=== PATIENT | male | born 1970 | race Caucasian/White ===

== ENCOUNTER 2019-08-31 13:44 | Inpatient (IN) ==
[2019-08-31] MEDS ORDERED: Naloxone 0.4 MG/ML INJ IVP PRN (15:52)
[2019-08-31] MEDS ORDERED: Aminoglycoside Consult 1 EACH MC ONE (15:54)
[2019-08-31 16:28] LABS: Basophils # 0.1 K/mcL (0.0-0.2); Eosinophils # 0.1 K/mcL (0.0-0.6); Eosinophils % 1.7 %; Hematocrit 34.9 % (37.5-50.1); Hemoglobin 10.4 g/dL (12.9-16.9); Immature Granulocytes % 0.2 % (0-4); Lymphocytes # 1.9 K/mcL (0.6-4.6); Lymphocytes % 32.5 %; Mean Corpuscular HGB Conc 29.8 g/dL (31.6-35.5); Mean Corpuscular Hemoglobin 27.2 pg (28.0-33.3); Mean Corpuscular Volume 91.1 fL (83.0-100.0); Mean Platelet Volume 9.6 fL (9.4-12.4); Monocytes # 0.3 K/mcL (0.0-1.3); Monocytes % 5.3 %; Neutrophils # 3.4 K/mcL (1.6-8.9); Platelet Count 309 K/mcL (140-400); Red Blood Count 3.83 M/mcL (4.19-5.50); Red Cell Distribution Width 15.5 % (11.5-14.5); Segmented Neutrophils % 59.3 %; White Blood Count 5.8 K/mcL (4.3-11.1)
[2019-08-31 16:46] LABS: BUN/Creatinine Ratio 19 (6-26); Blood Urea Nitrogen 14 mg/dL (6-20); C-Reactive Protein 15 mg/L (Less than 10); Carbon Dioxide 30 mEq/L (23-29); Chloride 103 mEq/L (98-107); Glucose 90 mg/dL (70-105); Magnesium 1.8 mg/dL (1.6-2.6); Osmolality,Calculated 284 (280-300); Phosphorous 2.9 mg/dL (2.7-4.5); Potassium 3.7 mEq/L (3.5-5.1); Sodium 137 mEq/L (136-145); eGFR For African Americans > 60 (> 60); eGFR For Non-African Americans > 60 (> 60)
[2019-08-31 16:47] LABS: INR 4.9; Prothrombin Time 55.7 Seconds (9.4-12.1)
[2019-08-31] MEDS ORDERED: *HR* OxyCODONE/APAP 5/325 TABLET PO PRN (16:54)
[2019-08-31] MEDS ORDERED: Gadolinium Contrast Agent (WT Based) IV PRN (16:56)
[2019-08-31] MEDS ORDERED: 0.9 % Sodium Chloride 1,000 ML IVC SCH (17:00)
[2019-08-31] MEDS: *HR* OxyCODONE/APAP 7.5/325 TABLET PO PRN (20:17)
[2019-08-31] MEDS: Pregabalin 75 MG CAPSULE PO SCH (20:17)
[2019-08-31] MEDS ORDERED: MethylPREDNISolone 40 MG/ML VIAL IVP ONE (21:53)
[2019-08-31] MEDS ORDERED: Famotidine 20 MG/2 ML VIAL IVP ONE (21:56)
[2019-09-01 06:27] LABS: INR 4.2
[2019-09-01 06:40] LABS: Basophils % 0.4 %; Eosinophils % 0.2 %; Hematocrit 37.1 % (37.5-50.1); Hemoglobin 11.4 g/dL (12.9-16.9); Immature Granulocytes % 0.4 % (0-4); Lymphocytes # 0.9 K/mcL (0.6-4.6); Lymphocytes % 15.7 %; Mean Corpuscular HGB Conc 30.7 g/dL (31.6-35.5); Mean Corpuscular Hemoglobin 27.7 pg (28.0-33.3); Mean Corpuscular Volume 90.3 fL (83.0-100.0); Mean Platelet Volume 9.9 fL (9.4-12.4); Monocytes # 0.1 K/mcL (0.0-1.3); Monocytes % 0.9 %; Neutrophils # 4.6 K/mcL (1.6-8.9); Platelet Count 323 K/mcL (140-400); Red Blood Count 4.11 M/mcL (4.19-5.50); Red Cell Distribution Width 15.4 % (11.5-14.5); Segmented Neutrophils % 82.4 %; White Blood Count 5.5 K/mcL (4.3-11.1)
[2019-09-01 06:41] LABS: BUN/Creatinine Ratio 22 (6-26); Blood Urea Nitrogen 17 mg/dL (6-20); Carbon Dioxide 25 mEq/L (23-29); Chloride 104 mEq/L (98-107); Glucose 129 mg/dL (70-105); Magnesium 1.7 mg/dL (1.6-2.6); Osmolality,Calculated 285 (280-300); Phosphorous 3.1 mg/dL (2.7-4.5); Sodium 136 mEq/L (136-145); eGFR For African Americans > 60 (> 60); eGFR For Non-African Americans > 60 (> 60)
[2019-09-01 06:44] LABS: Prothrombin Time 47.3 Seconds (9.4-12.1)
[2019-09-01] MEDS: Pregabalin 75 MG CAPSULE PO SCH ×3 (07:47→23:11)
[2019-09-01] MEDS: *HR* OxyCODONE/APAP 7.5/325 TABLET PO PRN ×3 (07:48→23:11)
[2019-09-01] MEDS ORDERED: D5% in Water 1,000 ML IVC PRN (11:18)
[2019-09-01] MEDS ORDERED: Dextrose Gel 15 GM/37.5 ML TUBE PO PRN ×2 (11:18)
[2019-09-01] MEDS ORDERED: *HR* Dextrose 50 % in Water (Syg) 50 ML SYRINGE IVP PRN (11:18)
[2019-09-01] MEDS ORDERED: D10% in Water 500 ML IVC PRN (11:45)
[2019-09-01] MEDS: Insulin LISPRO 300 UNITS/3 ML VIAL SQ SCH ×3 (12:12→22:09)
[2019-09-01] MEDS ORDERED: Clinimix E 5%-15% SOLUTION 2,000 ML with MVI, adult with vitamin K 10 ML IVC SCH (17:00)
[2019-09-02] MEDS: Insulin LISPRO 300 UNITS/3 ML VIAL SQ SCH ×6 (04:36→20:42)
[2019-09-02 05:08] LABS: INR 2.9; Prothrombin Time 32.6 Seconds (9.4-12.1)
[2019-09-02 05:20] LABS: BUN/Creatinine Ratio 26 (6-26); Blood Urea Nitrogen 21 mg/dL (6-20); Carbon Dioxide 30 mEq/L (23-29); Chloride 98 mEq/L (98-107); Glucose 113 mg/dL (70-105); Magnesium 1.8 mg/dL (1.6-2.6); Osmolality,Calculated 284 (280-300); Phosphorous 3.6 mg/dL (2.7-4.5); Potassium 3.4 mEq/L (3.5-5.1); Sodium 135 mEq/L (136-145); eGFR For African Americans > 60 (> 60); eGFR For Non-African Americans > 60 (> 60)
[2019-09-02] MEDS: Pregabalin 75 MG CAPSULE PO SCH ×3 (09:25→20:31)
[2019-09-02] MEDS: *HR* OxyCODONE/APAP 7.5/325 TABLET PO PRN ×2 (09:25→17:44)
[2019-09-02] MEDS ORDERED: Potassium Chloride 20 MEQ, Lidocaine 1% 2 ML in 0.9 % Sodium Chloride 250 ML IVPB ONE (09:47)
[2019-09-02] MEDS ORDERED: Clinimix E 5%-15% SOLUTION 2,000 ML with MVI, adult with vitamin K 10 ML IVC SCH (17:00)
[2019-09-03] MEDS: Insulin LISPRO 300 UNITS/3 ML VIAL SQ SCH ×6 (00:33→20:00)
[2019-09-03 05:13] LABS: Basophils % 0.6 %; Eosinophils # 0.2 K/mcL (0.0-0.6); Eosinophils % 2.2 %; Hemoglobin 12.1 g/dL (12.9-16.9); Immature Granulocytes % 0.3 % (0-4); Lymphocytes # 2.5 K/mcL (0.6-4.6); Lymphocytes % 37.4 %; Mean Corpuscular HGB Conc 31.8 g/dL (31.6-35.5); Mean Corpuscular Hemoglobin 28.3 pg (28.0-33.3); Mean Corpuscular Volume 88.8 fL (83.0-100.0); Mean Platelet Volume 9.6 fL (9.4-12.4); Monocytes # 0.4 K/mcL (0.0-1.3); Monocytes % 6.2 %; Neutrophils # 3.6 K/mcL (1.6-8.9); Platelet Count 339 K/mcL (140-400); Red Blood Count 4.28 M/mcL (4.19-5.50); Red Cell Distribution Width 15.3 % (11.5-14.5); Segmented Neutrophils % 53.3 %; White Blood Count 6.8 K/mcL (4.3-11.1)
[2019-09-03 05:28] LABS: BUN/Creatinine Ratio 30 (6-26); Blood Urea Nitrogen 25 mg/dL (6-20); Calcium 9.4 mg/dL (8.6-10.3); Carbon Dioxide 32 mEq/L (23-29); Chloride 94 mEq/L (98-107); Glucose 112 mg/dL (70-105); Magnesium 1.8 mg/dL (1.6-2.6); Osmolality,Calculated 283 (280-300); Phosphorous 3.9 mg/dL (2.7-4.5); Potassium 3.3 mEq/L (3.5-5.1); Sodium 134 mEq/L (136-145); eGFR For African Americans > 60 (> 60); eGFR For Non-African Americans > 60 (> 60)
[2019-09-03 06:40] LABS: INR 1.4; Prothrombin Time 15.9 Seconds (9.4-12.1)
[2019-09-03] MEDS ORDERED: Potassium Chloride 20 MEQ, Lidocaine 1% 2 ML in 0.9 % Sodium Chloride 250 ML IVPB ONE (08:44)
[2019-09-03] MEDS: *HR* OxyCODONE/APAP 7.5/325 TABLET PO PRN ×3 (09:12→19:56)
[2019-09-03] MEDS: Pregabalin 75 MG CAPSULE PO SCH ×3 (09:12→19:56)
[2019-09-03] MEDS: *HR* Enoxaparin 60 MG/0.6 ML SYRINGE SQ SCH ×2 (09:49→16:45)
[2019-09-03] MEDS ORDERED: *HR* OxyCODONE/APAP 5/325 TABLET PO PRN (14:16)
[2019-09-03] MEDS ORDERED: Clinimix E 5%-15% SOLUTION 2,000 ML with MVI, adult with vitamin K 10 ML IVC SCH (17:00)
[2019-09-04] MEDS: Insulin LISPRO 300 UNITS/3 ML VIAL SQ SCH ×6 (00:44→20:48)
[2019-09-04] MEDS: *HR* OxyCODONE/APAP 7.5/325 TABLET PO PRN ×4 (04:59→20:52)
[2019-09-04] MEDS: *HR* Enoxaparin 60 MG/0.6 ML SYRINGE SQ SCH (04:59)
[2019-09-04 05:22] LABS: INR 1.2; Prothrombin Time 13.2 Seconds (9.4-12.1)
[2019-09-04 05:37] LABS: BUN/Creatinine Ratio 29 (6-26); Blood Urea Nitrogen 22 mg/dL (6-20); Calcium 9.6 mg/dL (8.6-10.3); Carbon Dioxide 33 mEq/L (23-29); Chloride 93 mEq/L (98-107); Glucose 96 mg/dL (70-105); Osmolality,Calculated 279 (280-300); Potassium 3.4 mEq/L (3.5-5.1); Sodium 133 mEq/L (136-145); eGFR For African Americans > 60 (> 60); eGFR For Non-African Americans > 60 (> 60)
[2019-09-04] MEDS ORDERED: Potassium Chloride 40 MEQ, Lidocaine 1% 2 ML in 0.9 % Sodium Chloride 500 ML IVPB ONE (07:34)
[2019-09-04] MEDS: Pregabalin 75 MG CAPSULE PO SCH ×3 (08:54→20:51)
[2019-09-04] MEDS ORDERED: Potassium Chloride 20 MEQ, Lidocaine 1% 2 ML in 0.9 % Sodium Chloride 250 ML IVPB ONE (10:00)
[2019-09-04] MEDS ORDERED: Clinimix E 5%-15% SOLUTION 2,000 ML, Parenteral Amino Acid 10% 200 ML with MVI, adult ... IVC SCH (17:00)
[2019-09-04] MEDS ORDERED: *HR* Enoxaparin 60 MG/0.6 ML SYRINGE SQ ONE (18:00)
[2019-09-05] MEDS: Insulin LISPRO 300 UNITS/3 ML VIAL SQ SCH ×7 (00:30→20:00)
[2019-09-05] MEDS: *HR* OxyCODONE/APAP 7.5/325 TABLET PO PRN ×4 (04:43→22:36)
[2019-09-05 05:29] LABS: INR 1.1; Prothrombin Time 12.7 Seconds (9.4-12.1)
[2019-09-05 05:41] LABS: BUN/Creatinine Ratio 32 (6-26); Blood Urea Nitrogen 24 mg/dL (6-20); Calcium 9.7 mg/dL (8.6-10.3); Carbon Dioxide 32 mEq/L (23-29); Chloride 93 mEq/L (98-107); Glucose 85 mg/dL (70-105); Magnesium 1.8 mg/dL (1.6-2.6); Osmolality,Calculated 279 (280-300); Phosphorous 3.8 mg/dL (2.7-4.5); Potassium 3.5 mEq/L (3.5-5.1); Sodium 133 mEq/L (136-145); eGFR For African Americans > 60 (> 60); eGFR For Non-African Americans > 60 (> 60)
[2019-09-05] MEDS: Pregabalin 75 MG CAPSULE PO SCH ×3 (09:22→22:36)
[2019-09-05] MEDS ORDERED: Vancomycin (wt based) 1,000 MG VIAL IVPB SCH (15:28)
[2019-09-05] MEDS ORDERED: Clinimix E 5%-15% SOLUTION 2,000 ML, Parenteral Amino Acid 10% 200 ML with MVI, adult ... IVC SCH (17:00)
[2019-09-05] MEDS: Cefepime HCl 2,000 MG in Water for inj. (sterile) 20 ML IVP SCH (17:27)
[2019-09-06] MEDS: Insulin LISPRO 300 UNITS/3 ML VIAL SQ SCH ×5 (05:14→20:04)
[2019-09-06] MEDS: Cefepime HCl 2,000 MG in Water for inj. (sterile) 20 ML IVP SCH ×2 (06:13→18:01)
[2019-09-06] MEDS: *HR* OxyCODONE/APAP 7.5/325 TABLET PO PRN ×3 (06:13→20:04)
[2019-09-06 06:40] LABS: Basophils # 0.1 K/mcL (0.0-0.2); Basophils % 0.9 %; Eosinophils # 0.2 K/mcL (0.0-0.6); Eosinophils % 3.5 %; Hematocrit 38.3 % (37.5-50.1); Hemoglobin 12.4 g/dL (12.9-16.9); Immature Granulocytes % 0.5 % (0-4); Lymphocytes # 2.2 K/mcL (0.6-4.6); Lymphocytes % 34.4 %; Mean Corpuscular HGB Conc 32.4 g/dL (31.6-35.5); Mean Corpuscular Hemoglobin 28.5 pg (28.0-33.3); Mean Platelet Volume 9.6 fL (9.4-12.4); Monocytes # 0.6 K/mcL (0.0-1.3); Monocytes % 9.1 %; Neutrophils # 3.3 K/mcL (1.6-8.9); Platelet Count 302 K/mcL (140-400); Red Blood Count 4.35 M/mcL (4.19-5.50); Segmented Neutrophils % 51.6 %; White Blood Count 6.4 K/mcL (4.3-11.1)
[2019-09-06 06:41] LABS: INR 1.2; Prothrombin Time 13.2 Seconds (9.4-12.1)
[2019-09-06 06:57] LABS: BUN/Creatinine Ratio 36 (6-26); Blood Urea Nitrogen 29 mg/dL (6-20); Calcium 9.4 mg/dL (8.6-10.3); Carbon Dioxide 32 mEq/L (23-29); Chloride 94 mEq/L (98-107); Glucose 97 mg/dL (70-105); Magnesium 1.8 mg/dL (1.6-2.6); Osmolality,Calculated 276 (280-300); Phosphorous 3.7 mg/dL (2.7-4.5); Potassium 3.8 mEq/L (3.5-5.1); Sodium 130 mEq/L (136-145); eGFR For African Americans > 60 (> 60); eGFR For Non-African Americans > 60 (> 60)
[2019-09-06] MEDS: Pregabalin 75 MG CAPSULE PO SCH ×3 (09:20→20:04)
[2019-09-06] MEDS: *HR* Enoxaparin 60 MG/0.6 ML SYRINGE SQ SCH ×2 (13:16→20:05)
[2019-09-06] MEDS: DAPTOmycin 450 MG in 0.9 % Sodium Chloride 100 ML IVPB SCH (16:06)
[2019-09-06] MEDS ORDERED: Clinimix E 5%-15% SOLUTION 2,000 ML, Parenteral Amino Acid 10% 200 ML with MVI, adult ... IVC SCH (17:00)
[2019-09-07] MEDS: Insulin LISPRO 300 UNITS/3 ML VIAL SQ SCH ×6 (00:06→20:54)
[2019-09-07] MEDS: *HR* OxyCODONE/APAP 7.5/325 TABLET PO PRN ×5 (00:17→21:31)
[2019-09-07 04:34] LABS: INR 1.1; Prothrombin Time 12.7 Seconds (9.4-12.1)
[2019-09-07 04:35] LABS: Basophils # 0.1 K/mcL (0.0-0.2); Eosinophils # 0.2 K/mcL (0.0-0.6); Eosinophils % 2.9 %; Hematocrit 38.6 % (37.5-50.1); Hemoglobin 12.4 g/dL (12.9-16.9); Immature Granulocytes % 0.7 % (0-4); Lymphocytes # 2.7 K/mcL (0.6-4.6); Lymphocytes % 36.5 %; Mean Corpuscular HGB Conc 32.1 g/dL (31.6-35.5); Mean Corpuscular Volume 87.1 fL (83.0-100.0); Mean Platelet Volume 9.9 fL (9.4-12.4); Monocytes # 0.6 K/mcL (0.0-1.3); Monocytes % 7.7 %; Neutrophils # 3.7 K/mcL (1.6-8.9); Platelet Count 325 K/mcL (140-400); Red Blood Count 4.43 M/mcL (4.19-5.50); Red Cell Distribution Width 15.1 % (11.5-14.5); Segmented Neutrophils % 51.2 %; White Blood Count 7.3 K/mcL (4.3-11.1)
[2019-09-07 04:51] LABS: BUN/Creatinine Ratio 36 (6-26); Blood Urea Nitrogen 27 mg/dL (6-20); Calcium 9.5 mg/dL (8.6-10.3); Carbon Dioxide 30 mEq/L (23-29); Chloride 91 mEq/L (98-107); Creatine Kinase 108 Units/L (30-223); Glucose 110 mg/dL (70-105); Magnesium 1.8 mg/dL (1.6-2.6); Osmolality,Calculated 278 (280-300); Phosphorous 3.9 mg/dL (2.7-4.5); Potassium 3.3 mEq/L (3.5-5.1); Sodium 131 mEq/L (136-145); eGFR For African Americans > 60 (> 60); eGFR For Non-African Americans > 60 (> 60)
[2019-09-07] MEDS: Cefepime HCl 2,000 MG in Water for inj. (sterile) 20 ML IVP SCH ×2 (05:45→17:22)
[2019-09-07] MEDS: Pregabalin 75 MG CAPSULE PO SCH ×3 (08:51→21:31)
[2019-09-07] MEDS: *HR* Enoxaparin 60 MG/0.6 ML SYRINGE SQ SCH ×2 (08:52→21:30)
[2019-09-07] MEDS ORDERED: Potassium Chloride 40 MEQ, Lidocaine 1% 2 ML in 0.9 % Sodium Chloride 500 ML IVPB ONE (09:27)
[2019-09-07] MEDS: DAPTOmycin 450 MG in 0.9 % Sodium Chloride 100 ML IVPB SCH (14:42)
[2019-09-07] MEDS ORDERED: Clinimix E 5%-15% SOLUTION 2,000 ML, Parenteral Amino Acid 10% 200 ML with MVI, adult ... IVC SCH (17:00)
[2019-09-08] MEDS: Insulin LISPRO 300 UNITS/3 ML VIAL SQ SCH ×4 (02:02→12:20)
[2019-09-08] MEDS: Cefepime HCl 2,000 MG in Water for inj. (sterile) 20 ML IVP SCH (05:04)
[2019-09-08 05:31] LABS: INR 1.1; Prothrombin Time 12.4 Seconds (9.4-12.1)
[2019-09-08 05:47] LABS: BUN/Creatinine Ratio 39 (6-26); Blood Urea Nitrogen 28 mg/dL (6-20); Calcium 9.6 mg/dL (8.6-10.3); Carbon Dioxide 32 mEq/L (23-29); Chloride 94 mEq/L (98-107); Glucose 101 mg/dL (70-105); Magnesium 1.8 mg/dL (1.6-2.6); Osmolality,Calculated 280 (280-300); Phosphorous 3.3 mg/dL (2.7-4.5); Potassium 3.6 mEq/L (3.5-5.1); Sodium 132 mEq/L (136-145); Triglycerides 162 mg/dL (< 150); eGFR For African Americans > 60 (> 60); eGFR For Non-African Americans > 60 (> 60)
[2019-09-08] MEDS: Pregabalin 75 MG CAPSULE PO SCH ×2 (08:18→14:03)
[2019-09-08] MEDS: *HR* OxyCODONE/APAP 7.5/325 TABLET PO PRN ×2 (08:18→13:13)
[2019-09-08] MEDS: *HR* Enoxaparin 60 MG/0.6 ML SYRINGE SQ SCH (08:18)
[2019-09-08 11:58] VITALS: BP 124/79
[2019-09-08] MEDS: DAPTOmycin 450 MG in 0.9 % Sodium Chloride 100 ML IVPB SCH (14:03)
[2019-09-08] MEDS ORDERED: *HR* Heparin 5,000 UNIT/ML VIAL IVP ONE (14:33)
[2019-09-08] MEDS ORDERED: Cefepime HCl 2,000 MG in Water for inj. (sterile) 20 ML IVP SCH (17:00)
[2019-09-08] MEDS ORDERED: Clinimix E 5%-15% SOLUTION 2,000 ML, Parenteral Amino Acid 10% 200 ML with MVI, adult ... IVC SCH (17:00)
== END 2019-09-08 17:00 | disposition home health service (06) | DRG 344 ==
LOC: 3NENU → SUATTDRO 15:53
PROVIDERS: ADMIT Internal Medicine; ATTEND Family Medicine

== ENCOUNTER 2019-11-30 18:50 | Inpatient (IN) ==
[2019-11-30] MEDS ORDERED: Acetaminophen 325 MG TABLET PO PRN (23:33)
[2019-11-30] MEDS ORDERED: Naloxone 0.4 MG/ML INJ IVP PRN (23:33)
[2019-11-30] MEDS ORDERED: *HR* Promethazine 25 MG/ML VIAL IVP PRN (23:33)
[2019-12-01] MEDS ORDERED: Perflutren Lipid Microsphere 1.3 ML in 0.9 % Sodium Chloride 8.7 ML IVP PRN (00:55)
[2019-12-01 07:02] LABS: Basophils % 0.4 %; Eosinophils # 0.1 K/mcL (0.0-0.6); Eosinophils % 1.9 %; Hematocrit 32.5 % (37.5-50.1); Hemoglobin 10.7 g/dL (12.9-16.9); Immature Granulocytes % 0.4 % (0-4); Lymphocytes # 1.3 K/mcL (0.6-4.6); Lymphocytes % 25.5 %; Mean Corpuscular HGB Conc 32.9 g/dL (31.6-35.5); Mean Corpuscular Hemoglobin 28.7 pg (28.0-33.3); Mean Corpuscular Volume 87.1 fL (83.0-100.0); Mean Platelet Volume 11.4 fL (9.4-12.4); Monocytes # 0.8 K/mcL (0.0-1.3); Monocytes % 14.6 %; Neutrophils # 2.9 K/mcL (1.6-8.9); Platelet Count 200 K/mcL (140-400); Red Blood Count 3.73 M/mcL (4.19-5.50); Red Cell Distribution Width 16.4 % (11.5-14.5); Segmented Neutrophils % 57.2 %; White Blood Count 5.1 K/mcL (4.3-11.1)
[2019-12-01 07:18] LABS: INR 3.1; Prothrombin Time 34.8 Seconds (9.4-12.1)
[2019-12-01 07:19] LABS: BUN/Creatinine Ratio 24 (6-26); Blood Urea Nitrogen 18 mg/dL (6-20); Calcium 8.4 mg/dL (8.6-10.3); Carbon Dioxide 25 mEq/L (23-29); Chloride 98 mEq/L (98-107); Glucose 83 mg/dL (70-105); Osmolality,Calculated 273 (280-300); Potassium 3.9 mEq/L (3.5-5.1); Sodium 131 mEq/L (136-145); eGFR For African Americans > 60 (> 60); eGFR For Non-African Americans > 60 (> 60)
[2019-12-01] MEDS ORDERED: Ringers Solution, Lactated 1,000 ML IVC SCH (13:45)
[2019-12-01] MEDS ORDERED: Warfarin perPT PO PRN (18:00)
[2019-12-01] MEDS ORDERED: *HR* Warfarin 5 MG TABLET PO ONE (18:00)
[2019-12-01] MEDS: DAPTOmycin 500 MG in 0.9 % Sodium Chloride 100 ML IVPB SCH (18:27)
[2019-12-02 02:31] LABS: Acinetobacter baumannii by PCR Not Detected (Not Detect); Candida albicans by PCR Not Detected (Not Detect); Candida glabrata by PCR Not Detected (Not Detect); Candida krusei by PCR Not Detected (Not Detect); Candida parapsilosis by PCR Not Detected (Not Detect); Candida tropicalis by PCR Not Detected (Not Detect); Enterobacter cloacae Cmplx PCR Not Detected (Not Detect); Enterobacteriaceae by PCR Not Detected (Not Detect); Enterococcus by PCR Not Detected (Not Detect); Escherichia coli by PCR Not Detected (Not Detect); Klebsiella oxytoca by PCR Not Detected (Not Detect); Klebsiella pneumoniae by PCR Not Detected (Not Detect); Proteus by PCR Not Detected (Not Detect); Pseudomonas aeruginosa by PCR Not Detected (Not Detect); Serratia marcescens by PCR Not Detected (Not Detect); Staphylococcus aureus by PCR Not Detected (Not Detect); Staphylococcus by PCR DETECTED (Not Detect); Streptococcus agalactiae(B)PCR Not Detected (Not Detect); Streptococcus by PCR Not Detected (Not Detect); Streptococcus pneumoniae PCR Not Detected (Not Detect); Streptococcus pyogenes (A) PCR Not Detected (Not Detect); mecA Methicillin-Resist Gene Not Detected (Not Detect)
[2019-12-02 04:13] LABS: Basophils % 0.4 %; Eosinophils # 0.1 K/mcL (0.0-0.6); Eosinophils % 1.6 %; Hematocrit 32.4 % (37.5-50.1); Hemoglobin 10.7 g/dL (12.9-16.9); Immature Granulocytes % 0.5 % (0-4); Lymphocytes # 1.7 K/mcL (0.6-4.6); Lymphocytes % 29.7 %; Mean Corpuscular Hemoglobin 28.9 pg (28.0-33.3); Mean Corpuscular Volume 87.6 fL (83.0-100.0); Mean Platelet Volume 10.9 fL (9.4-12.4); Monocytes # 0.7 K/mcL (0.0-1.3); Monocytes % 12.5 %; Neutrophils # 3.2 K/mcL (1.6-8.9); Platelet Count 248 K/mcL (140-400); Red Cell Distribution Width 15.9 % (11.5-14.5); Segmented Neutrophils % 55.3 %; White Blood Count 5.7 K/mcL (4.3-11.1)
[2019-12-02 04:26] LABS: INR 2.3; Prothrombin Time 25.8 Seconds (9.4-12.1)
[2019-12-02 04:33] LABS: BUN/Creatinine Ratio 21 (6-26); Blood Urea Nitrogen 15 mg/dL (6-20); Calcium 8.5 mg/dL (8.6-10.3); Carbon Dioxide 25 mEq/L (23-29); Chloride 96 mEq/L (98-107); Glucose 92 mg/dL (70-105); Magnesium 1.7 mg/dL (1.6-2.6); Osmolality,Calculated 272 (280-300); Phosphorous 3.5 mg/dL (2.7-4.5); Potassium 3.4 mEq/L (3.5-5.1); Sodium 131 mEq/L (136-145); eGFR For African Americans > 60 (> 60); eGFR For Non-African Americans > 60 (> 60)
[2019-12-02] MEDS ORDERED: Potassium Chloride 40 MEQ, Lidocaine 1% 2 ML in 0.9 % Sodium Chloride 500 ML IVPB ONE (07:37)
[2019-12-02] MEDS ORDERED: *HR* Midazolam HCl 2 MG/2 ML VIAL IVP ONE (11:32)
[2019-12-02] MEDS ORDERED: *HR* FentaNYL (PF) 100 MCG/2 ML VIAL IVP ONE (11:32)
[2019-12-02] MEDS ORDERED: Heparin 1,000 UNITS/500 mL 500 ML ONE (12:54)
[2019-12-02] MEDS ORDERED: 0.9 % Sodium Chloride 500 ML ONE (13:34)
[2019-12-02] MEDS ORDERED: Lidocaine -MPF 1% 5 ML AMPUL INFILT ONE (15:02)
[2019-12-02] MEDS ORDERED: *HR* Warfarin 10 MG TABLET PO ONE (18:00)
[2019-12-02] MEDS: *HR* OxyCODONE/APAP 5/325 TABLET PO PRN (18:08)
[2019-12-02] MEDS: DAPTOmycin 500 MG in 0.9 % Sodium Chloride 100 ML IVPB SCH (18:09)
[2019-12-02] MEDS: 0.9 % Sodium Chloride 1,000 ML IVC SCH (18:10)
[2019-12-02] MEDS: Pregabalin 75 MG CAPSULE PO SCH (20:43)
[2019-12-03 08:13] LABS: Basophils % 0.4 %; Eosinophils # 0.1 K/mcL (0.0-0.6); Eosinophils % 1.7 %; Hematocrit 31.9 % (37.5-50.1); Hemoglobin 10.8 g/dL (12.9-16.9); Immature Granulocytes % 0.4 % (0-4); Lymphocytes # 1.4 K/mcL (0.6-4.6); Mean Corpuscular HGB Conc 33.9 g/dL (31.6-35.5); Mean Corpuscular Volume 88.6 fL (83.0-100.0); Mean Platelet Volume 10.1 fL (9.4-12.4); Monocytes # 0.5 K/mcL (0.0-1.3); Monocytes % 10.7 %; Neutrophils # 2.6 K/mcL (1.6-8.9); Platelet Count 273 K/mcL (140-400); Red Cell Distribution Width 15.7 % (11.5-14.5); Segmented Neutrophils % 56.8 %; White Blood Count 4.6 K/mcL (4.3-11.1)
[2019-12-03 08:14] LABS: INR 2.2; Prothrombin Time 25.3 Seconds (9.4-12.1)
[2019-12-03 08:33] LABS: BUN/Creatinine Ratio 25 (6-26); Blood Urea Nitrogen 15 mg/dL (6-20); Calcium 8.5 mg/dL (8.6-10.3); Carbon Dioxide 25 mEq/L (23-29); Chloride 96 mEq/L (98-107); Glucose 100 mg/dL (70-105); Magnesium 1.8 mg/dL (1.6-2.6); Osmolality,Calculated 275 (280-300); Phosphorous 3.1 mg/dL (2.7-4.5); Potassium 3.5 mEq/L (3.5-5.1); Sodium 132 mEq/L (136-145); eGFR For African Americans > 60 (> 60); eGFR For Non-African Americans > 60 (> 60)
[2019-12-03] MEDS: Pregabalin 75 MG CAPSULE PO SCH ×3 (08:33→20:24)
[2019-12-03] MEDS: 0.9 % Sodium Chloride 1,000 ML IVC SCH (12:02)
[2019-12-03] MEDS: *HR* OxyCODONE/APAP 5/325 TABLET PO PRN ×2 (14:38→20:23)
[2019-12-03] MEDS: DAPTOmycin 500 MG in 0.9 % Sodium Chloride 100 ML IVPB SCH (16:41)
[2019-12-03] MEDS ORDERED: *HR* Warfarin 10 MG TABLET PO ONE (18:00)
[2019-12-03 21:22] LABS: % Iron Saturation 10 % (20-55); Iron 29 mcg/dL (65-175); Transferrin 218 mg/dL (203-362)
[2019-12-04 04:08] LABS: INR 2.7; Prothrombin Time 30.6 Seconds (9.4-12.1)
[2019-12-04 04:10] LABS: Basophils % 0.4 %; Eosinophils # 0.1 K/mcL (0.0-0.6); Eosinophils % 2.4 %; Hematocrit 35.5 % (37.5-50.1); Hemoglobin 11.5 g/dL (12.9-16.9); Immature Granulocytes % 0.4 % (0-4); Lymphocytes # 1.9 K/mcL (0.6-4.6); Lymphocytes % 37.9 %; Mean Corpuscular HGB Conc 32.4 g/dL (31.6-35.5); Mean Corpuscular Hemoglobin 28.8 pg (28.0-33.3); Mean Platelet Volume 10.3 fL (9.4-12.4); Monocytes # 0.5 K/mcL (0.0-1.3); Monocytes % 10.8 %; Neutrophils # 2.4 K/mcL (1.6-8.9); Platelet Count 395 K/mcL (140-400); Red Blood Count 3.99 M/mcL (4.19-5.50); Red Cell Distribution Width 15.3 % (11.5-14.5); Segmented Neutrophils % 48.1 %
[2019-12-04 04:17] LABS: BUN/Creatinine Ratio 20 (6-26); Blood Urea Nitrogen 12 mg/dL (6-20); Carbon Dioxide 28 mEq/L (23-29); Chloride 93 mEq/L (98-107); Glucose 103 mg/dL (70-105); Magnesium 1.9 mg/dL (1.6-2.6); Osmolality,Calculated 272 (280-300); Phosphorous 3.5 mg/dL (2.7-4.5); Potassium 3.1 mEq/L (3.5-5.1); Sodium 131 mEq/L (136-145); eGFR For African Americans > 60 (> 60); eGFR For Non-African Americans > 60 (> 60)
[2019-12-04] MEDS: Pregabalin 75 MG CAPSULE PO SCH ×3 (08:17→20:59)
[2019-12-04] MEDS ORDERED: Potassium Chloride 40 MEQ, Lidocaine 1% 2 ML in 0.9 % Sodium Chloride 500 ML IVPB ONE (11:19)
[2019-12-04] MEDS: 0.9 % Sodium Chloride 1,000 ML IVC SCH (12:33)
[2019-12-04] MEDS: DAPTOmycin 500 MG in 0.9 % Sodium Chloride 100 ML IVPB SCH (16:04)
[2019-12-04] MEDS ORDERED: *HR* Warfarin 7.5 MG TABLET PO ONE (18:00)
[2019-12-04] MEDS: *HR* OxyCODONE/APAP 5/325 TABLET PO PRN (21:05)
[2019-12-05 04:19] LABS: Basophils % 0.8 %; Eosinophils # 0.1 K/mcL (0.0-0.6); Eosinophils % 1.8 %; Hematocrit 36.1 % (37.5-50.1); Hemoglobin 11.6 g/dL (12.9-16.9); Immature Granulocytes % 0.6 % (0-4); Lymphocytes # 2.2 K/mcL (0.6-4.6); Mean Corpuscular HGB Conc 32.1 g/dL (31.6-35.5); Mean Corpuscular Hemoglobin 28.6 pg (28.0-33.3); Mean Corpuscular Volume 89.1 fL (83.0-100.0); Mean Platelet Volume 9.7 fL (9.4-12.4); Monocytes # 0.6 K/mcL (0.0-1.3); Monocytes % 10.8 %; Neutrophils # 2.2 K/mcL (1.6-8.9); Platelet Count 439 K/mcL (140-400); Red Blood Count 4.05 M/mcL (4.19-5.50); Red Cell Distribution Width 15.4 % (11.5-14.5); White Blood Count 5.1 K/mcL (4.3-11.1)
[2019-12-05 04:38] LABS: BUN/Creatinine Ratio 20 (6-26); Blood Urea Nitrogen 14 mg/dL (6-20); Calcium 8.9 mg/dL (8.6-10.3); Carbon Dioxide 30 mEq/L (23-29); Chloride 95 mEq/L (98-107); Glucose 119 mg/dL (70-105); Magnesium 1.8 mg/dL (1.6-2.6); Osmolality,Calculated 278 (280-300); Phosphorous 3.8 mg/dL (2.7-4.5); Potassium 3.2 mEq/L (3.5-5.1); Sodium 133 mEq/L (136-145); eGFR For African Americans > 60 (> 60); eGFR For Non-African Americans > 60 (> 60)
[2019-12-05] MEDS: 0.9 % Sodium Chloride 1,000 ML IVC SCH ×3 (05:38→21:02)
[2019-12-05] MEDS: Pregabalin 75 MG CAPSULE PO SCH ×3 (09:46→19:51)
[2019-12-05] MEDS ORDERED: *HR* Phytonadione 5 MG TABLET PO ONE (10:46)
[2019-12-05] MEDS ORDERED: Potassium Chloride 40 MEQ, Lidocaine 1% 2 ML in 0.9 % Sodium Chloride 500 ML IVPB ONE (10:52)
[2019-12-05 16:02] LABS: Creatine Kinase 29 Units/L (30-223)
[2019-12-05] MEDS: DAPTOmycin 500 MG in 0.9 % Sodium Chloride 100 ML IVPB SCH (18:33)
[2019-12-06 05:21] LABS: Basophils # 0.1 K/mcL (0.0-0.2); Basophils % 1.2 %; Eosinophils # 0.1 K/mcL (0.0-0.6); Eosinophils % 1.9 %; Hematocrit 34.4 % (37.5-50.1); Hemoglobin 11.1 g/dL (12.9-16.9); Immature Granulocytes % 0.9 % (0-4); Lymphocytes # 2.6 K/mcL (0.6-4.6); Lymphocytes % 45.1 %; Mean Corpuscular HGB Conc 32.3 g/dL (31.6-35.5); Mean Corpuscular Hemoglobin 28.8 pg (28.0-33.3); Mean Corpuscular Volume 89.1 fL (83.0-100.0); Mean Platelet Volume 9.2 fL (9.4-12.4); Monocytes # 0.5 K/mcL (0.0-1.3); Monocytes % 9.4 %; Neutrophils # 2.4 K/mcL (1.6-8.9); Platelet Count 512 K/mcL (140-400); Red Blood Count 3.86 M/mcL (4.19-5.50); Red Cell Distribution Width 15.4 % (11.5-14.5); Segmented Neutrophils % 41.5 %; White Blood Count 5.8 K/mcL (4.3-11.1)
[2019-12-06 05:27] LABS: INR 1.4; Prothrombin Time 15.7 Seconds (9.4-12.1)
[2019-12-06 05:45] LABS: BUN/Creatinine Ratio 16 (6-26); Blood Urea Nitrogen 12 mg/dL (6-20); Calcium 8.8 mg/dL (8.6-10.3); Carbon Dioxide 29 mEq/L (23-29); Chloride 96 mEq/L (98-107); Glucose 96 mg/dL (70-105); Magnesium 1.7 mg/dL (1.6-2.6); Osmolality,Calculated 278 (280-300); Phosphorous 3.6 mg/dL (2.7-4.5); Potassium 3.2 mEq/L (3.5-5.1); Sodium 134 mEq/L (136-145); eGFR For African Americans > 60 (> 60); eGFR For Non-African Americans > 60 (> 60)
[2019-12-06] MEDS ORDERED: Potassium Chloride 40 MEQ, Lidocaine 1% 2 ML in 0.9 % Sodium Chloride 500 ML IVPB ONE (07:38)
[2019-12-06] MEDS: Pregabalin 75 MG CAPSULE PO SCH (09:20)
[2019-12-06] MEDS: 0.9 % Sodium Chloride 1,000 ML IVC SCH (09:23)
[2019-12-06] MEDS ORDERED: Clindamycin 600 MG/50 ML 600 MG/50 ML IV.SOLN IVPB ONE (14:04)
[2019-12-06] MEDS ORDERED: Lidocaine/EPI 1:100k 1% 50 ML VIAL ONE (14:56)
[2019-12-06] MEDS ORDERED: Heparin 1,000 UNITS/500 mL 500 ML ONE (14:56)
[2019-12-06] MEDS ORDERED: *HR* FentaNYL (PF) 100 MCG/2 ML VIAL ONE ×2 (15:03→15:38)
[2019-12-06] MEDS ORDERED: *HR* FentaNYL (PF) 100 MCG/2 ML VIAL IVP ONE ×2 (15:03→15:38)
[2019-12-06] MEDS ORDERED: 0.9 % Sodium Chloride 500 ML ONE (15:03)
[2019-12-06 16:19] VITALS: BP 106/53
[2019-12-06] MEDS ORDERED: *HR* Warfarin 10 MG TABLET PO ONE (18:00)
[2019-12-06] MEDS ORDERED: Warfarin perPT PO PRN (18:00)
== END 2019-12-06 17:40 | disposition left against medical advice (07) | DRG 721 ==
LOC: 3ANU → SUATTDRO 22:20
PROVIDERS: ADMIT Student in an Organized Health Care Education/Training Program; ATTEND Internal Medicine

== ENCOUNTER 2020-09-29 18:30 | Inpatient (IN) ==
[2020-09-29] MEDS ORDERED: Ondansetron 4 MG/2 ML VIAL IVP PRN (23:53)
[2020-09-29] MEDS ORDERED: Naloxone 0.4 MG/ML INJ IVP PRN (23:53)
[2020-09-30] MEDS ORDERED: Perflutren Lipid Microsphere 1.3 ML in 0.9 % Sodium Chloride 8.7 ML IVP PRN (00:07)
[2020-09-30 01:06] LABS: Basophils % 0.4 %; Eosinophils # 0.1 K/mcL (0.0-0.6); Hematocrit 31.3 % (37.5-50.1); Hemoglobin 10.3 g/dL (12.9-16.9); Immature Granulocytes % 0.6 % (0-4); Lymphocytes # 1.6 K/mcL (0.6-4.6); Lymphocytes % 32.2 %; Mean Corpuscular HGB Conc 32.9 g/dL (31.6-35.5); Mean Corpuscular Hemoglobin 27.6 pg (28.0-33.3); Mean Corpuscular Volume 83.9 fL (83.0-100.0); Mean Platelet Volume 11.5 fL (9.4-12.4); Monocytes # 0.3 K/mcL (0.0-1.3); Monocytes % 5.2 %; Platelet Count 169 K/mcL (140-400); Red Blood Count 3.73 M/mcL (4.19-5.50); Red Cell Distribution Width 20.3 % (11.5-14.5); Segmented Neutrophils % 60.6 %
[2020-09-30 01:13] LABS: INR 4.2
[2020-09-30 01:25] LABS: BUN/Creatinine Ratio 30 (6-26); Blood Urea Nitrogen 19 mg/dL (6-20); Calcium 8.3 mg/dL (8.6-10.3); Carbon Dioxide 31 mEq/L (23-29); Chloride 88 mEq/L (98-107); Glucose 102 mg/dL (70-105); Osmolality,Calculated 264 (280-300); Potassium 3.3 mEq/L (3.5-5.1); Sodium 126 mEq/L (136-145); eGFR For African Americans > 60 (> 60); eGFR For Non-African Americans > 60 (> 60)
[2020-09-30 01:26] LABS: Magnesium 1.7 mg/dL (1.6-2.6); Phosphorous 3.1 mg/dL (2.7-4.5)
[2020-09-30 01:33] LABS: Prothrombin Time 47.2 Seconds (9.4-12.1)
[2020-09-30 01:35] LABS: Anisocytosis 1+ (Not Present)
[2020-09-30] MEDS: Micafungin 100 MG in 0.9 % Sodium Chloride Mini Bag 100 ML IVPB SCH (01:35)
[2020-09-30 01:36] LABS: Platelet Estimate Normal (Normal); Reactive Lymphocytes Present (Not Present)
[2020-09-30] MEDS: *HR* OxyCODONE/APAP 5/325 TABLET PO PRN ×3 (01:44→21:54)
[2020-09-30] MEDS ORDERED: *HR* Dextrose 50 % in Water (Vial) 50 ML VIAL IVP PRN (01:53)
[2020-09-30] MEDS ORDERED: Dextrose Gel 15 GM/37.5 ML TUBE PO PRN ×2 (01:53)
[2020-09-30] MEDS ORDERED: D5% in Water 1,000 ML IVC PRN (01:53)
[2020-09-30] MEDS: Potassium Chloride 40 MEQ in D5% in 0.9% NACL 1,000 ML IVC SCH ×2 (02:42→23:05)
[2020-09-30] MEDS: Insulin LISPRO 300 UNITS/3 ML VIAL SUBQ SCH ×3 (06:09→17:29)
[2020-09-30] MEDS: Pregabalin 75 MG CAPSULE PO SCH ×3 (10:31→21:54)
[2020-09-30] MEDS: Cholecalciferol (D-3) 1,000 UNIT (25MCG) TABLET PO SCH (10:31)
[2020-10-01] MEDS: Insulin LISPRO 300 UNITS/3 ML VIAL SUBQ SCH ×4 (01:17→16:54)
[2020-10-01 05:23] LABS: Basophils % 0.7 %; Eosinophils # 0.1 K/mcL (0.0-0.6); Eosinophils % 1.2 %; Hematocrit 33.6 % (37.5-50.1); Hemoglobin 10.8 g/dL (12.9-16.9); Immature Granulocytes % 0.7 % (0-4); Lymphocytes # 2.6 K/mcL (0.6-4.6); Lymphocytes % 44.7 %; Mean Corpuscular HGB Conc 32.1 g/dL (31.6-35.5); Mean Corpuscular Hemoglobin 27.1 pg (28.0-33.3); Mean Corpuscular Volume 84.4 fL (83.0-100.0); Mean Platelet Volume 11.5 fL (9.4-12.4); Monocytes # 0.5 K/mcL (0.0-1.3); Neutrophils # 2.6 K/mcL (1.6-8.9); Platelet Count 229 K/mcL (140-400); Red Blood Count 3.98 M/mcL (4.19-5.50); Red Cell Distribution Width 20.6 % (11.5-14.5); Segmented Neutrophils % 44.7 %; White Blood Count 5.9 K/mcL (4.3-11.1)
[2020-10-01 05:30] LABS: INR 2.3; Prothrombin Time 26.5 Seconds (9.4-12.1)
[2020-10-01 05:38] LABS: BUN/Creatinine Ratio 28 (6-26); Blood Urea Nitrogen 18 mg/dL (6-20); Calcium 8.8 mg/dL (8.6-10.3); Carbon Dioxide 30 mEq/L (23-29); Chloride 86 mEq/L (98-107); Glucose 102 mg/dL (70-105); Osmolality,Calculated 262 (280-300); Potassium 3.6 mEq/L (3.5-5.1); Sodium 125 mEq/L (136-145); eGFR For African Americans > 60 (> 60); eGFR For Non-African Americans > 60 (> 60)
[2020-10-01 05:55] LABS: Anisocytosis 1+ (Not Present); Reactive Lymphocytes Present (Not Present)
[2020-10-01 05:56] LABS: Platelet Estimate Normal (Normal)
[2020-10-01] MEDS: Pregabalin 75 MG CAPSULE PO SCH ×3 (08:26→20:56)
[2020-10-01] MEDS: Micafungin 100 MG in 0.9 % Sodium Chloride Mini Bag 100 ML IVPB SCH (08:26)
[2020-10-01] MEDS: Cholecalciferol (D-3) 1,000 UNIT (25MCG) TABLET PO SCH (08:26)
[2020-10-01 15:23] LABS: C-Reactive Protein 15 mg/L (Less than 10); Creatine Kinase < 10 Units/L (30-223)
[2020-10-01] MEDS: DAPTOmycin 250 MG in 0.9 % Sodium Chloride 100 ML IVPB SCH (16:03)
[2020-10-01] MEDS: *HR* OxyCODONE/APAP 5/325 TABLET PO PRN ×2 (16:04→20:58)
[2020-10-01] MEDS ORDERED: Warfarin perPT PO PRN ×2 (18:00)
[2020-10-01] MEDS ORDERED: *HR* Warfarin 7.5 MG TABLET PO ONE (18:00)
[2020-10-01] MEDS: Potassium Chloride 40 MEQ in D5% in 0.9% NACL 1,000 ML IVC SCH (20:56)
[2020-10-02] MEDS: Insulin LISPRO 300 UNITS/3 ML VIAL SUBQ SCH ×4 (00:01→19:49)
[2020-10-02] MEDS ORDERED: Pantoprazole 40 MG VIAL IVP SCH (00:07)
[2020-10-02] MEDS ORDERED: Pantoprazole 40 MG VIAL IVP ONE (00:09)
[2020-10-02] MEDS: *HR* OxyCODONE/APAP 5/325 TABLET PO PRN ×2 (05:29→19:44)
[2020-10-02 05:44] LABS: Basophils # 0.1 K/mcL (0.0-0.2); Basophils % 0.8 %; Eosinophils # 0.1 K/mcL (0.0-0.6); Eosinophils % 1.2 %; Hematocrit 34.1 % (37.5-50.1); Hemoglobin 11.5 g/dL (12.9-16.9); Immature Granulocytes % 0.6 % (0-4); Lymphocytes # 3.5 K/mcL (0.6-4.6); Lymphocytes % 53.1 %; Mean Corpuscular HGB Conc 33.7 g/dL (31.6-35.5); Mean Corpuscular Hemoglobin 28.2 pg (28.0-33.3); Mean Corpuscular Volume 83.6 fL (83.0-100.0); Mean Platelet Volume 10.4 fL (9.4-12.4); Monocytes # 0.5 K/mcL (0.0-1.3); Monocytes % 7.8 %; Neutrophils # 2.4 K/mcL (1.6-8.9); Platelet Count 277 K/mcL (140-400); Red Blood Count 4.08 M/mcL (4.19-5.50); Red Cell Distribution Width 21.1 % (11.5-14.5); Segmented Neutrophils % 36.5 %; White Blood Count 6.6 K/mcL (4.3-11.1)
[2020-10-02 05:51] LABS: Prothrombin Time 22.6 Seconds (9.4-12.1)
[2020-10-02 06:12] LABS: BUN/Creatinine Ratio 31 (6-26); Blood Urea Nitrogen 23 mg/dL (6-20); Calcium 9.1 mg/dL (8.6-10.3); Carbon Dioxide 31 mEq/L (23-29); Chloride 86 mEq/L (98-107); Glucose 102 mg/dL (70-105); Osmolality,Calculated 264 (280-300); Potassium 3.7 mEq/L (3.5-5.1); Sodium 125 mEq/L (136-145); eGFR For African Americans > 60 (> 60); eGFR For Non-African Americans > 60 (> 60)
[2020-10-02 06:28] LABS: Anisocytosis 1+ (Not Present); Platelet Estimate Normal (Normal); Reactive Lymphocytes Present (Not Present)
[2020-10-02] MEDS: Cholecalciferol (D-3) 1,000 UNIT (25MCG) TABLET PO SCH (09:13)
[2020-10-02] MEDS: Pregabalin 75 MG CAPSULE PO SCH ×3 (09:14→19:44)
[2020-10-02] MEDS: Micafungin 100 MG in 0.9 % Sodium Chloride Mini Bag 100 ML IVPB SCH (09:14)
[2020-10-02] MEDS ORDERED: 0.9 % Sodium Chloride 500 ML IVC ONE (10:37)
[2020-10-02] MEDS ORDERED: Lidocaine Viscous Oral Soln 15 ML SOLUTION MM PRN (10:37)
[2020-10-02] MEDS: *HR* FentaNYL (PF) 100 MCG/2 ML VIAL IVP PRN ×2 (11:05→11:10)
[2020-10-02] MEDS: *HR* Midazolam HCl 5 MG/5 ML VIAL IVP PRN ×2 (11:05→11:10)
[2020-10-02] MEDS: DAPTOmycin 250 MG in 0.9 % Sodium Chloride 100 ML IVPB SCH (14:14)
[2020-10-02] MEDS: Potassium Chloride 40 MEQ in D5% in 0.9% NACL 1,000 ML IVC SCH (14:15)
[2020-10-02] MEDS ORDERED: Gadolinium Contrast Agent (WT Based) IV PRN (16:25)
[2020-10-02] MEDS ORDERED: *HR* Warfarin 7.5 MG TABLET PO ONE (18:00)
[2020-10-03] MEDS: Insulin LISPRO 300 UNITS/3 ML VIAL SUBQ SCH ×4 (00:31→16:30)
[2020-10-03 06:27] LABS: Basophils # 0.1 K/mcL (0.0-0.2); Basophils % 0.9 %; Eosinophils # 0.1 K/mcL (0.0-0.6); Hematocrit 32.7 % (37.5-50.1); Hemoglobin 10.5 g/dL (12.9-16.9); Immature Granulocytes % 0.5 % (0-4); Lymphocytes # 2.7 K/mcL (0.6-4.6); Lymphocytes % 47.4 %; Mean Corpuscular HGB Conc 32.1 g/dL (31.6-35.5); Mean Corpuscular Hemoglobin 27.6 pg (28.0-33.3); Mean Corpuscular Volume 85.8 fL (83.0-100.0); Mean Platelet Volume 9.7 fL (9.4-12.4); Monocytes # 0.4 K/mcL (0.0-1.3); Monocytes % 7.1 %; Neutrophils # 2.5 K/mcL (1.6-8.9); Platelet Count 249 K/mcL (140-400); Red Blood Count 3.81 M/mcL (4.19-5.50); Red Cell Distribution Width 21.1 % (11.5-14.5); Segmented Neutrophils % 43.1 %; White Blood Count 5.7 K/mcL (4.3-11.1)
[2020-10-03 06:44] LABS: Prothrombin Time 33.8 Seconds (9.4-12.1)
[2020-10-03 06:50] LABS: BUN/Creatinine Ratio 26 (6-26); Blood Urea Nitrogen 17 mg/dL (6-20); Calcium 8.8 mg/dL (8.6-10.3); Carbon Dioxide 27 mEq/L (23-29); Chloride 93 mEq/L (98-107); Glucose 95 mg/dL (70-105); Magnesium 1.6 mg/dL (1.6-2.6); Osmolality,Calculated 265 (280-300); Phosphorous 3.1 mg/dL (2.7-4.5); Sodium 127 mEq/L (136-145); eGFR For African Americans > 60 (> 60); eGFR For Non-African Americans > 60 (> 60)
[2020-10-03 06:54] LABS: Platelet Estimate Normal (Normal); Reactive Lymphocytes Present (Not Present)
[2020-10-03] MEDS: Potassium Chloride 40 MEQ in D5% in 0.9% NACL 1,000 ML IVC SCH (08:19)
[2020-10-03] MEDS: Micafungin 100 MG in 0.9 % Sodium Chloride Mini Bag 100 ML IVPB SCH (08:20)
[2020-10-03] MEDS: Cholecalciferol (D-3) 1,000 UNIT (25MCG) TABLET PO SCH (08:21)
[2020-10-03] MEDS: Pregabalin 75 MG CAPSULE PO SCH ×3 (08:21→20:27)
[2020-10-03] MEDS: DAPTOmycin 250 MG in 0.9 % Sodium Chloride 100 ML IVPB SCH (13:48)
[2020-10-03] MEDS: *HR* OxyCODONE/APAP 5/325 TABLET PO PRN ×2 (15:41→22:18)
[2020-10-03] MEDS ORDERED: D5% in 0.45% NACL 1,000 ML IVC SCH (15:45)
[2020-10-03] MEDS ORDERED: D5% in 0.9% NACL 1,000 ML IVC SCH (16:00)
[2020-10-04 02:25] LABS: BUN/Creatinine Ratio 26 (6-26); Blood Urea Nitrogen 16 mg/dL (6-20); Calcium 9.2 mg/dL (8.6-10.3); Carbon Dioxide 25 mEq/L (23-29); Chloride 88 mEq/L (98-107); Glucose 73 mg/dL (70-105); Magnesium 1.6 mg/dL (1.6-2.6); Osmolality,Calculated 264 (280-300); Phosphorous 3.2 mg/dL (2.7-4.5); Potassium 3.1 mEq/L (3.5-5.1); Sodium 127 mEq/L (136-145); eGFR For African Americans > 60 (> 60); eGFR For Non-African Americans > 60 (> 60)
[2020-10-04 05:50] LABS: Basophils # 0.1 K/mcL (0.0-0.2); Basophils % 0.8 %; Eosinophils # 0.1 K/mcL (0.0-0.6); Eosinophils % 1.2 %; Hematocrit 34.4 % (37.5-50.1); Hemoglobin 11.4 g/dL (12.9-16.9); Immature Granulocytes % 0.3 % (0-4); Lymphocytes # 3.2 K/mcL (0.6-4.6); Lymphocytes % 49.8 %; Mean Corpuscular HGB Conc 33.1 g/dL (31.6-35.5); Mean Corpuscular Hemoglobin 27.7 pg (28.0-33.3); Mean Corpuscular Volume 83.7 fL (83.0-100.0); Mean Platelet Volume 9.7 fL (9.4-12.4); Monocytes # 0.6 K/mcL (0.0-1.3); Monocytes % 8.5 %; Neutrophils # 2.6 K/mcL (1.6-8.9); Platelet Count 268 K/mcL (140-400); Red Blood Count 4.11 M/mcL (4.19-5.50); Segmented Neutrophils % 39.4 %; White Blood Count 6.5 K/mcL (4.3-11.1)
[2020-10-04 06:17] LABS: Anisocytosis 2+ (Not Present); Microcytosis Present (Not Present); Platelet Estimate Normal (Normal); Reactive Lymphocytes Present (Not Present)
[2020-10-04] MEDS ORDERED: Potassium Chloride 20 MEQ, Lidocaine 1% 2 ML in 0.9 % Sodium Chloride 250 ML IVPB ONE (07:36)
[2020-10-04 07:52] LABS: INR 3.1; Prothrombin Time 34.7 Seconds (9.4-12.1)
[2020-10-04] MEDS: Insulin LISPRO 300 UNITS/3 ML VIAL SUBQ SCH ×3 (08:16→16:52)
[2020-10-04] MEDS: Cholecalciferol (D-3) 1,000 UNIT (25MCG) TABLET PO SCH (08:20)
[2020-10-04] MEDS: Pregabalin 75 MG CAPSULE PO SCH ×3 (08:20→20:02)
[2020-10-04] MEDS: Micafungin 100 MG in 0.9 % Sodium Chloride Mini Bag 100 ML IVPB SCH (08:21)
[2020-10-04 08:22] LABS: Acinetobacter baumannii by PCR Not Detected (Not Detect); Candida albicans by PCR Not Detected (Not Detect); Enterobacter cloacae Cmplx PCR Not Detected (Not Detect); Enterobacteriaceae by PCR Not Detected (Not Detect); Enterococcus by PCR Not Detected (Not Detect); Escherichia coli by PCR Not Detected (Not Detect); Klebsiella oxytoca by PCR Not Detected (Not Detect); Klebsiella pneumoniae by PCR Not Detected (Not Detect); Proteus by PCR Not Detected (Not Detect); Pseudomonas aeruginosa by PCR Not Detected (Not Detect); Serratia marcescens by PCR Not Detected (Not Detect); Staphylococcus aureus by PCR Not Detected (Not Detect); Staphylococcus by PCR Not Detected (Not Detect); Streptococcus agalactiae(B)PCR Not Detected (Not Detect); Streptococcus by PCR Not Detected (Not Detect); Streptococcus pneumoniae PCR Not Detected (Not Detect); Streptococcus pyogenes (A) PCR Not Detected (Not Detect)
[2020-10-04 08:23] LABS: Candida glabrata by PCR DETECTED (Not Detect); Candida krusei by PCR Not Detected (Not Detect); Candida parapsilosis by PCR Not Detected (Not Detect); Candida tropicalis by PCR Not Detected (Not Detect)
[2020-10-04] MEDS: *HR* OxyCODONE/APAP 5/325 TABLET PO PRN ×2 (08:23→20:02)
[2020-10-04] MEDS: Potassium Chloride 40 MEQ in D5% in 0.9% NACL 1,000 ML IVC SCH (09:01)
[2020-10-04] MEDS: cefTRIAXone 2,000 MG in 0.9 % Sodium Chloride Mini Bag 100 ML IVPB SCH (11:19)
[2020-10-04] MEDS: DAPTOmycin 250 MG in 0.9 % Sodium Chloride 100 ML IVPB SCH (14:30)
[2020-10-04] MEDS ORDERED: *HR* Warfarin 5 MG TABLET PO ONE (18:00)
[2020-10-05] MEDS: *HR* OxyCODONE/APAP 5/325 TABLET PO PRN ×3 (03:21→20:30)
[2020-10-05] MEDS: Potassium Chloride 40 MEQ in D5% in 0.9% NACL 1,000 ML IVC SCH (05:36)
[2020-10-05] MEDS: Pregabalin 75 MG CAPSULE PO SCH ×3 (08:38→20:30)
[2020-10-05] MEDS: cefTRIAXone 2,000 MG in 0.9 % Sodium Chloride Mini Bag 100 ML IVPB SCH (08:38)
[2020-10-05] MEDS: Insulin LISPRO 300 UNITS/3 ML VIAL SUBQ SCH ×3 (08:40→21:57)
[2020-10-05] MEDS: Cholecalciferol (D-3) 1,000 UNIT (25MCG) TABLET PO SCH (08:40)
[2020-10-05 10:06] LABS: Hematocrit 37.5 % (37.5-50.1); Hemoglobin 12.2 g/dL (12.9-16.9); Mean Corpuscular HGB Conc 32.5 g/dL (31.6-35.5); Mean Corpuscular Hemoglobin 27.9 pg (28.0-33.3); Mean Corpuscular Volume 85.6 fL (83.0-100.0); Platelet Count 277 K/mcL (140-400); Red Blood Count 4.38 M/mcL (4.19-5.50); Red Cell Distribution Width 21.2 % (11.5-14.5); White Blood Count 6.4 K/mcL (4.3-11.1)
[2020-10-05 10:18] LABS: INR 1.8
[2020-10-05] MEDS: Micafungin 100 MG in 0.9 % Sodium Chloride Mini Bag 100 ML IVPB SCH (10:22)
[2020-10-05 10:27] LABS: Alanine Aminotransferase 77 Units/L (7-52); Albumin 3.4 g/dL (3.5-5.7); Albumin/Globulin Ratio 0.7 (1.1-2.2); Alkaline Phosphatase 529 Units/L (34-104); Aspartate Amino Transferase 44 Units/L (13-39); BUN/Creatinine Ratio 25 (6-26); Bilirubin,Total 1.1 mg/dL (0.3-1.0); Blood Urea Nitrogen 19 mg/dL (6-20); Calcium 9.4 mg/dL (8.6-10.3); Carbon Dioxide 35 mEq/L (23-29); Chloride 85 mEq/L (98-107); Globulin 4.8 g/dL (2.4-3.5); Glucose 119 mg/dL (70-105); Osmolality,Calculated 267 (280-300); Potassium 3.1 mEq/L (3.5-5.1); Sodium 127 mEq/L (136-145); Total Protein 8.2 g/dL (6.4-8.9); eGFR For African Americans > 60 (> 60); eGFR For Non-African Americans > 60 (> 60)
[2020-10-05 10:40] LABS: Eosinophils # 0.3 K/mcL (0.0-0.6); Lymphocytes # 3.5 K/mcL (0.6-4.6); Monocytes # 0.4 K/mcL (0.0-1.3); Neutrophils # 2.2 K/mcL (1.6-8.9)
[2020-10-05 10:41] LABS: Platelet Estimate Normal (Normal); Reactive Lymphocytes Present (Not Present)
[2020-10-05] MEDS ORDERED: D10% in Water 500 ML IVC PRN (11:41)
[2020-10-05 12:02] LABS: Magnesium 1.4 mg/dL (1.6-2.6); Phosphorous 3.6 mg/dL (2.7-4.5)
[2020-10-05] MEDS: DAPTOmycin 250 MG in 0.9 % Sodium Chloride 100 ML IVPB SCH (12:42)
[2020-10-05] MEDS ORDERED: Lidocaine/EPI 1:100k 1% 50 ML VIAL ONE (14:58)
[2020-10-05] MEDS ORDERED: Heparin 1,000 UNITS/500 mL 500 ML ONE (14:58)
[2020-10-05] MEDS ORDERED: *HR* Midazolam HCl 2 MG/2 ML VIAL IVP ONE (15:09)
[2020-10-05] MEDS ORDERED: *HR* FentaNYL (PF) 100 MCG/2 ML VIAL IVP ONE (15:09)
[2020-10-05] MEDS ORDERED: *HR* Midazolam HCl 2 MG/2 ML VIAL ONE (15:13)
[2020-10-05] MEDS ORDERED: *HR* FentaNYL (PF) 100 MCG/2 ML VIAL ONE (15:13)
[2020-10-05] MEDS ORDERED: 0.9 % Sodium Chloride 500 ML ONE (15:17)
[2020-10-05] MEDS ORDERED: Clinimix E 5%-15% SOLUTION 2,000 ML with MVI, adult with vitamin K 10 ML IVC SCH (17:00)
[2020-10-05] MEDS ORDERED: Insulin LISPRO 300 UNITS/3 ML VIAL SUBQ SCH (18:00)
[2020-10-05] MEDS ORDERED: *HR* Warfarin 5 MG TABLET PO ONE (18:00)
[2020-10-06] MEDS: Insulin LISPRO 300 UNITS/3 ML VIAL SUBQ SCH ×6 (01:16→20:31)
[2020-10-06 02:04] LABS: Basophils # 0.1 K/mcL (0.0-0.2); Basophils % 0.5 %; Eosinophils # 0.1 K/mcL (0.0-0.6); Eosinophils % 0.7 %; Hematocrit 33.4 % (37.5-50.1); Hemoglobin 11.8 g/dL (12.9-16.9); Immature Granulocytes % 0.4 % (0-4); Lymphocytes # 3.6 K/mcL (0.6-4.6); Mean Corpuscular HGB Conc 35.3 g/dL (31.6-35.5); Mean Corpuscular Hemoglobin 29.5 pg (28.0-33.3); Mean Corpuscular Volume 83.5 fL (83.0-100.0); Mean Platelet Volume 9.1 fL (9.4-12.4); Monocytes % 10.5 %; Neutrophils # 4.7 K/mcL (1.6-8.9); Platelet Count 269 K/mcL (140-400); Red Cell Distribution Width 20.9 % (11.5-14.5); Segmented Neutrophils % 49.9 %; White Blood Count 9.4 K/mcL (4.3-11.1)
[2020-10-06 02:07] LABS: Platelet Estimate Normal (Normal); Reactive Lymphocytes Present (Not Present)
[2020-10-06 02:14] LABS: INR 1.8; Prothrombin Time 20.3 Seconds (9.4-12.1)
[2020-10-06 02:18] LABS: BUN/Creatinine Ratio 31 (6-26); Blood Urea Nitrogen 22 mg/dL (6-20); Calcium 9.4 mg/dL (8.6-10.3); Carbon Dioxide 36 mEq/L (23-29); Chloride 79 mEq/L (98-107); Glucose 92 mg/dL (70-105); Magnesium 1.5 mg/dL (1.6-2.6); Osmolality,Calculated 261 (280-300); Phosphorous 3.8 mg/dL (2.7-4.5); Potassium 2.9 mEq/L (3.5-5.1); Sodium 124 mEq/L (136-145); Triglycerides 308 mg/dL (< 150); eGFR For African Americans > 60 (> 60); eGFR For Non-African Americans > 60 (> 60)
[2020-10-06] MEDS ORDERED: Potassium Chloride 40 MEQ, Lidocaine 1% 2 ML in 0.9 % Sodium Chloride 500 ML IVPB ONE (07:28)
[2020-10-06] MEDS: Cholecalciferol (D-3) 1,000 UNIT (25MCG) TABLET PO SCH (07:41)
[2020-10-06] MEDS: Pregabalin 75 MG CAPSULE PO SCH ×3 (07:41→20:01)
[2020-10-06] MEDS: *HR* OxyCODONE/APAP 5/325 TABLET PO PRN ×3 (07:59→22:18)
[2020-10-06] MEDS: Micafungin 100 MG in 0.9 % Sodium Chloride Mini Bag 100 ML IVPB SCH (10:15)
[2020-10-06] MEDS: DAPTOmycin 250 MG in 0.9 % Sodium Chloride 100 ML IVPB SCH (15:51)
[2020-10-06] MEDS ORDERED: Clinimix E 5%-15% SOLUTION 2,000 ML with MVI, adult with vitamin K 10 ML IVC SCH (17:00)
[2020-10-06] MEDS ORDERED: *HR* Warfarin 5 MG TABLET PO ONE (18:00)
[2020-10-07] MEDS: Insulin LISPRO 300 UNITS/3 ML VIAL SUBQ SCH ×6 (00:42→21:49)
[2020-10-07 03:28] LABS: Hemoglobin 11.3 g/dL (12.9-16.9); Mean Corpuscular HGB Conc 34.2 g/dL (31.6-35.5); Mean Corpuscular Hemoglobin 28.8 pg (28.0-33.3); Platelet Count 251 K/mcL (140-400); Red Blood Count 3.93 M/mcL (4.19-5.50); Red Cell Distribution Width 21.2 % (11.5-14.5); White Blood Count 8.3 K/mcL (4.3-11.1)
[2020-10-07 03:42] LABS: INR 1.5; Prothrombin Time 17.1 Seconds (9.4-12.1)
[2020-10-07 03:49] LABS: BUN/Creatinine Ratio 40 (6-26); Blood Urea Nitrogen 26 mg/dL (6-20); Calcium 9.5 mg/dL (8.6-10.3); Carbon Dioxide 38 mEq/L (23-29); Chloride 79 mEq/L (98-107); Glucose 97 mg/dL (70-105); Magnesium 1.7 mg/dL (1.6-2.6); Osmolality,Calculated 263 (280-300); Phosphorous 3.1 mg/dL (2.7-4.5); Potassium 3.1 mEq/L (3.5-5.1); Sodium 124 mEq/L (136-145); eGFR For African Americans > 60 (> 60); eGFR For Non-African Americans > 60 (> 60)
[2020-10-07] MEDS: *HR* OxyCODONE/APAP 5/325 TABLET PO PRN ×4 (04:34→21:19)
[2020-10-07 04:53] LABS: Anisocytosis 2+ (Not Present); Eosinophils # 0.3 K/mcL (0.0-0.6); Hypochromasia Present (Not Present); Lymphocytes # 2.3 K/mcL (0.6-4.6); Monocytes # 0.5 K/mcL (0.0-1.3); Neutrophils # 5.2 K/mcL (1.6-8.9); Platelet Estimate Normal (Normal); Reactive Lymphocytes Present (Not Present)
[2020-10-07 04:54] LABS: Microcytosis Present (Not Present)
[2020-10-07] MEDS ORDERED: Potassium Chloride 40 MEQ, Lidocaine 1% 2 ML in 0.9 % Sodium Chloride 500 ML IVPB ONE (07:20)
[2020-10-07] MEDS: Pregabalin 75 MG CAPSULE PO SCH ×3 (07:55→19:49)
[2020-10-07] MEDS: Cholecalciferol (D-3) 1,000 UNIT (25MCG) TABLET PO SCH (07:55)
[2020-10-07] MEDS: Micafungin 100 MG in 0.9 % Sodium Chloride Mini Bag 100 ML IVPB SCH (07:59)
[2020-10-07] MEDS: DAPTOmycin 250 MG in 0.9 % Sodium Chloride 100 ML IVPB SCH (14:08)
[2020-10-07] MEDS ORDERED: Clinimix E 5%-15% SOLUTION 2,000 ML with MVI, adult with vitamin K 10 ML IVC SCH (17:00)
[2020-10-07] MEDS ORDERED: *HR* Warfarin 7.5 MG TABLET PO ONE (18:00)
[2020-10-08] MEDS: Insulin LISPRO 300 UNITS/3 ML VIAL SUBQ SCH ×6 (00:19→21:28)
[2020-10-08 08:19] LABS: Basophils % 0.5 %; Eosinophils # 0.2 K/mcL (0.0-0.6); Hematocrit 31.5 % (37.5-50.1); Hemoglobin 10.6 g/dL (12.9-16.9); Immature Granulocytes % 0.3 % (0-4); Lymphocytes # 3.9 K/mcL (0.6-4.6); Lymphocytes % 49.7 %; Mean Corpuscular HGB Conc 33.7 g/dL (31.6-35.5); Mean Corpuscular Hemoglobin 28.3 pg (28.0-33.3); Mean Corpuscular Volume 84.2 fL (83.0-100.0); Mean Platelet Volume 8.9 fL (9.4-12.4); Monocytes # 0.8 K/mcL (0.0-1.3); Monocytes % 9.7 %; Platelet Count 237 K/mcL (140-400); Red Blood Count 3.74 M/mcL (4.19-5.50); Red Cell Distribution Width 21.5 % (11.5-14.5); Segmented Neutrophils % 37.8 %; White Blood Count 7.9 K/mcL (4.3-11.1)
[2020-10-08 08:26] LABS: INR 1.5; Prothrombin Time 16.7 Seconds (9.4-12.1)
[2020-10-08 08:44] LABS: BUN/Creatinine Ratio 55 (6-26); Blood Urea Nitrogen 37 mg/dL (6-20); Calcium 9.4 mg/dL (8.6-10.3); Carbon Dioxide 42 mEq/L (23-29); Chloride 74 mEq/L (98-107); Glucose 102 mg/dL (70-105); Magnesium 1.6 mg/dL (1.6-2.6); Osmolality,Calculated 259 (280-300); Phosphorous 3.9 mg/dL (2.7-4.5); Potassium 2.8 mEq/L (3.5-5.1); Sodium 120 mEq/L (136-145); eGFR For African Americans > 60 (> 60); eGFR For Non-African Americans > 60 (> 60)
[2020-10-08 08:47] LABS: Reactive Lymphocytes Present (Not Present)
[2020-10-08 08:48] LABS: Platelet Estimate Normal (Normal)
[2020-10-08] MEDS: Micafungin 100 MG in 0.9 % Sodium Chloride Mini Bag 100 ML IVPB SCH (09:24)
[2020-10-08] MEDS: Pregabalin 75 MG CAPSULE PO SCH ×3 (09:24→21:33)
[2020-10-08] MEDS: Cholecalciferol (D-3) 1,000 UNIT (25MCG) TABLET PO SCH (09:24)
[2020-10-08] MEDS ORDERED: Potassium Chloride 40 MEQ, Lidocaine 1% 2 ML in 0.9 % Sodium Chloride 500 ML IVPB ONE ×2 (09:33→17:35)
[2020-10-08] MEDS ORDERED: 0.9 % Sodium Chloride 1,000 ML IVC SCH (09:45)
[2020-10-08] MEDS: *HR* OxyCODONE/APAP 5/325 TABLET PO PRN ×2 (14:22→21:33)
[2020-10-08] MEDS ORDERED: Clinimix E 5%-15% SOLUTION 2,000 ML with MVI, adult with vitamin K 10 ML IVC SCH (17:00)
[2020-10-08 17:29] LABS: BUN/Creatinine Ratio 47 (6-26); Blood Urea Nitrogen 36 mg/dL (6-20); Calcium 9.5 mg/dL (8.6-10.3); Carbon Dioxide 42 mEq/L (23-29); Chloride 77 mEq/L (98-107); Glucose 79 mg/dL (70-105); Osmolality,Calculated 267 (280-300); Potassium 2.7 mEq/L (3.5-5.1); Sodium 125 mEq/L (136-145); eGFR For African Americans > 60 (> 60); eGFR For Non-African Americans > 60 (> 60)
[2020-10-08] MEDS ORDERED: *HR* Warfarin 7.5 MG TABLET PO ONE (18:00)
[2020-10-09] MEDS: Insulin LISPRO 300 UNITS/3 ML VIAL SUBQ SCH ×7 (04:25→23:31)
[2020-10-09 06:23] LABS: Basophils # 0.1 K/mcL (0.0-0.2); Basophils % 0.6 %; Eosinophils # 0.1 K/mcL (0.0-0.6); Hematocrit 30.9 % (37.5-50.1); Hemoglobin 10.3 g/dL (12.9-16.9); Immature Granulocytes % 0.5 % (0-4); Lymphocytes # 3.4 K/mcL (0.6-4.6); Lymphocytes % 36.1 %; Mean Corpuscular HGB Conc 33.3 g/dL (31.6-35.5); Mean Corpuscular Hemoglobin 28.2 pg (28.0-33.3); Mean Corpuscular Volume 84.7 fL (83.0-100.0); Monocytes # 0.8 K/mcL (0.0-1.3); Monocytes % 8.8 %; Platelet Count 219 K/mcL (140-400); Red Blood Count 3.65 M/mcL (4.19-5.50); Red Cell Distribution Width 21.6 % (11.5-14.5); White Blood Count 9.4 K/mcL (4.3-11.1)
[2020-10-09 06:40] LABS: INR 1.5
[2020-10-09 06:44] LABS: BUN/Creatinine Ratio 49 (6-26); Blood Urea Nitrogen 30 mg/dL (6-20); Calcium 9.3 mg/dL (8.6-10.3); Carbon Dioxide 41 mEq/L (23-29); Chloride 80 mEq/L (98-107); Glucose 79 mg/dL (70-105); Magnesium 1.6 mg/dL (1.6-2.6); Osmolality,Calculated 267 (280-300); Phosphorous 2.8 mg/dL (2.7-4.5); Potassium 2.7 mEq/L (3.5-5.1); Sodium 126 mEq/L (136-145); eGFR For African Americans > 60 (> 60); eGFR For Non-African Americans > 60 (> 60)
[2020-10-09 07:02] LABS: Platelet Estimate Normal (Normal); Reactive Lymphocytes Present (Not Present)
[2020-10-09 07:03] LABS: Anisocytosis 1+ (Not Present)
[2020-10-09] MEDS: Pregabalin 75 MG CAPSULE PO SCH ×3 (07:25→20:35)
[2020-10-09] MEDS: Cholecalciferol (D-3) 1,000 UNIT (25MCG) TABLET PO SCH (07:29)
[2020-10-09] MEDS: Micafungin 100 MG in 0.9 % Sodium Chloride Mini Bag 100 ML IVPB SCH (07:29)
[2020-10-09] MEDS: *HR* OxyCODONE/APAP 5/325 TABLET PO PRN ×3 (07:35→20:34)
[2020-10-09] MEDS ORDERED: Potassium Chloride 40 MEQ, Lidocaine 1% 2 ML in 0.9 % Sodium Chloride 500 ML IVPB ONE ×2 (08:30→17:01)
[2020-10-09] MEDS ORDERED: 0.9 % Sodium Chloride 1,000 ML IVC SCH (11:00)
[2020-10-09 16:46] LABS: BUN/Creatinine Ratio 43 (6-26); Blood Urea Nitrogen 29 mg/dL (6-20); Calcium 9.4 mg/dL (8.6-10.3); Carbon Dioxide 42 mEq/L (23-29); Chloride 78 mEq/L (98-107); Glucose 93 mg/dL (70-105); Osmolality,Calculated 272 (280-300); Potassium 2.6 mEq/L (3.5-5.1); Sodium 128 mEq/L (136-145); eGFR For African Americans > 60 (> 60); eGFR For Non-African Americans > 60 (> 60)
[2020-10-09] MEDS ORDERED: Clinimix E 5%-15% SOLUTION 2,000 ML with MVI, adult with vitamin K 10 ML, Potassium C... IVC SCH (17:00)
[2020-10-09] MEDS ORDERED: *HR* Warfarin 10 MG TABLET PO ONE (18:00)
[2020-10-10 03:46] LABS: Basophils # 0.1 K/mcL (0.0-0.2); Basophils % 0.8 %; Eosinophils # 0.1 K/mcL (0.0-0.6); Eosinophils % 1.4 %; Hematocrit 30.8 % (37.5-50.1); Hemoglobin 10.6 g/dL (12.9-16.9); Immature Granulocytes % 0.5 % (0-4); Lymphocytes % 37.5 %; Mean Corpuscular HGB Conc 34.4 g/dL (31.6-35.5); Mean Corpuscular Hemoglobin 29.6 pg (28.0-33.3); Monocytes # 0.9 K/mcL (0.0-1.3); Monocytes % 9.3 %; Neutrophils # 4.9 K/mcL (1.6-8.9); Platelet Count 229 K/mcL (140-400); Red Blood Count 3.58 M/mcL (4.19-5.50); Segmented Neutrophils % 50.5 %; White Blood Count 9.7 K/mcL (4.3-11.1)
[2020-10-10 03:50] LABS: Lymphocytes # 3.6 K/mcL (0.6-4.6)
[2020-10-10 03:55] LABS: INR 1.6
[2020-10-10 04:07] LABS: BUN/Creatinine Ratio 44 (6-26); Blood Urea Nitrogen 28 mg/dL (6-20); Calcium 9.3 mg/dL (8.6-10.3); Carbon Dioxide 43 mEq/L (23-29); Chloride 80 mEq/L (98-107); Glucose 77 mg/dL (70-105); Magnesium 1.9 mg/dL (1.6-2.6); Osmolality,Calculated 268 (280-300); Phosphorous 2.5 mg/dL (2.7-4.5); Potassium 2.7 mEq/L (3.5-5.1); Sodium 127 mEq/L (136-145); eGFR For African Americans > 60 (> 60); eGFR For Non-African Americans > 60 (> 60)
[2020-10-10 04:13] LABS: Poikilocytosis 1+ (Not Present)
[2020-10-10 04:22] LABS: Anisocytosis 1+ (Not Present); Platelet Estimate Normal (Normal); Reactive Lymphocytes Present (Not Present)
[2020-10-10] MEDS: Insulin LISPRO 300 UNITS/3 ML VIAL SUBQ SCH ×5 (04:48→22:45)
[2020-10-10] MEDS: Cholecalciferol (D-3) 1,000 UNIT (25MCG) TABLET PO SCH (08:41)
[2020-10-10] MEDS: Micafungin 100 MG in 0.9 % Sodium Chloride Mini Bag 100 ML IVPB SCH (08:41)
[2020-10-10] MEDS: Pregabalin 75 MG CAPSULE PO SCH ×3 (08:41→22:48)
[2020-10-10] MEDS: *HR* OxyCODONE/APAP 5/325 TABLET PO PRN ×3 (08:45→22:51)
[2020-10-10] MEDS ORDERED: [UNRECOGNIZED DRUG - OTHER] IVC SCH ×2 (17:00)
[2020-10-10] MEDS ORDERED: CLINIMIX E IVC SCH ×2 (17:00)
[2020-10-10] MEDS ORDERED: VITAMIN K IVC SCH ×2 (17:00)
[2020-10-10] MEDS ORDERED: MVI IVC SCH ×2 (17:00)
[2020-10-10] MEDS ORDERED: *HR* Warfarin 7.5 MG TABLET PO ONE (18:00)
[2020-10-10] MEDS ORDERED: *HR* Warfarin 10 MG TABLET PO ONE (18:00)
[2020-10-11] MEDS: Insulin LISPRO 300 UNITS/3 ML VIAL SUBQ SCH ×6 (00:24→21:30)
[2020-10-11 07:27] LABS: BUN/Creatinine Ratio 40 (6-26); Blood Urea Nitrogen 26 mg/dL (6-20); Calcium 9.5 mg/dL (8.6-10.3); Carbon Dioxide 44 mEq/L (23-29); Chloride 72 mEq/L (98-107); Glucose 98 mg/dL (70-105); Magnesium 1.5 mg/dL (1.6-2.6); Osmolality,Calculated 259 (280-300); Phosphorous 2.6 mg/dL (2.7-4.5); Potassium 2.6 mEq/L (3.5-5.1); Sodium 122 mEq/L (136-145); eGFR For African Americans > 60 (> 60); eGFR For Non-African Americans > 60 (> 60)
[2020-10-11] MEDS: Cholecalciferol (D-3) 1,000 UNIT (25MCG) TABLET PO SCH (08:51)
[2020-10-11] MEDS: Pregabalin 75 MG CAPSULE PO SCH ×3 (08:51→21:42)
[2020-10-11] MEDS: Micafungin 100 MG in 0.9 % Sodium Chloride Mini Bag 100 ML IVPB SCH ×2 (08:53→10:25)
[2020-10-11 11:15] LABS: ABG Base Excess 16 mEq/L (-2 to 3); ABG HCO3 39 mEq/L (21-27); ABG Oxygen Saturation 98 % (95-98); ABG PCO2 37 mmHg (35-45); ABG PH 7.63 pH Units (7.32-7.45); ABG PO2 90 mmHg (85-104); ABG TCO2 40 mEq/L (20-26)
[2020-10-11 12:10] LABS: INR 2.6; Prothrombin Time 29.1 Seconds (9.4-12.1)
[2020-10-11] MEDS: *HR* OxyCODONE/APAP 5/325 TABLET PO PRN ×2 (14:03→22:01)
[2020-10-11] MEDS ORDERED: acetaZOLAMIDE 250 MG in Water for inj. (sterile) 2.5 ML IVP ONE (15:34)
[2020-10-11] MEDS ORDERED: Clinimix 5%-20% SOLUTION 2,000 ML with MVI, adult with vitamin K 10 ML, Sodium Phosph... IVC SCH (17:00)
[2020-10-11] MEDS ORDERED: *HR* Warfarin 5 MG TABLET PO ONE (18:00)
[2020-10-12] MEDS: Insulin LISPRO 300 UNITS/3 ML VIAL SUBQ SCH ×3 (01:00→08:04)
[2020-10-12] MEDS: *HR* OxyCODONE/APAP 5/325 TABLET PO PRN (03:39)
[2020-10-12 04:01] LABS: VBG HCO3 37 mEq/L (21-27); VBG PCO2 56 mmHg (41-51); VBG PH 7.42 pH Units (7.32-7.42); VBG PO2 177 mmHg (25-50)
[2020-10-12 04:08] LABS: INR 2.5; Prothrombin Time 27.7 Seconds (9.4-12.1)
[2020-10-12 04:22] LABS: BUN/Creatinine Ratio 52 (6-26); Blood Urea Nitrogen 32 mg/dL (6-20); Calcium 9.3 mg/dL (8.6-10.3); Carbon Dioxide 36 mEq/L (23-29); Chloride 79 mEq/L (98-107); Glucose 94 mg/dL (70-105); Magnesium 1.7 mg/dL (1.6-2.6); Osmolality,Calculated 263 (280-300); Phosphorous 3.9 mg/dL (2.7-4.5); Potassium 2.6 mEq/L (3.5-5.1); Sodium 123 mEq/L (136-145); Triglycerides 159 mg/dL (< 150); eGFR For African Americans > 60 (> 60); eGFR For Non-African Americans > 60 (> 60)
[2020-10-12 07:06] VITALS: BP 108/74; PULSE 101; TEMP 97.8; O2SAT 100
[2020-10-12] MEDS: Micafungin 100 MG in 0.9 % Sodium Chloride Mini Bag 100 ML IVPB SCH (08:03)
[2020-10-12] MEDS: Cholecalciferol (D-3) 1,000 UNIT (25MCG) TABLET PO SCH (08:04)
[2020-10-12] MEDS: Pregabalin 75 MG CAPSULE PO SCH (08:04)
== END 2020-10-12 10:52 | disposition left against medical advice (07) | DRG 721 ==
LOC: 2NENU → SUATTDRO 23:34
PROVIDERS: ADMIT Pharmacist; ATTEND Internal Medicine

== ENCOUNTER 2020-10-17 19:03 | Inpatient (IN) ==
[2020-10-17] MEDS ORDERED: Acetaminophen 325 MG TABLET PO PRN (21:59)
[2020-10-17] MEDS ORDERED: Naloxone 0.4 MG/ML INJ IVP PRN (21:59)
[2020-10-17] MEDS ORDERED: Ondansetron ODT 4 MG TAB.RAPDIS SL PRN (21:59)
[2020-10-17] MEDS ORDERED: Potassium Chloride 40 MEQ, Lidocaine 1% 2 ML in 0.9 % Sodium Chloride 500 ML IVPB ONE (22:16)
[2020-10-17 22:56] LABS: Magnesium 1.7 mg/dL (1.6-2.6); Phosphorous 3.5 mg/dL (2.7-4.5)
[2020-10-17 23:03] LABS: BUN/Creatinine Ratio 30 (6-26); Blood Urea Nitrogen 35 mg/dL (6-20); Calcium 9.1 mg/dL (8.6-10.3); Carbon Dioxide 30 mEq/L (23-29); Chloride 82 mEq/L (98-107); Glucose 106 mg/dL (70-105); Osmolality,Calculated 258 (280-300); Potassium 2.4 mEq/L (3.5-5.1); Sodium 120 mEq/L (136-145); eGFR For African Americans > 60 (> 60); eGFR For Non-African Americans > 60 (> 60)
[2020-10-17 23:11] LABS: Thyroid Stimulating Hormone 1.258 mcIU/mL (0.340-5.600)
[2020-10-17 23:22] LABS: Prothrombin Time 12.1 Seconds (9.4-12.1)
[2020-10-18] MEDS ORDERED: Warfarin perPT PO PRN (00:08)
[2020-10-18] MEDS ORDERED: *HR* Warfarin 5 MG TABLET PO ONE (01:00)
[2020-10-18] MEDS: *HR* OxyCODONE/APAP 5/325 TABLET PO PRN ×4 (01:16→23:39)
[2020-10-18 03:46] LABS: Basophils % 0.2 %; Eosinophils # 0.1 K/mcL (0.0-0.6); Hemoglobin 9.7 g/dL (12.9-16.9); Immature Granulocytes % 0.4 % (0-4); Lymphocytes # 2.2 K/mcL (0.6-4.6); Lymphocytes % 26.6 %; Mean Corpuscular HGB Conc 34.6 g/dL (31.6-35.5); Mean Corpuscular Hemoglobin 29.7 pg (28.0-33.3); Mean Corpuscular Volume 85.6 fL (83.0-100.0); Mean Platelet Volume 9.1 fL (9.4-12.4); Monocytes # 0.6 K/mcL (0.0-1.3); Monocytes % 7.3 %; Neutrophils # 5.3 K/mcL (1.6-8.9); Platelet Count 317 K/mcL (140-400); Red Blood Count 3.27 M/mcL (4.19-5.50); Segmented Neutrophils % 64.5 %; White Blood Count 8.2 K/mcL (4.3-11.1)
[2020-10-18 03:59] LABS: BUN/Creatinine Ratio 32 (6-26); Blood Urea Nitrogen 31 mg/dL (6-20); Carbon Dioxide 28 mEq/L (23-29); Chloride 86 mEq/L (98-107); Glucose 83 mg/dL (70-105); Osmolality,Calculated 258 (280-300); Potassium 3.1 mEq/L (3.5-5.1); Sodium 121 mEq/L (136-145); eGFR For African Americans > 60 (> 60); eGFR For Non-African Americans > 60 (> 60)
[2020-10-18 07:03] LABS: Bilirubin,Urine Negative (Negative); Blood,Urine Negative (Negative); Clarity,Urine Clear (Clear); Color,Urine Yellow (Yellow); Glucose,Urine (UA) Normal (Normal); Ketones,Urine Negative (Negative); Leukocyte Esterase,Urine Negative (Negative); Nitrite,Urine Negative (Negative); Protein,Urine Trace mg/dL (Neg-Trace); Specific Gravity,Urine 1.016 (1.010-1.025); Urobilinogen,Urine Normal (Normal)
[2020-10-18] MEDS: Pregabalin 75 MG CAPSULE PO SCH ×3 (08:14→20:11)
[2020-10-18] MEDS: Cholecalciferol (D-3) 1,000 UNIT (25MCG) TABLET PO SCH (08:14)
[2020-10-18] MEDS: Micafungin 100 MG in 0.9 % Sodium Chloride Mini Bag 100 ML IVPB SCH (08:15)
[2020-10-18] MEDS ORDERED: *HR* Heparin 5,000 UNIT/ML VIAL IVP PRN ×2 (09:14)
[2020-10-18] MEDS ORDERED: *HR* Heparin 5,000 UNIT/ML VIAL IVP ONE (09:14)
[2020-10-18 09:18] LABS: Blood Urea Nitrogen 26 mg/dL (6-20); Calcium 8.9 mg/dL (8.6-10.3); Carbon Dioxide 28 mEq/L (23-29); Chloride 89 mEq/L (98-107); Glucose 89 mg/dL (70-105); Osmolality,Calculated 260 (280-300); Potassium 3.6 mEq/L (3.5-5.1); Sodium 123 mEq/L (136-145)
[2020-10-18 09:53] LABS: Hematocrit 28.1 % (37.5-50.1); Hemoglobin 9.6 g/dL (12.9-16.9); Mean Corpuscular HGB Conc 34.2 g/dL (31.6-35.5); Mean Corpuscular Hemoglobin 29.7 pg (28.0-33.3); Mean Platelet Volume 8.9 fL (9.4-12.4); Platelet Count 292 K/mcL (140-400); Red Blood Count 3.23 M/mcL (4.19-5.50); Red Cell Distribution Width 19.9 % (11.5-14.5); White Blood Count 7.2 K/mcL (4.3-11.1)
[2020-10-18 09:55] LABS: BUN/Creatinine Ratio 33 (6-26); eGFR For African Americans > 60 (> 60); eGFR For Non-African Americans > 60 (> 60)
[2020-10-18 10:07] LABS: Magnesium 1.6 mg/dL (1.6-2.6); Phosphorous 1.7 mg/dL (2.7-4.5)
[2020-10-18] MEDS: Heparin 25,000UNIT/250ML 1/2NS 25,000 UNIT/250 ML IV.SOLN IVC SCH (10:19)
[2020-10-18 10:20] LABS: Heparin anti-factor XA UFH 0.04 IU/mL (0.30-0.70)
[2020-10-18 10:21] LABS: Prothrombin Time 11.9 Seconds (9.4-12.1)
[2020-10-18] MEDS ORDERED: D10% in Water 500 ML IVC PRN (12:59)
[2020-10-18] MEDS ORDERED: *HR* Dextrose 50 % in Water (Vial) 50 ML VIAL IVP PRN (16:15)
[2020-10-18] MEDS ORDERED: Dextrose Gel 15 GM/37.5 ML TUBE PO PRN ×2 (16:15)
[2020-10-18] MEDS ORDERED: D5% in Water 1,000 ML IVC PRN (16:15)
[2020-10-18] MEDS ORDERED: Clinimix E 5%-15% SOLUTION 2,000 ML with MVI, adult with vitamin K 10 ML IVC SCH (17:00)
[2020-10-18 17:02] LABS: BUN/Creatinine Ratio 30 (6-26); Blood Urea Nitrogen 22 mg/dL (6-20); Calcium 9.4 mg/dL (8.6-10.3); Carbon Dioxide 33 mEq/L (23-29); Chloride 85 mEq/L (98-107); Glucose 103 mg/dL (70-105); Osmolality,Calculated 264 (280-300); Potassium 2.9 mEq/L (3.5-5.1); Sodium 125 mEq/L (136-145); eGFR For African Americans > 60 (> 60); eGFR For Non-African Americans > 60 (> 60)
[2020-10-18 17:03] LABS: Troponin I < 0.03 ng/mL (< 0.04)
[2020-10-18] MEDS ORDERED: *HR* Warfarin 10 MG TABLET PO SCH (18:00)
[2020-10-18] MEDS ORDERED: Potassium Chloride 40 MEQ, Lidocaine 1% 2 ML in 0.9 % Sodium Chloride 500 ML IVPB ONE (19:08)
[2020-10-18] MEDS: Insulin LISPRO 300 UNITS/3 ML VIAL SUBQ SCH (20:13)
[2020-10-18 23:19] LABS: BUN/Creatinine Ratio 28 (6-26); Blood Urea Nitrogen 23 mg/dL (6-20); Calcium 9.6 mg/dL (8.6-10.3); Carbon Dioxide 36 mEq/L (23-29); Chloride 81 mEq/L (98-107); Glucose 95 mg/dL (70-105); Osmolality,Calculated 261 (280-300); Sodium 124 mEq/L (136-145); eGFR For African Americans > 60 (> 60); eGFR For Non-African Americans > 60 (> 60)
[2020-10-19] MEDS: Insulin LISPRO 300 UNITS/3 ML VIAL SUBQ SCH ×6 (00:44→22:05)
[2020-10-19] MEDS: Heparin 25,000UNIT/250ML 1/2NS 25,000 UNIT/250 ML IV.SOLN IVC SCH (06:54)
[2020-10-19 07:27] LABS: Heparin anti-factor XA UFH 0.43 IU/mL (0.30-0.70); INR 1.1
[2020-10-19 07:43] LABS: BUN/Creatinine Ratio 28 (6-26); Blood Urea Nitrogen 22 mg/dL (6-20); Calcium 9.1 mg/dL (8.6-10.3); Carbon Dioxide 30 mEq/L (23-29); Chloride 84 mEq/L (98-107); Glucose 83 mg/dL (70-105); Magnesium 1.6 mg/dL (1.6-2.6); Osmolality,Calculated 254 (280-300); Phosphorous 2.3 mg/dL (2.7-4.5); Potassium 3.2 mEq/L (3.5-5.1); Sodium 121 mEq/L (136-145); eGFR For African Americans > 60 (> 60); eGFR For Non-African Americans > 60 (> 60)
[2020-10-19] MEDS: Pregabalin 75 MG CAPSULE PO SCH ×3 (08:45→20:49)
[2020-10-19] MEDS: *HR* OxyCODONE/APAP 5/325 TABLET PO PRN ×4 (08:45→23:35)
[2020-10-19] MEDS: Cholecalciferol (D-3) 1,000 UNIT (25MCG) TABLET PO SCH (08:45)
[2020-10-19] MEDS: Micafungin 100 MG in 0.9 % Sodium Chloride Mini Bag 100 ML IVPB SCH (08:46)
[2020-10-19] MEDS ORDERED: Potassium Chloride 40 MEQ, Lidocaine 1% 2 ML in 0.9 % Sodium Chloride 500 ML IVPB ONE (09:03)
[2020-10-19] MEDS ORDERED: Potassium Phosphate 44 MEQ in 0.9 % Sodium Chloride 250 ML IVPB ONE (11:11)
[2020-10-19] MEDS ORDERED: Clinimix 5%-20% SOLUTION 2,000 ML with MVI, adult with vitamin K 10 ML, Calcium Gluco... IVC SCH (17:00)
[2020-10-19] MEDS ORDERED: *HR* Warfarin 5 MG TABLET PO ONE (18:00)
[2020-10-20] MEDS: Insulin LISPRO 300 UNITS/3 ML VIAL SUBQ SCH ×7 (00:43→23:28)
[2020-10-20] MEDS: *HR* OxyCODONE/APAP 5/325 TABLET PO PRN ×4 (03:52→17:47)
[2020-10-20 04:42] LABS: Heparin anti-factor XA UFH 0.41 IU/mL (0.30-0.70)
[2020-10-20 04:43] LABS: INR 1.4; Prothrombin Time 15.5 Seconds (9.4-12.1)
[2020-10-20 05:16] LABS: BUN/Creatinine Ratio 26 (6-26); Blood Urea Nitrogen 21 mg/dL (6-20); Calcium 9.7 mg/dL (8.6-10.3); Carbon Dioxide 40 mEq/L (23-29); Chloride 77 mEq/L (98-107); Glucose 91 mg/dL (70-105); Magnesium 1.6 mg/dL (1.6-2.6); Osmolality,Calculated 261 (280-300); Phosphorous 2.9 mg/dL (2.7-4.5); Potassium 3.2 mEq/L (3.5-5.1); Sodium 124 mEq/L (136-145); eGFR For African Americans > 60 (> 60); eGFR For Non-African Americans > 60 (> 60)
[2020-10-20] MEDS: Cholecalciferol (D-3) 1,000 UNIT (25MCG) TABLET PO SCH (07:47)
[2020-10-20] MEDS: Micafungin 100 MG in 0.9 % Sodium Chloride Mini Bag 100 ML IVPB SCH (07:47)
[2020-10-20] MEDS: Pregabalin 75 MG CAPSULE PO SCH ×3 (07:47→20:03)
[2020-10-20] MEDS: Heparin 25,000UNIT/250ML 1/2NS 25,000 UNIT/250 ML IV.SOLN IVC SCH (09:22)
[2020-10-20] MEDS ORDERED: Potassium Chloride 40 MEQ, Lidocaine 1% 2 ML in 0.9 % Sodium Chloride 500 ML IVPB ONE (09:38)
[2020-10-20] MEDS ORDERED: Clinimix 5%-20% SOLUTION 2,000 ML with MVI, adult with vitamin K 10 ML, Sodium Phosph... IVC SCH (17:00)
[2020-10-20] MEDS ORDERED: *HR* Warfarin 5 MG TABLET PO ONE (18:00)
[2020-10-21] MEDS: Insulin LISPRO 300 UNITS/3 ML VIAL SUBQ SCH ×5 (04:15→20:00)
[2020-10-21 04:55] LABS: Hematocrit 30.3 % (37.5-50.1); Mean Corpuscular Hemoglobin 29.5 pg (28.0-33.3); Mean Corpuscular Volume 89.4 fL (83.0-100.0); Mean Platelet Volume 8.7 fL (9.4-12.4); Platelet Count 278 K/mcL (140-400); Red Blood Count 3.39 M/mcL (4.19-5.50); Red Cell Distribution Width 19.6 % (11.5-14.5); White Blood Count 7.8 K/mcL (4.3-11.1)
[2020-10-21] MEDS: *HR* OxyCODONE/APAP 5/325 TABLET PO PRN ×5 (04:59→23:40)
[2020-10-21] MEDS: Heparin 25,000UNIT/250ML 1/2NS 25,000 UNIT/250 ML IV.SOLN IVC SCH (05:02)
[2020-10-21 05:11] LABS: BUN/Creatinine Ratio 30 (6-26); Blood Urea Nitrogen 26 mg/dL (6-20); Calcium 10.1 mg/dL (8.6-10.3); Carbon Dioxide 36 mEq/L (23-29); Chloride 77 mEq/L (98-107); Glucose 80 mg/dL (70-105); Magnesium 1.5 mg/dL (1.6-2.6); Osmolality,Calculated 258 (280-300); Phosphorous 3.5 mg/dL (2.7-4.5); Potassium 3.7 mEq/L (3.5-5.1); Sodium 122 mEq/L (136-145); eGFR For African Americans > 60 (> 60); eGFR For Non-African Americans > 60 (> 60)
[2020-10-21] MEDS: Pregabalin 75 MG CAPSULE PO SCH ×3 (07:48→19:39)
[2020-10-21] MEDS: Cholecalciferol (D-3) 1,000 UNIT (25MCG) TABLET PO SCH (07:48)
[2020-10-21] MEDS: Micafungin 100 MG in 0.9 % Sodium Chloride Mini Bag 100 ML IVPB SCH (07:49)
[2020-10-21 09:23] LABS: INR 2.7; Prothrombin Time 30.4 Seconds (9.4-12.1)
[2020-10-21] MEDS ORDERED: Clinimix 5%-20% SOLUTION 2,000 ML with MVI, adult with vitamin K 10 ML, Sodium Phosph... IVC SCH (17:00)
[2020-10-22] MEDS: Insulin LISPRO 300 UNITS/3 ML VIAL SUBQ SCH ×6 (00:16→20:27)
[2020-10-22] MEDS: *HR* OxyCODONE/APAP 5/325 TABLET PO PRN ×4 (05:54→20:43)
[2020-10-22] MEDS: Micafungin 100 MG in 0.9 % Sodium Chloride Mini Bag 100 ML IVPB SCH (09:37)
[2020-10-22] MEDS: Cholecalciferol (D-3) 1,000 UNIT (25MCG) TABLET PO SCH (09:38)
[2020-10-22] MEDS: Pregabalin 75 MG CAPSULE PO SCH ×3 (09:38→22:00)
[2020-10-22 11:15] LABS: Prothrombin Time 22.4 Seconds (9.4-12.1)
[2020-10-22 11:29] LABS: BUN/Creatinine Ratio 42 (6-26); Blood Urea Nitrogen 40 mg/dL (6-20); Calcium 10.6 mg/dL (8.6-10.3); Carbon Dioxide 39 mEq/L (23-29); Chloride 71 mEq/L (98-107); Glucose 87 mg/dL (70-105); Magnesium 1.7 mg/dL (1.6-2.6); Osmolality,Calculated 259 (280-300); Phosphorous 3.9 mg/dL (2.7-4.5); Potassium 3.5 mEq/L (3.5-5.1); Sodium 120 mEq/L (136-145); eGFR For African Americans > 60 (> 60); eGFR For Non-African Americans > 60 (> 60)
[2020-10-22] MEDS: 0.9 % Sodium Chloride 1,000 ML IVC SCH (14:59)
[2020-10-22] MEDS ORDERED: Clinimix 5%-20% SOLUTION 2,000 ML with MVI, adult with vitamin K 10 ML, Sodium Phosph... IVC SCH (17:00)
[2020-10-22] MEDS ORDERED: *HR* Warfarin 10 MG TABLET PO ONE (18:00)
[2020-10-22 21:02] LABS: BUN/Creatinine Ratio 40 (6-26); Blood Urea Nitrogen 42 mg/dL (6-20); Calcium 10.2 mg/dL (8.6-10.3); Carbon Dioxide 43 mEq/L (23-29); Chloride 69 mEq/L (98-107); Glucose 56 mg/dL (70-105); Osmolality,Calculated 256 (280-300); Potassium 3.5 mEq/L (3.5-5.1); Sodium 119 mEq/L (136-145); eGFR For African Americans > 60 (> 60); eGFR For Non-African Americans > 60 (> 60)
[2020-10-23] MEDS: Insulin LISPRO 300 UNITS/3 ML VIAL SUBQ SCH ×6 (00:47→21:12)
[2020-10-23] MEDS: *HR* OxyCODONE/APAP 5/325 TABLET PO PRN ×4 (04:07→20:24)
[2020-10-23] MEDS: 0.9 % Sodium Chloride 1,000 ML IVC SCH ×3 (04:07→15:10)
[2020-10-23 06:45] LABS: INR 1.8
[2020-10-23 07:15] LABS: BUN/Creatinine Ratio 51 (6-26); Blood Urea Nitrogen 45 mg/dL (6-20); Calcium 9.4 mg/dL (8.6-10.3); Carbon Dioxide 40 mEq/L (23-29); Chloride 75 mEq/L (98-107); Glucose 66 mg/dL (70-105); Magnesium 1.6 mg/dL (1.6-2.6); Osmolality,Calculated 258 (280-300); Phosphorous 3.2 mg/dL (2.7-4.5); Potassium 3.7 mEq/L (3.5-5.1); Sodium 119 mEq/L (136-145); eGFR For African Americans > 60 (> 60); eGFR For Non-African Americans > 60 (> 60)
[2020-10-23] MEDS: Cholecalciferol (D-3) 1,000 UNIT (25MCG) TABLET PO SCH (08:04)
[2020-10-23] MEDS: Pregabalin 75 MG CAPSULE PO SCH ×3 (08:05→20:21)
[2020-10-23 16:05] LABS: BUN/Creatinine Ratio 45 (6-26); Blood Urea Nitrogen 41 mg/dL (6-20); Carbon Dioxide 43 mEq/L (23-29); Chloride 75 mEq/L (98-107); Glucose 99 mg/dL (70-105); Osmolality,Calculated 270 (280-300); Potassium 3.1 mEq/L (3.5-5.1); Sodium 125 mEq/L (136-145); eGFR For African Americans > 60 (> 60); eGFR For Non-African Americans > 60 (> 60)
[2020-10-23] MEDS ORDERED: Clinimix 5%-20% SOLUTION 2,000 ML with MVI, adult with vitamin K 10 ML, Sodium Phosph... IVC SCH (17:00)
[2020-10-23] MEDS ORDERED: *HR* Warfarin 10 MG TABLET PO ONE (18:00)
[2020-10-23] MEDS ORDERED: Potassium Chloride 40 MEQ, Lidocaine 1% 2 ML in 0.9 % Sodium Chloride 500 ML IVPB ONE (21:31)
[2020-10-23 23:22] LABS: BUN/Creatinine Ratio 41 (6-26); Blood Urea Nitrogen 38 mg/dL (6-20); Carbon Dioxide 43 mEq/L (23-29); Chloride 72 mEq/L (98-107); Glucose 70 mg/dL (70-105); Osmolality,Calculated 267 (280-300); Potassium 2.7 mEq/L (3.5-5.1); Sodium 125 mEq/L (136-145); eGFR For African Americans > 60 (> 60); eGFR For Non-African Americans > 60 (> 60)
[2020-10-24] MEDS: Insulin LISPRO 300 UNITS/3 ML VIAL SUBQ SCH ×6 (02:18→21:05)
[2020-10-24 05:37] LABS: INR 2.4; Prothrombin Time 26.7 Seconds (9.4-12.1)
[2020-10-24 05:45] LABS: BUN/Creatinine Ratio 52 (6-26); Blood Urea Nitrogen 40 mg/dL (6-20); Calcium 9.4 mg/dL (8.6-10.3); Carbon Dioxide 40 mEq/L (23-29); Chloride 80 mEq/L (98-107); Glucose 73 mg/dL (70-105); Magnesium 1.6 mg/dL (1.6-2.6); Osmolality,Calculated 268 (280-300); Phosphorous 3.4 mg/dL (2.7-4.5); Potassium 3.3 mEq/L (3.5-5.1); Sodium 125 mEq/L (136-145); eGFR For African Americans > 60 (> 60); eGFR For Non-African Americans > 60 (> 60)
[2020-10-24] MEDS ORDERED: Potassium Chloride 40 MEQ, Lidocaine 1% 2 ML in 0.9 % Sodium Chloride 500 ML IVPB ONE (08:00)
[2020-10-24] MEDS: Cholecalciferol (D-3) 1,000 UNIT (25MCG) TABLET PO SCH (09:11)
[2020-10-24] MEDS: *HR* OxyCODONE/APAP 5/325 TABLET PO PRN ×2 (09:11→19:43)
[2020-10-24] MEDS: Pregabalin 75 MG CAPSULE PO SCH ×3 (09:11→21:07)
[2020-10-24] MEDS: Clinimix 5%-20% SOLUTION 2,000 ML with MVI, adult with vitamin K 10 ML, Sodium Phosph... IVC SCH (17:21)
[2020-10-24] MEDS ORDERED: *HR* Warfarin 7.5 MG TABLET PO ONE (18:00)
[2020-10-25] MEDS: Insulin LISPRO 300 UNITS/3 ML VIAL SUBQ SCH ×6 (00:10→19:56)
[2020-10-25] MEDS: *HR* OxyCODONE/APAP 5/325 TABLET PO PRN ×4 (04:05→16:57)
[2020-10-25 05:51] LABS: Basophils % 0.5 %; Eosinophils # 0.1 K/mcL (0.0-0.6); Eosinophils % 1.6 %; Hematocrit 29.7 % (37.5-50.1); Hemoglobin 10.3 g/dL (12.9-16.9); Immature Granulocytes % 0.2 % (0-4); Lymphocytes # 2.3 K/mcL (0.6-4.6); Lymphocytes % 42.2 %; Mean Corpuscular HGB Conc 34.7 g/dL (31.6-35.5); Mean Corpuscular Hemoglobin 30.2 pg (28.0-33.3); Mean Corpuscular Volume 87.1 fL (83.0-100.0); Mean Platelet Volume 8.8 fL (9.4-12.4); Monocytes # 0.5 K/mcL (0.0-1.3); Monocytes % 8.8 %; Neutrophils # 2.6 K/mcL (1.6-8.9); Platelet Count 256 K/mcL (140-400); Red Blood Count 3.41 M/mcL (4.19-5.50); Red Cell Distribution Width 18.6 % (11.5-14.5); Segmented Neutrophils % 46.7 %; White Blood Count 5.5 K/mcL (4.3-11.1)
[2020-10-25 07:03] LABS: Chloride 73 mEq/L (98-107); Potassium 2.3 mEq/L (3.5-5.1); Sodium 125 mEq/L (136-145)
[2020-10-25 07:04] LABS: BUN/Creatinine Ratio 32 (6-26); Blood Urea Nitrogen 30 mg/dL (6-20); Calcium 9.9 mg/dL (8.6-10.3); Carbon Dioxide 43 mEq/L (23-29); Glucose 126 mg/dL (70-105); Magnesium 1.4 mg/dL (1.6-2.6); Osmolality,Calculated 268 (280-300); Phosphorous 3.6 mg/dL (2.7-4.5); eGFR For African Americans > 60 (> 60); eGFR For Non-African Americans > 60 (> 60)
[2020-10-25] MEDS ORDERED: Potassium Chloride 40 MEQ, Lidocaine 1% 2 ML in 0.9 % Sodium Chloride 500 ML IVPB ONE ×2 (07:14→15:17)
[2020-10-25] MEDS ORDERED: Potassium Chloride Elixir 20 MEQ/15 ML UDC PO ONE (07:15)
[2020-10-25 07:16] LABS: Platelet Estimate Normal (Normal); Reactive Lymphocytes Present (Not Present)
[2020-10-25 08:01] LABS: INR 2.6; Prothrombin Time 29.1 Seconds (9.4-12.1)
[2020-10-25] MEDS: Cholecalciferol (D-3) 1,000 UNIT (25MCG) TABLET PO SCH (08:40)
[2020-10-25] MEDS: Pregabalin 75 MG CAPSULE PO SCH ×3 (08:40→19:56)
[2020-10-25] MEDS: Clinimix 5%-20% SOLUTION 2,000 ML with MVI, adult with vitamin K 10 ML, Sodium Phosph... IVC SCH ×2 (09:30→17:03)
[2020-10-25 15:12] LABS: BUN/Creatinine Ratio 42 (6-26); Blood Urea Nitrogen 28 mg/dL (6-20); Carbon Dioxide 40 mEq/L (23-29); Chloride 80 mEq/L (98-107); Glucose 104 mg/dL (70-105); Osmolality,Calculated 270 (280-300); Potassium 2.6 mEq/L (3.5-5.1); Sodium 127 mEq/L (136-145); eGFR For African Americans > 60 (> 60); eGFR For Non-African Americans > 60 (> 60)
[2020-10-25] MEDS ORDERED: Clinimix 5%-20% SOLUTION 2,000 ML with MVI, adult with vitamin K 10 ML, Sodium Phosph... IVC SCH (17:00)
[2020-10-25] MEDS ORDERED: *HR* Warfarin 7.5 MG TABLET PO ONE (18:00)
[2020-10-26] MEDS: *HR* OxyCODONE/APAP 5/325 TABLET PO PRN ×4 (01:33→22:41)
[2020-10-26] MEDS: Insulin LISPRO 300 UNITS/3 ML VIAL SUBQ SCH ×6 (03:57→21:44)
[2020-10-26 07:52] LABS: INR 2.1; Prothrombin Time 23.9 Seconds (9.4-12.1)
[2020-10-26] MEDS: Cholecalciferol (D-3) 1,000 UNIT (25MCG) TABLET PO SCH (08:51)
[2020-10-26] MEDS: Pregabalin 75 MG CAPSULE PO SCH ×3 (08:51→21:47)
[2020-10-26 09:26] LABS: BUN/Creatinine Ratio 50 (6-26); Blood Urea Nitrogen 29 mg/dL (6-20); Carbon Dioxide 39 mEq/L (23-29); Chloride 81 mEq/L (98-107); Glucose 102 mg/dL (70-105); Magnesium 1.8 mg/dL (1.6-2.6); Osmolality,Calculated 266 (280-300); Phosphorous 3.3 mg/dL (2.7-4.5); Potassium 3.2 mEq/L (3.5-5.1); Sodium 125 mEq/L (136-145); eGFR For African Americans > 60 (> 60); eGFR For Non-African Americans > 60 (> 60)
[2020-10-26] MEDS ORDERED: Potassium Chloride 40 MEQ, Lidocaine 1% 2 ML in 0.9 % Sodium Chloride 500 ML IVPB ONE (10:21)
[2020-10-26] MEDS ORDERED: Clinimix 5%-20% SOLUTION 2,000 ML with MVI, adult with vitamin K 10 ML, Sodium Phosph... IVC SCH (17:00)
[2020-10-26] MEDS ORDERED: *HR* Warfarin 10 MG TABLET PO ONE (18:00)
[2020-10-27] MEDS: Insulin LISPRO 300 UNITS/3 ML VIAL SUBQ SCH ×6 (00:20→21:45)
[2020-10-27] MEDS: *HR* OxyCODONE/APAP 5/325 TABLET PO PRN ×4 (04:02→21:56)
[2020-10-27 06:06] LABS: Prothrombin Time 22.7 Seconds (9.4-12.1)
[2020-10-27 06:26] LABS: BUN/Creatinine Ratio 43 (6-26); Blood Urea Nitrogen 32 mg/dL (6-20); Calcium 9.4 mg/dL (8.6-10.3); Carbon Dioxide 39 mEq/L (23-29); Chloride 80 mEq/L (98-107); Glucose 101 mg/dL (70-105); Magnesium 1.5 mg/dL (1.6-2.6); Osmolality,Calculated 269 (280-300); Phosphorous 3.7 mg/dL (2.7-4.5); Potassium 2.8 mEq/L (3.5-5.1); Sodium 126 mEq/L (136-145); eGFR For African Americans > 60 (> 60); eGFR For Non-African Americans > 60 (> 60)
[2020-10-27] MEDS ORDERED: Potassium Chloride 40 MEQ, Lidocaine 1% 2 ML in 0.9 % Sodium Chloride 500 ML IVPB ONE (07:12)
[2020-10-27] MEDS: Pregabalin 75 MG CAPSULE PO SCH ×3 (09:14→21:56)
[2020-10-27] MEDS: Cholecalciferol (D-3) 1,000 UNIT (25MCG) TABLET PO SCH (09:14)
[2020-10-27] MEDS: Octreotide 50 MCG/ML INJ SQ SCH (09:15)
[2020-10-27] MEDS ORDERED: Clinimix 5%-20% SOLUTION 2,000 ML with MVI, adult with vitamin K 10 ML, Sodium Phosph... IVC SCH (17:00)
[2020-10-27] MEDS ORDERED: *HR* Warfarin 10 MG TABLET PO ONE (18:00)
[2020-10-27] MEDS: Diphenoxylate/Atropine 1 TAB TABLET PO SCH ×2 (19:05→21:56)
[2020-10-28] MEDS: Insulin LISPRO 300 UNITS/3 ML VIAL SUBQ SCH ×7 (00:04→21:12)
[2020-10-28] MEDS: *HR* OxyCODONE/APAP 5/325 TABLET PO PRN ×4 (05:04→20:41)
[2020-10-28] MEDS ORDERED: Potassium Chloride 40 MEQ, Lidocaine 1% 2 ML in 0.9 % Sodium Chloride 500 ML IVPB ONE (07:13)
[2020-10-28 08:52] LABS: INR 2.8; Prothrombin Time 31.8 Seconds (9.4-12.1)
[2020-10-28 08:53] LABS: BUN/Creatinine Ratio 40 (6-26); Blood Urea Nitrogen 27 mg/dL (6-20); Calcium 8.9 mg/dL (8.6-10.3); Carbon Dioxide 36 mEq/L (23-29); Chloride 93 mEq/L (98-107); Glucose 99 mg/dL (70-105); Magnesium 1.7 mg/dL (1.6-2.6); Osmolality,Calculated 283 (280-300); Phosphorous 3.4 mg/dL (2.7-4.5); Potassium 3.3 mEq/L (3.5-5.1); Sodium 134 mEq/L (136-145); eGFR For African Americans > 60 (> 60); eGFR For Non-African Americans > 60 (> 60)
[2020-10-28] MEDS: Diphenoxylate/Atropine 1 TAB TABLET PO SCH ×4 (10:17→20:41)
[2020-10-28] MEDS: Cholecalciferol (D-3) 1,000 UNIT (25MCG) TABLET PO SCH (10:17)
[2020-10-28] MEDS: Pregabalin 75 MG CAPSULE PO SCH ×3 (10:17→20:45)
[2020-10-28] MEDS ORDERED: Saline Nasal Spray 44 ML BOTTLE NS PRN (15:45)
[2020-10-28] MEDS ORDERED: Clinimix 5%-20% SOLUTION 2,000 ML with MVI, adult with vitamin K 10 ML, Sodium Phosph... IVC SCH (17:00)
[2020-10-28] MEDS ORDERED: *HR* Warfarin 7.5 MG TABLET PO ONE (18:00)
[2020-10-29] MEDS: *HR* OxyCODONE/APAP 5/325 TABLET PO PRN ×4 (05:13→20:51)
[2020-10-29] MEDS: Insulin LISPRO 300 UNITS/3 ML VIAL SUBQ SCH ×5 (05:30→20:36)
[2020-10-29] MEDS: Octreotide 50 MCG/ML INJ SQ SCH (07:18)
[2020-10-29] MEDS: Cholecalciferol (D-3) 1,000 UNIT (25MCG) TABLET PO SCH (07:51)
[2020-10-29] MEDS: Diphenoxylate/Atropine 1 TAB TABLET PO SCH ×4 (07:51→20:32)
[2020-10-29] MEDS: Pregabalin 75 MG CAPSULE PO SCH ×3 (07:52→20:32)
[2020-10-29 08:27] LABS: INR 3.6; Prothrombin Time 40.6 Seconds (9.4-12.1)
[2020-10-29 08:46] LABS: BUN/Creatinine Ratio 41 (6-26); Blood Urea Nitrogen 25 mg/dL (6-20); Calcium 8.8 mg/dL (8.6-10.3); Carbon Dioxide 27 mEq/L (23-29); Chloride 101 mEq/L (98-107); Glucose 63 mg/dL (70-105); Magnesium 1.7 mg/dL (1.6-2.6); Osmolality,Calculated 280 (280-300); Phosphorous 2.6 mg/dL (2.7-4.5); Sodium 134 mEq/L (136-145); eGFR For African Americans > 60 (> 60); eGFR For Non-African Americans > 60 (> 60)
[2020-10-29] MEDS ORDERED: Clinimix 5%-20% SOLUTION 2,000 ML with MVI, adult with vitamin K 10 ML, Sodium Phosph... IVC SCH (17:00)
[2020-10-30] MEDS: Insulin LISPRO 300 UNITS/3 ML VIAL SUBQ SCH ×2 (01:42→04:30)
[2020-10-30] MEDS: *HR* OxyCODONE/APAP 5/325 TABLET PO PRN ×3 (02:14→19:54)
[2020-10-30 03:08] LABS: INR 3.5; Prothrombin Time 38.9 Seconds (9.4-12.1)
[2020-10-30 03:15] LABS: BUN/Creatinine Ratio 42 (6-26); Blood Urea Nitrogen 25 mg/dL (6-20); Calcium 9.1 mg/dL (8.6-10.3); Carbon Dioxide 28 mEq/L (23-29); Chloride 97 mEq/L (98-107); Glucose 119 mg/dL (70-105); Magnesium 1.4 mg/dL (1.6-2.6); Osmolality,Calculated 278 (280-300); Phosphorous 2.6 mg/dL (2.7-4.5); Potassium 4.1 mEq/L (3.5-5.1); Sodium 131 mEq/L (136-145); eGFR For African Americans > 60 (> 60); eGFR For Non-African Americans > 60 (> 60)
[2020-10-30] MEDS: Cholecalciferol (D-3) 1,000 UNIT (25MCG) TABLET PO SCH (09:45)
[2020-10-30] MEDS: Pregabalin 75 MG CAPSULE PO SCH ×3 (09:45→21:04)
[2020-10-30] MEDS ORDERED: Clinimix 5%-20% SOLUTION 2,000 ML with MVI, adult with vitamin K 10 ML, Sodium Phosph... IVC SCH (17:00)
[2020-10-30] MEDS ORDERED: *HR* Warfarin 5 MG TABLET PO ONE (18:00)
[2020-10-31] MEDS: *HR* OxyCODONE/APAP 5/325 TABLET PO PRN ×4 (00:05→20:27)
[2020-10-31 06:40] LABS: BUN/Creatinine Ratio 39 (6-26); Blood Urea Nitrogen 26 mg/dL (6-20); Calcium 8.9 mg/dL (8.6-10.3); Carbon Dioxide 33 mEq/L (23-29); Chloride 92 mEq/L (98-107); Glucose 96 mg/dL (70-105); Magnesium 1.7 mg/dL (1.6-2.6); Osmolality,Calculated 275 (280-300); Phosphorous 3.7 mg/dL (2.7-4.5); Potassium 3.7 mEq/L (3.5-5.1); Sodium 130 mEq/L (136-145); eGFR For African Americans > 60 (> 60); eGFR For Non-African Americans > 60 (> 60)
[2020-10-31 06:43] LABS: INR 1.6; Prothrombin Time 18.6 Seconds (9.4-12.1)
[2020-10-31] MEDS: Cholecalciferol (D-3) 1,000 UNIT (25MCG) TABLET PO SCH (08:46)
[2020-10-31] MEDS: Pregabalin 75 MG CAPSULE PO SCH ×3 (08:47→20:23)
[2020-10-31] MEDS: 0.9 % Sodium Chloride 1,000 ML IVC SCH (12:01)
[2020-10-31] MEDS ORDERED: Clinimix 5%-20% SOLUTION 2,000 ML with MVI, adult with vitamin K 10 ML, Sodium Phosph... IVC SCH (17:00)
[2020-10-31] MEDS ORDERED: *HR* Warfarin 10 MG TABLET PO ONE (18:00)
[2020-11-01] MEDS: *HR* OxyCODONE/APAP 5/325 TABLET PO PRN ×3 (00:32→19:23)
[2020-11-01 04:05] LABS: INR 1.4; Prothrombin Time 15.5 Seconds (9.4-12.1)
[2020-11-01] MEDS: 0.9 % Sodium Chloride 1,000 ML IVC SCH (04:05)
[2020-11-01 04:22] LABS: BUN/Creatinine Ratio 45 (6-26); Blood Urea Nitrogen 29 mg/dL (6-20); Calcium 9.1 mg/dL (8.6-10.3); Carbon Dioxide 40 mEq/L (23-29); Chloride 86 mEq/L (98-107); Glucose 70 mg/dL (70-105); Magnesium 1.5 mg/dL (1.6-2.6); Osmolality,Calculated 276 (280-300); Phosphorous 3.8 mg/dL (2.7-4.5); Potassium 3.1 mEq/L (3.5-5.1); Sodium 131 mEq/L (136-145); Triglycerides 67 mg/dL (< 150); eGFR For African Americans > 60 (> 60); eGFR For Non-African Americans > 60 (> 60)
[2020-11-01] MEDS ORDERED: Potassium Chloride 40 MEQ, Lidocaine 1% 2 ML in 0.9 % Sodium Chloride 500 ML IVPB ONE (07:34)
[2020-11-01] MEDS: Pregabalin 75 MG CAPSULE PO SCH ×3 (08:27→19:24)
[2020-11-01] MEDS: Cholecalciferol (D-3) 1,000 UNIT (25MCG) TABLET PO SCH (08:28)
[2020-11-01] MEDS ORDERED: Clinimix 5%-20% SOLUTION 2,000 ML with MVI, adult with vitamin K 10 ML, Sodium Phosph... IVC SCH (17:00)
[2020-11-01] MEDS ORDERED: *HR* Warfarin 7.5 MG TABLET PO ONE (18:00)
[2020-11-02] MEDS: *HR* OxyCODONE/APAP 5/325 TABLET PO PRN ×5 (00:03→23:19)
[2020-11-02 05:57] LABS: Basophils % 0.7 %; Eosinophils # 0.1 K/mcL (0.0-0.6); Eosinophils % 1.7 %; Hematocrit 29.1 % (37.5-50.1); Hemoglobin 9.9 g/dL (12.9-16.9); Immature Granulocytes % 0.3 % (0-4); Lymphocytes # 2.6 K/mcL (0.6-4.6); Lymphocytes % 42.8 %; Mean Corpuscular Hemoglobin 30.4 pg (28.0-33.3); Mean Corpuscular Volume 89.3 fL (83.0-100.0); Mean Platelet Volume 8.3 fL (9.4-12.4); Monocytes # 0.4 K/mcL (0.0-1.3); Monocytes % 7.3 %; Neutrophils # 2.8 K/mcL (1.6-8.9); Platelet Count 234 K/mcL (140-400); Red Blood Count 3.26 M/mcL (4.19-5.50); Red Cell Distribution Width 17.3 % (11.5-14.5); Segmented Neutrophils % 47.2 %
[2020-11-02 06:04] LABS: INR 1.8; Prothrombin Time 20.9 Seconds (9.4-12.1)
[2020-11-02 06:05] LABS: Platelet Estimate Normal (Normal); Reactive Lymphocytes Present (Not Present)
[2020-11-02 06:24] LABS: BUN/Creatinine Ratio 42 (6-26); Blood Urea Nitrogen 32 mg/dL (6-20); Calcium 9.4 mg/dL (8.6-10.3); Carbon Dioxide 39 mEq/L (23-29); Chloride 83 mEq/L (98-107); Glucose 107 mg/dL (70-105); Magnesium 1.6 mg/dL (1.6-2.6); Osmolality,Calculated 279 (280-300); Phosphorous 4.4 mg/dL (2.7-4.5); Potassium 2.9 mEq/L (3.5-5.1); Sodium 131 mEq/L (136-145); eGFR For African Americans > 60 (> 60); eGFR For Non-African Americans > 60 (> 60)
[2020-11-02] MEDS: Cholecalciferol (D-3) 1,000 UNIT (25MCG) TABLET PO SCH (07:46)
[2020-11-02] MEDS: Pregabalin 75 MG CAPSULE PO SCH ×3 (07:46→20:42)
[2020-11-02] MEDS ORDERED: Potassium Chloride 40 MEQ, Lidocaine 1% 2 ML in 0.9 % Sodium Chloride 500 ML IVPB ONE ×2 (08:02→13:00)
[2020-11-02] MEDS: 0.9 % Sodium Chloride 1,000 ML IVC SCH ×2 (13:15→23:14)
[2020-11-02] MEDS ORDERED: Clinimix 5%-20% SOLUTION 2,000 ML with MVI, adult with vitamin K 10 ML, Sodium Phosph... IVC SCH (17:00)
[2020-11-02] MEDS ORDERED: *HR* Warfarin 5 MG TABLET PO ONE (18:00)
[2020-11-03] MEDS: *HR* OxyCODONE/APAP 5/325 TABLET PO PRN ×4 (05:30→19:54)
[2020-11-03 06:08] LABS: Prothrombin Time 22.4 Seconds (9.4-12.1)
[2020-11-03 06:19] LABS: Potassium 2.6 mEq/L (3.5-5.1)
[2020-11-03] MEDS ORDERED: Potassium Chloride 40 MEQ, Lidocaine 1% 2 ML in 0.9 % Sodium Chloride 500 ML IVPB ONE (06:44)
[2020-11-03] MEDS: 0.9 % Sodium Chloride 1,000 ML IVC SCH ×2 (08:54→19:54)
[2020-11-03] MEDS: Pregabalin 75 MG CAPSULE PO SCH ×3 (08:55→19:54)
[2020-11-03] MEDS: Cholecalciferol (D-3) 1,000 UNIT (25MCG) TABLET PO SCH (08:55)
[2020-11-03 10:39] LABS: BUN/Creatinine Ratio 27 (6-26); Blood Urea Nitrogen 23 mg/dL (6-20); Calcium 9.3 mg/dL (8.6-10.3); Carbon Dioxide 36 mEq/L (23-29); Chloride 82 mEq/L (98-107); Glucose 100 mg/dL (70-105); Magnesium 1.3 mg/dL (1.6-2.6); Osmolality,Calculated 268 (280-300); Sodium 127 mEq/L (136-145); eGFR For African Americans > 60 (> 60); eGFR For Non-African Americans > 60 (> 60)
[2020-11-03] MEDS ORDERED: Clinimix 5%-20% SOLUTION 2,000 ML with MVI, adult with vitamin K 10 ML, Sodium Phosph... IVC SCH (17:00)
[2020-11-03] MEDS ORDERED: *HR* Warfarin 5 MG TABLET PO ONE (18:00)
[2020-11-03 18:41] LABS: BUN/Creatinine Ratio 26 (6-26); Blood Urea Nitrogen 18 mg/dL (6-20); Calcium 9.7 mg/dL (8.6-10.3); Carbon Dioxide 34 mEq/L (23-29); Chloride 87 mEq/L (98-107); Glucose 109 mg/dL (70-105); Osmolality,Calculated 272 (280-300); Sodium 130 mEq/L (136-145); eGFR For African Americans > 60 (> 60); eGFR For Non-African Americans > 60 (> 60)
[2020-11-04] MEDS: *HR* OxyCODONE/APAP 5/325 TABLET PO PRN ×4 (00:41→22:55)
[2020-11-04 01:25] LABS: BUN/Creatinine Ratio 35 (6-26); Blood Urea Nitrogen 21 mg/dL (6-20); Calcium 8.7 mg/dL (8.6-10.3); Carbon Dioxide 33 mEq/L (23-29); Chloride 89 mEq/L (98-107); Glucose 88 mg/dL (70-105); Magnesium 1.8 mg/dL (1.6-2.6); Osmolality,Calculated 272 (280-300); Phosphorous 2.2 mg/dL (2.7-4.5); Potassium 2.7 mEq/L (3.5-5.1); Sodium 130 mEq/L (136-145); eGFR For African Americans > 60 (> 60); eGFR For Non-African Americans > 60 (> 60)
[2020-11-04 01:27] LABS: INR 1.4; Prothrombin Time 15.5 Seconds (9.4-12.1)
[2020-11-04] MEDS: 0.9 % Sodium Chloride 1,000 ML IVC SCH ×2 (05:01→13:58)
[2020-11-04] MEDS ORDERED: Potassium Chloride 40 MEQ, Lidocaine 1% 2 ML in 0.9 % Sodium Chloride 500 ML IVPB ONE ×2 (07:14→22:53)
[2020-11-04] MEDS ORDERED: Potassium Phosphate 44 MEQ in 0.9 % Sodium Chloride 250 ML IVPB ONE (07:16)
[2020-11-04] MEDS: Pregabalin 75 MG CAPSULE PO SCH ×3 (08:05→20:31)
[2020-11-04] MEDS: Cholecalciferol (D-3) 1,000 UNIT (25MCG) TABLET PO SCH (08:05)
[2020-11-04] MEDS ORDERED: Clinimix 5%-20% SOLUTION 2,000 ML with MVI, adult with vitamin K 10 ML, Sodium Phosph... IVC SCH (17:00)
[2020-11-04] MEDS ORDERED: *HR* Warfarin 7.5 MG TABLET PO ONE (18:00)
[2020-11-04 21:51] LABS: BUN/Creatinine Ratio 28 (6-26); Blood Urea Nitrogen 18 mg/dL (6-20); Calcium 9.2 mg/dL (8.6-10.3); Carbon Dioxide 34 mEq/L (23-29); Chloride 96 mEq/L (98-107); Glucose 98 mg/dL (70-105); Osmolality,Calculated 286 (280-300); Potassium 2.9 mEq/L (3.5-5.1); Sodium 137 mEq/L (136-145); eGFR For African Americans > 60 (> 60); eGFR For Non-African Americans > 60 (> 60)
[2020-11-05] MEDS: *HR* OxyCODONE/APAP 5/325 TABLET PO PRN ×3 (05:29→21:04)
[2020-11-05 06:38] LABS: INR 1.4; Prothrombin Time 15.8 Seconds (9.4-12.1)
[2020-11-05 06:52] LABS: BUN/Creatinine Ratio 30 (6-26); Blood Urea Nitrogen 19 mg/dL (6-20); Calcium 8.9 mg/dL (8.6-10.3); Carbon Dioxide 33 mEq/L (23-29); Chloride 98 mEq/L (98-107); Glucose 101 mg/dL (70-105); Magnesium 1.7 mg/dL (1.6-2.6); Osmolality,Calculated 282 (280-300); Phosphorous 2.6 mg/dL (2.7-4.5); Potassium 3.2 mEq/L (3.5-5.1); Sodium 135 mEq/L (136-145); eGFR For African Americans > 60 (> 60); eGFR For Non-African Americans > 60 (> 60)
[2020-11-05] MEDS ORDERED: Potassium Phosphate 44 MEQ in 0.9 % Sodium Chloride 250 ML IVPB ONE (07:12)
[2020-11-05] MEDS: Cholecalciferol (D-3) 1,000 UNIT (25MCG) TABLET PO SCH (07:54)
[2020-11-05] MEDS: Pregabalin 75 MG CAPSULE PO SCH ×3 (07:54→21:04)
[2020-11-05] MEDS: 0.9 % Sodium Chloride 1,000 ML IVC SCH ×3 (10:41→20:10)
[2020-11-05] MEDS ORDERED: Clinimix 5%-20% SOLUTION 2,000 ML with MVI, adult with vitamin K 10 ML, Sodium Phosph... IVC SCH (17:00)
[2020-11-05] MEDS ORDERED: *HR* Warfarin 7.5 MG TABLET PO ONE (18:00)
[2020-11-06] MEDS: *HR* OxyCODONE/APAP 5/325 TABLET PO PRN ×4 (01:37→21:14)
[2020-11-06] MEDS: 0.9 % Sodium Chloride 1,000 ML IVC SCH ×3 (06:20→17:49)
[2020-11-06 06:55] LABS: BUN/Creatinine Ratio 29 (6-26); Blood Urea Nitrogen 20 mg/dL (6-20); Carbon Dioxide 36 mEq/L (23-29); Chloride 89 mEq/L (98-107); Glucose 109 mg/dL (70-105); Magnesium 1.5 mg/dL (1.6-2.6); Osmolality,Calculated 277 (280-300); Phosphorous 3.6 mg/dL (2.7-4.5); Potassium 2.7 mEq/L (3.5-5.1); Sodium 132 mEq/L (136-145); eGFR For African Americans > 60 (> 60); eGFR For Non-African Americans > 60 (> 60)
[2020-11-06] MEDS ORDERED: Potassium Chloride 40 MEQ, Lidocaine 1% 2 ML in 0.9 % Sodium Chloride 500 ML IVPB ONE ×2 (07:33→16:45)
[2020-11-06 07:42] LABS: INR 1.6; Prothrombin Time 17.7 Seconds (9.4-12.1)
[2020-11-06] MEDS: Pregabalin 75 MG CAPSULE PO SCH ×3 (08:52→21:14)
[2020-11-06] MEDS: Cholecalciferol (D-3) 1,000 UNIT (25MCG) TABLET PO SCH (08:52)
[2020-11-06 16:40] LABS: BUN/Creatinine Ratio 23 (6-26); Blood Urea Nitrogen 15 mg/dL (6-20); Calcium 9.2 mg/dL (8.6-10.3); Carbon Dioxide 35 mEq/L (23-29); Chloride 90 mEq/L (98-107); Glucose 92 mg/dL (70-105); Magnesium 2.1 mg/dL (1.6-2.6); Osmolality,Calculated 274 (280-300); Potassium 2.9 mEq/L (3.5-5.1); Sodium 132 mEq/L (136-145); eGFR For African Americans > 60 (> 60); eGFR For Non-African Americans > 60 (> 60)
[2020-11-06] MEDS ORDERED: Clinimix 5%-20% SOLUTION 2,000 ML with MVI, adult with vitamin K 10 ML, Sodium Phosph... IVC SCH (17:00)
[2020-11-06] MEDS ORDERED: *HR* Warfarin 10 MG TABLET PO ONE (18:00)
[2020-11-07] MEDS: *HR* OxyCODONE/APAP 5/325 TABLET PO PRN ×5 (01:15→20:10)
[2020-11-07 06:53] LABS: INR 1.5; Prothrombin Time 17.4 Seconds (9.4-12.1)
[2020-11-07 06:55] LABS: BUN/Creatinine Ratio 30 (6-26); Blood Urea Nitrogen 21 mg/dL (6-20); Carbon Dioxide 35 mEq/L (23-29); Chloride 95 mEq/L (98-107); Glucose 87 mg/dL (70-105); Magnesium 1.7 mg/dL (1.6-2.6); Osmolality,Calculated 284 (280-300); Phosphorous 3.5 mg/dL (2.7-4.5); Potassium 3.2 mEq/L (3.5-5.1); Sodium 136 mEq/L (136-145); eGFR For African Americans > 60 (> 60); eGFR For Non-African Americans > 60 (> 60)
[2020-11-07] MEDS ORDERED: Potassium Chloride 40 MEQ, Lidocaine 1% 2 ML in 0.9 % Sodium Chloride 500 ML IVPB ONE (07:34)
[2020-11-07] MEDS: Cholecalciferol (D-3) 1,000 UNIT (25MCG) TABLET PO SCH (09:11)
[2020-11-07] MEDS: Pregabalin 75 MG CAPSULE PO SCH ×3 (09:11→20:09)
[2020-11-07 13:09] LABS: Adenovirus Not Detected (Not Detect); Bordetella Pertussis Not Detected (Not Detect); Chlamydophila pneumoniae Not Detected (Not Detect); Coronavirus 229E Not Detected (Not Detect); Coronavirus HKU1 Not Detected (Not Detect); Coronavirus NL63 Not Detected (Not Detect); Coronavirus OC43 Not Detected (Not Detect); Human Metapneumovirus Not Detected (Not Detect); Human Rhinovirus/Enterovirus Not Detected (Not Detect); Influenza A Subtype 2009 H1 Not Detected (Not Detect); Influenza B Not Detected (Not Detect); Mycoplasma pneumoniae Not Detected (Not Detect); Parainfluenza Virus 1 Not Detected (Not Detect); Parainfluenza Virus 2 Not Detected (Not Detect); Parainfluenza Virus 3 Not Detected (Not Detect); Parainfluenza Virus 4 Not Detected (Not Detect); Respiratory Syncytial Virus Not Detected (Not Detect); SARS-CoV-2 Not Detected (Not Detect)
[2020-11-07] MEDS ORDERED: Clinimix 5%-20% SOLUTION 2,000 ML with MVI, adult with vitamin K 10 ML, Sodium Phosph... IVC SCH (17:00)
[2020-11-07] MEDS: 0.9 % Sodium Chloride 1,000 ML IVC SCH ×2 (17:34→22:00)
[2020-11-07] MEDS ORDERED: *HR* Warfarin 7.5 MG TABLET PO ONE (18:00)
[2020-11-08] MEDS ORDERED: Melatonin 3 MG TABLET PO PRN (00:21)
[2020-11-08] MEDS: *HR* OxyCODONE/APAP 5/325 TABLET PO PRN ×3 (00:44→14:02)
[2020-11-08 01:47] LABS: BUN/Creatinine Ratio 27 (6-26); Blood Urea Nitrogen 20 mg/dL (6-20); Calcium 9.6 mg/dL (8.6-10.3); Carbon Dioxide 39 mEq/L (23-29); Chloride 88 mEq/L (98-107); Glucose 89 mg/dL (70-105); Osmolality,Calculated 282 (280-300); Potassium 2.9 mEq/L (3.5-5.1); Sodium 135 mEq/L (136-145); eGFR For African Americans > 60 (> 60); eGFR For Non-African Americans > 60 (> 60)
[2020-11-08 04:41] LABS: INR 1.9; Prothrombin Time 21.3 Seconds (9.4-12.1)
[2020-11-08 04:57] LABS: BUN/Creatinine Ratio 26 (6-26); Blood Urea Nitrogen 22 mg/dL (6-20); Calcium 9.2 mg/dL (8.6-10.3); Carbon Dioxide 40 mEq/L (23-29); Chloride 88 mEq/L (98-107); Glucose 135 mg/dL (70-105); Magnesium 1.4 mg/dL (1.6-2.6); Osmolality,Calculated 281 (280-300); Phosphorous 3.7 mg/dL (2.7-4.5); Sodium 133 mEq/L (136-145); Triglycerides 103 mg/dL (< 150); eGFR For African Americans > 60 (> 60); eGFR For Non-African Americans > 60 (> 60)
[2020-11-08] MEDS: 0.9 % Sodium Chloride 1,000 ML IVC SCH (08:13)
[2020-11-08] MEDS: Pregabalin 75 MG CAPSULE PO SCH ×2 (09:03→14:02)
[2020-11-08] MEDS: Cholecalciferol (D-3) 1,000 UNIT (25MCG) TABLET PO SCH (09:04)
[2020-11-08] MEDS: Potassium Chloride 40 MEQ, Lidocaine 1% 2 ML in 0.9 % Sodium Chloride 500 ML IVPB ONE ×2 (09:31→10:57)
[2020-11-08 13:12] VITALS: BP 127/85; PULSE 101; TEMP 97.9; O2SAT 100
[2020-11-08] MEDS ORDERED: *HR* Warfarin 10 MG TABLET PO ONE (18:00)
== END 2020-11-08 15:15 | DRG 254 ==
LOC: 2NNU → SUATTDRO 21:30 → 2NNU 21:36 → 2ANU 10-20 15:06 → SUATTDRO 10-20 17:49
PROVIDERS: ADMIT Student in an Organized Health Care Education/Training Program; ATTEND Internal Medicine

== ENCOUNTER 2020-12-06 01:25 | Inpatient (IN) ==
[2020-12-06] MEDS ORDERED: Ondansetron 4 MG/2 ML VIAL IVP PRN (05:18)
[2020-12-06] MEDS ORDERED: Naloxone 0.4 MG/ML INJ IVP PRN (05:18)
[2020-12-06 06:12] LABS: INR 1.8; Prothrombin Time 20.4 Seconds (9.4-12.1)
[2020-12-06] MEDS: 0.9 % Sodium Chloride 500 ML IVC PRN ×4 (06:37→10:48)
[2020-12-06 08:19] LABS: Hematocrit 25.2 % (37.5-50.1); Hemoglobin 8.2 g/dL (12.9-16.9); Mean Corpuscular HGB Conc 32.5 g/dL (31.6-35.5); Mean Corpuscular Hemoglobin 30.4 pg (28.0-33.3); Mean Platelet Volume 11.3 fL (9.4-12.4); Monocytes # 0.3 K/mcL (0.0-1.3); Platelet Count 142 K/mcL (140-400); Red Cell Distribution Width 15.2 % (11.5-14.5); White Blood Count 3.2 K/mcL (4.3-11.1)
[2020-12-06 08:23] LABS: Mean Corpuscular Volume 93.3 fL (83.0-100.0)
[2020-12-06 09:01] LABS: Lymphocytes # 0.6 K/mcL (0.6-4.6); Neutrophils # 2.2 K/mcL (1.6-8.9)
[2020-12-06 09:02] LABS: Anisocytosis 1+ (Not Present); Platelet Estimate Normal (Normal); Reactive Lymphocytes Present (Not Present)
[2020-12-06 09:50] LABS: Bilirubin,Urine Negative (Negative); Blood,Urine Negative (Negative); Clarity,Urine Clear (Clear); Color,Urine Light-Yellow (Yellow); Glucose,Urine (UA) Normal (Normal); Ketones,Urine Negative (Negative); Leukocyte Esterase,Urine Negative (Negative); Nitrite,Urine Negative (Negative); Protein,Urine Negative (Neg-Trace); Specific Gravity,Urine 1.012 (1.010-1.025); Urobilinogen,Urine Normal (Normal)
[2020-12-06 10:36] LABS: Adenovirus Not Detected (Not Detect); Bordetella Pertussis Not Detected (Not Detect); Chlamydophila pneumoniae Not Detected (Not Detect); Coronavirus 229E Not Detected (Not Detect); Coronavirus HKU1 Not Detected (Not Detect); Coronavirus NL63 Not Detected (Not Detect); Coronavirus OC43 Not Detected (Not Detect); Human Metapneumovirus Not Detected (Not Detect); Human Rhinovirus/Enterovirus Not Detected (Not Detect); Influenza A Subtype 2009 H1 Not Detected (Not Detect); Influenza B Not Detected (Not Detect); Mycoplasma pneumoniae Not Detected (Not Detect); Parainfluenza Virus 1 Not Detected (Not Detect); Parainfluenza Virus 2 Not Detected (Not Detect); Parainfluenza Virus 3 Not Detected (Not Detect); Parainfluenza Virus 4 Not Detected (Not Detect); Respiratory Syncytial Virus Not Detected (Not Detect)
[2020-12-06 10:37] LABS: SARS-CoV-2 DETECTED (Not Detect)
[2020-12-06 11:15] LABS: Albumin 2.7 g/dL (3.5-5.7); Albumin/Globulin Ratio 0.8 (1.1-2.2); Alkaline Phosphatase 109 Units/L (34-104); Aspartate Amino Transferase 16 Units/L (13-39); Bilirubin,Total 0.9 mg/dL (0.3-1.0); C-Reactive Protein 102 mg/L (Less than 10); Calcium 8.2 mg/dL (8.6-10.3); Chloride 106 mEq/L (98-107); Ferritin 134 ng/mL (20-250); Globulin 3.4 g/dL (2.4-3.5); Glucose 100 mg/dL (70-105); Iron < 10 mcg/dL (65-175); Lactate Dehydrogenase 120 Units/L (140-271); Potassium 4.2 mEq/L (3.5-5.1); Sodium 131 mEq/L (136-145); Total Protein 6.1 g/dL (6.4-8.9)
[2020-12-06 13:02] LABS: Transferrin 163 mg/dL (203-362)
[2020-12-06 13:30] LABS: Procalcitonin 1.73 ng/mL (0.00-0.15)
[2020-12-06 14:01] LABS: Alanine Aminotransferase 16 Units/L (7-52); BUN/Creatinine Ratio 23 (6-26); Blood Urea Nitrogen 14 mg/dL (6-20); Carbon Dioxide 19 mEq/L (23-29); Osmolality,Calculated 273 (280-300); eGFR For African Americans > 60 (> 60); eGFR For Non-African Americans > 60 (> 60)
[2020-12-06] MEDS ORDERED: 0.9 % Sodium Chloride 1,000 ML IVC SCH (15:15)
[2020-12-06] MEDS ORDERED: Albumin Human 5% 12.5 GM/250 ML IV.SOLN IVPB PRN (15:19)
[2020-12-06] MEDS: Cefepime HCl 2,000 MG in 0.9 % Sodium Chloride Mini Bag 100 ML IVPB SCH (17:11)
[2020-12-06] MEDS: DAPTOmycin 450 MG in 0.9 % Sodium Chloride 100 ML IVPB SCH (17:11)
[2020-12-06] MEDS: Albumin Human 5% 12.5 GM/250 ML IV.SOLN IVPB SCH ×2 (18:34→23:13)
[2020-12-06] MEDS: Hydrocortisone Sodium Succ 100 MG/2 ML VIAL IVP SCH (23:25)
[2020-12-07] MEDS: Cefepime HCl 2,000 MG in 0.9 % Sodium Chloride Mini Bag 100 ML IVPB SCH ×2 (06:16→18:34)
[2020-12-07] MEDS: Hydrocortisone Sodium Succ 100 MG/2 ML VIAL IVP SCH ×3 (06:20→17:23)
[2020-12-07 07:28] LABS: BUN/Creatinine Ratio 22 (6-26); Blood Urea Nitrogen 11 mg/dL (6-20); Calcium 8.6 mg/dL (8.6-10.3); Carbon Dioxide 22 mEq/L (23-29); Chloride 107 mEq/L (98-107); Creatine Kinase 10 Units/L (30-223); Glucose 94 mg/dL (70-105); Magnesium 1.5 mg/dL (1.6-2.6); Osmolality,Calculated 281 (280-300); Potassium 3.7 mEq/L (3.5-5.1); Sodium 136 mEq/L (136-145); eGFR For African Americans > 60 (> 60); eGFR For Non-African Americans > 60 (> 60)
[2020-12-07 08:02] LABS: Acinetobacter baumannii by PCR Not Detected (Not Detect); Enterobacter cloacae Cmplx PCR Not Detected (Not Detect); Enterobacteriaceae by PCR Not Detected (Not Detect); Enterococcus by PCR Not Detected (Not Detect); Escherichia coli by PCR Not Detected (Not Detect); Klebsiella oxytoca by PCR Not Detected (Not Detect); Klebsiella pneumoniae by PCR Not Detected (Not Detect); Proteus by PCR Not Detected (Not Detect); Serratia marcescens by PCR Not Detected (Not Detect); Staphylococcus aureus by PCR Not Detected (Not Detect); Staphylococcus by PCR DETECTED (Not Detect); Streptococcus agalactiae(B)PCR Not Detected (Not Detect); Streptococcus by PCR Not Detected (Not Detect); Streptococcus pneumoniae PCR Not Detected (Not Detect); Streptococcus pyogenes (A) PCR Not Detected (Not Detect); mecA Methicillin-Resist Gene Not Detected (Not Detect)
[2020-12-07 08:03] LABS: Candida albicans by PCR Not Detected (Not Detect); Candida glabrata by PCR Not Detected (Not Detect); Candida krusei by PCR Not Detected (Not Detect); Candida parapsilosis by PCR Not Detected (Not Detect); Candida tropicalis by PCR Not Detected (Not Detect); Pseudomonas aeruginosa by PCR Not Detected (Not Detect)
[2020-12-07 12:29] LABS: Phosphorous 3.9 mg/dL (2.7-4.5)
[2020-12-07] MEDS ORDERED: Acetaminophen 325 MG TABLET PO PRN (12:34)
[2020-12-07] MEDS ORDERED: D10% in Water 500 ML IVC PRN (13:10)
[2020-12-07 14:01] LABS: Hematocrit 25.4 % (37.5-50.1); Immature Platelets 5.9 % (1.1-6.1); Mean Corpuscular HGB Conc 31.5 g/dL (31.6-35.5); Mean Corpuscular Hemoglobin 30.4 pg (28.0-33.3); Mean Corpuscular Volume 96.6 fL (83.0-100.0); Mean Platelet Volume 10.6 fL (9.4-12.4); Red Blood Count 2.63 M/mcL (4.19-5.50); Red Cell Distribution Width 15.3 % (11.5-14.5); White Blood Count 2.5 K/mcL (4.3-11.1)
[2020-12-07] MEDS: *HR* OxyCODONE/APAP 5/325 TABLET PO SCH ×3 (15:07→20:38)
[2020-12-07] MEDS ORDERED: MOM Conc 10 ML UD.LIQ PO PRN (16:20)
[2020-12-07] MEDS: DAPTOmycin 450 MG in 0.9 % Sodium Chloride 100 ML IVPB SCH (17:22)
[2020-12-07] MEDS ORDERED: *HR* Warfarin 4 MG TABLET PO ONE (18:00)
[2020-12-07] MEDS ORDERED: Warfarin perPT PO PRN (18:00)
[2020-12-07] MEDS: Clinimix E 5%-20% SOLUTION 2,000 ML with MVI, adult with vitamin K 10 ML, ZN/CU/MN/SE... IVC SCH ×2 (18:35→19:14)
[2020-12-07] MEDS: Pregabalin 75 MG CAPSULE PO SCH (20:38)
[2020-12-08] MEDS: Hydrocortisone Sodium Succ 100 MG/2 ML VIAL IVP SCH ×4 (00:28→16:51)
[2020-12-08] MEDS ORDERED: *HR* Dextrose 50 % in Water (Syg) 50 ML SYRINGE IVP PRN (01:46)
[2020-12-08] MEDS ORDERED: D5% in Water 1,000 ML IVC PRN (01:46)
[2020-12-08] MEDS ORDERED: Dextrose Gel 15 GM/37.5 ML TUBE PO PRN ×2 (01:46)
[2020-12-08] MEDS: Insulin LISPRO 300 UNITS/3 ML VIAL SUBQ SCH ×5 (04:36→21:42)
[2020-12-08] MEDS: Cefepime HCl 2,000 MG in 0.9 % Sodium Chloride Mini Bag 100 ML IVPB SCH ×2 (05:37→16:53)
[2020-12-08] MEDS: Cholecalciferol (D-3) 1,000 UNIT (25MCG) TABLET PO SCH (09:04)
[2020-12-08] MEDS: Pregabalin 75 MG CAPSULE PO SCH ×3 (09:04→21:33)
[2020-12-08] MEDS: *HR* OxyCODONE/APAP 5/325 TABLET PO SCH ×4 (09:04→21:34)
[2020-12-08 10:33] LABS: BUN/Creatinine Ratio 38 (6-26); Blood Urea Nitrogen 20 mg/dL (6-20); Calcium 8.7 mg/dL (8.6-10.3); Carbon Dioxide 20 mEq/L (23-29); Chloride 107 mEq/L (98-107); Glucose 145 mg/dL (70-105); Magnesium 1.9 mg/dL (1.6-2.6); Osmolality,Calculated 283 (280-300); Phosphorous 2.8 mg/dL (2.7-4.5); Potassium 4.5 mEq/L (3.5-5.1); Sodium 134 mEq/L (136-145); eGFR For African Americans > 60 (> 60); eGFR For Non-African Americans > 60 (> 60)
[2020-12-08 10:46] LABS: INR 1.8; Prothrombin Time 20.5 Seconds (9.4-12.1)
[2020-12-08 11:19] LABS: Eosinophils % 0.2 %; Hematocrit 27.7 % (37.5-50.1); Hemoglobin 9.2 g/dL (12.9-16.9); Immature Granulocytes % 0.4 % (0-4); Lymphocytes % 16.3 %; Mean Corpuscular HGB Conc 33.2 g/dL (31.6-35.5); Mean Corpuscular Hemoglobin 29.9 pg (28.0-33.3); Mean Platelet Volume 11.3 fL (9.4-12.4); Monocytes # 0.2 K/mcL (0.0-1.3); Monocytes % 3.7 %; Neutrophils # 4.1 K/mcL (1.6-8.9); Platelet Count 216 K/mcL (140-400); Red Blood Count 3.08 M/mcL (4.19-5.50); Red Cell Distribution Width 14.8 % (11.5-14.5); Segmented Neutrophils % 79.4 %; White Blood Count 5.2 K/mcL (4.3-11.1)
[2020-12-08 11:22] LABS: Lymphocytes # 0.9 K/mcL (0.6-4.6)
[2020-12-08 11:23] LABS: Mean Corpuscular Volume 89.9 fL (83.0-100.0)
[2020-12-08] MEDS ORDERED: Ipratropium/Albuterol Neb 3 ML IH PRN (15:09)
[2020-12-08] MEDS: DAPTOmycin 450 MG in 0.9 % Sodium Chloride 100 ML IVPB SCH (16:52)
[2020-12-08] MEDS ORDERED: Clinimix E 5%-20% SOLUTION 2,000 ML with MVI, adult with vitamin K 10 ML, ZN/CU/MN/SE... IVC SCH (17:00)
[2020-12-08] MEDS ORDERED: *HR* Warfarin 10 MG TABLET PO ONE (18:00)
[2020-12-09] MEDS: Hydrocortisone Sodium Succ 100 MG/2 ML VIAL IVP SCH ×4 (01:01→16:22)
[2020-12-09] MEDS: Insulin LISPRO 300 UNITS/3 ML VIAL SUBQ SCH ×6 (01:15→22:02)
[2020-12-09] MEDS: Cefepime HCl 2,000 MG in 0.9 % Sodium Chloride Mini Bag 100 ML IVPB SCH ×2 (05:51→16:24)
[2020-12-09 06:38] LABS: INR 3.2; Prothrombin Time 35.9 Seconds (9.4-12.1)
[2020-12-09 06:48] LABS: BUN/Creatinine Ratio 43 (6-26); Blood Urea Nitrogen 21 mg/dL (6-20); Calcium 8.9 mg/dL (8.6-10.3); Carbon Dioxide 27 mEq/L (23-29); Chloride 104 mEq/L (98-107); Glucose 116 mg/dL (70-105); Magnesium 1.8 mg/dL (1.6-2.6); Osmolality,Calculated 282 (280-300); Phosphorous 2.5 mg/dL (2.7-4.5); Potassium 4.7 mEq/L (3.5-5.1); Sodium 134 mEq/L (136-145); eGFR For African Americans > 60 (> 60); eGFR For Non-African Americans > 60 (> 60)
[2020-12-09 06:56] LABS: Basophils % 0.1 %; Hematocrit 27.2 % (37.5-50.1); Hemoglobin 9.2 g/dL (12.9-16.9); Immature Granulocytes % 0.7 % (0-4); Lymphocytes # 1.2 K/mcL (0.6-4.6); Lymphocytes % 18.1 %; Mean Corpuscular HGB Conc 33.8 g/dL (31.6-35.5); Mean Corpuscular Hemoglobin 30.4 pg (28.0-33.3); Mean Platelet Volume 10.3 fL (9.4-12.4); Monocytes # 0.3 K/mcL (0.0-1.3); Monocytes % 4.5 %; Neutrophils # 5.1 K/mcL (1.6-8.9); Platelet Count 278 K/mcL (140-400); Red Blood Count 3.03 M/mcL (4.19-5.50); Red Cell Distribution Width 14.8 % (11.5-14.5); Segmented Neutrophils % 76.6 %; White Blood Count 6.7 K/mcL (4.3-11.1)
[2020-12-09 06:57] LABS: Mean Corpuscular Volume 89.8 fL (83.0-100.0)
[2020-12-09] MEDS: Pregabalin 75 MG CAPSULE PO SCH ×3 (09:25→21:57)
[2020-12-09] MEDS: *HR* OxyCODONE/APAP 5/325 TABLET PO SCH ×4 (09:26→21:58)
[2020-12-09] MEDS: Cholecalciferol (D-3) 1,000 UNIT (25MCG) TABLET PO SCH (09:26)
[2020-12-09] MEDS: DAPTOmycin 450 MG in 0.9 % Sodium Chloride 100 ML IVPB SCH (16:24)
[2020-12-09] MEDS ORDERED: Clinimix E 5%-20% SOLUTION 2,000 ML with MVI, adult with vitamin K 10 ML, ZN/CU/MN/SE... IVC SCH (17:00)
[2020-12-10] MEDS: Insulin LISPRO 300 UNITS/3 ML VIAL SUBQ SCH ×6 (00:20→21:53)
[2020-12-10] MEDS: Hydrocortisone Sodium Succ 100 MG/2 ML VIAL IVP SCH ×4 (00:28→21:46)
[2020-12-10] MEDS: Cefepime HCl 2,000 MG in 0.9 % Sodium Chloride Mini Bag 100 ML IVPB SCH ×2 (05:59→17:06)
[2020-12-10 06:27] LABS: INR 3.8; Prothrombin Time 41.6 Seconds (9.4-12.1)
[2020-12-10 06:53] LABS: Basophils % 0.2 %; Hematocrit 31.7 % (37.5-50.1); Hemoglobin 10.4 g/dL (12.9-16.9); Lymphocytes # 1.8 K/mcL (0.6-4.6); Lymphocytes % 20.1 %; Mean Corpuscular HGB Conc 32.8 g/dL (31.6-35.5); Mean Corpuscular Hemoglobin 29.5 pg (28.0-33.3); Mean Platelet Volume 9.9 fL (9.4-12.4); Monocytes # 0.6 K/mcL (0.0-1.3); Monocytes % 6.5 %; Neutrophils # 6.3 K/mcL (1.6-8.9); Platelet Count 309 K/mcL (140-400); Red Blood Count 3.53 M/mcL (4.19-5.50); Red Cell Distribution Width 14.8 % (11.5-14.5); Segmented Neutrophils % 72.2 %; White Blood Count 8.7 K/mcL (4.3-11.1)
[2020-12-10 06:54] LABS: Mean Corpuscular Volume 89.8 fL (83.0-100.0)
[2020-12-10 07:16] LABS: BUN/Creatinine Ratio 48 (6-26); Blood Urea Nitrogen 25 mg/dL (6-20); Calcium 9.5 mg/dL (8.6-10.3); Carbon Dioxide 32 mEq/L (23-29); Chloride 100 mEq/L (98-107); Glucose 123 mg/dL (70-105); Osmolality,Calculated 286 (280-300); Phosphorous 2.8 mg/dL (2.7-4.5); Potassium 4.7 mEq/L (3.5-5.1); Sodium 135 mEq/L (136-145); eGFR For African Americans > 60 (> 60); eGFR For Non-African Americans > 60 (> 60)
[2020-12-10] MEDS: Pregabalin 75 MG CAPSULE PO SCH ×3 (09:46→21:47)
[2020-12-10] MEDS: Loratadine 10 MG TABLET PO SCH (09:46)
[2020-12-10] MEDS: Cholecalciferol (D-3) 1,000 UNIT (25MCG) TABLET PO SCH (09:46)
[2020-12-10] MEDS: *HR* OxyCODONE/APAP 5/325 TABLET PO SCH ×4 (09:46→21:44)
[2020-12-10] MEDS: Ipratropium 1 PUFF INHALER IH SCH ×3 (11:04→21:20)
[2020-12-10] MEDS: DAPTOmycin 450 MG in 0.9 % Sodium Chloride 100 ML IVPB SCH (14:07)
[2020-12-10] MEDS ORDERED: Clinimix E 5%-20% SOLUTION 2,000 ML, Parenteral Amino Acid 10% 0 ML with MVI, adult wi... IVC SCH (17:00)
[2020-12-10] MEDS ORDERED: Clinimix E 5%-20% SOLUTION 2,000 ML with MVI, adult with vitamin K 10 ML, ZN/CU/MN/SE... IVC SCH (17:00)
[2020-12-11] MEDS: Insulin LISPRO 300 UNITS/3 ML VIAL SUBQ SCH ×6 (00:49→22:54)
[2020-12-11] MEDS: Ipratropium 1 PUFF INHALER IH SCH ×4 (04:42→21:47)
[2020-12-11] MEDS: Hydrocortisone Sodium Succ 100 MG/2 ML VIAL IVP SCH ×3 (05:52→21:19)
[2020-12-11] MEDS: cefTRIAXone 2,000 MG in 0.9 % Sodium Chloride Mini Bag 100 ML IVPB SCH (05:59)
[2020-12-11 07:12] LABS: INR 2.8; Prothrombin Time 30.5 Seconds (9.4-12.1)
[2020-12-11 08:07] LABS: BUN/Creatinine Ratio 47 (6-26); Blood Urea Nitrogen 29 mg/dL (6-20); Calcium 9.6 mg/dL (8.6-10.3); Carbon Dioxide 32 mEq/L (23-29); Chloride 94 mEq/L (98-107); Glucose 86 mg/dL (70-105); Magnesium 1.9 mg/dL (1.6-2.6); Osmolality,Calculated 279 (280-300); Phosphorous 4.1 mg/dL (2.7-4.5); Potassium 4.4 mEq/L (3.5-5.1); Sodium 132 mEq/L (136-145); eGFR For African Americans > 60 (> 60); eGFR For Non-African Americans > 60 (> 60)
[2020-12-11 08:34] LABS: Basophils # 0.1 K/mcL (0.0-0.2); Basophils % 0.9 %; Eosinophils # 0.1 K/mcL (0.0-0.6); Eosinophils % 0.7 %; Hematocrit 32.5 % (37.5-50.1); Hemoglobin 10.6 g/dL (12.9-16.9); Immature Granulocytes % 4.5 % (0-4); Lymphocytes # 2.9 K/mcL (0.6-4.6); Lymphocytes % 30.1 %; Mean Corpuscular Hemoglobin 29.4 pg (28.0-33.3); Mean Platelet Volume 9.9 fL (9.4-12.4); Monocytes # 0.9 K/mcL (0.0-1.3); Neutrophils # 5.3 K/mcL (1.6-8.9); Platelet Count 263 K/mcL (140-400); Red Blood Count 3.61 M/mcL (4.19-5.50); Red Cell Distribution Width 14.5 % (11.5-14.5); Segmented Neutrophils % 54.8 %; White Blood Count 9.6 K/mcL (4.3-11.1)
[2020-12-11 08:37] LABS: Mean Corpuscular HGB Conc 32.6 g/dL (31.6-35.5)
[2020-12-11] MEDS: Cholecalciferol (D-3) 1,000 UNIT (25MCG) TABLET PO SCH (09:07)
[2020-12-11] MEDS: Loratadine 10 MG TABLET PO SCH (09:07)
[2020-12-11] MEDS: Pregabalin 75 MG CAPSULE PO SCH ×3 (09:08→21:12)
[2020-12-11] MEDS: *HR* OxyCODONE/APAP 5/325 TABLET PO SCH ×4 (09:08→21:12)
[2020-12-11] MEDS: DAPTOmycin 450 MG in 0.9 % Sodium Chloride 100 ML IVPB SCH (15:13)
[2020-12-11] MEDS: 0.9 % Sodium Chloride 500 ML IVC SCH ×2 (16:41→21:12)
[2020-12-11] MEDS ORDERED: Clinimix E 5%-20% SOLUTION 2,000 ML with MVI, adult with vitamin K 10 ML, ZN/CU/MN/SE... IVC SCH (17:00)
[2020-12-11] MEDS ORDERED: *HR* Warfarin 4 MG TABLET PO ONE (18:00)
[2020-12-11] MEDS ORDERED: Ipratropium 1 PUFF INHALER IH PRN (23:04)
[2020-12-12] MEDS: Insulin LISPRO 300 UNITS/3 ML VIAL SUBQ SCH ×6 (00:35→20:43)
[2020-12-12 04:40] LABS: Hematocrit 31.2 % (37.5-50.1); Hemoglobin 10.7 g/dL (12.9-16.9); Mean Corpuscular HGB Conc 34.3 g/dL (31.6-35.5); Mean Corpuscular Hemoglobin 31.8 pg (28.0-33.3); Mean Corpuscular Volume 92.9 fL (83.0-100.0); Mean Platelet Volume 9.5 fL (9.4-12.4); Platelet Count 372 K/mcL (140-400); Red Blood Count 3.36 M/mcL (4.19-5.50); Red Cell Distribution Width 14.7 % (11.5-14.5); White Blood Count 13.3 K/mcL (4.3-11.1)
[2020-12-12] MEDS: Hydrocortisone Sodium Succ 100 MG/2 ML VIAL IVP SCH (05:01)
[2020-12-12 05:09] LABS: INR 1.5; Prothrombin Time 16.3 Seconds (9.4-12.1)
[2020-12-12] MEDS: cefTRIAXone 2,000 MG in 0.9 % Sodium Chloride Mini Bag 100 ML IVPB SCH (05:10)
[2020-12-12 05:38] LABS: Lymphocytes # 2.4 K/mcL (0.6-4.6); Monocytes # 1.1 K/mcL (0.0-1.3); Neutrophils # 9.8 K/mcL (1.6-8.9); Platelet Estimate Normal (Normal); Reactive Lymphocytes Present (Not Present)
[2020-12-12 05:50] LABS: BUN/Creatinine Ratio 52 (6-26); Blood Urea Nitrogen 31 mg/dL (6-20); Calcium 9.6 mg/dL (8.6-10.3); Carbon Dioxide 30 mEq/L (23-29); Chloride 95 mEq/L (98-107); Glucose 66 mg/dL (70-105); Magnesium 1.8 mg/dL (1.6-2.6); Osmolality,Calculated 277 (280-300); Potassium 4.4 mEq/L (3.5-5.1); Sodium 131 mEq/L (136-145); eGFR For African Americans > 60 (> 60); eGFR For Non-African Americans > 60 (> 60)
[2020-12-12] MEDS: Pregabalin 75 MG CAPSULE PO SCH ×3 (08:46→20:56)
[2020-12-12] MEDS: Cholecalciferol (D-3) 1,000 UNIT (25MCG) TABLET PO SCH (08:46)
[2020-12-12] MEDS: *HR* OxyCODONE/APAP 5/325 TABLET PO SCH ×4 (08:46→20:57)
[2020-12-12] MEDS: Loratadine 10 MG TABLET PO SCH (08:46)
[2020-12-12] MEDS ORDERED: Clinimix E 5%-20% SOLUTION 2,000 ML with MVI, adult with vitamin K 10 ML, ZN/CU/MN/SE... IVC SCH (17:00)
[2020-12-12] MEDS ORDERED: *HR* Warfarin 10 MG TABLET PO ONE (18:00)
[2020-12-12] MEDS: DAPTOmycin 450 MG in 0.9 % Sodium Chloride 100 ML IVPB SCH (19:16)
[2020-12-12] MEDS: Acetaminophen 325 MG TABLET PO PRN (22:41)
[2020-12-13] MEDS: Insulin LISPRO 300 UNITS/3 ML VIAL SUBQ SCH ×6 (01:21→20:56)
[2020-12-13 02:34] LABS: INR 1.3; Prothrombin Time 14.1 Seconds (9.4-12.1)
[2020-12-13 02:38] LABS: BUN/Creatinine Ratio 42 (6-26); Blood Urea Nitrogen 32 mg/dL (6-20); Calcium 9.7 mg/dL (8.6-10.3); Carbon Dioxide 32 mEq/L (23-29); Chloride 91 mEq/L (98-107); Glucose 73 mg/dL (70-105); Magnesium 1.9 mg/dL (1.6-2.6); Osmolality,Calculated 273 (280-300); Phosphorous 3.5 mg/dL (2.7-4.5); Potassium 4.5 mEq/L (3.5-5.1); Sodium 129 mEq/L (136-145); eGFR For African Americans > 60 (> 60); eGFR For Non-African Americans > 60 (> 60)
[2020-12-13] MEDS: cefTRIAXone 2,000 MG in 0.9 % Sodium Chloride Mini Bag 100 ML IVPB SCH (05:46)
[2020-12-13] MEDS: Pregabalin 75 MG CAPSULE PO SCH ×3 (08:42→20:52)
[2020-12-13] MEDS: *HR* OxyCODONE/APAP 5/325 TABLET PO SCH ×4 (08:42→20:53)
[2020-12-13] MEDS: Loratadine 10 MG TABLET PO SCH (08:42)
[2020-12-13] MEDS: Cholecalciferol (D-3) 1,000 UNIT (25MCG) TABLET PO SCH (08:42)
[2020-12-13] MEDS ORDERED: Hydrocortisone Sodium Succ 100 MG/2 ML VIAL IVP SCH (09:00)
[2020-12-13] MEDS: *HR* Enoxaparin 60 MG/0.6 ML SYRINGE SQ SCH ×2 (12:56→20:55)
[2020-12-13 13:54] LABS: BUN/Creatinine Ratio 38 (6-26); Blood Urea Nitrogen 31 mg/dL (6-20); Calcium 10.3 mg/dL (8.6-10.3); Carbon Dioxide 31 mEq/L (23-29); Chloride 90 mEq/L (98-107); Glucose 119 mg/dL (70-105); Osmolality,Calculated 274 (280-300); Potassium 4.8 mEq/L (3.5-5.1); Sodium 128 mEq/L (136-145); eGFR For African Americans > 60 (> 60); eGFR For Non-African Americans > 60 (> 60)
[2020-12-13 17:00] LABS: Hematocrit 42.7 % (37.5-50.1); Hemoglobin 14.1 g/dL (12.9-16.9); Mean Corpuscular Hemoglobin 30.1 pg (28.0-33.3); Mean Corpuscular Volume 91.2 fL (83.0-100.0); Mean Platelet Volume 9.1 fL (9.4-12.4); Platelet Count 410 K/mcL (140-400); Red Blood Count 4.68 M/mcL (4.19-5.50); Red Cell Distribution Width 15.6 % (11.5-14.5); White Blood Count 14.2 K/mcL (4.3-11.1)
[2020-12-13] MEDS ORDERED: *HR* Warfarin 10 MG TABLET PO ONE (18:00)
[2020-12-13 18:46] LABS: Lymphocytes # 4.5 K/mcL (0.6-4.6); Monocytes # 1.4 K/mcL (0.0-1.3); Neutrophils # 8.2 K/mcL (1.6-8.9)
[2020-12-13 18:47] LABS: Platelet Estimate Normal (Normal)
[2020-12-13] MEDS: Clinimix E 5%-20% SOLUTION 2,000 ML with MVI, adult with vitamin K 10 ML, ZN/CU/MN/SE... IVC SCH ×2 (19:56→21:53)
[2020-12-13] MEDS: DAPTOmycin 450 MG in 0.9 % Sodium Chloride 100 ML IVPB SCH ×2 (19:58→20:49)
[2020-12-14] MEDS ORDERED: *HR* Metoprolol 5 MG/5 ML VIAL IVP ONE (00:18)
[2020-12-14] MEDS: Insulin LISPRO 300 UNITS/3 ML VIAL SUBQ SCH ×6 (01:27→20:13)
[2020-12-14 05:08] LABS: INR 1.1; Prothrombin Time 11.8 Seconds (9.4-12.1)
[2020-12-14 05:09] LABS: BUN/Creatinine Ratio 42 (6-26); Blood Urea Nitrogen 35 mg/dL (6-20); Calcium 9.8 mg/dL (8.6-10.3); Carbon Dioxide 31 mEq/L (23-29); Chloride 86 mEq/L (98-107); Glucose 91 mg/dL (70-105); Magnesium 1.9 mg/dL (1.6-2.6); Osmolality,Calculated 266 (280-300); Potassium 4.2 mEq/L (3.5-5.1); Sodium 124 mEq/L (136-145); Triglycerides 345 mg/dL (< 150); eGFR For African Americans > 60 (> 60); eGFR For Non-African Americans > 60 (> 60)
[2020-12-14] MEDS: cefTRIAXone 2,000 MG in 0.9 % Sodium Chloride Mini Bag 100 ML IVPB SCH (05:13)
[2020-12-14] MEDS: Pregabalin 75 MG CAPSULE PO SCH ×3 (09:03→20:10)
[2020-12-14] MEDS: Loratadine 10 MG TABLET PO SCH (09:03)
[2020-12-14] MEDS: *HR* OxyCODONE/APAP 5/325 TABLET PO SCH ×4 (09:03→20:10)
[2020-12-14] MEDS: Cholecalciferol (D-3) 1,000 UNIT (25MCG) TABLET PO SCH (09:04)
[2020-12-14 11:11] LABS: Calcium 9.6 mg/dL (8.6-10.3); Carbon Dioxide 29 mEq/L (23-29); Chloride 87 mEq/L (98-107); Glucose 122 mg/dL (70-105); Potassium 4.3 mEq/L (3.5-5.1); Sodium 125 mEq/L (136-145); eGFR For African Americans > 60 (> 60); eGFR For Non-African Americans > 60 (> 60)
[2020-12-14 11:13] LABS: BUN/Creatinine Ratio 40 (6-26); Blood Urea Nitrogen 35 mg/dL (6-20); Osmolality,Calculated 269 (280-300)
[2020-12-14] MEDS: *HR* Enoxaparin 60 MG/0.6 ML SYRINGE SQ SCH ×2 (13:15→20:12)
[2020-12-14] MEDS: 0.9 % Sodium Chloride 1,000 ML IVC SCH ×2 (15:57→20:09)
[2020-12-14] MEDS ORDERED: Clinimix E 5%-20% SOLUTION 2,000 ML with MVI, adult with vitamin K 10 ML, ZN/CU/MN/SE... IVC SCH (17:00)
[2020-12-14] MEDS: DAPTOmycin 450 MG in 0.9 % Sodium Chloride 100 ML IVPB SCH (17:11)
[2020-12-14] MEDS ORDERED: *HR* Warfarin 5 MG TABLET PO ONE ×2 (18:00)
[2020-12-15] MEDS: Insulin LISPRO 300 UNITS/3 ML VIAL SUBQ SCH ×6 (00:57→22:08)
[2020-12-15 01:03] LABS: BUN/Creatinine Ratio 32 (6-26); Blood Urea Nitrogen 31 mg/dL (6-20); Calcium 9.4 mg/dL (8.6-10.3); Carbon Dioxide 28 mEq/L (23-29); Chloride 91 mEq/L (98-107); Glucose 94 mg/dL (70-105); Osmolality,Calculated 272 (280-300); Potassium 4.2 mEq/L (3.5-5.1); Sodium 128 mEq/L (136-145); eGFR For African Americans > 60 (> 60); eGFR For Non-African Americans > 60 (> 60)
[2020-12-15] MEDS ORDERED: *HR* Metoprolol 5 MG/5 ML VIAL IVP ONE ×2 (01:57→04:07)
[2020-12-15] MEDS: 0.9 % Sodium Chloride 1,000 ML IVC SCH ×3 (02:20→18:21)
[2020-12-15 05:26] LABS: BUN/Creatinine Ratio 31 (6-26); Blood Urea Nitrogen 32 mg/dL (6-20); Calcium 9.2 mg/dL (8.6-10.3); Carbon Dioxide 28 mEq/L (23-29); Chloride 92 mEq/L (98-107); Glucose 84 mg/dL (70-105); Osmolality,Calculated 268 (280-300); Potassium 4.9 mEq/L (3.5-5.1); Sodium 126 mEq/L (136-145); eGFR For African Americans > 60 (> 60); eGFR For Non-African Americans > 60 (> 60)
[2020-12-15 05:27] LABS: Magnesium 1.8 mg/dL (1.6-2.6); Phosphorous 3.1 mg/dL (2.7-4.5)
[2020-12-15 05:41] LABS: INR 1.1; Prothrombin Time 12.7 Seconds (9.4-12.1)
[2020-12-15] MEDS: Acetaminophen 325 MG TABLET PO PRN (06:08)
[2020-12-15] MEDS: cefTRIAXone 2,000 MG in 0.9 % Sodium Chloride Mini Bag 100 ML IVPB SCH (06:14)
[2020-12-15] MEDS: *HR* OxyCODONE/APAP 5/325 TABLET PO SCH ×4 (08:00→22:22)
[2020-12-15] MEDS: Pregabalin 75 MG CAPSULE PO SCH ×3 (08:01→22:21)
[2020-12-15] MEDS: Loratadine 10 MG TABLET PO SCH (08:01)
[2020-12-15] MEDS: Cholecalciferol (D-3) 1,000 UNIT (25MCG) TABLET PO SCH (08:01)
[2020-12-15 10:37] LABS: BUN/Creatinine Ratio 32 (6-26); Blood Urea Nitrogen 30 mg/dL (6-20); Calcium 8.8 mg/dL (8.6-10.3); Carbon Dioxide 24 mEq/L (23-29); Chloride 92 mEq/L (98-107); Glucose 82 mg/dL (70-105); Osmolality,Calculated 263 (280-300); Potassium 4.2 mEq/L (3.5-5.1); Sodium 124 mEq/L (136-145); eGFR For African Americans > 60 (> 60); eGFR For Non-African Americans > 60 (> 60)
[2020-12-15] MEDS: *HR* Enoxaparin 60 MG/0.6 ML SYRINGE SQ SCH ×2 (13:24→22:22)
[2020-12-15] MEDS ORDERED: Clinimix E 5%-20% SOLUTION 2,000 ML with MVI, adult with vitamin K 10 ML, ZN/CU/MN/SE... IVC SCH (17:00)
[2020-12-15] MEDS ORDERED: *HR* Warfarin 7.5 MG TABLET PO ONE (18:00)
[2020-12-15 23:45] LABS: BUN/Creatinine Ratio 33 (6-26); Blood Urea Nitrogen 23 mg/dL (6-20); Carbon Dioxide 20 mEq/L (23-29); Chloride 97 mEq/L (98-107); Glucose 69 mg/dL (70-105); Magnesium 1.6 mg/dL (1.6-2.6); Osmolality,Calculated 258 (280-300); Phosphorous 1.9 mg/dL (2.7-4.5); Potassium 4.2 mEq/L (3.5-5.1); Sodium 123 mEq/L (136-145); eGFR For African Americans > 60 (> 60); eGFR For Non-African Americans > 60 (> 60)
[2020-12-15 23:49] LABS: INR 1.6; Prothrombin Time 17.6 Seconds (9.4-12.1)
[2020-12-16] MEDS: 0.9 % Sodium Chloride 1,000 ML IVC SCH (02:45)
[2020-12-16] MEDS: Acetaminophen 325 MG TABLET PO PRN (02:47)
[2020-12-16] MEDS: Insulin LISPRO 300 UNITS/3 ML VIAL SUBQ SCH ×6 (03:42→22:27)
[2020-12-16] MEDS: cefTRIAXone 2,000 MG in 0.9 % Sodium Chloride Mini Bag 100 ML IVPB SCH (05:21)
[2020-12-16] MEDS: Loratadine 10 MG TABLET PO SCH (08:55)
[2020-12-16] MEDS: *HR* OxyCODONE/APAP 5/325 TABLET PO SCH ×4 (08:55→22:25)
[2020-12-16] MEDS: Pregabalin 75 MG CAPSULE PO SCH ×3 (08:56→22:25)
[2020-12-16] MEDS: Cholecalciferol (D-3) 1,000 UNIT (25MCG) TABLET PO SCH (08:56)
[2020-12-16 09:35] LABS: BUN/Creatinine Ratio 38 (6-26); Blood Urea Nitrogen 25 mg/dL (6-20); Calcium 8.3 mg/dL (8.6-10.3); Carbon Dioxide 19 mEq/L (23-29); Chloride 101 mEq/L (98-107); Glucose 92 mg/dL (70-105); Osmolality,Calculated 270 (280-300); Potassium 4.4 mEq/L (3.5-5.1); Sodium 128 mEq/L (136-145); eGFR For African Americans > 60 (> 60); eGFR For Non-African Americans > 60 (> 60)
[2020-12-16] MEDS: *HR* Enoxaparin 60 MG/0.6 ML SYRINGE SQ SCH ×2 (10:57→22:26)
[2020-12-16 15:49] LABS: Basophils % 0.8 %; Eosinophils % 0.3 %; Hemoglobin 9.3 g/dL (12.9-16.9); Immature Granulocytes % 3.1 % (0-4); Lymphocytes # 0.7 K/mcL (0.6-4.6); Mean Corpuscular HGB Conc 34.4 g/dL (31.6-35.5); Mean Corpuscular Hemoglobin 31.3 pg (28.0-33.3); Mean Corpuscular Volume 90.9 fL (83.0-100.0); Mean Platelet Volume 9.8 fL (9.4-12.4); Monocytes # 0.2 K/mcL (0.0-1.3); Monocytes % 5.3 %; Neutrophils # 2.9 K/mcL (1.6-8.9); Platelet Count 113 K/mcL (140-400); Red Blood Count 2.97 M/mcL (4.19-5.50); Red Cell Distribution Width 15.5 % (11.5-14.5); Segmented Neutrophils % 73.5 %; White Blood Count 3.9 K/mcL (4.3-11.1)
[2020-12-16] MEDS: DAPTOmycin 450 MG in 0.9 % Sodium Chloride 100 ML IVPB SCH (15:49)
[2020-12-16] MEDS ORDERED: Clinimix E 5%-20% SOLUTION 2,000 ML with MVI, adult with vitamin K 10 ML, ZN/CU/MN/SE... IVC SCH ×2 (17:00)
[2020-12-16] MEDS ORDERED: *HR* Warfarin 4 MG TABLET PO ONE (18:00)
[2020-12-17] MEDS: Insulin LISPRO 300 UNITS/3 ML VIAL SUBQ SCH ×6 (01:16→21:47)
[2020-12-17 04:37] LABS: Prothrombin Time 40.1 Seconds (9.4-12.1)
[2020-12-17 04:38] LABS: INR 3.6
[2020-12-17 04:45] LABS: BUN/Creatinine Ratio 56 (6-26); Blood Urea Nitrogen 25 mg/dL (6-20); Calcium 8.2 mg/dL (8.6-10.3); Carbon Dioxide 22 mEq/L (23-29); Chloride 99 mEq/L (98-107); Glucose 121 mg/dL (70-105); Magnesium 1.6 mg/dL (1.6-2.6); Osmolality,Calculated 266 (280-300); Phosphorous 2.3 mg/dL (2.7-4.5); Potassium 4.4 mEq/L (3.5-5.1); Sodium 125 mEq/L (136-145); eGFR For African Americans > 60 (> 60); eGFR For Non-African Americans > 60 (> 60)
[2020-12-17] MEDS: cefTRIAXone 2,000 MG in 0.9 % Sodium Chloride Mini Bag 100 ML IVPB SCH (05:21)
[2020-12-17] MEDS ORDERED: Tolvaptan 15 MG TABLET PO ONE (07:10)
[2020-12-17] MEDS: Cholecalciferol (D-3) 1,000 UNIT (25MCG) TABLET PO SCH (08:33)
[2020-12-17] MEDS: *HR* OxyCODONE/APAP 5/325 TABLET PO SCH ×4 (08:33→21:48)
[2020-12-17] MEDS: Loratadine 10 MG TABLET PO SCH (08:33)
[2020-12-17] MEDS: Pregabalin 75 MG CAPSULE PO SCH ×3 (08:33→21:48)
[2020-12-17 09:27] LABS: Acinetobacter baumannii by PCR Not Detected (Not Detect); Candida albicans by PCR Not Detected (Not Detect); Candida glabrata by PCR DETECTED (Not Detect); Enterobacter cloacae Cmplx PCR Not Detected (Not Detect); Enterobacteriaceae by PCR Not Detected (Not Detect); Enterococcus by PCR Not Detected (Not Detect); Escherichia coli by PCR Not Detected (Not Detect); Klebsiella oxytoca by PCR Not Detected (Not Detect); Klebsiella pneumoniae by PCR Not Detected (Not Detect); Proteus by PCR Not Detected (Not Detect); Pseudomonas aeruginosa by PCR Not Detected (Not Detect); Serratia marcescens by PCR Not Detected (Not Detect); Staphylococcus aureus by PCR Not Detected (Not Detect); Staphylococcus by PCR Not Detected (Not Detect); Streptococcus agalactiae(B)PCR Not Detected (Not Detect); Streptococcus by PCR Not Detected (Not Detect); Streptococcus pneumoniae PCR Not Detected (Not Detect); Streptococcus pyogenes (A) PCR Not Detected (Not Detect)
[2020-12-17 09:28] LABS: Candida krusei by PCR Not Detected (Not Detect); Candida parapsilosis by PCR Not Detected (Not Detect); Candida tropicalis by PCR Not Detected (Not Detect)
[2020-12-17] MEDS ORDERED: *HR* Heparin 5,000 UNIT/ML VIAL IVP PRN ×4 (10:42→12:00)
[2020-12-17] MEDS ORDERED: Heparin 25,000UNIT/250ML 1/2NS 25,000 UNIT/250 ML IV.SOLN IVC SCH ×2 (10:45→12:00)
[2020-12-17 12:04] LABS: Basophils % 0.4 %; Eosinophils # 0.1 K/mcL (0.0-0.6); Eosinophils % 1.3 %; Hematocrit 27.1 % (37.5-50.1); Hemoglobin 9.3 g/dL (12.9-16.9); Mean Corpuscular HGB Conc 34.3 g/dL (31.6-35.5); Mean Corpuscular Hemoglobin 31.2 pg (28.0-33.3); Mean Corpuscular Volume 90.9 fL (83.0-100.0); Mean Platelet Volume 10.9 fL (9.4-12.4); Monocytes # 0.4 K/mcL (0.0-1.3); Platelet Count 106 K/mcL (140-400); Red Blood Count 2.98 M/mcL (4.19-5.50); Red Cell Distribution Width 15.5 % (11.5-14.5); Segmented Neutrophils % 66.3 %; White Blood Count 4.5 K/mcL (4.3-11.1)
[2020-12-17 12:16] LABS: Heparin anti-factor XA UFH < 0.04 IU/mL (0.30-0.70)
[2020-12-17 12:17] LABS: INR 3.8; Prothrombin Time 41.8 Seconds (9.4-12.1)
[2020-12-17] MEDS: Magnesium Oxide 400 MG TABLET PO SCH (12:52)
[2020-12-17] MEDS: *HR* Enoxaparin 60 MG/0.6 ML SYRINGE SQ SCH ×2 (12:52→18:27)
[2020-12-17] MEDS: DAPTOmycin 450 MG in 0.9 % Sodium Chloride 100 ML IVPB SCH (16:15)
[2020-12-17 16:18] LABS: Sodium 129 mEq/L (136-145)
[2020-12-17] MEDS: Micafungin 100 MG in 0.9 % Sodium Chloride Mini Bag 100 ML IVPB SCH (18:45)
[2020-12-17 19:52] LABS: BUN/Creatinine Ratio 34 (6-26); Blood Urea Nitrogen 19 mg/dL (6-20); Calcium 8.5 mg/dL (8.6-10.3); Carbon Dioxide 20 mEq/L (23-29); Chloride 102 mEq/L (98-107); Glucose 88 mg/dL (70-105); Magnesium 1.8 mg/dL (1.6-2.6); Osmolality,Calculated 270 (280-300); Phosphorous 2.2 mg/dL (2.7-4.5); Potassium 4.6 mEq/L (3.5-5.1); eGFR For African Americans > 60 (> 60); eGFR For Non-African Americans > 60 (> 60)
[2020-12-17] MEDS: Lactobacillus 1 EACH CAP.SPRINK PO SCH (21:48)
[2020-12-18] MEDS: cefTRIAXone 2,000 MG in 0.9 % Sodium Chloride Mini Bag 100 ML IVPB SCH (05:12)
[2020-12-18] MEDS: *HR* Enoxaparin 60 MG/0.6 ML SYRINGE SQ SCH (05:13)
[2020-12-18] MEDS: Insulin LISPRO 300 UNITS/3 ML VIAL SUBQ SCH ×6 (05:23→21:12)
[2020-12-18 05:35] LABS: Basophils # 0.1 K/mcL (0.0-0.2); Basophils % 0.9 %; Eosinophils # 0.1 K/mcL (0.0-0.6); Eosinophils % 1.1 %; Hematocrit 33.8 % (37.5-50.1); Immature Granulocytes % 1.5 % (0-4); Lymphocytes # 1.8 K/mcL (0.6-4.6); Lymphocytes % 33.1 %; Mean Corpuscular HGB Conc 33.4 g/dL (31.6-35.5); Mean Corpuscular Hemoglobin 29.8 pg (28.0-33.3); Mean Corpuscular Volume 89.2 fL (83.0-100.0); Mean Platelet Volume 11.8 fL (9.4-12.4); Monocytes # 0.4 K/mcL (0.0-1.3); Monocytes % 7.9 %; Neutrophils # 2.9 K/mcL (1.6-8.9); Platelet Count 129 K/mcL (140-400); Red Blood Count 3.79 M/mcL (4.19-5.50); Red Cell Distribution Width 15.8 % (11.5-14.5); Segmented Neutrophils % 55.5 %; White Blood Count 5.3 K/mcL (4.3-11.1)
[2020-12-18 05:39] LABS: Hemoglobin 11.3 g/dL (12.9-16.9)
[2020-12-18 05:55] LABS: INR 5.5; Prothrombin Time 60.7 Seconds (9.4-12.1)
[2020-12-18 06:12] LABS: Alanine Aminotransferase 108 Units/L (7-52); Albumin 3.5 g/dL (3.5-5.7); Albumin/Globulin Ratio 0.8 (1.1-2.2); Alkaline Phosphatase 361 Units/L (34-104); Aspartate Amino Transferase 51 Units/L (13-39); BUN/Creatinine Ratio 23 (6-26); Bilirubin,Total 0.8 mg/dL (0.3-1.0); Blood Urea Nitrogen 17 mg/dL (6-20); Calcium 9.6 mg/dL (8.6-10.3); Carbon Dioxide 23 mEq/L (23-29); Chloride 95 mEq/L (98-107); Globulin 4.2 g/dL (2.4-3.5); Glucose 97 mg/dL (70-105); Magnesium 1.9 mg/dL (1.6-2.6); Osmolality,Calculated 267 (280-300); Phosphorous 3.6 mg/dL (2.7-4.5); Potassium 4.7 mEq/L (3.5-5.1); Sodium 128 mEq/L (136-145); Total Protein 7.7 g/dL (6.4-8.9); eGFR For African Americans > 60 (> 60); eGFR For Non-African Americans > 60 (> 60)
[2020-12-18 06:54] LABS: Platelet Estimate Slight Decrease (Normal); Reactive Lymphocytes Present (Not Present)
[2020-12-18] MEDS: Loratadine 10 MG TABLET PO SCH (09:03)
[2020-12-18] MEDS: Lactobacillus 1 EACH CAP.SPRINK PO SCH ×2 (09:03→21:09)
[2020-12-18] MEDS: Cholecalciferol (D-3) 1,000 UNIT (25MCG) TABLET PO SCH (09:03)
[2020-12-18] MEDS: Magnesium Oxide 400 MG TABLET PO SCH (09:04)
[2020-12-18] MEDS: Pregabalin 75 MG CAPSULE PO SCH ×3 (09:04→21:10)
[2020-12-18] MEDS: *HR* OxyCODONE/APAP 5/325 TABLET PO SCH ×4 (09:04→21:10)
[2020-12-18] MEDS: Cholestyramine 4 GM POWD.PACK PO SCH (13:05)
[2020-12-18 14:19] LABS: Creatine Kinase 11 Units/L (30-223)
[2020-12-18] MEDS: DAPTOmycin 450 MG in 0.9 % Sodium Chloride 100 ML IVPB SCH (15:17)
[2020-12-18] MEDS ORDERED: Clinimix E 5%-20% SOLUTION 2,000 ML with MVI, adult with vitamin K 10 ML, ZN/CU/MN/SE... IVC SCH (17:00)
[2020-12-18] MEDS: Micafungin 100 MG in 0.9 % Sodium Chloride Mini Bag 100 ML IVPB SCH (17:45)
[2020-12-19] MEDS: Insulin LISPRO 300 UNITS/3 ML VIAL SUBQ SCH ×6 (00:09→21:08)
[2020-12-19] MEDS: *HR* OxyCODONE/APAP 5/325 TABLET PO SCH ×4 (00:10→12:12)
[2020-12-19] MEDS: cefTRIAXone 2,000 MG in 0.9 % Sodium Chloride Mini Bag 100 ML IVPB SCH (04:12)
[2020-12-19 04:31] LABS: White Blood Count 7.3 K/mcL (4.3-11.1)
[2020-12-19 04:32] LABS: Basophils # 0.1 K/mcL (0.0-0.2); Basophils % 0.8 %; Eosinophils # 0.1 K/mcL (0.0-0.6); Eosinophils % 1.7 %; Hematocrit 35.1 % (37.5-50.1); Immature Granulocytes % 1.4 % (0-4); Lymphocytes # 2.3 K/mcL (0.6-4.6); Lymphocytes % 32.3 %; Mean Corpuscular HGB Conc 34.2 g/dL (31.6-35.5); Mean Corpuscular Hemoglobin 29.7 pg (28.0-33.3); Mean Corpuscular Volume 86.9 fL (83.0-100.0); Mean Platelet Volume 10.9 fL (9.4-12.4); Monocytes # 0.7 K/mcL (0.0-1.3); Monocytes % 9.4 %; Platelet Count 185 K/mcL (140-400); Red Blood Count 4.04 M/mcL (4.19-5.50); Red Cell Distribution Width 15.8 % (11.5-14.5); Segmented Neutrophils % 54.4 %
[2020-12-19 04:49] LABS: INR 5.3; Prothrombin Time 58.8 Seconds (9.4-12.1)
[2020-12-19 05:09] LABS: Alanine Aminotransferase 116 Units/L (7-52); Albumin 3.6 g/dL (3.5-5.7); Albumin/Globulin Ratio 0.9 (1.1-2.2); Alkaline Phosphatase 523 Units/L (34-104); Aspartate Amino Transferase 54 Units/L (13-39); BUN/Creatinine Ratio 28 (6-26); Bilirubin,Total 0.9 mg/dL (0.3-1.0); Blood Urea Nitrogen 24 mg/dL (6-20); Calcium 9.4 mg/dL (8.6-10.3); Carbon Dioxide 28 mEq/L (23-29); Chloride 89 mEq/L (98-107); Globulin 4.2 g/dL (2.4-3.5); Glucose 89 mg/dL (70-105); Magnesium 1.9 mg/dL (1.6-2.6); Osmolality,Calculated 264 (280-300); Phosphorous 4.6 mg/dL (2.7-4.5); Potassium 4.5 mEq/L (3.5-5.1); Sodium 125 mEq/L (136-145); Total Protein 7.8 g/dL (6.4-8.9); eGFR For African Americans > 60 (> 60); eGFR For Non-African Americans > 60 (> 60)
[2020-12-19] MEDS: Loratadine 10 MG TABLET PO SCH (08:21)
[2020-12-19] MEDS: Cholestyramine 4 GM POWD.PACK PO SCH (08:22)
[2020-12-19] MEDS: Pregabalin 75 MG CAPSULE PO SCH ×3 (08:22→21:10)
[2020-12-19] MEDS: Lactobacillus 1 EACH CAP.SPRINK PO SCH ×2 (08:22→21:09)
[2020-12-19] MEDS: Cholecalciferol (D-3) 1,000 UNIT (25MCG) TABLET PO SCH (08:22)
[2020-12-19] MEDS: *HR* OxyCODONE Immed Rel 5 MG TABLET PO SCH ×2 (15:54→21:08)
[2020-12-19] MEDS: DAPTOmycin 450 MG in 0.9 % Sodium Chloride 100 ML IVPB SCH (15:54)
[2020-12-19] MEDS: Micafungin 100 MG in 0.9 % Sodium Chloride Mini Bag 100 ML IVPB SCH (15:55)
[2020-12-19] MEDS ORDERED: Clinimix E 5%-20% SOLUTION 2,000 ML with MVI, adult with vitamin K 10 ML, ZN/CU/MN/SE... IVC SCH (17:00)
[2020-12-20] MEDS: Insulin LISPRO 300 UNITS/3 ML VIAL SUBQ SCH ×7 (00:12→23:53)
[2020-12-20] MEDS: *HR* OxyCODONE Immed Rel 5 MG TABLET PO SCH ×7 (00:18→23:51)
[2020-12-20] MEDS: cefTRIAXone 2,000 MG in 0.9 % Sodium Chloride Mini Bag 100 ML IVPB SCH (04:12)
[2020-12-20 05:11] LABS: Basophils # 0.1 K/mcL (0.0-0.2); Basophils % 0.6 %; Eosinophils # 0.2 K/mcL (0.0-0.6); Eosinophils % 1.5 %; Hematocrit 32.3 % (37.5-50.1); Hemoglobin 10.9 g/dL (12.9-16.9); Immature Granulocytes % 1.5 % (0-4); Lymphocytes # 6.1 K/mcL (0.6-4.6); Lymphocytes % 40.2 %; Mean Corpuscular HGB Conc 33.7 g/dL (31.6-35.5); Mean Corpuscular Hemoglobin 29.4 pg (28.0-33.3); Mean Corpuscular Volume 87.1 fL (83.0-100.0); Mean Platelet Volume 10.8 fL (9.4-12.4); Monocytes # 1.7 K/mcL (0.0-1.3); Monocytes % 11.3 %; Neutrophils # 6.8 K/mcL (1.6-8.9); Platelet Count 247 K/mcL (140-400); Red Blood Count 3.71 M/mcL (4.19-5.50); Red Cell Distribution Width 15.7 % (11.5-14.5); Segmented Neutrophils % 44.9 %
[2020-12-20 05:12] LABS: White Blood Count 15.1 K/mcL (4.3-11.1)
[2020-12-20 05:23] LABS: Prothrombin Time 21.7 Seconds (9.4-12.1)
[2020-12-20 05:29] LABS: Alanine Aminotransferase 99 Units/L (7-52); Albumin 3.3 g/dL (3.5-5.7); Albumin/Globulin Ratio 0.8 (1.1-2.2); Alkaline Phosphatase 425 Units/L (34-104); Aspartate Amino Transferase 41 Units/L (13-39); BUN/Creatinine Ratio 40 (6-26); Blood Urea Nitrogen 25 mg/dL (6-20); Calcium 8.9 mg/dL (8.6-10.3); Carbon Dioxide 28 mEq/L (23-29); Chloride 89 mEq/L (98-107); Glucose 61 mg/dL (70-105); Magnesium 1.7 mg/dL (1.6-2.6); Osmolality,Calculated 260 (280-300); Phosphorous 3.3 mg/dL (2.7-4.5); Potassium 4.4 mEq/L (3.5-5.1); Sodium 124 mEq/L (136-145); Total Protein 7.3 g/dL (6.4-8.9); eGFR For African Americans > 60 (> 60); eGFR For Non-African Americans > 60 (> 60)
[2020-12-20] MEDS: Pregabalin 75 MG CAPSULE PO SCH ×3 (08:01→20:24)
[2020-12-20] MEDS: Loratadine 10 MG TABLET PO SCH (08:01)
[2020-12-20] MEDS: Lactobacillus 1 EACH CAP.SPRINK PO SCH ×2 (08:01→20:25)
[2020-12-20] MEDS: Cholecalciferol (D-3) 1,000 UNIT (25MCG) TABLET PO SCH (08:01)
[2020-12-20] MEDS: Cholestyramine 4 GM POWD.PACK PO SCH ×2 (08:02→12:45)
[2020-12-20] MEDS: Micafungin 100 MG in 0.9 % Sodium Chloride Mini Bag 100 ML IVPB SCH (16:31)
[2020-12-20] MEDS ORDERED: CLINIMIX E IVC SCH (17:00)
[2020-12-20] MEDS ORDERED: [UNRECOGNIZED DRUG - OTHER] IVC SCH (17:00)
[2020-12-20] MEDS ORDERED: MVI IVC SCH (17:00)
[2020-12-20] MEDS ORDERED: VITAMIN K IVC SCH (17:00)
[2020-12-20] MEDS ORDERED: *HR* Warfarin 5 MG TABLET PO ONE (18:00)
[2020-12-20] MEDS: DAPTOmycin 450 MG in 0.9 % Sodium Chloride 100 ML IVPB SCH (18:05)
[2020-12-21] MEDS: Insulin LISPRO 300 UNITS/3 ML VIAL SUBQ SCH ×5 (04:20→20:12)
[2020-12-21] MEDS: *HR* OxyCODONE Immed Rel 5 MG TABLET PO SCH ×5 (04:24→19:53)
[2020-12-21] MEDS: cefTRIAXone 2,000 MG in 0.9 % Sodium Chloride Mini Bag 100 ML IVPB SCH (04:30)
[2020-12-21 05:54] LABS: BUN/Creatinine Ratio 20 (6-26); Blood Urea Nitrogen 17 mg/dL (6-20); Calcium 9.7 mg/dL (8.6-10.3); Carbon Dioxide 21 mEq/L (23-29); Chloride 98 mEq/L (98-107); Glucose 127 mg/dL (70-105); Magnesium 1.9 mg/dL (1.6-2.6); Osmolality,Calculated 265 (280-300); Phosphorous 3.4 mg/dL (2.7-4.5); Potassium 5.4 mEq/L (3.5-5.1); Sodium 126 mEq/L (136-145); Triglycerides 281 mg/dL (< 150); eGFR For African Americans > 60 (> 60); eGFR For Non-African Americans > 60 (> 60)
[2020-12-21 06:07] LABS: Hematocrit 38.2 % (37.5-50.1); Hemoglobin 12.4 g/dL (12.9-16.9); Mean Corpuscular HGB Conc 32.5 g/dL (31.6-35.5); Mean Corpuscular Hemoglobin 29.7 pg (28.0-33.3); Mean Corpuscular Volume 91.4 fL (83.0-100.0); Mean Platelet Volume 10.2 fL (9.4-12.4); Platelet Count 245 K/mcL (140-400); Red Blood Count 4.18 M/mcL (4.19-5.50); Red Cell Distribution Width 16.2 % (11.5-14.5); White Blood Count 8.1 K/mcL (4.3-11.1)
[2020-12-21 06:17] LABS: INR 1.5; Prothrombin Time 16.3 Seconds (9.4-12.1)
[2020-12-21] MEDS: Lactobacillus 1 EACH CAP.SPRINK PO SCH ×2 (09:21→19:52)
[2020-12-21] MEDS: Cholecalciferol (D-3) 1,000 UNIT (25MCG) TABLET PO SCH (09:21)
[2020-12-21] MEDS: Pregabalin 75 MG CAPSULE PO SCH ×3 (09:22→19:52)
[2020-12-21] MEDS: Loratadine 10 MG TABLET PO SCH (09:22)
[2020-12-21] MEDS: Cholestyramine 4 GM POWD.PACK PO SCH (12:02)
[2020-12-21 13:36] LABS: Basophils # 0.2 K/mcL (0.0-0.2); Eosinophils # 0.3 K/mcL (0.0-0.6); Lymphocytes # 2.4 K/mcL (0.6-4.6); Monocytes # 0.8 K/mcL (0.0-1.3); Neutrophils # 4.2 K/mcL (1.6-8.9)
[2020-12-21 13:38] LABS: Platelet Estimate Normal (Normal); Reactive Lymphocytes Present (Not Present)
[2020-12-21 16:41] LABS: BUN/Creatinine Ratio 20 (6-26); Blood Urea Nitrogen 16 mg/dL (6-20); Calcium 9.4 mg/dL (8.6-10.3); Carbon Dioxide 18 mEq/L (23-29); Chloride 94 mEq/L (98-107); Glucose 89 mg/dL (70-105); Magnesium 1.7 mg/dL (1.6-2.6); Osmolality,Calculated 251 (280-300); Phosphorous 2.9 mg/dL (2.7-4.5); Potassium 5.5 mEq/L (3.5-5.1); Sodium 120 mEq/L (136-145); eGFR For African Americans > 60 (> 60); eGFR For Non-African Americans > 60 (> 60)
[2020-12-21] MEDS ORDERED: Tolvaptan 15 MG TABLET PO ONE (16:57)
[2020-12-21] MEDS: D5% in 0.9% NACL 1,000 ML IVC SCH (17:27)
[2020-12-21] MEDS: DAPTOmycin 450 MG in 0.9 % Sodium Chloride 100 ML IVPB SCH (17:28)
[2020-12-21] MEDS ORDERED: *HR* Warfarin 7.5 MG TABLET PO ONE (18:00)
[2020-12-21] MEDS: Micafungin 100 MG in 0.9 % Sodium Chloride Mini Bag 100 ML IVPB SCH (18:03)
[2020-12-22] MEDS: *HR* OxyCODONE Immed Rel 5 MG TABLET PO SCH ×7 (00:19→23:42)
[2020-12-22] MEDS: cefTRIAXone 2,000 MG in 0.9 % Sodium Chloride Mini Bag 100 ML IVPB SCH (04:59)
[2020-12-22 05:47] LABS: Basophils # 0.1 K/mcL (0.0-0.2); Basophils % 1.3 %; Eosinophils # 0.2 K/mcL (0.0-0.6); Eosinophils % 2.3 %; Hematocrit 36.2 % (37.5-50.1); Immature Granulocytes % 4.6 % (0-4); Lymphocytes # 3.5 K/mcL (0.6-4.6); Lymphocytes % 36.6 %; Mean Corpuscular HGB Conc 33.1 g/dL (31.6-35.5); Mean Corpuscular Hemoglobin 30.3 pg (28.0-33.3); Mean Corpuscular Volume 91.4 fL (83.0-100.0); Monocytes # 0.7 K/mcL (0.0-1.3); Monocytes % 7.1 %; Neutrophils # 4.6 K/mcL (1.6-8.9); Platelet Count 291 K/mcL (140-400); Red Blood Count 3.96 M/mcL (4.19-5.50); Red Cell Distribution Width 16.2 % (11.5-14.5); Segmented Neutrophils % 48.1 %; White Blood Count 9.6 K/mcL (4.3-11.1)
[2020-12-22 05:57] LABS: INR 2.6; Prothrombin Time 28.8 Seconds (9.4-12.1)
[2020-12-22 06:07] LABS: BUN/Creatinine Ratio 13 (6-26); Blood Urea Nitrogen 11 mg/dL (6-20); Calcium 9.3 mg/dL (8.6-10.3); Carbon Dioxide 19 mEq/L (23-29); Chloride 102 mEq/L (98-107); Glucose 97 mg/dL (70-105); Magnesium 1.7 mg/dL (1.6-2.6); Osmolality,Calculated 267 (280-300); Phosphorous 3.1 mg/dL (2.7-4.5); Potassium 4.5 mEq/L (3.5-5.1); Sodium 129 mEq/L (136-145); eGFR For African Americans > 60 (> 60); eGFR For Non-African Americans > 60 (> 60)
[2020-12-22] MEDS: Cholestyramine 4 GM POWD.PACK PO SCH ×2 (07:18→11:56)
[2020-12-22] MEDS: Cholecalciferol (D-3) 1,000 UNIT (25MCG) TABLET PO SCH (08:30)
[2020-12-22] MEDS: Loratadine 10 MG TABLET PO SCH (08:30)
[2020-12-22] MEDS: Lactobacillus 1 EACH CAP.SPRINK PO SCH ×2 (08:31→20:08)
[2020-12-22] MEDS: D5% in 0.9% NACL 1,000 ML IVC SCH (11:56)
[2020-12-22] MEDS: DAPTOmycin 450 MG in 0.9 % Sodium Chloride 100 ML IVPB SCH (15:03)
[2020-12-22] MEDS: Micafungin 100 MG in 0.9 % Sodium Chloride Mini Bag 100 ML IVPB SCH (17:06)
[2020-12-22] MEDS ORDERED: *HR* Warfarin 2.5 MG TABLET PO ONE (18:00)
[2020-12-22 21:25] LABS: BUN/Creatinine Ratio 9 (6-26); Blood Urea Nitrogen 7 mg/dL (6-20); Calcium 8.7 mg/dL (8.6-10.3); Carbon Dioxide 16 mEq/L (23-29); Chloride 103 mEq/L (98-107); Glucose 99 mg/dL (70-105); Magnesium 1.4 mg/dL (1.6-2.6); Osmolality,Calculated 258 (280-300); Phosphorous 2.7 mg/dL (2.7-4.5); Potassium 4.3 mEq/L (3.5-5.1); Sodium 125 mEq/L (136-145); eGFR For African Americans > 60 (> 60); eGFR For Non-African Americans > 60 (> 60)
[2020-12-23 01:35] LABS: Basophils # 0.1 K/mcL (0.0-0.2); Basophils % 0.9 %; Eosinophils # 0.2 K/mcL (0.0-0.6); Eosinophils % 2.6 %; Hematocrit 29.8 % (37.5-50.1); Hemoglobin 9.7 g/dL (12.9-16.9); Immature Granulocytes % 2.8 % (0-4); Lymphocytes # 2.9 K/mcL (0.6-4.6); Lymphocytes % 35.1 %; Mean Corpuscular HGB Conc 32.6 g/dL (31.6-35.5); Mean Corpuscular Hemoglobin 29.8 pg (28.0-33.3); Mean Corpuscular Volume 91.4 fL (83.0-100.0); Mean Platelet Volume 9.7 fL (9.4-12.4); Monocytes # 0.5 K/mcL (0.0-1.3); Monocytes % 6.6 %; Neutrophils # 4.3 K/mcL (1.6-8.9); Platelet Count 262 K/mcL (140-400); Red Blood Count 3.26 M/mcL (4.19-5.50); Red Cell Distribution Width 16.1 % (11.5-14.5); White Blood Count 8.2 K/mcL (4.3-11.1)
[2020-12-23 01:54] LABS: Alanine Aminotransferase 73 Units/L (7-52); Aspartate Amino Transferase 34 Units/L (13-39)
[2020-12-23 01:55] LABS: BUN/Creatinine Ratio 8 (6-26); Blood Urea Nitrogen 7 mg/dL (6-20); Calcium 8.6 mg/dL (8.6-10.3); Carbon Dioxide 16 mEq/L (23-29); Chloride 104 mEq/L (98-107); Glucose 98 mg/dL (70-105); Magnesium 1.4 mg/dL (1.6-2.6); Osmolality,Calculated 260 (280-300); Phosphorous 2.7 mg/dL (2.7-4.5); Potassium 3.8 mEq/L (3.5-5.1); Sodium 126 mEq/L (136-145); eGFR For African Americans > 60 (> 60); eGFR For Non-African Americans > 60 (> 60)
[2020-12-23 01:57] LABS: INR 4.1
[2020-12-23 01:59] LABS: Prothrombin Time 45.2 Seconds (9.4-12.1)
[2020-12-23] MEDS: *HR* OxyCODONE Immed Rel 5 MG TABLET PO SCH ×6 (05:03→23:12)
[2020-12-23] MEDS: cefTRIAXone 2,000 MG in 0.9 % Sodium Chloride Mini Bag 100 ML IVPB SCH (05:04)
[2020-12-23] MEDS: Lactobacillus 1 EACH CAP.SPRINK PO SCH ×2 (08:29→20:22)
[2020-12-23] MEDS: Loratadine 10 MG TABLET PO SCH (08:29)
[2020-12-23] MEDS: Cholecalciferol (D-3) 1,000 UNIT (25MCG) TABLET PO SCH (08:29)
[2020-12-23 08:46] LABS: Hematocrit 29.9 % (37.5-50.1); Hemoglobin 9.6 g/dL (12.9-16.9)
[2020-12-23] MEDS: Cholestyramine 4 GM POWD.PACK PO SCH (11:50)
[2020-12-23] MEDS ORDERED: Tolvaptan 15 MG TABLET PO ONE (12:11)
[2020-12-23] MEDS: D5% in 0.9% NACL 1,000 ML IVC SCH (14:24)
[2020-12-23] MEDS: Micafungin 100 MG in 0.9 % Sodium Chloride Mini Bag 100 ML IVPB SCH (17:30)
[2020-12-23] MEDS: DAPTOmycin 450 MG in 0.9 % Sodium Chloride 100 ML IVPB SCH (17:41)
[2020-12-23 17:50] LABS: BUN/Creatinine Ratio 8 (6-26); Blood Urea Nitrogen 6 mg/dL (6-20); Calcium 8.2 mg/dL (8.6-10.3); Carbon Dioxide 18 mEq/L (23-29); Chloride 105 mEq/L (98-107); Glucose 89 mg/dL (70-105); Osmolality,Calculated 263 (280-300); Potassium 3.9 mEq/L (3.5-5.1); Sodium 128 mEq/L (136-145); eGFR For African Americans > 60 (> 60); eGFR For Non-African Americans > 60 (> 60)
[2020-12-24 05:06] LABS: INR 2.8; Prothrombin Time 31.5 Seconds (9.4-12.1)
[2020-12-24 05:19] LABS: Albumin 3.3 g/dL (3.5-5.7); Albumin/Globulin Ratio 0.9 (1.1-2.2); BUN/Creatinine Ratio 7 (6-26); Bilirubin,Direct 0.2 mg/dL (0.0-0.2); Bilirubin,Indirect 0.6 mg/dL (0.0-1.0); Bilirubin,Total 0.8 mg/dL (0.3-1.0); Blood Urea Nitrogen 5 mg/dL (6-20); Calcium 8.6 mg/dL (8.6-10.3); Carbon Dioxide 16 mEq/L (23-29); Chloride 106 mEq/L (98-107); Globulin 3.5 g/dL (2.4-3.5); Glucose 96 mg/dL (70-105); Magnesium 1.7 mg/dL (1.6-2.6); Osmolality,Calculated 265 (280-300); Phosphorous 2.6 mg/dL (2.7-4.5); Potassium 3.6 mEq/L (3.5-5.1); Sodium 129 mEq/L (136-145); Total Protein 6.8 g/dL (6.4-8.9); eGFR For African Americans > 60 (> 60); eGFR For Non-African Americans > 60 (> 60)
[2020-12-24] MEDS: *HR* OxyCODONE Immed Rel 5 MG TABLET PO SCH ×5 (05:20→22:28)
[2020-12-24] MEDS: cefTRIAXone 2,000 MG in 0.9 % Sodium Chloride Mini Bag 100 ML IVPB SCH (05:20)
[2020-12-24] MEDS: Loratadine 10 MG TABLET PO SCH (07:32)
[2020-12-24] MEDS: Lactobacillus 1 EACH CAP.SPRINK PO SCH ×2 (07:33→21:44)
[2020-12-24] MEDS: Cholecalciferol (D-3) 1,000 UNIT (25MCG) TABLET PO SCH (07:33)
[2020-12-24] MEDS ORDERED: Tolvaptan 15 MG TABLET PO ONE (11:03)
[2020-12-24] MEDS: *HR* Enoxaparin 60 MG/0.6 ML SYRINGE SQ SCH ×2 (12:20→21:53)
[2020-12-24] MEDS: Cholestyramine 4 GM POWD.PACK PO SCH (12:21)
[2020-12-24] MEDS: DAPTOmycin 450 MG in 0.9 % Sodium Chloride 100 ML IVPB SCH (15:47)
[2020-12-24] MEDS: Micafungin 100 MG in 0.9 % Sodium Chloride Mini Bag 100 ML IVPB SCH (18:02)
[2020-12-24 20:10] LABS: BUN/Creatinine Ratio 7 (6-26); Blood Urea Nitrogen 5 mg/dL (6-20); Calcium 8.4 mg/dL (8.6-10.3); Carbon Dioxide 20 mEq/L (23-29); Chloride 107 mEq/L (98-107); Glucose 113 mg/dL (70-105); Osmolality,Calculated 270 (280-300); Phosphorous 2.9 mg/dL (2.7-4.5); Potassium 3.7 mEq/L (3.5-5.1); Sodium 131 mEq/L (136-145); eGFR For African Americans > 60 (> 60); eGFR For Non-African Americans > 60 (> 60)
[2020-12-24] MEDS: Acetaminophen 325 MG TABLET PO PRN (21:44)
[2020-12-24] MEDS: D5% in 0.9% NACL 1,000 ML IVC SCH (23:59)
[2020-12-25] MEDS: *HR* OxyCODONE Immed Rel 5 MG TABLET PO SCH ×5 (01:55→20:09)
[2020-12-25 04:47] LABS: Basophils % 0.7 %; Eosinophils # 0.2 K/mcL (0.0-0.6); Eosinophils % 2.5 %; Hematocrit 30.1 % (37.5-50.1); Immature Granulocytes % 1.2 % (0-4); Lymphocytes % 51.1 %; Mean Corpuscular HGB Conc 33.2 g/dL (31.6-35.5); Mean Corpuscular Hemoglobin 29.9 pg (28.0-33.3); Mean Corpuscular Volume 89.9 fL (83.0-100.0); Mean Platelet Volume 8.9 fL (9.4-12.4); Monocytes # 0.6 K/mcL (0.0-1.3); Monocytes % 9.7 %; Neutrophils # 2.1 K/mcL (1.6-8.9); Platelet Count 282 K/mcL (140-400); Red Blood Count 3.35 M/mcL (4.19-5.50); Red Cell Distribution Width 16.3 % (11.5-14.5); Segmented Neutrophils % 34.8 %
[2020-12-25 04:54] LABS: Prothrombin Time 22.2 Seconds (9.4-12.1)
[2020-12-25 04:57] LABS: Lymphocytes # 3.1 K/mcL (0.6-4.6)
[2020-12-25 05:07] LABS: Alanine Aminotransferase 55 Units/L (7-52); Albumin 3.1 g/dL (3.5-5.7); Albumin/Globulin Ratio 0.9 (1.1-2.2); Alkaline Phosphatase 254 Units/L (34-104); Aspartate Amino Transferase 23 Units/L (13-39); BUN/Creatinine Ratio 8 (6-26); Bilirubin,Total 0.8 mg/dL (0.3-1.0); Blood Urea Nitrogen 5 mg/dL (6-20); Calcium 8.7 mg/dL (8.6-10.3); Carbon Dioxide 18 mEq/L (23-29); Chloride 106 mEq/L (98-107); Globulin 3.5 g/dL (2.4-3.5); Glucose 87 mg/dL (70-105); Magnesium 1.7 mg/dL (1.6-2.6); Osmolality,Calculated 267 (280-300); Phosphorous 3.1 mg/dL (2.7-4.5); Potassium 3.4 mEq/L (3.5-5.1); Sodium 130 mEq/L (136-145); Total Protein 6.6 g/dL (6.4-8.9); eGFR For African Americans > 60 (> 60); eGFR For Non-African Americans > 60 (> 60)
[2020-12-25] MEDS: cefTRIAXone 2,000 MG in 0.9 % Sodium Chloride Mini Bag 100 ML IVPB SCH (05:14)
[2020-12-25] MEDS: *HR* Enoxaparin 60 MG/0.6 ML SYRINGE SQ SCH ×2 (08:00→20:09)
[2020-12-25] MEDS: Lactobacillus 1 EACH CAP.SPRINK PO SCH ×2 (08:00→20:09)
[2020-12-25] MEDS: Loratadine 10 MG TABLET PO SCH (08:00)
[2020-12-25] MEDS: Cholecalciferol (D-3) 1,000 UNIT (25MCG) TABLET PO SCH (08:01)
[2020-12-25 12:23] LABS: Creatine Kinase 13 Units/L (30-223)
[2020-12-25] MEDS ORDERED: Heparin 1,000 UNITS/500 mL 500 ML ONE (13:55)
[2020-12-25] MEDS ORDERED: *HR* FentaNYL (PF) 100 MCG/2 ML VIAL IVP ONE (14:28)
[2020-12-25] MEDS ORDERED: *HR* Midazolam HCl 2 MG/2 ML VIAL IVP ONE (14:28)
[2020-12-25] MEDS ORDERED: 0.9 % Sodium Chloride 500 ML ONE (14:41)
[2020-12-25] MEDS ORDERED: Clinimix E 5%-20% SOLUTION 2,000 ML with MVI, adult with vitamin K 10 ML, ZN/CU/MN/SE... IVC SCH (17:00)
[2020-12-25] MEDS: Micafungin 100 MG in 0.9 % Sodium Chloride Mini Bag 100 ML IVPB SCH (17:25)
[2020-12-25] MEDS: DAPTOmycin 450 MG in 0.9 % Sodium Chloride 100 ML IVPB SCH (17:27)
[2020-12-25] MEDS: Cholestyramine 4 GM POWD.PACK PO SCH (18:18)
[2020-12-26] MEDS: *HR* OxyCODONE Immed Rel 5 MG TABLET PO SCH ×8 (00:39→23:45)
[2020-12-26] MEDS: cefTRIAXone 2,000 MG in 0.9 % Sodium Chloride Mini Bag 100 ML IVPB SCH (04:36)
[2020-12-26 04:49] LABS: Basophils % 0.6 %; Eosinophils # 0.2 K/mcL (0.0-0.6); Hematocrit 27.9 % (37.5-50.1); Hemoglobin 9.4 g/dL (12.9-16.9); Immature Granulocytes % 0.8 % (0-4); Lymphocytes # 2.4 K/mcL (0.6-4.6); Lymphocytes % 46.1 %; Mean Corpuscular HGB Conc 33.7 g/dL (31.6-35.5); Mean Corpuscular Hemoglobin 30.3 pg (28.0-33.3); Mean Platelet Volume 8.8 fL (9.4-12.4); Monocytes # 0.5 K/mcL (0.0-1.3); Monocytes % 9.5 %; Neutrophils # 2.1 K/mcL (1.6-8.9); Platelet Count 283 K/mcL (140-400); Red Cell Distribution Width 16.4 % (11.5-14.5); White Blood Count 5.3 K/mcL (4.3-11.1)
[2020-12-26 04:56] LABS: INR 1.6; Prothrombin Time 17.6 Seconds (9.4-12.1)
[2020-12-26 05:10] LABS: Alanine Aminotransferase 48 Units/L (7-52); Albumin 2.9 g/dL (3.5-5.7); Albumin/Globulin Ratio 0.9 (1.1-2.2); Alkaline Phosphatase 214 Units/L (34-104); Aspartate Amino Transferase 25 Units/L (13-39); BUN/Creatinine Ratio 14 (6-26); Bilirubin,Total 0.5 mg/dL (0.3-1.0); Blood Urea Nitrogen 10 mg/dL (6-20); Calcium 8.5 mg/dL (8.6-10.3); Carbon Dioxide 21 mEq/L (23-29); Chloride 105 mEq/L (98-107); Globulin 3.2 g/dL (2.4-3.5); Glucose 90 mg/dL (70-105); Magnesium 1.5 mg/dL (1.6-2.6); Osmolality,Calculated 269 (280-300); Phosphorous 2.8 mg/dL (2.7-4.5); Potassium 3.4 mEq/L (3.5-5.1); Sodium 130 mEq/L (136-145); Total Protein 6.1 g/dL (6.4-8.9); eGFR For African Americans > 60 (> 60); eGFR For Non-African Americans > 60 (> 60)
[2020-12-26] MEDS: Cholecalciferol (D-3) 1,000 UNIT (25MCG) TABLET PO SCH (08:48)
[2020-12-26] MEDS: *HR* Enoxaparin 60 MG/0.6 ML SYRINGE SQ SCH ×2 (08:49→20:32)
[2020-12-26] MEDS: Loratadine 10 MG TABLET PO SCH (08:49)
[2020-12-26] MEDS: Lactobacillus 1 EACH CAP.SPRINK PO SCH ×2 (08:49→20:32)
[2020-12-26] MEDS: Cholestyramine 4 GM POWD.PACK PO SCH (12:44)
[2020-12-26] MEDS ORDERED: Potassium Chloride 40 MEQ, Lidocaine 1% 2 ML in 0.9 % Sodium Chloride 500 ML IVPB ONE ×2 (12:53→18:45)
[2020-12-26] MEDS: DAPTOmycin 450 MG in 0.9 % Sodium Chloride 100 ML IVPB SCH (14:50)
[2020-12-26] MEDS ORDERED: Clinimix E 5%-20% SOLUTION 2,000 ML with MVI, adult with vitamin K 10 ML, ZN/CU/MN/SE... IVC SCH (17:00)
[2020-12-26] MEDS: Micafungin 100 MG in 0.9 % Sodium Chloride Mini Bag 100 ML IVPB SCH (17:01)
[2020-12-27 04:09] LABS: Basophils % 0.5 %; Eosinophils # 0.1 K/mcL (0.0-0.6); Eosinophils % 3.5 %; Hematocrit 25.2 % (37.5-50.1); Hemoglobin 8.2 g/dL (12.9-16.9); Immature Granulocytes % 0.5 % (0-4); Mean Corpuscular HGB Conc 32.5 g/dL (31.6-35.5); Mean Corpuscular Hemoglobin 29.4 pg (28.0-33.3); Mean Corpuscular Volume 90.3 fL (83.0-100.0); Mean Platelet Volume 8.7 fL (9.4-12.4); Monocytes # 0.4 K/mcL (0.0-1.3); Monocytes % 10.2 %; Neutrophils # 1.2 K/mcL (1.6-8.9); Platelet Count 219 K/mcL (140-400); Red Blood Count 2.79 M/mcL (4.19-5.50); Red Cell Distribution Width 16.2 % (11.5-14.5); Segmented Neutrophils % 31.3 %; White Blood Count 3.7 K/mcL (4.3-11.1)
[2020-12-27 04:53] LABS: Platelet Estimate Normal (Normal)
[2020-12-27] MEDS: cefTRIAXone 2,000 MG in 0.9 % Sodium Chloride Mini Bag 100 ML IVPB SCH (05:03)
[2020-12-27] MEDS: *HR* OxyCODONE Immed Rel 5 MG TABLET PO SCH ×5 (05:05→20:40)
[2020-12-27 05:08] LABS: Alanine Aminotransferase 33 Units/L (7-52); Albumin 2.6 g/dL (3.5-5.7); Albumin/Globulin Ratio 0.9 (1.1-2.2); Alkaline Phosphatase 156 Units/L (34-104); Aspartate Amino Transferase 16 Units/L (13-39); BUN/Creatinine Ratio 33 (6-26); Bilirubin,Total 0.7 mg/dL (0.3-1.0); Blood Urea Nitrogen 18 mg/dL (6-20); Calcium 8.1 mg/dL (8.6-10.3); Carbon Dioxide 20 mEq/L (23-29); Chloride 107 mEq/L (98-107); Globulin 2.8 g/dL (2.4-3.5); Glucose 114 mg/dL (70-105); Magnesium 1.7 mg/dL (1.6-2.6); Osmolality,Calculated 273 (280-300); Phosphorous 1.9 mg/dL (2.7-4.5); Sodium 130 mEq/L (136-145); Total Protein 5.4 g/dL (6.4-8.9); eGFR For African Americans > 60 (> 60); eGFR For Non-African Americans > 60 (> 60)
[2020-12-27] MEDS: Cholecalciferol (D-3) 1,000 UNIT (25MCG) TABLET PO SCH (08:55)
[2020-12-27] MEDS: Lactobacillus 1 EACH CAP.SPRINK PO SCH ×2 (08:55→20:40)
[2020-12-27] MEDS: Loratadine 10 MG TABLET PO SCH (08:56)
[2020-12-27] MEDS: *HR* Enoxaparin 60 MG/0.6 ML SYRINGE SQ SCH ×2 (08:56→20:40)
[2020-12-27] MEDS: Cholestyramine 4 GM POWD.PACK PO SCH ×2 (11:53→11:56)
[2020-12-27] MEDS: DAPTOmycin 450 MG in 0.9 % Sodium Chloride 100 ML IVPB SCH (15:48)
[2020-12-27] MEDS: Micafungin 100 MG in 0.9 % Sodium Chloride Mini Bag 100 ML IVPB SCH (16:51)
[2020-12-27] MEDS ORDERED: Clinimix E 5%-20% SOLUTION 2,000 ML with MVI, adult with vitamin K 10 ML, ZN/CU/MN/SE... IVC SCH (17:00)
[2020-12-27] MEDS ORDERED: *HR* Warfarin 5 MG TABLET PO ONE (18:00)
[2020-12-27] MEDS ORDERED: Warfarin perPT PO PRN (18:00)
[2020-12-27] MEDS: D5% in 0.9% NACL 1,000 ML IVC SCH (19:25)
[2020-12-28] MEDS: *HR* OxyCODONE Immed Rel 5 MG TABLET PO SCH ×6 (00:24→20:16)
[2020-12-28] MEDS: cefTRIAXone 2,000 MG in 0.9 % Sodium Chloride Mini Bag 100 ML IVPB SCH (05:01)
[2020-12-28 06:21] LABS: BUN/Creatinine Ratio 34 (6-26); Blood Urea Nitrogen 18 mg/dL (6-20); Calcium 8.6 mg/dL (8.6-10.3); Carbon Dioxide 23 mEq/L (23-29); Chloride 105 mEq/L (98-107); Glucose 96 mg/dL (70-105); Magnesium 1.4 mg/dL (1.6-2.6); Osmolality,Calculated 280 (280-300); Phosphorous 2.7 mg/dL (2.7-4.5); Potassium 3.4 mEq/L (3.5-5.1); Sodium 134 mEq/L (136-145); Triglycerides 90 mg/dL (< 150); eGFR For African Americans > 60 (> 60); eGFR For Non-African Americans > 60 (> 60)
[2020-12-28 06:23] LABS: INR 1.1; Prothrombin Time 11.9 Seconds (9.4-12.1)
[2020-12-28] MEDS ORDERED: Potassium Chloride 40 MEQ, Lidocaine 1% 2 ML in 0.9 % Sodium Chloride 500 ML IVPB ONE (07:26)
[2020-12-28] MEDS: Lactobacillus 1 EACH CAP.SPRINK PO SCH ×2 (08:03→20:15)
[2020-12-28] MEDS: Cholecalciferol (D-3) 1,000 UNIT (25MCG) TABLET PO SCH (08:03)
[2020-12-28] MEDS: Loratadine 10 MG TABLET PO SCH (08:03)
[2020-12-28] MEDS: *HR* Enoxaparin 60 MG/0.6 ML SYRINGE SQ SCH ×2 (08:04→20:17)
[2020-12-28] MEDS: Cholestyramine 4 GM POWD.PACK PO SCH (12:15)
[2020-12-28] MEDS: DAPTOmycin 450 MG in 0.9 % Sodium Chloride 100 ML IVPB SCH (15:05)
[2020-12-28] MEDS: Micafungin 100 MG in 0.9 % Sodium Chloride Mini Bag 100 ML IVPB SCH (16:53)
[2020-12-28] MEDS ORDERED: Clinimix E 5%-20% SOLUTION 2,000 ML with MVI, adult with vitamin K 10 ML, ZN/CU/MN/SE... IVC SCH (17:00)
[2020-12-28] MEDS ORDERED: *HR* Warfarin 5 MG TABLET PO ONE (18:00)
[2020-12-29] MEDS: *HR* OxyCODONE Immed Rel 5 MG TABLET PO SCH ×6 (00:59→20:16)
[2020-12-29] MEDS: cefTRIAXone 2,000 MG in 0.9 % Sodium Chloride Mini Bag 100 ML IVPB SCH (04:15)
[2020-12-29 05:44] LABS: BUN/Creatinine Ratio 18 (6-26); Blood Urea Nitrogen 10 mg/dL (6-20); Calcium 8.6 mg/dL (8.6-10.3); Carbon Dioxide 23 mEq/L (23-29); Chloride 105 mEq/L (98-107); Glucose 91 mg/dL (70-105); Magnesium 1.5 mg/dL (1.6-2.6); Osmolality,Calculated 275 (280-300); Phosphorous 2.9 mg/dL (2.7-4.5); Potassium 3.7 mEq/L (3.5-5.1); Sodium 133 mEq/L (136-145); eGFR For African Americans > 60 (> 60); eGFR For Non-African Americans > 60 (> 60)
[2020-12-29 06:52] LABS: INR 1.1; Prothrombin Time 12.8 Seconds (9.4-12.1)
[2020-12-29] MEDS: Lactobacillus 1 EACH CAP.SPRINK PO SCH ×2 (10:26→20:16)
[2020-12-29] MEDS: Loratadine 10 MG TABLET PO SCH (10:27)
[2020-12-29] MEDS: Cholecalciferol (D-3) 1,000 UNIT (25MCG) TABLET PO SCH (10:27)
[2020-12-29] MEDS: *HR* Enoxaparin 60 MG/0.6 ML SYRINGE SQ SCH ×2 (10:27→20:18)
[2020-12-29] MEDS: Cholestyramine 4 GM POWD.PACK PO SCH (13:13)
[2020-12-29] MEDS: DAPTOmycin 450 MG in 0.9 % Sodium Chloride 100 ML IVPB SCH (16:03)
[2020-12-29] MEDS ORDERED: Clinimix E 5%-20% SOLUTION 2,000 ML with MVI, adult with vitamin K 10 ML, ZN/CU/MN/SE... IVC SCH (17:00)
[2020-12-29] MEDS: Micafungin 100 MG in 0.9 % Sodium Chloride Mini Bag 100 ML IVPB SCH (17:30)
[2020-12-29] MEDS: Pregabalin 75 MG CAPSULE PO SCH ×2 (17:46→20:16)
[2020-12-30] MEDS: *HR* OxyCODONE Immed Rel 5 MG TABLET PO SCH ×6 (00:43→20:40)
[2020-12-30] MEDS: cefTRIAXone 2,000 MG in 0.9 % Sodium Chloride Mini Bag 100 ML IVPB SCH (04:12)
[2020-12-30 04:47] LABS: INR 1.2; Prothrombin Time 13.4 Seconds (9.4-12.1)
[2020-12-30 04:52] LABS: BUN/Creatinine Ratio 26 (6-26); Blood Urea Nitrogen 15 mg/dL (6-20); Calcium 8.9 mg/dL (8.6-10.3); Carbon Dioxide 23 mEq/L (23-29); Chloride 104 mEq/L (98-107); Glucose 75 mg/dL (70-105); Magnesium 1.5 mg/dL (1.6-2.6); Osmolality,Calculated 274 (280-300); Phosphorous 3.3 mg/dL (2.7-4.5); Potassium 3.9 mEq/L (3.5-5.1); Sodium 132 mEq/L (136-145); eGFR For African Americans > 60 (> 60); eGFR For Non-African Americans > 60 (> 60)
[2020-12-30] MEDS: Loratadine 10 MG TABLET PO SCH (08:38)
[2020-12-30] MEDS: Pregabalin 75 MG CAPSULE PO SCH ×3 (08:39→20:36)
[2020-12-30] MEDS: Lactobacillus 1 EACH CAP.SPRINK PO SCH ×2 (08:39→20:36)
[2020-12-30] MEDS: Cholecalciferol (D-3) 1,000 UNIT (25MCG) TABLET PO SCH (08:39)
[2020-12-30] MEDS: *HR* Enoxaparin 60 MG/0.6 ML SYRINGE SQ SCH ×2 (08:39→20:39)
[2020-12-30] MEDS: Cholestyramine 4 GM POWD.PACK PO SCH (13:01)
[2020-12-30] MEDS: DAPTOmycin 450 MG in 0.9 % Sodium Chloride 100 ML IVPB SCH (16:42)
[2020-12-30] MEDS ORDERED: Clinimix E 5%-20% SOLUTION 2,000 ML with MVI, adult with vitamin K 10 ML, ZN/CU/MN/SE... IVC SCH (17:00)
[2020-12-30] MEDS ORDERED: *HR* Warfarin 5 MG TABLET PO ONE (18:00)
[2020-12-30] MEDS: Micafungin 100 MG in 0.9 % Sodium Chloride Mini Bag 100 ML IVPB SCH (19:00)
[2020-12-31] MEDS: *HR* OxyCODONE Immed Rel 5 MG TABLET PO SCH ×6 (00:30→20:28)
[2020-12-31] MEDS: cefTRIAXone 2,000 MG in 0.9 % Sodium Chloride Mini Bag 100 ML IVPB SCH (03:34)
[2020-12-31 06:42] LABS: BUN/Creatinine Ratio 27 (6-26); Blood Urea Nitrogen 17 mg/dL (6-20); Calcium 9.3 mg/dL (8.6-10.3); Carbon Dioxide 24 mEq/L (23-29); Chloride 103 mEq/L (98-107); Glucose 75 mg/dL (70-105); Osmolality,Calculated 274 (280-300); Potassium 4.2 mEq/L (3.5-5.1); Sodium 132 mEq/L (136-145); eGFR For African Americans > 60 (> 60); eGFR For Non-African Americans > 60 (> 60)
[2020-12-31] MEDS: Loratadine 10 MG TABLET PO SCH (07:37)
[2020-12-31] MEDS: Lactobacillus 1 EACH CAP.SPRINK PO SCH ×2 (07:37→20:28)
[2020-12-31] MEDS: Pregabalin 75 MG CAPSULE PO SCH ×3 (07:37→20:27)
[2020-12-31] MEDS: Cholecalciferol (D-3) 1,000 UNIT (25MCG) TABLET PO SCH (07:37)
[2020-12-31] MEDS: *HR* Enoxaparin 60 MG/0.6 ML SYRINGE SQ SCH ×2 (07:39→20:28)
[2020-12-31 08:43] LABS: Magnesium 1.7 mg/dL (1.6-2.6)
[2020-12-31] MEDS: Cholestyramine 4 GM POWD.PACK PO SCH (11:53)
[2020-12-31] MEDS: DAPTOmycin 450 MG in 0.9 % Sodium Chloride 100 ML IVPB SCH (15:04)
[2020-12-31] MEDS ORDERED: Clinimix E 5%-20% SOLUTION 2,000 ML with MVI, adult with vitamin K 10 ML, ZN/CU/MN/SE... IVC SCH (17:00)
[2020-12-31] MEDS: Micafungin 100 MG in 0.9 % Sodium Chloride Mini Bag 100 ML IVPB SCH (17:12)
[2020-12-31] MEDS ORDERED: *HR* Warfarin 7.5 MG TABLET PO ONE (18:00)
[2021-01-01] MEDS: *HR* OxyCODONE Immed Rel 5 MG TABLET PO SCH ×6 (00:20→21:46)
[2021-01-01 04:54] LABS: BUN/Creatinine Ratio 29 (6-26); Blood Urea Nitrogen 18 mg/dL (6-20); Calcium 9.4 mg/dL (8.6-10.3); Carbon Dioxide 25 mEq/L (23-29); Chloride 103 mEq/L (98-107); Glucose 101 mg/dL (70-105); Magnesium 1.6 mg/dL (1.6-2.6); Osmolality,Calculated 276 (280-300); Phosphorous 3.6 mg/dL (2.7-4.5); Potassium 4.1 mEq/L (3.5-5.1); Sodium 132 mEq/L (136-145); eGFR For African Americans > 60 (> 60); eGFR For Non-African Americans > 60 (> 60)
[2021-01-01] MEDS: cefTRIAXone 2,000 MG in 0.9 % Sodium Chloride Mini Bag 100 ML IVPB SCH (05:44)
[2021-01-01] MEDS: Pregabalin 75 MG CAPSULE PO SCH ×3 (11:18→21:46)
[2021-01-01] MEDS: Cholecalciferol (D-3) 1,000 UNIT (25MCG) TABLET PO SCH (11:18)
[2021-01-01] MEDS: Loratadine 10 MG TABLET PO SCH (11:18)
[2021-01-01] MEDS: Lactobacillus 1 EACH CAP.SPRINK PO SCH ×2 (11:18→21:47)
[2021-01-01] MEDS: *HR* Enoxaparin 60 MG/0.6 ML SYRINGE SQ SCH ×2 (11:22→21:47)
[2021-01-01] MEDS: Cholestyramine 4 GM POWD.PACK PO SCH (11:31)
[2021-01-01 12:19] LABS: INR 1.3; Prothrombin Time 14.1 Seconds (9.4-12.1)
[2021-01-01] MEDS ORDERED: Clinimix E 5%-20% SOLUTION 2,000 ML with MVI, adult with vitamin K 10 ML, ZN/CU/MN/SE... IVC SCH (17:00)
[2021-01-01] MEDS: DAPTOmycin 450 MG in 0.9 % Sodium Chloride 100 ML IVPB SCH (17:51)
[2021-01-01] MEDS ORDERED: *HR* Warfarin 5 MG TABLET PO ONE (18:00)
[2021-01-01] MEDS: Micafungin 100 MG in 0.9 % Sodium Chloride Mini Bag 100 ML IVPB SCH (18:33)
[2021-01-02] MEDS: *HR* OxyCODONE Immed Rel 5 MG TABLET PO SCH ×5 (01:12→18:34)
[2021-01-02] MEDS: cefTRIAXone 2,000 MG in 0.9 % Sodium Chloride Mini Bag 100 ML IVPB SCH (05:17)
[2021-01-02 05:56] LABS: INR 1.5; Prothrombin Time 17.1 Seconds (9.4-12.1)
[2021-01-02 06:16] LABS: BUN/Creatinine Ratio 30 (6-26); Blood Urea Nitrogen 18 mg/dL (6-20); Calcium 9.4 mg/dL (8.6-10.3); Carbon Dioxide 24 mEq/L (23-29); Chloride 103 mEq/L (98-107); Glucose 61 mg/dL (70-105); Magnesium 1.5 mg/dL (1.6-2.6); Osmolality,Calculated 274 (280-300); Phosphorous 3.5 mg/dL (2.7-4.5); Potassium 4.1 mEq/L (3.5-5.1); Sodium 132 mEq/L (136-145); eGFR For African Americans > 60 (> 60); eGFR For Non-African Americans > 60 (> 60)
[2021-01-02] MEDS: Lactobacillus 1 EACH CAP.SPRINK PO SCH ×2 (07:40→20:11)
[2021-01-02] MEDS: Pregabalin 75 MG CAPSULE PO SCH ×3 (07:41→20:11)
[2021-01-02] MEDS: Loratadine 10 MG TABLET PO SCH (07:41)
[2021-01-02] MEDS: Cholecalciferol (D-3) 1,000 UNIT (25MCG) TABLET PO SCH (07:41)
[2021-01-02] MEDS: *HR* Enoxaparin 60 MG/0.6 ML SYRINGE SQ SCH ×2 (07:41→20:15)
[2021-01-02] MEDS: Cholestyramine 4 GM POWD.PACK PO SCH (13:09)
[2021-01-02] MEDS: DAPTOmycin 450 MG in 0.9 % Sodium Chloride 100 ML IVPB SCH (15:14)
[2021-01-02] MEDS ORDERED: Clinimix E 5%-20% SOLUTION 2,000 ML with MVI, adult with vitamin K 10 ML, ZN/CU/MN/SE... IVC SCH (17:00)
[2021-01-02] MEDS ORDERED: *HR* Warfarin 7.5 MG TABLET PO ONE (18:00)
[2021-01-02] MEDS: Micafungin 100 MG in 0.9 % Sodium Chloride Mini Bag 100 ML IVPB SCH (18:56)
[2021-01-03] MEDS: cefTRIAXone 2,000 MG in 0.9 % Sodium Chloride Mini Bag 100 ML IVPB SCH (04:57)
[2021-01-03 05:54] LABS: INR 1.6; Prothrombin Time 17.9 Seconds (9.4-12.1)
[2021-01-03 05:58] LABS: Alanine Aminotransferase 85 Units/L (7-52); Albumin/Globulin Ratio 0.9 (1.1-2.2); Alkaline Phosphatase 226 Units/L (34-104); Aspartate Amino Transferase 53 Units/L (13-39); BUN/Creatinine Ratio 30 (6-26); Bilirubin,Total 0.8 mg/dL (0.3-1.0); Blood Urea Nitrogen 17 mg/dL (6-20); Calcium 9.2 mg/dL (8.6-10.3); Carbon Dioxide 23 mEq/L (23-29); Chloride 103 mEq/L (98-107); Globulin 3.4 g/dL (2.4-3.5); Glucose 104 mg/dL (70-105); Magnesium 1.6 mg/dL (1.6-2.6); Osmolality,Calculated 274 (280-300); Phosphorous 3.7 mg/dL (2.7-4.5); Potassium 4.1 mEq/L (3.5-5.1); Sodium 131 mEq/L (136-145); Total Protein 6.4 g/dL (6.4-8.9); Triglycerides 90 mg/dL (< 150); eGFR For African Americans > 60 (> 60); eGFR For Non-African Americans > 60 (> 60)
[2021-01-03] MEDS: Loratadine 10 MG TABLET PO SCH (08:28)
[2021-01-03] MEDS: Lactobacillus 1 EACH CAP.SPRINK PO SCH ×2 (08:28→20:09)
[2021-01-03] MEDS: Pregabalin 75 MG CAPSULE PO SCH ×3 (08:30→20:09)
[2021-01-03] MEDS: Cholecalciferol (D-3) 1,000 UNIT (25MCG) TABLET PO SCH (08:30)
[2021-01-03] MEDS: *HR* Enoxaparin 60 MG/0.6 ML SYRINGE SQ SCH ×2 (08:33→20:10)
[2021-01-03] MEDS: *HR* OxyCODONE Immed Rel 5 MG TABLET PO SCH ×4 (11:12→23:23)
[2021-01-03] MEDS ORDERED: Micafungin 100 MG in 0.9 % Sodium Chloride Mini Bag 100 ML IVPB SCH (12:00)
[2021-01-03] MEDS ORDERED: DAPTOmycin 450 MG in 0.9 % Sodium Chloride 100 ML IVPB SCH (12:00)
[2021-01-03] MEDS: Cholestyramine 4 GM POWD.PACK PO SCH (12:24)
[2021-01-03] MEDS ORDERED: Clinimix E 5%-20% SOLUTION 2,000 ML with MVI, adult with vitamin K 10 ML, ZN/CU/MN/SE... IVC SCH (17:00)
[2021-01-03] MEDS ORDERED: *HR* Warfarin 7.5 MG TABLET PO ONE (18:00)
[2021-01-04] MEDS: *HR* OxyCODONE Immed Rel 5 MG TABLET PO SCH ×3 (01:07→08:31)
[2021-01-04 04:47] LABS: BUN/Creatinine Ratio 30 (6-26); Blood Urea Nitrogen 19 mg/dL (6-20); Calcium 9.1 mg/dL (8.6-10.3); Carbon Dioxide 24 mEq/L (23-29); Chloride 103 mEq/L (98-107); Glucose 104 mg/dL (70-105); INR 2.3; Magnesium 1.5 mg/dL (1.6-2.6); Osmolality,Calculated 279 (280-300); Phosphorous 3.9 mg/dL (2.7-4.5); Potassium 3.8 mEq/L (3.5-5.1); Prothrombin Time 25.9 Seconds (9.4-12.1); Sodium 133 mEq/L (136-145); eGFR For African Americans > 60 (> 60); eGFR For Non-African Americans > 60 (> 60)
[2021-01-04] MEDS: cefTRIAXone 2,000 MG in 0.9 % Sodium Chloride Mini Bag 100 ML IVPB SCH (05:14)
[2021-01-04 07:10] VITALS: PULSE 77
[2021-01-04] MEDS: Pregabalin 75 MG CAPSULE PO SCH (08:31)
[2021-01-04] MEDS: Loratadine 10 MG TABLET PO SCH (08:31)
[2021-01-04] MEDS: Lactobacillus 1 EACH CAP.SPRINK PO SCH (08:31)
[2021-01-04] MEDS: Cholecalciferol (D-3) 1,000 UNIT (25MCG) TABLET PO SCH (08:32)
[2021-01-04] MEDS: *HR* Enoxaparin 60 MG/0.6 ML SYRINGE SQ SCH (08:34)
[2021-01-04 10:43] VITALS: BP 125/67; TEMP 98.9; O2SAT 97
[2021-01-04] MEDS: Cholestyramine 4 GM POWD.PACK PO SCH (11:29)
[2021-01-04] MEDS ORDERED: Clinimix E 5%-20% SOLUTION 2,000 ML, Parenteral Amino Acid 10% 0 ML with MVI, adult wi... IVC SCH (17:00)
[2021-01-05] MEDS ORDERED: Clinimix E 5%-20% SOLUTION 2,000 ML, Parenteral Amino Acid 10% 0 ML with MVI, adult wi... IVC SCH (17:00)
[2021-01-06] MEDS ORDERED: Clinimix E 5%-20% SOLUTION 2,000 ML, Parenteral Amino Acid 10% 0 ML with MVI, adult wi... IVC SCH (17:00)
== END 2021-01-04 15:29 | disposition home health service (06) | DRG 721 ==
LOC: 3ANU → SUATTDRO 04:59 → OBSVTOIN 04:59 → 3ANU 12-18 18:14
PROVIDERS: ADMIT Internal Medicine; ATTEND Internal Medicine

== ENCOUNTER 2021-01-28 21:54 | Inpatient (IN) ==
[2021-01-29] MEDS ORDERED: 0.9 % Sodium Chloride 500 ML IVC PRN (00:01)
[2021-01-29] MEDS ORDERED: Acetaminophen 325 MG TABLET PO PRN (00:02)
[2021-01-29] MEDS ORDERED: Ondansetron 4 MG/2 ML VIAL IVP PRN (00:02)
[2021-01-29] MEDS ORDERED: Naloxone 0.4 MG/ML INJ IVP PRN (00:02)
[2021-01-29 00:47] LABS: Basophils % 0.3 %; Eosinophils # 0.1 K/mcL (0.0-0.6); Eosinophils % 0.6 %; Hematocrit 29.8 % (37.5-50.1); Hemoglobin 10.6 g/dL (12.9-16.9); Immature Granulocytes % 0.5 % (0-4); Lymphocytes # 1.3 K/mcL (0.6-4.6); Lymphocytes % 12.5 %; Mean Corpuscular HGB Conc 35.6 g/dL (31.6-35.5); Mean Corpuscular Hemoglobin 30.1 pg (28.0-33.3); Mean Corpuscular Volume 84.7 fL (83.0-100.0); Mean Platelet Volume 9.8 fL (9.4-12.4); Monocytes # 0.6 K/mcL (0.0-1.3); Monocytes % 5.6 %; Neutrophils # 8.6 K/mcL (1.6-8.9); Platelet Count 182 K/mcL (140-400); Red Blood Count 3.52 M/mcL (4.19-5.50); Red Cell Distribution Width 15.4 % (11.5-14.5); Segmented Neutrophils % 80.5 %; White Blood Count 10.7 K/mcL (4.3-11.1)
[2021-01-29 00:54] LABS: INR 2.1; Prothrombin Time 23.7 Seconds (9.4-12.1)
[2021-01-29 01:27] LABS: Bilirubin,Urine Negative (Negative); Blood,Urine Negative (Negative); Clarity,Urine Clear (Clear); Color,Urine Light-Yellow (Yellow); Glucose,Urine (UA) Normal (Normal); Ketones,Urine Negative (Negative); Leukocyte Esterase,Urine Negative (Negative); Nitrite,Urine Negative (Negative); PH,Urine 5.5 pH Units (5.0-8.0); Protein,Urine Negative (Neg-Trace); Specific Gravity,Urine 1.013 (1.010-1.025); Urobilinogen,Urine Normal (Normal)
[2021-01-29 01:39] LABS: Alanine Aminotransferase 29 Units/L (7-52); Albumin 2.8 g/dL (3.5-5.7); Albumin/Globulin Ratio 0.9 (1.1-2.2); Alkaline Phosphatase 185 Units/L (34-104); Aspartate Amino Transferase 20 Units/L (13-39); BUN/Creatinine Ratio 34 (6-26); Bilirubin,Direct 0.3 mg/dL (0.0-0.2); Bilirubin,Indirect 0.8 mg/dL (0.0-1.0); Bilirubin,Total 1.1 mg/dL (0.3-1.0); Blood Urea Nitrogen 27 mg/dL (6-20); C-Reactive Protein 66 mg/L (Less than 10); Carbon Dioxide 27 mEq/L (23-29); Chloride 81 mEq/L (98-107); Globulin 3.1 g/dL (2.4-3.5); Glucose 91 mg/dL (70-105); Magnesium 1.9 mg/dL (1.6-2.6); Osmolality,Calculated 249 (280-300); Phosphorous 2.2 mg/dL (2.7-4.5); Potassium 2.8 mEq/L (3.5-5.1); Sodium 117 mEq/L (136-145); Thyroid Stimulating Hormone 0.705 mcIU/mL (0.340-5.600); Total Protein 5.9 g/dL (6.4-8.9); Uric Acid 4.8 mg/dL (2.3-7.6); eGFR For African Americans > 60 (> 60); eGFR For Non-African Americans > 60 (> 60)
[2021-01-29] MEDS ORDERED: Potassium Phosphate 44 MEQ in 0.9 % Sodium Chloride 250 ML IVPB ONE ×2 (01:51→14:44)
[2021-01-29 02:01] LABS: Troponin I < 0.03 ng/mL (< 0.04)
[2021-01-29 02:02] LABS: Chloride,Urine < 15 mEq/L; Potassium,Urine 22.7 mEq/L; Sodium, Urine < 10.0 mEq/L
[2021-01-29] MEDS ORDERED: Ipratropium 1 PUFF INHALER IH PRN (02:51)
[2021-01-29] MEDS: DAPTOmycin 500 MG in 0.9 % Sodium Chloride 100 ML IVPB SCH (03:02)
[2021-01-29] MEDS: Pregabalin 75 MG CAPSULE PO SCH ×4 (03:46→20:45)
[2021-01-29 04:50] LABS: BUN/Creatinine Ratio 35 (6-26); Blood Urea Nitrogen 24 mg/dL (6-20); Carbon Dioxide 28 mEq/L (23-29); Chloride 82 mEq/L (98-107); Glucose 85 mg/dL (70-105); Osmolality,Calculated 253 (280-300); Potassium 2.8 mEq/L (3.5-5.1); Sodium 120 mEq/L (136-145); eGFR For African Americans > 60 (> 60); eGFR For Non-African Americans > 60 (> 60)
[2021-01-29] MEDS ORDERED: D5% in 0.45% NACL w KCl 20 MEQ/1,000 ML MLS IVC SCH (05:30)
[2021-01-29] MEDS ORDERED: Cefepime HCl 2,000 MG in Water for inj. (sterile) 20 ML IVP SCH (06:00)
[2021-01-29] MEDS ORDERED: *HR* Warfarin 7.5 MG TABLET PO SCH (09:00)
[2021-01-29] MEDS: Loratadine 10 MG TABLET PO SCH (09:08)
[2021-01-29] MEDS: Cholecalciferol (D-3) 1,000 UNIT (25MCG) TABLET PO SCH (09:08)
[2021-01-29] MEDS ORDERED: D5% in Water 1,000 ML IVC PRN (09:20)
[2021-01-29] MEDS ORDERED: *HR* Dextrose 50 % in Water (Syg) 50 ML SYRINGE IVP PRN (09:20)
[2021-01-29] MEDS ORDERED: Dextrose Gel 15 GM/37.5 ML TUBE PO PRN ×2 (09:20)
[2021-01-29 10:01] LABS: BUN/Creatinine Ratio 31 (6-26); Blood Urea Nitrogen 21 mg/dL (6-20); Calcium 8.2 mg/dL (8.6-10.3); Carbon Dioxide 32 mEq/L (23-29); Chloride 85 mEq/L (98-107); Glucose 93 mg/dL (70-105); Osmolality,Calculated 255 (280-300); Potassium 3.1 mEq/L (3.5-5.1); Sodium 121 mEq/L (136-145); Triglycerides 200 mg/dL (< 150); eGFR For African Americans > 60 (> 60); eGFR For Non-African Americans > 60 (> 60)
[2021-01-29] MEDS: *HR* OxyCODONE/APAP 5/325 TABLET PO PRN ×3 (11:25→20:46)
[2021-01-29 11:35] LABS: Estimated Average Glucose 100 mg/dl; Hemoglobin A1C 5.1 %
[2021-01-29] MEDS: Insulin LISPRO 300 UNITS/3 ML VIAL SUBQ SCH ×2 (12:27→17:11)
[2021-01-29 15:13] LABS: BUN/Creatinine Ratio 27 (6-26); Blood Urea Nitrogen 17 mg/dL (6-20); Calcium 8.5 mg/dL (8.6-10.3); Carbon Dioxide 32 mEq/L (23-29); Chloride 84 mEq/L (98-107); Glucose 96 mg/dL (70-105); Osmolality,Calculated 257 (280-300); Potassium 2.9 mEq/L (3.5-5.1); Sodium 123 mEq/L (136-145); eGFR For African Americans > 60 (> 60); eGFR For Non-African Americans > 60 (> 60)
[2021-01-29] MEDS: Micafungin 100 MG in 0.9 % Sodium Chloride Mini Bag 100 ML IVPB SCH (15:23)
[2021-01-29] MEDS ORDERED: Potassium Chloride Elixir 20 MEQ/15 ML UDC PO ONE (15:35)
[2021-01-29] MEDS: D5% in Water 1,000 ML IVC SCH ×2 (15:42→20:47)
[2021-01-29] MEDS ORDERED: Potassium Chloride Elixir 20 MEQ/15 ML UDC PO SCH (16:00)
[2021-01-29] MEDS ORDERED: Warfarin perPT PO PRN (18:00)
[2021-01-29] MEDS: *HR* Warfarin 10 MG TABLET PO ONE (18:40)
[2021-01-29] MEDS: Insulin DETEMIR 100 UNIT/ML X5UNITS SUBQ SCH (20:37)
[2021-01-29 21:07] LABS: BUN/Creatinine Ratio 23 (6-26); Blood Urea Nitrogen 16 mg/dL (6-20); Carbon Dioxide 34 mEq/L (23-29); Chloride 79 mEq/L (98-107); Glucose 102 mg/dL (70-105); Osmolality,Calculated 255 (280-300); Potassium 2.9 mEq/L (3.5-5.1); Sodium 122 mEq/L (136-145); eGFR For African Americans > 60 (> 60); eGFR For Non-African Americans > 60 (> 60)
[2021-01-30] MEDS: *HR* OxyCODONE/APAP 5/325 TABLET PO PRN ×5 (01:30→22:10)
[2021-01-30] MEDS: DAPTOmycin 500 MG in 0.9 % Sodium Chloride 100 ML IVPB SCH (02:14)
[2021-01-30 03:59] LABS: BUN/Creatinine Ratio 18 (6-26); Blood Urea Nitrogen 15 mg/dL (6-20); Calcium 9.3 mg/dL (8.6-10.3); Carbon Dioxide 33 mEq/L (23-29); Chloride 78 mEq/L (98-107); Glucose 113 mg/dL (70-105); Osmolality,Calculated 254 (280-300); Potassium 2.8 mEq/L (3.5-5.1); Sodium 121 mEq/L (136-145); eGFR For African Americans > 60 (> 60); eGFR For Non-African Americans > 60 (> 60)
[2021-01-30 04:05] LABS: Prothrombin Time 22.3 Seconds (9.4-12.1)
[2021-01-30] MEDS: Cholecalciferol (D-3) 1,000 UNIT (25MCG) TABLET PO SCH (07:27)
[2021-01-30] MEDS: Loratadine 10 MG TABLET PO SCH (07:28)
[2021-01-30] MEDS: D5% in Water 1,000 ML IVC SCH (07:28)
[2021-01-30] MEDS ORDERED: 0.9 % Sodium Chloride 1,000 ML IVC SCH (08:00)
[2021-01-30] MEDS: Insulin LISPRO 300 UNITS/3 ML VIAL SUBQ SCH ×3 (08:34→16:24)
[2021-01-30] MEDS: Micafungin 100 MG in 0.9 % Sodium Chloride Mini Bag 100 ML IVPB SCH (08:58)
[2021-01-30] MEDS: Pregabalin 75 MG CAPSULE PO SCH ×3 (08:58→22:10)
[2021-01-30 09:14] LABS: Basophils # 0.1 K/mcL (0.0-0.2); Basophils % 1.1 %; Eosinophils # 0.2 K/mcL (0.0-0.6); Eosinophils % 3.3 %; Hematocrit 36.1 % (37.5-50.1); Hemoglobin 12.8 g/dL (12.9-16.9); Immature Granulocytes % 0.5 % (0-4); Lymphocytes # 1.8 K/mcL (0.6-4.6); Lymphocytes % 30.6 %; Mean Corpuscular HGB Conc 35.5 g/dL (31.6-35.5); Mean Corpuscular Hemoglobin 30.1 pg (28.0-33.3); Mean Corpuscular Volume 84.9 fL (83.0-100.0); Mean Platelet Volume 10.4 fL (9.4-12.4); Monocytes # 0.4 K/mcL (0.0-1.3); Monocytes % 6.7 %; Neutrophils # 3.3 K/mcL (1.6-8.9); Platelet Count 158 K/mcL (140-400); Red Blood Count 4.25 M/mcL (4.19-5.50); Red Cell Distribution Width 15.2 % (11.5-14.5); Segmented Neutrophils % 57.8 %; White Blood Count 5.7 K/mcL (4.3-11.1)
[2021-01-30 09:32] LABS: BUN/Creatinine Ratio 20 (6-26); Blood Urea Nitrogen 16 mg/dL (6-20); Calcium 8.9 mg/dL (8.6-10.3); Carbon Dioxide 30 mEq/L (23-29); Chloride 81 mEq/L (98-107); Glucose 138 mg/dL (70-105); Magnesium 1.9 mg/dL (1.6-2.6); Osmolality,Calculated 253 (280-300); Phosphorous 3.1 mg/dL (2.7-4.5); Potassium 2.9 mEq/L (3.5-5.1); Sodium 120 mEq/L (136-145); eGFR For African Americans > 60 (> 60); eGFR For Non-African Americans > 60 (> 60)
[2021-01-30 13:40] LABS: BUN/Creatinine Ratio 16 (6-26); Blood Urea Nitrogen 15 mg/dL (6-20); Calcium 9.7 mg/dL (8.6-10.3); Carbon Dioxide 34 mEq/L (23-29); Chloride 79 mEq/L (98-107); Glucose 111 mg/dL (70-105); Osmolality,Calculated 262 (280-300); Potassium 3.4 mEq/L (3.5-5.1); Sodium 125 mEq/L (136-145); eGFR For African Americans > 60 (> 60); eGFR For Non-African Americans > 60 (> 60)
[2021-01-30 17:23] LABS: BUN/Creatinine Ratio 16 (6-26); Blood Urea Nitrogen 17 mg/dL (6-20); Calcium 9.8 mg/dL (8.6-10.3); Carbon Dioxide 35 mEq/L (23-29); Chloride 79 mEq/L (98-107); Glucose 103 mg/dL (70-105); Osmolality,Calculated 264 (280-300); Potassium 3.1 mEq/L (3.5-5.1); Sodium 126 mEq/L (136-145); eGFR For African Americans > 60 (> 60); eGFR For Non-African Americans > 60 (> 60)
[2021-01-30] MEDS ORDERED: *HR* Warfarin 10 MG TABLET PO ONE (18:00)
[2021-01-30 21:15] LABS: BUN/Creatinine Ratio 20 (6-26); Blood Urea Nitrogen 19 mg/dL (6-20); Calcium 9.3 mg/dL (8.6-10.3); Carbon Dioxide 32 mEq/L (23-29); Chloride 80 mEq/L (98-107); Glucose 112 mg/dL (70-105); Osmolality,Calculated 259 (280-300); Potassium 3.8 mEq/L (3.5-5.1); Sodium 123 mEq/L (136-145); eGFR For African Americans > 60 (> 60); eGFR For Non-African Americans > 60 (> 60)
[2021-01-30] MEDS: Insulin DETEMIR 100 UNIT/ML X5UNITS SUBQ SCH (21:59)
[2021-01-30] MEDS: 0.9 % Sodium Chloride 1,000 ML IVC SCH (22:10)
[2021-01-30] MEDS: *HR* Warfarin 10 MG TABLET PO ONE (22:32)
[2021-01-31 00:58] LABS: Basophils # 0.1 K/mcL (0.0-0.2); Basophils % 0.7 %; Eosinophils # 0.1 K/mcL (0.0-0.6); Eosinophils % 2.1 %; Hematocrit 41.3 % (37.5-50.1); Hemoglobin 14.2 g/dL (12.9-16.9); Immature Granulocytes % 0.4 % (0-4); Lymphocytes # 2.4 K/mcL (0.6-4.6); Lymphocytes % 36.2 %; Mean Corpuscular HGB Conc 34.4 g/dL (31.6-35.5); Mean Corpuscular Hemoglobin 29.5 pg (28.0-33.3); Mean Corpuscular Volume 85.9 fL (83.0-100.0); Mean Platelet Volume 9.8 fL (9.4-12.4); Monocytes # 0.4 K/mcL (0.0-1.3); Monocytes % 6.4 %; Neutrophils # 3.6 K/mcL (1.6-8.9); Platelet Count 187 K/mcL (140-400); Red Blood Count 4.81 M/mcL (4.19-5.50); Red Cell Distribution Width 15.1 % (11.5-14.5); Segmented Neutrophils % 54.2 %; White Blood Count 6.7 K/mcL (4.3-11.1)
[2021-01-31 01:11] LABS: INR 3.1; Prothrombin Time 34.4 Seconds (9.4-12.1)
[2021-01-31 01:19] LABS: BUN/Creatinine Ratio 19 (6-26); Blood Urea Nitrogen 19 mg/dL (6-20); Calcium 9.4 mg/dL (8.6-10.3); Carbon Dioxide 36 mEq/L (23-29); Chloride 77 mEq/L (98-107); Glucose 123 mg/dL (70-105); Osmolality,Calculated 258 (280-300); Potassium 3.3 mEq/L (3.5-5.1); Sodium 122 mEq/L (136-145); eGFR For African Americans > 60 (> 60); eGFR For Non-African Americans > 60 (> 60)
[2021-01-31 01:35] LABS: Platelet Estimate Normal (Normal); Reactive Lymphocytes Present (Not Present)
[2021-01-31] MEDS: DAPTOmycin 500 MG in 0.9 % Sodium Chloride 100 ML IVPB SCH (02:55)
[2021-01-31] MEDS: *HR* OxyCODONE/APAP 5/325 TABLET PO PRN ×5 (02:55→20:58)
[2021-01-31] MEDS: 0.9 % Sodium Chloride 1,000 ML IVC SCH ×3 (04:36→19:39)
[2021-01-31 05:56] LABS: BUN/Creatinine Ratio 22 (6-26); Blood Urea Nitrogen 21 mg/dL (6-20); Calcium 8.9 mg/dL (8.6-10.3); Carbon Dioxide 32 mEq/L (23-29); Chloride 82 mEq/L (98-107); Glucose 107 mg/dL (70-105); Osmolality,Calculated 261 (280-300); Potassium 3.8 mEq/L (3.5-5.1); Sodium 124 mEq/L (136-145); eGFR For African Americans > 60 (> 60); eGFR For Non-African Americans > 60 (> 60)
[2021-01-31] MEDS: Micafungin 100 MG in 0.9 % Sodium Chloride Mini Bag 100 ML IVPB SCH (07:58)
[2021-01-31] MEDS: Pregabalin 75 MG CAPSULE PO SCH ×3 (07:59→20:54)
[2021-01-31] MEDS: Loratadine 10 MG TABLET PO SCH (07:59)
[2021-01-31] MEDS: Cholecalciferol (D-3) 1,000 UNIT (25MCG) TABLET PO SCH (07:59)
[2021-01-31] MEDS: Insulin LISPRO 300 UNITS/3 ML VIAL SUBQ SCH ×3 (08:01→16:07)
[2021-01-31 10:25] LABS: BUN/Creatinine Ratio 22 (6-26); Blood Urea Nitrogen 18 mg/dL (6-20); Calcium 8.9 mg/dL (8.6-10.3); Carbon Dioxide 36 mEq/L (23-29); Chloride 78 mEq/L (98-107); Glucose 103 mg/dL (70-105); Magnesium 1.7 mg/dL (1.6-2.6); Osmolality,Calculated 258 (280-300); Phosphorous 2.8 mg/dL (2.7-4.5); Potassium 2.6 mEq/L (3.5-5.1); Sodium 123 mEq/L (136-145); eGFR For African Americans > 60 (> 60); eGFR For Non-African Americans > 60 (> 60)
[2021-01-31 10:49] LABS: Creatine Kinase < 10 Units/L (30-223)
[2021-01-31 14:23] LABS: BUN/Creatinine Ratio 20 (6-26); Blood Urea Nitrogen 17 mg/dL (6-20); Calcium 9.5 mg/dL (8.6-10.3); Carbon Dioxide 37 mEq/L (23-29); Chloride 78 mEq/L (98-107); Glucose 91 mg/dL (70-105); Osmolality,Calculated 259 (280-300); Sodium 124 mEq/L (136-145); eGFR For African Americans > 60 (> 60); eGFR For Non-African Americans > 60 (> 60)
[2021-01-31] MEDS ORDERED: *HR* Warfarin 2.5 MG TABLET PO ONE (18:00)
[2021-01-31] MEDS: Insulin DETEMIR 100 UNIT/ML X5UNITS SUBQ SCH (19:59)
[2021-02-01] MEDS: *HR* OxyCODONE/APAP 5/325 TABLET PO PRN ×4 (01:40→20:19)
[2021-02-01 01:55] LABS: Basophils # 0.1 K/mcL (0.0-0.2); Basophils % 1.2 %; Eosinophils # 0.1 K/mcL (0.0-0.6); Eosinophils % 2.5 %; Hematocrit 35.1 % (37.5-50.1); Immature Granulocytes % 0.5 % (0-4); Lymphocytes # 2.2 K/mcL (0.6-4.6); Lymphocytes % 38.6 %; Mean Corpuscular HGB Conc 33.6 g/dL (31.6-35.5); Mean Corpuscular Hemoglobin 29.1 pg (28.0-33.3); Mean Corpuscular Volume 86.5 fL (83.0-100.0); Monocytes # 0.5 K/mcL (0.0-1.3); Monocytes % 8.1 %; Neutrophils # 2.8 K/mcL (1.6-8.9); Platelet Count 208 K/mcL (140-400); Red Blood Count 4.06 M/mcL (4.19-5.50); Red Cell Distribution Width 15.1 % (11.5-14.5); Segmented Neutrophils % 49.1 %; White Blood Count 5.7 K/mcL (4.3-11.1)
[2021-02-01 01:56] LABS: Hemoglobin 11.8 g/dL (12.9-16.9)
[2021-02-01 02:11] LABS: INR 4.7; Prothrombin Time 51.5 Seconds (9.4-12.1)
[2021-02-01 02:17] LABS: BUN/Creatinine Ratio 22 (6-26); Blood Urea Nitrogen 15 mg/dL (6-20); Calcium 8.5 mg/dL (8.6-10.3); Carbon Dioxide 35 mEq/L (23-29); Chloride 82 mEq/L (98-107); Glucose 113 mg/dL (70-105); Osmolality,Calculated 264 (280-300); Potassium 2.4 mEq/L (3.5-5.1); Sodium 126 mEq/L (136-145); eGFR For African Americans > 60 (> 60); eGFR For Non-African Americans > 60 (> 60)
[2021-02-01] MEDS: DAPTOmycin 500 MG in 0.9 % Sodium Chloride 100 ML IVPB SCH (02:24)
[2021-02-01] MEDS: 0.9 % Sodium Chloride 1,000 ML IVC SCH ×2 (05:16→17:59)
[2021-02-01 07:58] LABS: BUN/Creatinine Ratio 20 (6-26); Blood Urea Nitrogen 16 mg/dL (6-20); Calcium 8.8 mg/dL (8.6-10.3); Carbon Dioxide 29 mEq/L (23-29); Chloride 85 mEq/L (98-107); Glucose 100 mg/dL (70-105); Osmolality,Calculated 267 (280-300); Potassium 3.5 mEq/L (3.5-5.1); Sodium 128 mEq/L (136-145); eGFR For African Americans > 60 (> 60); eGFR For Non-African Americans > 60 (> 60)
[2021-02-01] MEDS: Pregabalin 75 MG CAPSULE PO SCH ×3 (09:33→21:11)
[2021-02-01] MEDS: Micafungin 100 MG in 0.9 % Sodium Chloride Mini Bag 100 ML IVPB SCH (09:34)
[2021-02-01] MEDS: Cholecalciferol (D-3) 1,000 UNIT (25MCG) TABLET PO SCH (09:34)
[2021-02-01] MEDS: Loratadine 10 MG TABLET PO SCH (09:35)
[2021-02-01] MEDS: Insulin LISPRO 300 UNITS/3 ML VIAL SUBQ SCH ×3 (09:36→17:58)
[2021-02-01 12:14] LABS: BUN/Creatinine Ratio 16 (6-26); Blood Urea Nitrogen 14 mg/dL (6-20); Calcium 9.1 mg/dL (8.6-10.3); Carbon Dioxide 40 mEq/L (23-29); Chloride 83 mEq/L (98-107); Glucose 97 mg/dL (70-105); Osmolality,Calculated 266 (280-300); Sodium 128 mEq/L (136-145); eGFR For African Americans > 60 (> 60); eGFR For Non-African Americans > 60 (> 60)
[2021-02-01] MEDS: Multivit/Ca/Min/Fe/FA 1 TAB TABLET PO SCH (14:14)
[2021-02-01 18:00] LABS: BUN/Creatinine Ratio 16 (6-26); Blood Urea Nitrogen 12 mg/dL (6-20); Calcium 8.6 mg/dL (8.6-10.3); Carbon Dioxide 37 mEq/L (23-29); Chloride 83 mEq/L (98-107); Glucose 87 mg/dL (70-105); Osmolality,Calculated 265 (280-300); Potassium 2.6 mEq/L (3.5-5.1); Sodium 128 mEq/L (136-145); eGFR For African Americans > 60 (> 60); eGFR For Non-African Americans > 60 (> 60)
[2021-02-01 20:36] LABS: BUN/Creatinine Ratio 14 (6-26); Blood Urea Nitrogen 12 mg/dL (6-20); Calcium 9.7 mg/dL (8.6-10.3); Carbon Dioxide 41 mEq/L (23-29); Chloride 84 mEq/L (98-107); Glucose 105 mg/dL (70-105); Osmolality,Calculated 274 (280-300); Potassium 3.1 mEq/L (3.5-5.1); Sodium 132 mEq/L (136-145); eGFR For African Americans > 60 (> 60); eGFR For Non-African Americans > 60 (> 60)
[2021-02-01] MEDS: Insulin DETEMIR 100 UNIT/ML X5UNITS SUBQ SCH (21:12)
[2021-02-02] MEDS: *HR* OxyCODONE/APAP 5/325 TABLET PO PRN ×5 (01:48→21:29)
[2021-02-02] MEDS: DAPTOmycin 500 MG in 0.9 % Sodium Chloride 100 ML IVPB SCH (01:51)
[2021-02-02 02:15] LABS: Basophils # 0.1 K/mcL (0.0-0.2); Basophils % 1.5 %; Eosinophils # 0.1 K/mcL (0.0-0.6); Eosinophils % 2.5 %; Hematocrit 34.7 % (37.5-50.1); Hemoglobin 12.1 g/dL (12.9-16.9); Immature Granulocytes % 0.4 % (0-4); Lymphocytes # 2.4 K/mcL (0.6-4.6); Lymphocytes % 49.3 %; Mean Corpuscular HGB Conc 34.9 g/dL (31.6-35.5); Mean Corpuscular Volume 86.1 fL (83.0-100.0); Mean Platelet Volume 9.6 fL (9.4-12.4); Monocytes # 0.4 K/mcL (0.0-1.3); Monocytes % 8.4 %; Neutrophils # 1.8 K/mcL (1.6-8.9); Platelet Count 215 K/mcL (140-400); Red Blood Count 4.03 M/mcL (4.19-5.50); Red Cell Distribution Width 15.3 % (11.5-14.5); Segmented Neutrophils % 37.9 %; White Blood Count 4.8 K/mcL (4.3-11.1)
[2021-02-02 02:20] LABS: INR 3.4; Prothrombin Time 37.9 Seconds (9.4-12.1)
[2021-02-02 02:35] LABS: BUN/Creatinine Ratio 16 (6-26); Blood Urea Nitrogen 11 mg/dL (6-20); Calcium 8.6 mg/dL (8.6-10.3); Carbon Dioxide 36 mEq/L (23-29); Chloride 82 mEq/L (98-107); Glucose 106 mg/dL (70-105); Osmolality,Calculated 262 (280-300); Potassium 2.2 mEq/L (3.5-5.1); Sodium 126 mEq/L (136-145); eGFR For African Americans > 60 (> 60); eGFR For Non-African Americans > 60 (> 60)
[2021-02-02 02:40] LABS: Platelet Estimate Normal (Normal)
[2021-02-02] MEDS: 0.9 % Sodium Chloride 1,000 ML IVC SCH (04:42)
[2021-02-02] MEDS: 0.9 % Sodium Chloride w KCl 40 MEQ/1,000 ML MLS IVC SCH ×2 (08:32→20:31)
[2021-02-02] MEDS: Cholecalciferol (D-3) 1,000 UNIT (25MCG) TABLET PO SCH (08:33)
[2021-02-02] MEDS: Multivit/Ca/Min/Fe/FA 1 TAB TABLET PO SCH (08:33)
[2021-02-02] MEDS: Loratadine 10 MG TABLET PO SCH (08:33)
[2021-02-02] MEDS: Pregabalin 75 MG CAPSULE PO SCH ×3 (08:33→20:25)
[2021-02-02] MEDS: Insulin LISPRO 300 UNITS/3 ML VIAL SUBQ SCH ×3 (08:42→16:35)
[2021-02-02 08:58] LABS: BUN/Creatinine Ratio 17 (6-26); Blood Urea Nitrogen 12 mg/dL (6-20); Calcium 8.6 mg/dL (8.6-10.3); Carbon Dioxide 34 mEq/L (23-29); Chloride 87 mEq/L (98-107); Glucose 96 mg/dL (70-105); Osmolality,Calculated 266 (280-300); Potassium 2.7 mEq/L (3.5-5.1); Sodium 128 mEq/L (136-145); eGFR For African Americans > 60 (> 60); eGFR For Non-African Americans > 60 (> 60)
[2021-02-02 18:52] LABS: Amorphous Sediment,Urine Few per hpf (None-Few); Bilirubin,Urine Negative (Negative); Blood,Urine Negative (Negative); Clarity,Urine Turbid (Clear); Color,Urine Yellow (Yellow); Glucose,Urine (UA) Normal (Normal); Ketones,Urine Negative (Negative); Leukocyte Esterase,Urine Negative (Negative); Mucus,Urine Few per lpf (None-Few); Nitrite,Urine Negative (Negative); Protein,Urine 30 mg/dL (Neg-Trace); RBC,Urine 0-3 per hpf (0-3); Urobilinogen,Urine Normal (Normal); WBC,Urine 0-3 per hpf (0-3)
[2021-02-02] MEDS: Insulin DETEMIR 100 UNIT/ML X5UNITS SUBQ SCH (20:27)
[2021-02-02 20:30] LABS: BUN/Creatinine Ratio 13 (6-26); Blood Urea Nitrogen 9 mg/dL (6-20); Carbon Dioxide 34 mEq/L (23-29); Chloride 91 mEq/L (98-107); Glucose 113 mg/dL (70-105); Osmolality,Calculated 275 (280-300); Sodium 133 mEq/L (136-145); eGFR For African Americans > 60 (> 60); eGFR For Non-African Americans > 60 (> 60)
[2021-02-02 22:11] LABS: BUN/Creatinine Ratio 16 (6-26); Blood Urea Nitrogen 11 mg/dL (6-20); Calcium 9.4 mg/dL (8.6-10.3); Carbon Dioxide 25 mEq/L (23-29); Chloride 96 mEq/L (98-107); Glucose 88 mg/dL (70-105); Osmolality,Calculated 285 (280-300); Potassium 4.6 mEq/L (3.5-5.1); Sodium 138 mEq/L (136-145); eGFR For African Americans > 60 (> 60); eGFR For Non-African Americans > 60 (> 60)
[2021-02-03 00:55] LABS: Basophils # 0.1 K/mcL (0.0-0.2); Basophils % 1.5 %; Eosinophils # 0.1 K/mcL (0.0-0.6); Eosinophils % 2.1 %; Hematocrit 40.3 % (37.5-50.1); Immature Granulocytes % 0.4 % (0-4); Lymphocytes # 3.2 K/mcL (0.6-4.6); Lymphocytes % 60.8 %; Mean Corpuscular HGB Conc 34.2 g/dL (31.6-35.5); Mean Corpuscular Hemoglobin 30.2 pg (28.0-33.3); Mean Corpuscular Volume 88.2 fL (83.0-100.0); Mean Platelet Volume 9.2 fL (9.4-12.4); Monocytes # 0.4 K/mcL (0.0-1.3); Monocytes % 8.3 %; Neutrophils # 1.4 K/mcL (1.6-8.9); Platelet Count 265 K/mcL (140-400); Red Blood Count 4.57 M/mcL (4.19-5.50); Red Cell Distribution Width 15.4 % (11.5-14.5); Segmented Neutrophils % 26.9 %; White Blood Count 5.2 K/mcL (4.3-11.1)
[2021-02-03 00:59] LABS: Hemoglobin 13.8 g/dL (12.9-16.9)
[2021-02-03 01:09] LABS: INR 2.1; Prothrombin Time 23.6 Seconds (9.4-12.1)
[2021-02-03] MEDS: DAPTOmycin 500 MG in 0.9 % Sodium Chloride 100 ML IVPB SCH (01:12)
[2021-02-03 01:16] LABS: BUN/Creatinine Ratio 13 (6-26); Blood Urea Nitrogen 9 mg/dL (6-20); Calcium 9.2 mg/dL (8.6-10.3); Carbon Dioxide 35 mEq/L (23-29); Chloride 89 mEq/L (98-107); Glucose 105 mg/dL (70-105); Osmolality,Calculated 271 (280-300); Potassium 3.1 mEq/L (3.5-5.1); Sodium 131 mEq/L (136-145); eGFR For African Americans > 60 (> 60); eGFR For Non-African Americans > 60 (> 60)
[2021-02-03] MEDS: *HR* OxyCODONE/APAP 5/325 TABLET PO PRN ×4 (05:46→19:54)
[2021-02-03 07:27] LABS: BUN/Creatinine Ratio 13 (6-26); Blood Urea Nitrogen 10 mg/dL (6-20); Calcium 9.3 mg/dL (8.6-10.3); Carbon Dioxide 35 mEq/L (23-29); Chloride 88 mEq/L (98-107); Glucose 104 mg/dL (70-105); Osmolality,Calculated 269 (280-300); Potassium 3.1 mEq/L (3.5-5.1); Sodium 130 mEq/L (136-145); eGFR For African Americans > 60 (> 60); eGFR For Non-African Americans > 60 (> 60)
[2021-02-03] MEDS: 0.9 % Sodium Chloride w KCl 40 MEQ/1,000 ML MLS IVC SCH ×2 (07:56→15:26)
[2021-02-03] MEDS: Pregabalin 75 MG CAPSULE PO SCH ×3 (07:57→19:55)
[2021-02-03] MEDS: Cholecalciferol (D-3) 1,000 UNIT (25MCG) TABLET PO SCH (07:57)
[2021-02-03] MEDS: Multivit/Ca/Min/Fe/FA 1 TAB TABLET PO SCH (07:57)
[2021-02-03] MEDS: Loratadine 10 MG TABLET PO SCH (07:58)
[2021-02-03] MEDS: Insulin LISPRO 300 UNITS/3 ML VIAL SUBQ SCH ×3 (08:00→15:19)
[2021-02-03] MEDS ORDERED: *HR* Heparin 5,000 UNIT/ML VIAL IVP PRN ×2 (14:21)
[2021-02-03] MEDS ORDERED: *HR* Heparin 5,000 UNIT/ML VIAL IVP ONE (14:21)
[2021-02-03] MEDS: Heparin 25,000UNIT/250ML 1/2NS 25,000 UNIT/250 ML IV.SOLN IVC SCH (15:17)
[2021-02-03] MEDS: Insulin DETEMIR 100 UNIT/ML X5UNITS SUBQ SCH (19:55)
[2021-02-03 21:16] LABS: BUN/Creatinine Ratio 13 (6-26); Blood Urea Nitrogen 10 mg/dL (6-20); Calcium 9.5 mg/dL (8.6-10.3); Carbon Dioxide 38 mEq/L (23-29); Chloride 86 mEq/L (98-107); Glucose 97 mg/dL (70-105); Osmolality,Calculated 273 (280-300); Sodium 132 mEq/L (136-145); eGFR For African Americans > 60 (> 60); eGFR For Non-African Americans > 60 (> 60)
[2021-02-04] MEDS: *HR* OxyCODONE/APAP 5/325 TABLET PO PRN ×4 (04:23→22:19)
[2021-02-04] MEDS: 0.9 % Sodium Chloride w KCl 40 MEQ/1,000 ML MLS IVC SCH ×3 (04:27→22:19)
[2021-02-04] MEDS: DAPTOmycin 500 MG in 0.9 % Sodium Chloride 100 ML IVPB SCH (04:27)
[2021-02-04 05:07] LABS: Basophils # 0.1 K/mcL (0.0-0.2); Basophils % 1.2 %; Eosinophils # 0.1 K/mcL (0.0-0.6); Eosinophils % 2.2 %; Hematocrit 40.1 % (37.5-50.1); Hemoglobin 13.4 g/dL (12.9-16.9); Immature Granulocytes % 0.2 % (0-4); Lymphocytes # 3.4 K/mcL (0.6-4.6); Lymphocytes % 56.6 %; Mean Corpuscular HGB Conc 33.4 g/dL (31.6-35.5); Mean Corpuscular Hemoglobin 29.5 pg (28.0-33.3); Mean Corpuscular Volume 88.1 fL (83.0-100.0); Mean Platelet Volume 9.2 fL (9.4-12.4); Monocytes # 0.5 K/mcL (0.0-1.3); Monocytes % 7.7 %; Neutrophils # 1.9 K/mcL (1.6-8.9); Platelet Count 282 K/mcL (140-400); Red Blood Count 4.55 M/mcL (4.19-5.50); Red Cell Distribution Width 15.5 % (11.5-14.5); Segmented Neutrophils % 32.1 %
[2021-02-04 05:22] LABS: INR 1.5; Prothrombin Time 16.5 Seconds (9.4-12.1)
[2021-02-04 05:23] LABS: BUN/Creatinine Ratio 11 (6-26); Blood Urea Nitrogen 11 mg/dL (6-20); Calcium 9.7 mg/dL (8.6-10.3); Carbon Dioxide 36 mEq/L (23-29); Chloride 87 mEq/L (98-107); Glucose 89 mg/dL (70-105); Osmolality,Calculated 271 (280-300); Potassium 3.4 mEq/L (3.5-5.1); Sodium 131 mEq/L (136-145); eGFR For African Americans > 60 (> 60); eGFR For Non-African Americans > 60 (> 60)
[2021-02-04 06:59] LABS: Platelet Estimate Normal (Normal); Reactive Lymphocytes Present (Not Present)
[2021-02-04] MEDS: Insulin LISPRO 300 UNITS/3 ML VIAL SUBQ SCH ×2 (08:06→16:33)
[2021-02-04] MEDS: Multivit/Ca/Min/Fe/FA 1 TAB TABLET PO SCH (08:07)
[2021-02-04] MEDS: Loratadine 10 MG TABLET PO SCH (08:07)
[2021-02-04] MEDS: Cholecalciferol (D-3) 1,000 UNIT (25MCG) TABLET PO SCH (08:07)
[2021-02-04] MEDS: Pregabalin 75 MG CAPSULE PO SCH ×3 (08:07→22:18)
[2021-02-04 08:25] LABS: Magnesium 1.6 mg/dL (1.6-2.6); Phosphorous 3.1 mg/dL (2.7-4.5); Triglycerides 94 mg/dL (< 150)
[2021-02-04 10:14] LABS: BUN/Creatinine Ratio 13 (6-26); Blood Urea Nitrogen 12 mg/dL (6-20); Carbon Dioxide 33 mEq/L (23-29); Chloride 89 mEq/L (98-107); Glucose 91 mg/dL (70-105); Osmolality,Calculated 267 (280-300); Potassium 3.6 mEq/L (3.5-5.1); Sodium 129 mEq/L (136-145); eGFR For African Americans > 60 (> 60); eGFR For Non-African Americans > 60 (> 60)
[2021-02-04] MEDS ORDERED: Heparin 1,000 UNITS/500 mL 500 ML ONE (11:33)
[2021-02-04] MEDS ORDERED: Lidocaine/EPI 1:100k 1% 50 ML VIAL ONE (11:33)
[2021-02-04] MEDS ORDERED: D10% in Water 500 ML IVC PRN (12:25)
[2021-02-04 14:49] LABS: BUN/Creatinine Ratio 11 (6-26); Blood Urea Nitrogen 12 mg/dL (6-20); Calcium 9.4 mg/dL (8.6-10.3); Carbon Dioxide 40 mEq/L (23-29); Chloride 85 mEq/L (98-107); Glucose 97 mg/dL (70-105); Osmolality,Calculated 270 (280-300); Potassium 2.9 mEq/L (3.5-5.1); Sodium 130 mEq/L (136-145); eGFR For African Americans > 60 (> 60); eGFR For Non-African Americans > 60 (> 60)
[2021-02-04] MEDS: Heparin 25,000UNIT/250ML 1/2NS 25,000 UNIT/250 ML IV.SOLN IVC SCH (16:37)
[2021-02-04] MEDS ORDERED: Clinimix E 5%-20% SOLUTION 2,000 ML, Parenteral Amino Acid 10% 0 ML with MVI, adult wi... IVC SCH (17:00)
[2021-02-04] MEDS ORDERED: *HR* Warfarin 7.5 MG TABLET PO ONE (18:00)
[2021-02-04] MEDS ORDERED: Warfarin perPT PO PRN ×2 (18:00)
[2021-02-04] MEDS: Insulin DETEMIR 100 UNIT/ML X5UNITS SUBQ SCH (22:19)
[2021-02-04 23:03] LABS: BUN/Creatinine Ratio 12 (6-26); Blood Urea Nitrogen 13 mg/dL (6-20); Carbon Dioxide 41 mEq/L (23-29); Chloride 81 mEq/L (98-107); Glucose 94 mg/dL (70-105); Osmolality,Calculated 270 (280-300); Potassium 3.1 mEq/L (3.5-5.1); Sodium 130 mEq/L (136-145); eGFR For African Americans > 60 (> 60); eGFR For Non-African Americans > 60 (> 60)
[2021-02-05] MEDS: DAPTOmycin 500 MG in 0.9 % Sodium Chloride 100 ML IVPB SCH (02:19)
[2021-02-05] MEDS: *HR* OxyCODONE/APAP 5/325 TABLET PO PRN ×4 (02:19→20:52)
[2021-02-05 05:54] LABS: Basophils # 0.1 K/mcL (0.0-0.2); Basophils % 1.4 %; Eosinophils # 0.1 K/mcL (0.0-0.6); Eosinophils % 2.2 %; Hematocrit 36.2 % (37.5-50.1); Hemoglobin 12.4 g/dL (12.9-16.9); Immature Granulocytes % 0.4 % (0-4); Lymphocytes # 3.2 K/mcL (0.6-4.6); Lymphocytes % 62.2 %; Mean Corpuscular HGB Conc 34.3 g/dL (31.6-35.5); Mean Corpuscular Hemoglobin 29.9 pg (28.0-33.3); Mean Corpuscular Volume 87.2 fL (83.0-100.0); Mean Platelet Volume 9.2 fL (9.4-12.4); Monocytes # 0.4 K/mcL (0.0-1.3); Monocytes % 8.5 %; Neutrophils # 1.3 K/mcL (1.6-8.9); Platelet Count 252 K/mcL (140-400); Red Blood Count 4.15 M/mcL (4.19-5.50); Red Cell Distribution Width 15.3 % (11.5-14.5); Segmented Neutrophils % 25.3 %; White Blood Count 5.1 K/mcL (4.3-11.1)
[2021-02-05 06:02] LABS: INR 1.3; Prothrombin Time 14.2 Seconds (9.4-12.1)
[2021-02-05 06:12] LABS: BUN/Creatinine Ratio 14 (6-26); Blood Urea Nitrogen 14 mg/dL (6-20); Calcium 9.3 mg/dL (8.6-10.3); Carbon Dioxide 34 mEq/L (23-29); Chloride 88 mEq/L (98-107); Glucose 83 mg/dL (70-105); Magnesium 1.4 mg/dL (1.6-2.6); Osmolality,Calculated 270 (280-300); Phosphorous 3.7 mg/dL (2.7-4.5); Potassium 3.5 mEq/L (3.5-5.1); Sodium 130 mEq/L (136-145); eGFR For African Americans > 60 (> 60); eGFR For Non-African Americans > 60 (> 60)
[2021-02-05] MEDS: 0.9 % Sodium Chloride w KCl 40 MEQ/1,000 ML MLS IVC SCH ×2 (06:37→16:12)
[2021-02-05] MEDS: Insulin LISPRO 300 UNITS/3 ML VIAL SUBQ SCH ×3 (07:39→17:13)
[2021-02-05] MEDS ORDERED: D10% in Water 500 ML IVC PRN (09:20)
[2021-02-05] MEDS: Pregabalin 75 MG CAPSULE PO SCH ×3 (09:40→20:52)
[2021-02-05] MEDS: Cholecalciferol (D-3) 1,000 UNIT (25MCG) TABLET PO SCH (09:40)
[2021-02-05] MEDS: Loratadine 10 MG TABLET PO SCH (09:40)
[2021-02-05] MEDS: Multivit/Ca/Min/Fe/FA 1 TAB TABLET PO SCH (09:40)
[2021-02-05] MEDS ORDERED: Heparin 1,000 UNITS/500 mL 500 ML ONE (14:06)
[2021-02-05] MEDS ORDERED: *HR* Midazolam HCl 2 MG/2 ML VIAL IVP ONE (14:29)
[2021-02-05] MEDS ORDERED: *HR* FentaNYL (PF) 100 MCG/2 ML VIAL IVP ONE (14:29)
[2021-02-05] MEDS ORDERED: Clindamycin 900 MG/50 ML 900 MG/50 ML IV.SOLN IVPB ONE (14:29)
[2021-02-05] MEDS ORDERED: 0.9 % Sodium Chloride 500 ML ONE (14:36)
[2021-02-05] MEDS ORDERED: Clindamycin 600 MG/50 ML 600 MG/50 ML IV.SOLN IVPB ONE (14:58)
[2021-02-05] MEDS ORDERED: Isovue-300 50ML VIAL IVP ONE (15:26)
[2021-02-05] MEDS ORDERED: Clinimix E 5%-20% SOLUTION 2,000 ML with MVI, adult with vitamin K 10 ML IVC SCH (17:00)
[2021-02-05] MEDS: Insulin DETEMIR 100 UNIT/ML X5UNITS SUBQ SCH (20:55)
[2021-02-06] MEDS: 0.9 % Sodium Chloride w KCl 40 MEQ/1,000 ML MLS IVC SCH ×3 (03:32→20:17)
[2021-02-06] MEDS: *HR* OxyCODONE/APAP 5/325 TABLET PO PRN ×4 (03:33→18:09)
[2021-02-06] MEDS: DAPTOmycin 500 MG in 0.9 % Sodium Chloride 100 ML IVPB SCH (03:35)
[2021-02-06 05:29] LABS: INR 1.1; Prothrombin Time 12.7 Seconds (9.4-12.1)
[2021-02-06 05:42] LABS: BUN/Creatinine Ratio 21 (6-26); Blood Urea Nitrogen 18 mg/dL (6-20); Calcium 8.9 mg/dL (8.6-10.3); Carbon Dioxide 33 mEq/L (23-29); Chloride 84 mEq/L (98-107); Glucose 117 mg/dL (70-105); Magnesium 1.6 mg/dL (1.6-2.6); Osmolality,Calculated 267 (280-300); Phosphorous 3.4 mg/dL (2.7-4.5); Potassium 2.9 mEq/L (3.5-5.1); Sodium 127 mEq/L (136-145); eGFR For African Americans > 60 (> 60); eGFR For Non-African Americans > 60 (> 60)
[2021-02-06] MEDS: Cholecalciferol (D-3) 1,000 UNIT (25MCG) TABLET PO SCH (08:27)
[2021-02-06] MEDS: Multivit/Ca/Min/Fe/FA 1 TAB TABLET PO SCH (08:27)
[2021-02-06] MEDS: Loratadine 10 MG TABLET PO SCH (08:28)
[2021-02-06] MEDS: Pregabalin 75 MG CAPSULE PO SCH ×3 (08:29→19:54)
[2021-02-06] MEDS: Insulin LISPRO 300 UNITS/3 ML VIAL SUBQ SCH ×3 (08:30→15:53)
[2021-02-06] MEDS ORDERED: Clinimix E 5%-20% SOLUTION 2,000 ML with MVI, adult with vitamin K 10 ML, ZN/CU/MN/SE... IVC SCH (17:00)
[2021-02-06] MEDS ORDERED: *HR* Warfarin 10 MG TABLET PO ONE (18:00)
[2021-02-06] MEDS: Insulin DETEMIR 100 UNIT/ML X5UNITS SUBQ SCH (20:16)
[2021-02-07] MEDS: DAPTOmycin 500 MG in 0.9 % Sodium Chloride 100 ML IVPB SCH (03:37)
[2021-02-07] MEDS: *HR* OxyCODONE/APAP 5/325 TABLET PO PRN (03:42)
[2021-02-07 06:48] LABS: Prothrombin Time 11.6 Seconds (9.4-12.1)
[2021-02-07 07:42] LABS: Magnesium 1.5 mg/dL (1.6-2.6); Phosphorous 3.8 mg/dL (2.7-4.5)
[2021-02-07 07:51] LABS: BUN/Creatinine Ratio 22 (6-26); Blood Urea Nitrogen 24 mg/dL (6-20); Calcium 10.1 mg/dL (8.6-10.3); Carbon Dioxide 40 mEq/L (23-29); Chloride 77 mEq/L (98-107); Glucose 118 mg/dL (70-105); Osmolality,Calculated 269 (280-300); Potassium 3.1 mEq/L (3.5-5.1); Sodium 127 mEq/L (136-145); eGFR For African Americans > 60 (> 60); eGFR For Non-African Americans > 60 (> 60)
[2021-02-07] MEDS: Multivit/Ca/Min/Fe/FA 1 TAB TABLET PO SCH (08:01)
[2021-02-07] MEDS: Cholecalciferol (D-3) 1,000 UNIT (25MCG) TABLET PO SCH (08:01)
[2021-02-07] MEDS: Pregabalin 75 MG CAPSULE PO SCH (08:01)
[2021-02-07] MEDS: Loratadine 10 MG TABLET PO SCH (08:01)
[2021-02-07] MEDS: 0.9 % Sodium Chloride w KCl 40 MEQ/1,000 ML MLS IVC SCH (08:01)
[2021-02-07] MEDS: Insulin LISPRO 300 UNITS/3 ML VIAL SUBQ SCH ×2 (08:02→12:03)
[2021-02-07] MEDS ORDERED: Potassium Chloride 20 MEQ, Lidocaine 1% 2 ML in 0.9 % Sodium Chloride 250 ML IVPB ONE (09:00)
[2021-02-07 11:19] VITALS: BP 124/91; PULSE 89; TEMP 97.6; O2SAT 95
== END 2021-02-07 12:02 | disposition home or self-care (01) | DRG 721 ==
LOC: 2NNU → SUATTDRO 01-29 00:02 → 3BNU 01-29 15:52
PROVIDERS: ADMIT Internal Medicine; ATTEND Family Medicine

== ENCOUNTER 2021-02-09 17:34 | Inpatient (IN) ==
[2021-02-09] MEDS ORDERED: Naloxone 0.4 MG/ML INJ IVP PRN (21:06)
[2021-02-09] MEDS ORDERED: Ondansetron 4 MG/2 ML VIAL IVP PRN (21:06)
[2021-02-09] MEDS ORDERED: Acetaminophen 325 MG TABLET PO PRN (21:06)
[2021-02-09 22:08] LABS: Basophils % 0.5 %; Eosinophils # 0.1 K/mcL (0.0-0.6); Eosinophils % 0.6 %; Hematocrit 33.6 % (37.5-50.1); Hemoglobin 11.7 g/dL (12.9-16.9); Immature Granulocytes % 0.5 % (0-4); Lymphocytes % 36.8 %; Mean Corpuscular HGB Conc 34.8 g/dL (31.6-35.5); Mean Corpuscular Hemoglobin 29.3 pg (28.0-33.3); Monocytes # 0.7 K/mcL (0.0-1.3); Monocytes % 8.2 %; Neutrophils # 4.4 K/mcL (1.6-8.9); Platelet Count 239 K/mcL (140-400); Red Cell Distribution Width 15.1 % (11.5-14.5); Segmented Neutrophils % 53.4 %
[2021-02-09 22:09] LABS: White Blood Count 8.2 K/mcL (4.3-11.1)
[2021-02-09 22:17] LABS: INR 1.1; Prothrombin Time 12.8 Seconds (9.4-12.1)
[2021-02-09 22:37] LABS: Albumin 3.3 g/dL (3.5-5.7); Albumin/Globulin Ratio 1.1 (1.1-2.2); Bilirubin,Total 1.1 mg/dL (0.3-1.0); Calcium 8.7 mg/dL (8.6-10.3); Magnesium 1.6 mg/dL (1.6-2.6); Phosphorous 3.4 mg/dL (2.7-4.5); Potassium 3.3 mEq/L (3.5-5.1); Total Protein 6.3 g/dL (6.4-8.9)
[2021-02-09] MEDS ORDERED: 0.9 % Sodium Chloride 1,000 ML IVC SCH (22:45)
[2021-02-09] MEDS ORDERED: *HR* Heparin 5,000 UNIT/ML VIAL IVP PRN (22:45)
[2021-02-09] MEDS ORDERED: *HR* Heparin 5,000 UNIT/ML VIAL IVP ONE (22:45)
[2021-02-09] MEDS: Heparin 25,000UNIT/250ML 1/2NS 25,000 UNIT/250 ML IV.SOLN IVC SCH (23:18)
[2021-02-10 01:02] LABS: Basophils # 0.1 K/mcL (0.0-0.2); Basophils % 0.8 %; Eosinophils # 0.1 K/mcL (0.0-0.6); Eosinophils % 1.3 %; Hematocrit 33.5 % (37.5-50.1); Hemoglobin 11.6 g/dL (12.9-16.9); Immature Granulocytes % 0.5 % (0-4); Lymphocytes # 3.4 K/mcL (0.6-4.6); Lymphocytes % 38.8 %; Mean Corpuscular HGB Conc 34.6 g/dL (31.6-35.5); Mean Corpuscular Volume 83.8 fL (83.0-100.0); Monocytes # 0.8 K/mcL (0.0-1.3); Monocytes % 8.8 %; Neutrophils # 4.3 K/mcL (1.6-8.9); Platelet Count 243 K/mcL (140-400); Red Cell Distribution Width 15.1 % (11.5-14.5); Segmented Neutrophils % 49.8 %; White Blood Count 8.7 K/mcL (4.3-11.1)
[2021-02-10] MEDS: Pregabalin 75 MG CAPSULE PO SCH ×4 (02:08→20:00)
[2021-02-10] MEDS: DAPTOmycin 500 MG in 0.9 % Sodium Chloride 100 ML IVPB SCH (02:08)
[2021-02-10 02:44] LABS: Calcium 8.7 mg/dL (8.6-10.3); Potassium 3.4 mEq/L (3.5-5.1)
[2021-02-10 06:33] LABS: Calcium 8.7 mg/dL (8.6-10.3); Potassium 3.5 mEq/L (3.5-5.1)
[2021-02-10] MEDS: *HR* Heparin 5,000 UNIT/ML VIAL IVP PRN ×3 (06:47→21:21)
[2021-02-10 09:51] LABS: Bilirubin,Urine Negative (Negative); Blood,Urine Negative (Negative); Chloride,Urine < 15 mEq/L; Clarity,Urine Clear (Clear); Color,Urine Yellow (Yellow); Glucose,Urine (UA) Normal (Normal); Hyaline Casts,Urine Moderate per lpf (None Seen); Ketones,Urine Trace mg/dL (Negative); Leukocyte Esterase,Urine Negative (Negative); Mucus,Urine Few per lpf (None-Few); Nitrite,Urine Negative (Negative); PH,Urine 6.5 pH Units (5.0-8.0); Potassium,Urine 116.9 mEq/L; Protein,Urine 30 mg/dL (Neg-Trace); RBC,Urine 0-3 per hpf (0-3); Sodium, Urine 10.8 mEq/L; Squamous Epithelial Cell,Urine Few per hpf (None-Few); Urobilinogen,Urine Normal (Normal); WBC,Urine 0-3 per hpf (0-3)
[2021-02-10 10:52] LABS: Calcium 9.1 mg/dL (8.6-10.3); Potassium 3.4 mEq/L (3.5-5.1)
[2021-02-10] MEDS: 0.9 % Sodium Chloride 1,000 ML IVC SCH (11:51)
[2021-02-10 13:55] LABS: Protein/Creatinine Ratio,Urine 0.28 mg/mg (0.00-0.20)
[2021-02-10 16:06] LABS: Calcium 9.4 mg/dL (8.6-10.3); Potassium 3.2 mEq/L (3.5-5.1)
[2021-02-10] MEDS: Potassium Chloride Elixir 20 MEQ/15 ML UDC PO SCH ×2 (17:03→19:32)
[2021-02-10] MEDS ORDERED: Warfarin perPT PO PRN (18:00)
[2021-02-10] MEDS ORDERED: *HR* Warfarin 10 MG TABLET PO ONE (18:00)
[2021-02-10] MEDS: *HR* OxyCODONE/APAP 5/325 TABLET PO PRN (23:06)
[2021-02-11] MEDS: DAPTOmycin 500 MG in 0.9 % Sodium Chloride 100 ML IVPB SCH (00:45)
[2021-02-11] MEDS: *HR* OxyCODONE/APAP 5/325 TABLET PO PRN ×5 (03:54→23:21)
[2021-02-11] MEDS: 0.9 % Sodium Chloride 1,000 ML IVC SCH ×2 (03:55→11:40)
[2021-02-11 04:16] LABS: Basophils # 0.1 K/mcL (0.0-0.2); Basophils % 1.3 %; Eosinophils # 0.1 K/mcL (0.0-0.6); Eosinophils % 1.1 %; Hematocrit 35.7 % (37.5-50.1); Hemoglobin 12.2 g/dL (12.9-16.9); Immature Granulocytes % 0.4 % (0-4); Lymphocytes # 2.9 K/mcL (0.6-4.6); Lymphocytes % 36.8 %; Mean Corpuscular HGB Conc 34.2 g/dL (31.6-35.5); Mean Corpuscular Hemoglobin 29.1 pg (28.0-33.3); Mean Corpuscular Volume 85.2 fL (83.0-100.0); Monocytes # 0.6 K/mcL (0.0-1.3); Monocytes % 7.4 %; Neutrophils # 4.2 K/mcL (1.6-8.9); Platelet Count 254 K/mcL (140-400); Red Blood Count 4.19 M/mcL (4.19-5.50); Red Cell Distribution Width 15.1 % (11.5-14.5); White Blood Count 7.9 K/mcL (4.3-11.1)
[2021-02-11 04:24] LABS: INR 1.1; Prothrombin Time 12.8 Seconds (9.4-12.1)
[2021-02-11 04:33] LABS: Calcium 9.2 mg/dL (8.6-10.3); Potassium 2.3 mEq/L (3.5-5.1)
[2021-02-11] MEDS: Heparin 25,000UNIT/250ML 1/2NS 25,000 UNIT/250 ML IV.SOLN IVC SCH ×2 (05:56→09:40)
[2021-02-11 08:13] LABS: Magnesium 1.6 mg/dL (1.6-2.6); Phosphorous 2.6 mg/dL (2.7-4.5)
[2021-02-11] MEDS: Pregabalin 75 MG CAPSULE PO SCH ×3 (08:42→20:46)
[2021-02-11] MEDS ORDERED: Magnesium Sulfate 1 GM/102 ML PIGGYBACK IVPB ONE (11:41)
[2021-02-11] MEDS ORDERED: D10% in Water 500 ML IVC PRN (12:20)
[2021-02-11] MEDS ORDERED: Clinimix E 5%-20% SOLUTION 2,000 ML with MVI, adult with vitamin K 10 ML, ZN/CU/MN/SE... IVC SCH (17:00)
[2021-02-11 17:02] LABS: BUN/Creatinine Ratio 21 (6-26); Blood Urea Nitrogen 32 mg/dL (6-20); Calcium 9.7 mg/dL (8.6-10.3); Chloride 74 mEq/L (98-107); Glucose 120 mg/dL (70-105); Osmolality,Calculated 276 (280-300); Potassium 2.7 mEq/L (3.5-5.1); Sodium 129 mEq/L (136-145); eGFR For African Americans 60 (> 60); eGFR For Non-African Americans 49 (> 60)
[2021-02-11 17:06] LABS: Carbon Dioxide > 45 mEq/L (23-29)
[2021-02-11] MEDS: *HR* Warfarin 10 MG TABLET PO ONE ×2 (18:47→20:47)
[2021-02-12] MEDS: DAPTOmycin 500 MG in 0.9 % Sodium Chloride 100 ML IVPB SCH (01:08)
[2021-02-12] MEDS: *HR* OxyCODONE/APAP 5/325 TABLET PO PRN ×4 (03:27→20:17)
[2021-02-12 06:37] LABS: Basophils % 0.5 %; Eosinophils # 0.1 K/mcL (0.0-0.6); Hematocrit 30.9 % (37.5-50.1); Hemoglobin 10.5 g/dL (12.9-16.9); Immature Granulocytes % 0.2 % (0-4); Lymphocytes % 37.4 %; Mean Corpuscular Hemoglobin 29.2 pg (28.0-33.3); Mean Corpuscular Volume 86.1 fL (83.0-100.0); Mean Platelet Volume 10.4 fL (9.4-12.4); Monocytes # 0.5 K/mcL (0.0-1.3); Monocytes % 6.5 %; Neutrophils # 4.4 K/mcL (1.6-8.9); Platelet Count 244 K/mcL (140-400); Red Blood Count 3.59 M/mcL (4.19-5.50); Red Cell Distribution Width 14.5 % (11.5-14.5); Segmented Neutrophils % 54.4 %
[2021-02-12 06:54] LABS: BUN/Creatinine Ratio 33 (6-26); Blood Urea Nitrogen 35 mg/dL (6-20); Calcium 8.6 mg/dL (8.6-10.3); Carbon Dioxide 39 mEq/L (23-29); Chloride 73 mEq/L (98-107); Glucose 97 mg/dL (70-105); Magnesium 1.3 mg/dL (1.6-2.6); Osmolality,Calculated 262 (280-300); Phosphorous 2.7 mg/dL (2.7-4.5); Sodium 122 mEq/L (136-145); eGFR For African Americans > 60 (> 60); eGFR For Non-African Americans > 60 (> 60)
[2021-02-12] MEDS: Heparin 25,000UNIT/250ML 1/2NS 25,000 UNIT/250 ML IV.SOLN IVC SCH ×2 (07:54→13:45)
[2021-02-12] MEDS: 0.9 % Sodium Chloride w KCl 40 MEQ/1,000 ML MLS IVC SCH ×3 (08:26→23:25)
[2021-02-12] MEDS: Pregabalin 75 MG CAPSULE PO SCH ×3 (08:30→20:17)
[2021-02-12 09:07] LABS: INR 1.3; Prothrombin Time 14.9 Seconds (9.4-12.1)
[2021-02-12 13:03] LABS: BUN/Creatinine Ratio 33 (6-26); Blood Urea Nitrogen 32 mg/dL (6-20); Calcium 8.8 mg/dL (8.6-10.3); Carbon Dioxide 39 mEq/L (23-29); Chloride 76 mEq/L (98-107); Glucose 112 mg/dL (70-105); Magnesium 4.4 mg/dL (1.6-2.6); Osmolality,Calculated 262 (280-300); Potassium 2.6 mEq/L (3.5-5.1); Sodium 122 mEq/L (136-145); eGFR For African Americans > 60 (> 60); eGFR For Non-African Americans > 60 (> 60)
[2021-02-12] MEDS: Potassium Chloride Elixir 20 MEQ/15 ML UDC PO SCH ×2 (14:55→18:31)
[2021-02-12] MEDS ORDERED: Clinimix E 5%-20% SOLUTION 2,000 ML with MVI, adult with vitamin K 10 ML, ZN/CU/MN/SE... IVC SCH (17:00)
[2021-02-12] MEDS ORDERED: *HR* Warfarin 10 MG TABLET PO ONE (18:00)
[2021-02-13] MEDS: Heparin 25,000UNIT/250ML 1/2NS 25,000 UNIT/250 ML IV.SOLN IVC SCH (00:14)
[2021-02-13] MEDS: *HR* OxyCODONE/APAP 5/325 TABLET PO PRN ×5 (00:32→23:39)
[2021-02-13 04:01] LABS: Basophils % 0.7 %; Eosinophils # 0.1 K/mcL (0.0-0.6); Eosinophils % 1.2 %; Hematocrit 28.2 % (37.5-50.1); Hemoglobin 9.4 g/dL (12.9-16.9); Immature Granulocytes % 0.2 % (0-4); Lymphocytes # 1.9 K/mcL (0.6-4.6); Lymphocytes % 34.2 %; Mean Corpuscular HGB Conc 33.3 g/dL (31.6-35.5); Mean Corpuscular Hemoglobin 29.2 pg (28.0-33.3); Mean Corpuscular Volume 87.6 fL (83.0-100.0); Mean Platelet Volume 9.8 fL (9.4-12.4); Monocytes # 0.4 K/mcL (0.0-1.3); Monocytes % 7.3 %; Neutrophils # 3.2 K/mcL (1.6-8.9); Platelet Count 193 K/mcL (140-400); Red Blood Count 3.22 M/mcL (4.19-5.50); Red Cell Distribution Width 14.6 % (11.5-14.5); Segmented Neutrophils % 56.4 %; White Blood Count 5.6 K/mcL (4.3-11.1)
[2021-02-13 04:08] LABS: INR 1.4; Prothrombin Time 15.1 Seconds (9.4-12.1)
[2021-02-13 04:17] LABS: BUN/Creatinine Ratio 37 (6-26); Blood Urea Nitrogen 29 mg/dL (6-20); Calcium 8.3 mg/dL (8.6-10.3); Carbon Dioxide 39 mEq/L (23-29); Chloride 85 mEq/L (98-107); Glucose 112 mg/dL (70-105); Magnesium 1.8 mg/dL (1.6-2.6); Osmolality,Calculated 275 (280-300); Phosphorous 1.7 mg/dL (2.7-4.5); Potassium 2.6 mEq/L (3.5-5.1); Sodium 129 mEq/L (136-145); eGFR For African Americans > 60 (> 60); eGFR For Non-African Americans > 60 (> 60)
[2021-02-13] MEDS: 0.9 % Sodium Chloride w KCl 40 MEQ/1,000 ML MLS IVC SCH ×3 (06:10→22:02)
[2021-02-13] MEDS: Pregabalin 75 MG CAPSULE PO SCH ×3 (08:03→21:59)
[2021-02-13] MEDS: Potassium Chloride Elixir 20 MEQ/15 ML UDC PO SCH ×2 (10:23→21:59)
[2021-02-13] MEDS ORDERED: Potassium Phosphate 44 MEQ in 0.9 % Sodium Chloride 250 ML IVPB ONE (16:12)
[2021-02-13] MEDS ORDERED: Clinimix E 5%-20% SOLUTION 2,000 ML with MVI, adult with vitamin K 10 ML, ZN/CU/MN/SE... IVC SCH (17:00)
[2021-02-13] MEDS ORDERED: *HR* Warfarin 10 MG TABLET PO ONE (18:00)
[2021-02-13] MEDS ORDERED: *HR* Enoxaparin 60 MG/0.6 ML SYRINGE SQ SCH (18:00)
[2021-02-13] MEDS ORDERED: *HR* Warfarin 5 MG TABLET PO ONE (19:00)
[2021-02-14] MEDS: *HR* OxyCODONE/APAP 5/325 TABLET PO PRN ×3 (05:39→21:10)
[2021-02-14] MEDS: 0.9 % Sodium Chloride w KCl 40 MEQ/1,000 ML MLS IVC SCH ×2 (05:43→15:24)
[2021-02-14 06:55] LABS: Basophils % 0.6 %; Eosinophils # 0.1 K/mcL (0.0-0.6); Eosinophils % 1.1 %; Hematocrit 28.8 % (37.5-50.1); Hemoglobin 9.8 g/dL (12.9-16.9); Immature Granulocytes % 0.3 % (0-4); Lymphocytes # 3.1 K/mcL (0.6-4.6); Lymphocytes % 46.7 %; Mean Corpuscular Hemoglobin 30.1 pg (28.0-33.3); Mean Corpuscular Volume 88.3 fL (83.0-100.0); Mean Platelet Volume 10.1 fL (9.4-12.4); Monocytes # 0.6 K/mcL (0.0-1.3); Monocytes % 8.4 %; Neutrophils # 2.9 K/mcL (1.6-8.9); Platelet Count 219 K/mcL (140-400); Red Blood Count 3.26 M/mcL (4.19-5.50); Red Cell Distribution Width 15.2 % (11.5-14.5); Segmented Neutrophils % 42.9 %; White Blood Count 6.6 K/mcL (4.3-11.1)
[2021-02-14 07:07] LABS: Prothrombin Time 21.8 Seconds (9.4-12.1)
[2021-02-14 07:20] LABS: BUN/Creatinine Ratio 33 (6-26); Blood Urea Nitrogen 24 mg/dL (6-20); Carbon Dioxide 38 mEq/L (23-29); Chloride 84 mEq/L (98-107); Glucose 79 mg/dL (70-105); Osmolality,Calculated 271 (280-300); Potassium 3.1 mEq/L (3.5-5.1); Sodium 129 mEq/L (136-145); eGFR For African Americans > 60 (> 60); eGFR For Non-African Americans > 60 (> 60)
[2021-02-14 07:25] LABS: Magnesium 1.3 mg/dL (1.6-2.6); Phosphorous 2.3 mg/dL (2.7-4.5)
[2021-02-14] MEDS ORDERED: Potassium Phosphate 44 MEQ in 0.9 % Sodium Chloride 250 ML IVPB ONE (07:41)
[2021-02-14] MEDS: Potassium Chloride Elixir 20 MEQ/15 ML UDC PO SCH ×2 (08:18→21:10)
[2021-02-14] MEDS: Pregabalin 75 MG CAPSULE PO SCH ×3 (08:19→21:10)
[2021-02-14] MEDS ORDERED: *HR* Enoxaparin 60 MG/0.6 ML SYRINGE SQ SCH (09:00)
[2021-02-14] MEDS ORDERED: Clinimix E 5%-20% SOLUTION 2,000 ML with MVI, adult with vitamin K 10 ML, ZN/CU/MN/SE... IVC SCH (17:00)
[2021-02-14] MEDS ORDERED: *HR* Warfarin 10 MG TABLET PO ONE (18:00)
[2021-02-14 18:17] LABS: Magnesium 2.2 mg/dL (1.6-2.6); Potassium 3.6 mEq/L (3.5-5.1)
[2021-02-15] MEDS: 0.9 % Sodium Chloride w KCl 40 MEQ/1,000 ML MLS IVC SCH ×3 (00:01→20:29)
[2021-02-15] MEDS: *HR* OxyCODONE/APAP 5/325 TABLET PO PRN ×5 (02:20→23:51)
[2021-02-15 05:43] LABS: Basophils # 0.1 K/mcL (0.0-0.2); Eosinophils # 0.1 K/mcL (0.0-0.6); Eosinophils % 1.6 %; Hematocrit 29.9 % (37.5-50.1); Hemoglobin 9.7 g/dL (12.9-16.9); Immature Granulocytes % 0.3 % (0-4); Lymphocytes # 2.3 K/mcL (0.6-4.6); Lymphocytes % 37.4 %; Mean Corpuscular HGB Conc 32.4 g/dL (31.6-35.5); Mean Corpuscular Volume 89.5 fL (83.0-100.0); Mean Platelet Volume 10.1 fL (9.4-12.4); Monocytes # 0.6 K/mcL (0.0-1.3); Monocytes % 9.4 %; Neutrophils # 3.1 K/mcL (1.6-8.9); Platelet Count 204 K/mcL (140-400); Red Blood Count 3.34 M/mcL (4.19-5.50); Red Cell Distribution Width 15.4 % (11.5-14.5); Segmented Neutrophils % 50.3 %; White Blood Count 6.2 K/mcL (4.3-11.1)
[2021-02-15 05:50] LABS: INR 1.5; Prothrombin Time 16.8 Seconds (9.4-12.1)
[2021-02-15 06:06] LABS: BUN/Creatinine Ratio 33 (6-26); Blood Urea Nitrogen 24 mg/dL (6-20); Calcium 9.2 mg/dL (8.6-10.3); Carbon Dioxide 37 mEq/L (23-29); Chloride 90 mEq/L (98-107); Glucose 46 mg/dL (70-105); Magnesium 1.6 mg/dL (1.6-2.6); Osmolality,Calculated 275 (280-300); Phosphorous 2.6 mg/dL (2.7-4.5); Potassium 3.6 mEq/L (3.5-5.1); Sodium 132 mEq/L (136-145); eGFR For African Americans > 60 (> 60); eGFR For Non-African Americans > 60 (> 60)
[2021-02-15] MEDS ORDERED: Potassium Phosphate 44 MEQ in 0.9 % Sodium Chloride 250 ML IVPB ONE (07:12)
[2021-02-15] MEDS: Pregabalin 75 MG CAPSULE PO SCH ×3 (08:47→20:29)
[2021-02-15] MEDS: Potassium Chloride Elixir 20 MEQ/15 ML UDC PO SCH (09:00)
[2021-02-15] MEDS ORDERED: D10% in Water 500 ML IVC PRN ×3 (10:19→10:32)
[2021-02-15] MEDS ORDERED: Clinimix E 5%-20% SOLUTION 2,000 ML with MVI, adult with vitamin K 10 ML, ZN/CU/MN/SE... IVC SCH (17:00)
[2021-02-15] MEDS: *HR* Enoxaparin 60 MG/0.6 ML SYRINGE SQ SCH (17:35)
[2021-02-15] MEDS ORDERED: *HR* Warfarin 5 MG TABLET PO ONE (18:00)
[2021-02-15] MEDS ORDERED: *HR* Warfarin 10 MG TABLET PO ONE (18:00)
[2021-02-16 03:01] LABS: INR 1.6; Prothrombin Time 17.3 Seconds (9.4-12.1)
[2021-02-16 03:09] LABS: BUN/Creatinine Ratio 27 (6-26); Blood Urea Nitrogen 20 mg/dL (6-20); Calcium 8.7 mg/dL (8.6-10.3); Carbon Dioxide 37 mEq/L (23-29); Chloride 87 mEq/L (98-107); Glucose 86 mg/dL (70-105); Magnesium 1.2 mg/dL (1.6-2.6); Osmolality,Calculated 274 (280-300); Phosphorous 2.8 mg/dL (2.7-4.5); Potassium 2.7 mEq/L (3.5-5.1); Sodium 131 mEq/L (136-145); Triglycerides 114 mg/dL (< 150); eGFR For African Americans > 60 (> 60); eGFR For Non-African Americans > 60 (> 60)
[2021-02-16] MEDS: *HR* OxyCODONE/APAP 5/325 TABLET PO PRN ×4 (04:19→21:25)
[2021-02-16] MEDS: 0.9 % Sodium Chloride w KCl 40 MEQ/1,000 ML MLS IVC SCH ×3 (04:51→15:55)
[2021-02-16] MEDS: *HR* Enoxaparin 60 MG/0.6 ML SYRINGE SQ SCH ×2 (05:00→18:32)
[2021-02-16] MEDS: Pregabalin 75 MG CAPSULE PO SCH ×3 (07:17→20:03)
[2021-02-16] MEDS ORDERED: Potassium Phosphate 44 MEQ in 0.9 % Sodium Chloride 250 ML IVPB ONE (07:52)
[2021-02-16] MEDS ORDERED: Clinimix E 5%-20% SOLUTION 2,000 ML with MVI, adult with vitamin K 10 ML, ZN/CU/MN/SE... IVC SCH (17:00)
[2021-02-16] MEDS ORDERED: *HR* Warfarin 4 MG TABLET PO ONE (18:00)
[2021-02-17] MEDS: 0.9 % Sodium Chloride w KCl 40 MEQ/1,000 ML MLS IVC SCH ×4 (00:52→23:49)
[2021-02-17] MEDS: *HR* OxyCODONE/APAP 5/325 TABLET PO PRN ×6 (02:00→23:48)
[2021-02-17 04:36] LABS: INR 1.8
[2021-02-17] MEDS: *HR* Enoxaparin 60 MG/0.6 ML SYRINGE SQ SCH ×2 (05:03→17:55)
[2021-02-17 05:05] LABS: BUN/Creatinine Ratio 42 (6-26); Blood Urea Nitrogen 26 mg/dL (6-20); Calcium 8.8 mg/dL (8.6-10.3); Carbon Dioxide 36 mEq/L (23-29); Chloride 89 mEq/L (98-107); Glucose 81 mg/dL (70-105); Magnesium 1.5 mg/dL (1.6-2.6); Osmolality,Calculated 276 (280-300); Phosphorous 3.1 mg/dL (2.7-4.5); Potassium 3.1 mEq/L (3.5-5.1); Sodium 131 mEq/L (136-145); eGFR For African Americans > 60 (> 60); eGFR For Non-African Americans > 60 (> 60)
[2021-02-17 05:07] LABS: Albumin 3.1 g/dL (3.5-5.7); BUN/Creatinine Ratio 41 (6-26); Blood Urea Nitrogen 26 mg/dL (6-20); Calcium 8.8 mg/dL (8.6-10.3); Carbon Dioxide 36 mEq/L (23-29); Chloride 89 mEq/L (98-107); Chol/HDL Ratio 3.3 (0-4.9); Cholesterol 138 mg/dL (< 200); Glucose 81 mg/dL (70-105); HDL Cholesterol 42 mg/dL (40-59); Iron 34 mcg/dL (65-175); LDL Cholesterol,Calculated 81 mg/dL (< 100); Osmolality,Calculated 276 (280-300); Phosphorous 3.1 mg/dL (2.7-4.5); Potassium 3.1 mEq/L (3.5-5.1); Sodium 131 mEq/L (136-145); Triglycerides 77 mg/dL (< 150); eGFR For African Americans > 60 (> 60); eGFR For Non-African Americans > 60 (> 60)
[2021-02-17 05:29] LABS: Folate 13.4 ng/mL (3.0-16.0)
[2021-02-17 05:49] LABS: Sodium, Urine 22.4 mEq/L
[2021-02-17] MEDS: Pregabalin 75 MG CAPSULE PO SCH ×3 (07:52→20:03)
[2021-02-17] MEDS ORDERED: Clinimix E 5%-20% SOLUTION 2,000 ML with MVI, adult with vitamin K 10 ML, ZN/CU/MN/SE... IVC SCH (17:00)
[2021-02-17] MEDS ORDERED: *HR* Warfarin 4 MG TABLET PO ONE (18:00)
[2021-02-18 02:53] LABS: Ferritin 57 ng/mL (20-250)
[2021-02-18] MEDS: *HR* Enoxaparin 60 MG/0.6 ML SYRINGE SQ SCH ×2 (04:45→17:22)
[2021-02-18] MEDS: *HR* OxyCODONE/APAP 5/325 TABLET PO PRN ×4 (04:55→21:56)
[2021-02-18 06:00] LABS: INR 2.6; Prothrombin Time 28.7 Seconds (9.4-12.1)
[2021-02-18 06:04] LABS: Albumin 3.3 g/dL (3.5-5.7); Bilirubin,Direct 0.3 mg/dL (0.0-0.2); Bilirubin,Indirect 0.5 mg/dL (0.0-1.0); Bilirubin,Total 0.8 mg/dL (0.3-1.0); Globulin 3.2 g/dL (2.4-3.5); Total Protein 6.5 g/dL (6.4-8.9)
[2021-02-18 06:14] LABS: BUN/Creatinine Ratio 34 (6-26); Blood Urea Nitrogen 25 mg/dL (6-20); Calcium 9.2 mg/dL (8.6-10.3); Carbon Dioxide 41 mEq/L (23-29); Chloride 84 mEq/L (98-107); Glucose 68 mg/dL (70-105); Magnesium 1.4 mg/dL (1.6-2.6); Osmolality,Calculated 277 (280-300); Phosphorous 2.9 mg/dL (2.7-4.5); Potassium 2.9 mEq/L (3.5-5.1); Sodium 132 mEq/L (136-145); eGFR For African Americans > 60 (> 60); eGFR For Non-African Americans > 60 (> 60)
[2021-02-18] MEDS: Pregabalin 75 MG CAPSULE PO SCH ×3 (08:41→21:56)
[2021-02-18] MEDS: 0.9 % Sodium Chloride w KCl 40 MEQ/1,000 ML MLS IVC SCH ×3 (09:58→21:57)
[2021-02-18 13:25] LABS: % Iron Saturation 9 % (20-55); Transferrin 261 mg/dL (200-400)
[2021-02-18] MEDS ORDERED: Clinimix E 5%-20% SOLUTION 2,000 ML with MVI, adult with vitamin K 10 ML, ZN/CU/MN/SE... IVC SCH (17:00)
[2021-02-18] MEDS ORDERED: *HR* Warfarin 3 MG TABLET PO ONE (18:00)
[2021-02-19] MEDS: *HR* OxyCODONE/APAP 5/325 TABLET PO PRN ×5 (01:19→21:19)
[2021-02-19] MEDS: 0.9 % Sodium Chloride w KCl 40 MEQ/1,000 ML MLS IVC SCH ×3 (05:45→21:20)
[2021-02-19] MEDS: *HR* Enoxaparin 60 MG/0.6 ML SYRINGE SQ SCH (05:46)
[2021-02-19 06:21] LABS: INR 2.5; Prothrombin Time 27.7 Seconds (9.4-12.1)
[2021-02-19 06:40] LABS: BUN/Creatinine Ratio 41 (6-26); Blood Urea Nitrogen 27 mg/dL (6-20); Carbon Dioxide 39 mEq/L (23-29); Chloride 82 mEq/L (98-107); Glucose 115 mg/dL (70-105); Magnesium 1.3 mg/dL (1.6-2.6); Osmolality,Calculated 276 (280-300); Potassium 2.3 mEq/L (3.5-5.1); Sodium 130 mEq/L (136-145); eGFR For African Americans > 60 (> 60); eGFR For Non-African Americans > 60 (> 60)
[2021-02-19] MEDS: Pregabalin 75 MG CAPSULE PO SCH ×3 (07:45→21:19)
[2021-02-19] MEDS ORDERED: Clinimix E 5%-20% SOLUTION 2,000 ML with MVI, adult with vitamin K 10 ML, ZN/CU/MN/SE... IVC SCH (17:00)
[2021-02-19] MEDS ORDERED: *HR* Warfarin 5 MG TABLET PO ONE (18:00)
[2021-02-19 21:48] LABS: Alanine Aminotransferase 165 Units/L (7-52); Albumin 3.3 g/dL (3.5-5.7); Albumin/Globulin Ratio 0.9 (1.1-2.2); Alkaline Phosphatase 319 Units/L (34-104); Aspartate Amino Transferase 118 Units/L (13-39); BUN/Creatinine Ratio 31 (6-26); Bilirubin,Total 0.7 mg/dL (0.3-1.0); Blood Urea Nitrogen 21 mg/dL (6-20); Calcium 9.2 mg/dL (8.6-10.3); Carbon Dioxide 39 mEq/L (23-29); Chloride 91 mEq/L (98-107); Globulin 3.5 g/dL (2.4-3.5); Glucose 119 mg/dL (70-105); Osmolality,Calculated 284 (280-300); Potassium 3.4 mEq/L (3.5-5.1); Sodium 135 mEq/L (136-145); Total Protein 6.8 g/dL (6.4-8.9); eGFR For African Americans > 60 (> 60); eGFR For Non-African Americans > 60 (> 60)
[2021-02-19] MEDS ORDERED: Potassium Chloride Elixir 20 MEQ/15 ML UDC PO ONE (23:38)
[2021-02-20] MEDS: *HR* OxyCODONE/APAP 5/325 TABLET PO PRN ×4 (02:59→20:43)
[2021-02-20 04:03] LABS: INR 1.6; Prothrombin Time 18.2 Seconds (9.4-12.1)
[2021-02-20 04:32] LABS: Alanine Aminotransferase 171 Units/L (7-52); Albumin 3.4 g/dL (3.5-5.7); Alkaline Phosphatase 310 Units/L (34-104); Aspartate Amino Transferase 113 Units/L (13-39); BUN/Creatinine Ratio 39 (6-26); Bilirubin,Total 0.8 mg/dL (0.3-1.0); Blood Urea Nitrogen 22 mg/dL (6-20); Calcium 9.1 mg/dL (8.6-10.3); Carbon Dioxide 35 mEq/L (23-29); Chloride 88 mEq/L (98-107); Globulin 3.4 g/dL (2.4-3.5); Glucose 87 mg/dL (70-105); Magnesium 1.5 mg/dL (1.6-2.6); Osmolality,Calculated 277 (280-300); Phosphorous 2.1 mg/dL (2.7-4.5); Potassium 2.6 mEq/L (3.5-5.1); Sodium 132 mEq/L (136-145); Total Protein 6.8 g/dL (6.4-8.9); eGFR For African Americans > 60 (> 60); eGFR For Non-African Americans > 60 (> 60)
[2021-02-20 08:23] LABS: Alpha 2 Globulin (PEP) 0.71 g/dL (0.48-1.05)
[2021-02-20] MEDS: Pregabalin 75 MG CAPSULE PO SCH ×3 (08:38→20:43)
[2021-02-20 12:48] LABS: IFE Reflexed NOT DONE
[2021-02-20] MEDS ORDERED: Clinimix E 5%-20% SOLUTION 2,000 ML with MVI, adult with vitamin K 10 ML, ZN/CU/MN/SE... IVC SCH (17:00)
[2021-02-20] MEDS ORDERED: *HR* Warfarin 10 MG TABLET PO ONE (18:00)
[2021-02-20] MEDS: *HR* Enoxaparin 60 MG/0.6 ML SYRINGE SQ SCH (18:17)
[2021-02-21] MEDS: *HR* OxyCODONE/APAP 5/325 TABLET PO PRN ×4 (04:21→19:42)
[2021-02-21 05:04] LABS: INR 1.9; Prothrombin Time 21.4 Seconds (9.4-12.1)
[2021-02-21] MEDS: *HR* Enoxaparin 60 MG/0.6 ML SYRINGE SQ SCH ×2 (05:12→17:12)
[2021-02-21 05:33] LABS: BUN/Creatinine Ratio 46 (6-26); Blood Urea Nitrogen 37 mg/dL (6-20); Calcium 9.8 mg/dL (8.6-10.3); Carbon Dioxide 41 mEq/L (23-29); Chloride 77 mEq/L (98-107); Glucose 65 mg/dL (70-105); Magnesium 1.5 mg/dL (1.6-2.6); Osmolality,Calculated 271 (280-300); Phosphorous 3.9 mg/dL (2.7-4.5); Potassium 2.6 mEq/L (3.5-5.1); Sodium 127 mEq/L (136-145); eGFR For African Americans > 60 (> 60); eGFR For Non-African Americans > 60 (> 60)
[2021-02-21] MEDS ORDERED: *HR* Enoxaparin 60 MG/0.6 ML SYRINGE SQ ONE (09:14)
[2021-02-21] MEDS: Pregabalin 75 MG CAPSULE PO SCH ×3 (09:18→19:42)
[2021-02-21] MEDS ORDERED: *HR* Dextrose 50 % in Water (Syg) 50 ML SYRINGE IVP PRN (10:17)
[2021-02-21] MEDS ORDERED: Dextrose Gel 15 GM/37.5 ML TUBE PO PRN ×2 (10:17)
[2021-02-21] MEDS ORDERED: D5% in Water 1,000 ML IVC PRN (10:17)
[2021-02-21] MEDS ORDERED: Clinimix 5%-20% SOLUTION 2,000 ML with MVI, adult with vitamin K 10 ML, Sodium Acetat... IVC SCH ×2 (17:00)
[2021-02-21] MEDS ORDERED: *HR* Warfarin 10 MG TABLET PO ONE (18:00)
[2021-02-22] MEDS: *HR* OxyCODONE/APAP 5/325 TABLET PO PRN ×6 (01:03→23:24)
[2021-02-22 04:36] LABS: INR 2.4; Prothrombin Time 26.7 Seconds (9.4-12.1)
[2021-02-22 04:57] LABS: Alanine Aminotransferase 176 Units/L (7-52); Albumin 3.5 g/dL (3.5-5.7); Alkaline Phosphatase 289 Units/L (34-104); Aspartate Amino Transferase 91 Units/L (13-39); BUN/Creatinine Ratio 48 (6-26); Bilirubin,Total 1.1 mg/dL (0.3-1.0); Blood Urea Nitrogen 41 mg/dL (6-20); Calcium 9.3 mg/dL (8.6-10.3); Carbon Dioxide 43 mEq/L (23-29); Chloride 76 mEq/L (98-107); Globulin 3.6 g/dL (2.4-3.5); Glucose 111 mg/dL (70-105); Magnesium 1.7 mg/dL (1.6-2.6); Osmolality,Calculated 275 (280-300); Phosphorous 2.7 mg/dL (2.7-4.5); Potassium 2.4 mEq/L (3.5-5.1); Sodium 127 mEq/L (136-145); Total Protein 7.1 g/dL (6.4-8.9); eGFR For African Americans > 60 (> 60); eGFR For Non-African Americans > 60 (> 60)
[2021-02-22] MEDS ORDERED: Potassium Chloride Elixir 20 MEQ/15 ML UDC PO ONE (05:00)
[2021-02-22] MEDS: *HR* Enoxaparin 60 MG/0.6 ML SYRINGE SQ SCH (05:52)
[2021-02-22] MEDS: Cholestyramine 4 GM POWD.PACK PO SCH (08:00)
[2021-02-22] MEDS: Pregabalin 75 MG CAPSULE PO SCH ×3 (08:01→20:47)
[2021-02-22] MEDS ORDERED: *HR* Enoxaparin 40 MG/0.4 ML SYRINGE SQ ONE (09:14)
[2021-02-22 11:05] LABS: ABG Base Excess 18 mEq/L (-2 to 3); ABG HCO3 41 mEq/L (21-27); ABG Oxygen Saturation 98 % (95-98); ABG PCO2 41 mmHg (35-45); ABG PH 7.61 pH Units (7.32-7.45); ABG PO2 90 mmHg (85-104); ABG TCO2 42 mEq/L (20-26)
[2021-02-22] MEDS ORDERED: Clinimix 5%-20% SOLUTION 2,000 ML with MVI, adult with vitamin K 10 ML, Sodium Acetat... IVC SCH (17:00)
[2021-02-22] MEDS ORDERED: *HR* Warfarin 4 MG TABLET PO ONE (18:00)
[2021-02-22 18:36] LABS: BUN/Creatinine Ratio 34 (6-26); Blood Urea Nitrogen 33 mg/dL (6-20); Carbon Dioxide 40 mEq/L (23-29); Chloride 75 mEq/L (98-107); Glucose 103 mg/dL (70-105); Osmolality,Calculated 270 (280-300); Potassium 2.9 mEq/L (3.5-5.1); Sodium 126 mEq/L (136-145); eGFR For African Americans > 60 (> 60); eGFR For Non-African Americans > 60 (> 60)
[2021-02-23] MEDS: *HR* OxyCODONE/APAP 5/325 TABLET PO PRN ×4 (04:16→20:54)
[2021-02-23 04:46] LABS: INR 2.4; Prothrombin Time 26.6 Seconds (9.4-12.1)
[2021-02-23 05:09] LABS: BUN/Creatinine Ratio 42 (6-26); Blood Urea Nitrogen 39 mg/dL (6-20); Calcium 9.5 mg/dL (8.6-10.3); Carbon Dioxide 44 mEq/L (23-29); Chloride 77 mEq/L (98-107); Glucose 112 mg/dL (70-105); Magnesium 1.6 mg/dL (1.6-2.6); Osmolality,Calculated 274 (280-300); Phosphorous 2.9 mg/dL (2.7-4.5); Potassium 2.5 mEq/L (3.5-5.1); Sodium 127 mEq/L (136-145); eGFR For African Americans > 60 (> 60); eGFR For Non-African Americans > 60 (> 60)
[2021-02-23] MEDS ORDERED: Potassium Chloride Elixir 20 MEQ/15 ML UDC PO ONE (05:22)
[2021-02-23] MEDS: Cholestyramine 4 GM POWD.PACK PO SCH (05:22)
[2021-02-23] MEDS: Pregabalin 75 MG CAPSULE PO SCH ×3 (10:05→20:55)
[2021-02-23 16:50] LABS: BUN/Creatinine Ratio 36 (6-26); Blood Urea Nitrogen 36 mg/dL (6-20); Carbon Dioxide 44 mEq/L (23-29); Chloride 70 mEq/L (98-107); Glucose 97 mg/dL (70-105); Osmolality,Calculated 264 (280-300); Potassium 2.5 mEq/L (3.5-5.1); Sodium 123 mEq/L (136-145); eGFR For African Americans > 60 (> 60); eGFR For Non-African Americans > 60 (> 60)
[2021-02-23] MEDS ORDERED: Clinimix 5%-20% SOLUTION 2,000 ML with MVI, adult with vitamin K 10 ML, Sodium Acetat... IVC SCH (17:00)
[2021-02-23] MEDS ORDERED: *HR* Warfarin 10 MG TABLET PO ONE (18:00)
[2021-02-24] MEDS: *HR* OxyCODONE/APAP 5/325 TABLET PO PRN ×4 (03:59→18:40)
[2021-02-24 04:43] LABS: INR 1.6; Prothrombin Time 17.4 Seconds (9.4-12.1)
[2021-02-24 05:14] LABS: BUN/Creatinine Ratio 50 (6-26); Blood Urea Nitrogen 36 mg/dL (6-20); Calcium 9.4 mg/dL (8.6-10.3); Carbon Dioxide 42 mEq/L (23-29); Chloride 75 mEq/L (98-107); Glucose 73 mg/dL (70-105); Osmolality,Calculated 267 (280-300); Potassium 2.6 mEq/L (3.5-5.1); Sodium 125 mEq/L (136-145); eGFR For African Americans > 60 (> 60); eGFR For Non-African Americans > 60 (> 60)
[2021-02-24] MEDS: Cholestyramine 4 GM POWD.PACK PO SCH (05:39)
[2021-02-24] MEDS: Pregabalin 75 MG CAPSULE PO SCH ×3 (09:44→20:49)
[2021-02-24 11:01] LABS: Magnesium 1.7 mg/dL (1.6-2.6); Phosphorous 3.1 mg/dL (2.7-4.5); Triglycerides 86 mg/dL (< 150)
[2021-02-24] MEDS ORDERED: Clinimix 5%-20% SOLUTION 2,000 ML with MVI, adult with vitamin K 10 ML, Sodium Acetat... IVC SCH (17:00)
[2021-02-24] MEDS ORDERED: *HR* Warfarin 10 MG TABLET PO ONE ×2 (18:00→18:30)
[2021-02-24] MEDS ORDERED: Warfarin perPT PO PRN (18:19)
[2021-02-25] MEDS: *HR* OxyCODONE/APAP 5/325 TABLET PO PRN ×5 (00:33→23:52)
[2021-02-25] MEDS: Cholestyramine 4 GM POWD.PACK PO SCH (07:50)
[2021-02-25] MEDS: Pregabalin 75 MG CAPSULE PO SCH ×3 (07:52→20:51)
[2021-02-25 08:40] LABS: INR 2.1; Prothrombin Time 23.3 Seconds (9.4-12.1)
[2021-02-25 11:27] LABS: BUN/Creatinine Ratio 47 (6-26); Blood Urea Nitrogen 34 mg/dL (6-20); Calcium 9.2 mg/dL (8.6-10.3); Carbon Dioxide 41 mEq/L (23-29); Chloride 78 mEq/L (98-107); Glucose 48 mg/dL (70-105); Magnesium 1.8 mg/dL (1.6-2.6); Osmolality,Calculated 263 (280-300); Phosphorous 2.3 mg/dL (2.7-4.5); Potassium 2.9 mEq/L (3.5-5.1); Sodium 124 mEq/L (136-145); eGFR For African Americans > 60 (> 60); eGFR For Non-African Americans > 60 (> 60)
[2021-02-25] MEDS ORDERED: Clinimix 5%-20% SOLUTION 2,000 ML with MVI, adult with vitamin K 10 ML, Sodium Acetat... IVC SCH ×2 (17:00)
[2021-02-25] MEDS ORDERED: *HR* Warfarin 10 MG TABLET PO ONE (18:00)
[2021-02-26] MEDS: *HR* OxyCODONE/APAP 5/325 TABLET PO PRN ×5 (04:26→22:06)
[2021-02-26 05:18] LABS: Albumin 3.4 g/dL (3.5-5.7); Albumin/Globulin Ratio 0.9 (1.1-2.2); Bilirubin,Direct 0.6 mg/dL (0.0-0.2); Bilirubin,Indirect 0.7 mg/dL (0.0-1.0); Bilirubin,Total 1.3 mg/dL (0.3-1.0); Globulin 3.6 g/dL (2.4-3.5); Magnesium 1.5 mg/dL (1.6-2.6); Phosphorous 2.3 mg/dL (2.7-4.5)
[2021-02-26 05:27] LABS: INR 2.2; Prothrombin Time 24.7 Seconds (9.4-12.1)
[2021-02-26 05:35] LABS: BUN/Creatinine Ratio 53 (6-26); Blood Urea Nitrogen 37 mg/dL (6-20); Carbon Dioxide 40 mEq/L (23-29); Chloride 74 mEq/L (98-107); Glucose 100 mg/dL (70-105); Osmolality,Calculated 261 (280-300); Potassium 2.2 mEq/L (3.5-5.1); Sodium 121 mEq/L (136-145); eGFR For African Americans > 60 (> 60); eGFR For Non-African Americans > 60 (> 60)
[2021-02-26] MEDS: Cholestyramine 4 GM POWD.PACK PO SCH (06:29)
[2021-02-26] MEDS: Pregabalin 75 MG CAPSULE PO SCH ×3 (08:52→20:45)
[2021-02-26] MEDS: Diphenoxylate/Atropine 1 TAB TABLET PO SCH ×4 (10:09→20:45)
[2021-02-26] MEDS ORDERED: Clinimix 5%-20% SOLUTION 2,000 ML with MVI, adult with vitamin K 10 ML, Sodium Acetat... IVC SCH (17:00)
[2021-02-26] MEDS ORDERED: *HR* Warfarin 10 MG TABLET PO ONE (18:00)
[2021-02-27 04:04] LABS: INR 2.3; Prothrombin Time 25.4 Seconds (9.4-12.1)
[2021-02-27 04:22] LABS: BUN/Creatinine Ratio 52 (6-26); Blood Urea Nitrogen 32 mg/dL (6-20); Calcium 8.9 mg/dL (8.6-10.3); Carbon Dioxide 39 mEq/L (23-29); Chloride 76 mEq/L (98-107); Glucose 89 mg/dL (70-105); Magnesium 1.9 mg/dL (1.6-2.6); Osmolality,Calculated 260 (280-300); Phosphorous 2.8 mg/dL (2.7-4.5); Potassium 2.2 mEq/L (3.5-5.1); Sodium 122 mEq/L (136-145); eGFR For African Americans > 60 (> 60); eGFR For Non-African Americans > 60 (> 60)
[2021-02-27] MEDS: *HR* OxyCODONE/APAP 5/325 TABLET PO PRN ×5 (05:13→22:11)
[2021-02-27] MEDS: Pregabalin 75 MG CAPSULE PO SCH ×3 (07:46→20:03)
[2021-02-27] MEDS: Diphenoxylate/Atropine 1 TAB TABLET PO SCH ×4 (07:46→20:03)
[2021-02-27] MEDS: Cholestyramine 4 GM POWD.PACK PO SCH (07:47)
[2021-02-27 14:08] LABS: BUN/Creatinine Ratio 37 (6-26); Blood Urea Nitrogen 26 mg/dL (6-20); Calcium 9.7 mg/dL (8.6-10.3); Carbon Dioxide 43 mEq/L (23-29); Chloride 76 mEq/L (98-107); Glucose 121 mg/dL (70-105); Osmolality,Calculated 268 (280-300); Potassium 2.4 mEq/L (3.5-5.1); Sodium 126 mEq/L (136-145); eGFR For African Americans > 60 (> 60); eGFR For Non-African Americans > 60 (> 60)
[2021-02-27] MEDS ORDERED: Clinimix 5%-20% SOLUTION 2,000 ML with MVI, adult with vitamin K 10 ML, ZN/CU/MN/SE 1... IVC SCH (17:00)
[2021-02-27] MEDS ORDERED: Fat Emulsion 250 ML IVPB SCH (17:00)
[2021-02-27] MEDS ORDERED: *HR* Warfarin 10 MG TABLET PO ONE (18:00)
[2021-02-28] MEDS: *HR* OxyCODONE/APAP 5/325 TABLET PO PRN ×4 (04:08→20:05)
[2021-02-28 04:59] LABS: Alanine Aminotransferase 90 Units/L (7-52); Albumin 3.3 g/dL (3.5-5.7); Alkaline Phosphatase 296 Units/L (34-104); Aspartate Amino Transferase 46 Units/L (13-39); BUN/Creatinine Ratio 39 (6-26); Bilirubin,Total 0.8 mg/dL (0.3-1.0); Blood Urea Nitrogen 27 mg/dL (6-20); Calcium 8.8 mg/dL (8.6-10.3); Carbon Dioxide 41 mEq/L (23-29); Chloride 82 mEq/L (98-107); Globulin 3.4 g/dL (2.4-3.5); Glucose 119 mg/dL (70-105); Osmolality,Calculated 270 (280-300); Potassium 3.1 mEq/L (3.5-5.1); Sodium 127 mEq/L (136-145); Total Protein 6.7 g/dL (6.4-8.9); eGFR For African Americans > 60 (> 60); eGFR For Non-African Americans > 60 (> 60)
[2021-02-28 05:22] LABS: INR 2.2; Prothrombin Time 24.7 Seconds (9.4-12.1)
[2021-02-28] MEDS: Cholestyramine 4 GM POWD.PACK PO SCH (07:25)
[2021-02-28 07:38] LABS: Chol/HDL Ratio 3.5 (0-4.9); Cholesterol 160 mg/dL (< 200); HDL Cholesterol 46 mg/dL (40-59); LDL Cholesterol,Calculated 90 mg/dL (< 100); Triglycerides 119 mg/dL (< 150)
[2021-02-28] MEDS: Pregabalin 75 MG CAPSULE PO SCH ×3 (09:51→20:04)
[2021-02-28] MEDS: Diphenoxylate/Atropine 1 TAB TABLET PO SCH ×4 (09:51→20:04)
[2021-02-28] MEDS ORDERED: Clinimix 5%-20% SOLUTION 2,000 ML with MVI, adult with vitamin K 10 ML, ZN/CU/MN/SE 1... IVC SCH (17:00)
[2021-02-28] MEDS ORDERED: *HR* Warfarin 10 MG TABLET PO ONE (18:00)
[2021-03-01] MEDS: *HR* OxyCODONE/APAP 5/325 TABLET PO PRN ×4 (03:59→20:10)
[2021-03-01 04:59] LABS: INR 2.2; Prothrombin Time 24.4 Seconds (9.4-12.1)
[2021-03-01 05:14] LABS: Alanine Aminotransferase 82 Units/L (7-52); Albumin 3.4 g/dL (3.5-5.7); Albumin/Globulin Ratio 1.1 (1.1-2.2); Alkaline Phosphatase 287 Units/L (34-104); Aspartate Amino Transferase 41 Units/L (13-39); BUN/Creatinine Ratio 41 (6-26); Bilirubin,Total 0.8 mg/dL (0.3-1.0); Blood Urea Nitrogen 25 mg/dL (6-20); Calcium 9.1 mg/dL (8.6-10.3); Carbon Dioxide 37 mEq/L (23-29); Chloride 90 mEq/L (98-107); Globulin 3.1 g/dL (2.4-3.5); Glucose 85 mg/dL (70-105); Osmolality,Calculated 276 (280-300); Phosphorous 2.6 mg/dL (2.7-4.5); Potassium 3.5 mEq/L (3.5-5.1); Sodium 131 mEq/L (136-145); Total Protein 6.5 g/dL (6.4-8.9); eGFR For African Americans > 60 (> 60); eGFR For Non-African Americans > 60 (> 60)
[2021-03-01] MEDS: Cholestyramine 4 GM POWD.PACK PO SCH (07:37)
[2021-03-01] MEDS: Pregabalin 75 MG CAPSULE PO SCH ×3 (09:23→20:10)
[2021-03-01] MEDS: Diphenoxylate/Atropine 1 TAB TABLET PO SCH ×4 (09:23→20:10)
[2021-03-01] MEDS ORDERED: Clinimix 5%-20% SOLUTION 2,000 ML with MVI, adult with vitamin K 10 ML, ZN/CU/MN/SE 1... IVC SCH (17:00)
[2021-03-01] MEDS ORDERED: *HR* Warfarin 10 MG TABLET PO ONE (18:00)
[2021-03-02] MEDS: *HR* OxyCODONE/APAP 5/325 TABLET PO PRN ×4 (04:44→20:53)
[2021-03-02 05:04] LABS: INR 2.7; Prothrombin Time 29.8 Seconds (9.4-12.1)
[2021-03-02 05:16] LABS: Alanine Aminotransferase 71 Units/L (7-52); Albumin 3.1 g/dL (3.5-5.7); Alkaline Phosphatase 254 Units/L (34-104); Aspartate Amino Transferase 36 Units/L (13-39); BUN/Creatinine Ratio 45 (6-26); Bilirubin,Total 0.9 mg/dL (0.3-1.0); Blood Urea Nitrogen 23 mg/dL (6-20); Calcium 8.6 mg/dL (8.6-10.3); Carbon Dioxide 30 mEq/L (23-29); Chloride 98 mEq/L (98-107); Glucose 90 mg/dL (70-105); Osmolality,Calculated 277 (280-300); Phosphorous 1.9 mg/dL (2.7-4.5); Potassium 4.1 mEq/L (3.5-5.1); Sodium 132 mEq/L (136-145); Total Protein 6.1 g/dL (6.4-8.9); eGFR For African Americans > 60 (> 60); eGFR For Non-African Americans > 60 (> 60)
[2021-03-02] MEDS: Cholestyramine 4 GM POWD.PACK PO SCH ×2 (09:25→12:19)
[2021-03-02] MEDS: Pregabalin 75 MG CAPSULE PO SCH ×3 (09:26→20:53)
[2021-03-02] MEDS: Diphenoxylate/Atropine 1 TAB TABLET PO SCH ×4 (09:26→20:53)
[2021-03-02] MEDS ORDERED: Clinimix 5%-20% SOLUTION 2,000 ML with MVI, adult with vitamin K 10 ML, ZN/CU/MN/SE 1... IVC SCH ×2 (17:00)
[2021-03-02] MEDS ORDERED: *HR* Warfarin 10 MG TABLET PO ONE (18:00)
[2021-03-03] MEDS: *HR* OxyCODONE/APAP 5/325 TABLET PO PRN ×4 (03:26→21:31)
[2021-03-03 04:08] LABS: Alanine Aminotransferase 61 Units/L (7-52); Alkaline Phosphatase 221 Units/L (34-104); Aspartate Amino Transferase 28 Units/L (13-39); BUN/Creatinine Ratio 31 (6-26); Bilirubin,Total 0.8 mg/dL (0.3-1.0); Blood Urea Nitrogen 16 mg/dL (6-20); Calcium 8.6 mg/dL (8.6-10.3); Carbon Dioxide 24 mEq/L (23-29); Chloride 106 mEq/L (98-107); Glucose 110 mg/dL (70-105); Magnesium 1.8 mg/dL (1.6-2.6); Osmolality,Calculated 276 (280-300); Phosphorous 2.3 mg/dL (2.7-4.5); Potassium 4.8 mEq/L (3.5-5.1); Sodium 132 mEq/L (136-145); eGFR For African Americans > 60 (> 60); eGFR For Non-African Americans > 60 (> 60)
[2021-03-03 04:13] LABS: INR 2.6; Prothrombin Time 28.6 Seconds (9.4-12.1)
[2021-03-03] MEDS: Pregabalin 75 MG CAPSULE PO SCH ×3 (07:54→20:31)
[2021-03-03] MEDS: Cholestyramine 4 GM POWD.PACK PO SCH (07:55)
[2021-03-03] MEDS: Diphenoxylate/Atropine 1 TAB TABLET PO SCH ×4 (07:55→20:31)
[2021-03-03] MEDS ORDERED: Clinimix 5%-20% SOLUTION 2,000 ML with MVI, adult with vitamin K 10 ML, ZN/CU/MN/SE 1... IVC SCH ×2 (17:00)
[2021-03-03] MEDS ORDERED: *HR* Warfarin 10 MG TABLET PO ONE (18:00)
[2021-03-04] MEDS: *HR* OxyCODONE/APAP 5/325 TABLET PO PRN ×4 (03:49→18:18)
[2021-03-04 04:38] LABS: INR 2.8; Prothrombin Time 30.7 Seconds (9.4-12.1)
[2021-03-04 04:40] LABS: Alanine Aminotransferase 50 Units/L (7-52); Alkaline Phosphatase 209 Units/L (34-104); Aspartate Amino Transferase 23 Units/L (13-39); BUN/Creatinine Ratio 31 (6-26); Bilirubin,Total 0.7 mg/dL (0.3-1.0); Blood Urea Nitrogen 15 mg/dL (6-20); Calcium 8.6 mg/dL (8.6-10.3); Carbon Dioxide 21 mEq/L (23-29); Chloride 106 mEq/L (98-107); Globulin 3.1 g/dL (2.4-3.5); Glucose 66 mg/dL (70-105); Magnesium 1.9 mg/dL (1.6-2.6); Osmolality,Calculated 271 (280-300); Phosphorous 2.5 mg/dL (2.7-4.5); Potassium 5.1 mEq/L (3.5-5.1); Sodium 131 mEq/L (136-145); Total Protein 6.1 g/dL (6.4-8.9); eGFR For African Americans > 60 (> 60); eGFR For Non-African Americans > 60 (> 60)
[2021-03-04] MEDS: Cholestyramine 4 GM POWD.PACK PO SCH (05:59)
[2021-03-04] MEDS: Diphenoxylate/Atropine 1 TAB TABLET PO SCH ×4 (07:48→20:39)
[2021-03-04] MEDS: Pregabalin 75 MG CAPSULE PO SCH ×3 (07:48→20:40)
[2021-03-04] MEDS ORDERED: Clinimix 5%-20% SOLUTION 2,000 ML with MVI, adult with vitamin K 10 ML, Sodium Phosph... IVC SCH (17:00)
[2021-03-04] MEDS ORDERED: *HR* Warfarin 10 MG TABLET PO ONE (18:00)
[2021-03-05] MEDS: *HR* OxyCODONE/APAP 5/325 TABLET PO PRN ×2 (02:15→07:14)
[2021-03-05 05:11] LABS: Alanine Aminotransferase 46 Units/L (7-52); Albumin 3.1 g/dL (3.5-5.7); Albumin/Globulin Ratio 1.1 (1.1-2.2); Alkaline Phosphatase 212 Units/L (34-104); Aspartate Amino Transferase 23 Units/L (13-39); BUN/Creatinine Ratio 22 (6-26); Bilirubin,Total 0.7 mg/dL (0.3-1.0); Blood Urea Nitrogen 14 mg/dL (6-20); Calcium 8.6 mg/dL (8.6-10.3); Carbon Dioxide 20 mEq/L (23-29); Chloride 108 mEq/L (98-107); Globulin 2.8 g/dL (2.4-3.5); Glucose 110 mg/dL (70-105); Magnesium 1.8 mg/dL (1.6-2.6); Osmolality,Calculated 277 (280-300); Phosphorous 3.5 mg/dL (2.7-4.5); Potassium 4.2 mEq/L (3.5-5.1); Sodium 133 mEq/L (136-145); Total Protein 5.9 g/dL (6.4-8.9); eGFR For African Americans > 60 (> 60); eGFR For Non-African Americans > 60 (> 60)
[2021-03-05] MEDS: Cholestyramine 4 GM POWD.PACK PO SCH (05:57)
[2021-03-05] MEDS: Diphenoxylate/Atropine 1 TAB TABLET PO SCH (07:11)
[2021-03-05] MEDS: Pregabalin 75 MG CAPSULE PO SCH (07:13)
[2021-03-05 07:40] VITALS: BP 118/72; PULSE 101; TEMP 97.7; O2SAT 99
== END 2021-03-05 10:04 | disposition left against medical advice (07) | DRG 426 ==
LOC: 2NNU → SUATTDRO 20:09 → 3NENU 02-11 13:03 → SUATTDRO 02-13 08:36 → 3ANU 02-19 16:16
PROVIDERS: ADMIT Internal Medicine; ATTEND Family Medicine

== ENCOUNTER 2021-05-22 16:59 | Inpatient (IN) ==
[2021-05-22] MEDS ORDERED: Acetaminophen 325 MG TABLET PO PRN (20:53)
[2021-05-22] MEDS ORDERED: Naloxone 0.4 MG/ML INJ IVP PRN (20:53)
[2021-05-22] MEDS ORDERED: Ondansetron ODT 4 MG TAB.RAPDIS SL PRN (20:53)
[2021-05-22 22:27] LABS: Potassium 2.7 mEq/L (3.5-5.1)
[2021-05-23 03:28] LABS: Calcium 9.1 mg/dL (8.6-10.3); Potassium 4.6 mEq/L (3.5-5.1)
[2021-05-23 07:13] LABS: Calcium 9.1 mg/dL (8.6-10.3)
[2021-05-23 10:48] LABS: Basophils # 0.1 K/mcL (0.0-0.2); Basophils % 0.3 %; Eosinophils # 0.1 K/mcL (0.0-0.6); Eosinophils % 0.4 %; Hematocrit 33.8 % (37.5-50.1); Hemoglobin 11.6 g/dL (12.9-16.9); Immature Granulocytes % 0.5 % (0-4); Lymphocytes # 3.8 K/mcL (0.6-4.6); Lymphocytes % 17.3 %; Mean Corpuscular HGB Conc 34.3 g/dL (31.6-35.5); Mean Corpuscular Hemoglobin 28.5 pg (28.0-33.3); Mean Platelet Volume 9.3 fL (9.4-12.4); Monocytes # 1.2 K/mcL (0.0-1.3); Monocytes % 5.6 %; Neutrophils # 16.5 K/mcL (1.6-8.9); Platelet Count 377 K/mcL (140-400); Red Blood Count 4.07 M/mcL (4.19-5.50); Red Cell Distribution Width 15.2 % (11.5-14.5); Segmented Neutrophils % 75.9 %; White Blood Count 21.7 K/mcL (4.3-11.1)
[2021-05-23] MEDS ORDERED: 0.9 % Sodium Chloride 1,000 ML IVC SCH (11:15)
[2021-05-23 11:16] LABS: BUN/Creatinine Ratio 30 (6-26); Blood Urea Nitrogen 39 mg/dL (6-20); Carbon Dioxide 31 mEq/L (23-29); Chloride 77 mEq/L (98-107); Glucose 137 mg/dL (70-105); Magnesium 1.9 mg/dL (1.6-2.6); Osmolality,Calculated 252 (280-300); Phosphorous 2.3 mg/dL (2.7-4.5); Potassium 3.4 mEq/L (3.5-5.1); Sodium 115 mEq/L (136-145); Triglycerides 98 mg/dL (< 150); eGFR For African Americans > 60 (> 60); eGFR For Non-African Americans 58 (> 60)
[2021-05-23 11:33] LABS: Thyroid Stimulating Hormone 0.563 mcIU/mL (0.340-5.600)
[2021-05-23] MEDS ORDERED: *HR* OxyCODONE/APAP 5/325 TABLET PO ONE (11:41)
[2021-05-23 12:21] LABS: Creatine Kinase 22 Units/L (30-223)
[2021-05-23] MEDS ORDERED: D10% in Water 500 ML IVC PRN (12:31)
[2021-05-23] MEDS: DAPTOmycin 300 MG in 0.9 % Sodium Chloride 100 ML IVPB SCH (14:10)
[2021-05-23 14:42] LABS: BUN/Creatinine Ratio 32 (6-26); Blood Urea Nitrogen 35 mg/dL (6-20); Calcium 8.9 mg/dL (8.6-10.3); Carbon Dioxide 31 mEq/L (23-29); Chloride 78 mEq/L (98-107); Glucose 104 mg/dL (70-105); Osmolality,Calculated 252 (280-300); Potassium 3.1 mEq/L (3.5-5.1); Sodium 117 mEq/L (136-145); eGFR For African Americans > 60 (> 60); eGFR For Non-African Americans > 60 (> 60)
[2021-05-23 16:17] LABS: Creatinine,Urine 117 mg/dL; Protein/Creatinine Ratio,Urine 0.31 mg/mg (0.00-0.20); Sodium, Urine < 10.0 mEq/L
[2021-05-23 16:22] LABS: Bacteria,Urine Few per hpf (None-Few); Bilirubin,Urine Negative (Negative); Blood,Urine Negative (Negative); Clarity,Urine Clear (Clear); Color,Urine Yellow (Yellow); Glucose,Urine (UA) Normal (Normal); Ketones,Urine Negative (Negative); Leukocyte Esterase,Urine Negative (Negative); Nitrite,Urine Negative (Negative); PH,Urine 5.5 pH Units (5.0-8.0); Protein,Urine 30 mg/dL (Neg-Trace); RBC,Urine 0-3 per hpf (0-3); Specific Gravity,Urine 1.021 (1.010-1.025); Squamous Epithelial Cell,Urine Few per hpf (None-Few); Urobilinogen,Urine Normal (Normal)
[2021-05-23 16:23] LABS: Granular Casts,Urine Few per lpf (None Seen); Hyaline Casts,Urine Many per lpf (None Seen); Mucus,Urine Few per lpf (None-Few)
[2021-05-23] MEDS ORDERED: Fat Emulsion 250 ML IVPB SCH (17:00)
[2021-05-23] MEDS ORDERED: Clinimix E 5%-15% SOLUTION 2,000 ML with ZN/CU/MN/SE 1 ML IVC SCH (17:00)
[2021-05-23] MEDS: 0.9 % Sodium Chloride 1,000 ML IVC SCH (17:12)
[2021-05-23] MEDS: *HR* Rivaroxaban 10 MG TABLET PO SCH (17:12)
[2021-05-23 18:36] LABS: BUN/Creatinine Ratio 32 (6-26); Blood Urea Nitrogen 31 mg/dL (6-20); Carbon Dioxide 32 mEq/L (23-29); Chloride 79 mEq/L (98-107); Glucose 210 mg/dL (70-105); Osmolality,Calculated 263 (280-300); Potassium 2.7 mEq/L (3.5-5.1); Sodium 120 mEq/L (136-145); eGFR For African Americans > 60 (> 60); eGFR For Non-African Americans > 60 (> 60)
[2021-05-24 01:18] LABS: Basophils # 0.1 K/mcL (0.0-0.2); Basophils % 0.7 %; Eosinophils # 0.1 K/mcL (0.0-0.6); Eosinophils % 1.2 %; Hematocrit 31.9 % (37.5-50.1); Hemoglobin 10.4 g/dL (12.9-16.9); Immature Granulocytes % 0.3 % (0-4); Lymphocytes # 1.9 K/mcL (0.6-4.6); Lymphocytes % 20.4 %; Mean Corpuscular HGB Conc 32.6 g/dL (31.6-35.5); Mean Corpuscular Hemoglobin 28.8 pg (28.0-33.3); Mean Corpuscular Volume 88.4 fL (83.0-100.0); Mean Platelet Volume 9.2 fL (9.4-12.4); Monocytes # 0.4 K/mcL (0.0-1.3); Monocytes % 4.8 %; Neutrophils # 6.7 K/mcL (1.6-8.9); Platelet Count 261 K/mcL (140-400); Red Blood Count 3.61 M/mcL (4.19-5.50); Red Cell Distribution Width 15.1 % (11.5-14.5); Segmented Neutrophils % 72.6 %
[2021-05-24 01:19] LABS: White Blood Count 9.2 K/mcL (4.3-11.1)
[2021-05-24 01:35] LABS: BUN/Creatinine Ratio 35 (6-26); Blood Urea Nitrogen 26 mg/dL (6-20); Calcium 7.9 mg/dL (8.6-10.3); Carbon Dioxide 28 mEq/L (23-29); Chloride 86 mEq/L (98-107); Glucose 102 mg/dL (70-105); Osmolality,Calculated 259 (280-300); Potassium 2.5 mEq/L (3.5-5.1); Sodium 122 mEq/L (136-145); eGFR For African Americans > 60 (> 60); eGFR For Non-African Americans > 60 (> 60)
[2021-05-24 06:37] LABS: Alanine Aminotransferase 17 Units/L (7-52); Albumin 3.3 g/dL (3.5-5.7); Albumin/Globulin Ratio 1.1 (1.1-2.2); Alkaline Phosphatase 190 Units/L (34-104); Aspartate Amino Transferase 11 Units/L (13-39); BUN/Creatinine Ratio 30 (6-26); Bilirubin,Total 0.5 mg/dL (0.3-1.0); Blood Urea Nitrogen 25 mg/dL (6-20); Calcium 8.5 mg/dL (8.6-10.3); Carbon Dioxide 33 mEq/L (23-29); Chloride 82 mEq/L (98-107); Glucose 112 mg/dL (70-105); Magnesium 1.8 mg/dL (1.6-2.6); Osmolality,Calculated 253 (280-300); Potassium 3.1 mEq/L (3.5-5.1); Sodium 119 mEq/L (136-145); Total Protein 6.3 g/dL (6.4-8.9); eGFR For African Americans > 60 (> 60); eGFR For Non-African Americans > 60 (> 60)
[2021-05-24 11:16] LABS: mecA/C Methicillin-Resist Gene DETECTED (Not Detect)
[2021-05-24] MEDS: 0.9 % Sodium Chloride 1,000 ML IVC SCH (11:16)
[2021-05-24 11:17] LABS: A.calcoaceticus-baumannii cplx Not Detected (Not Detect); Bacteroides fragilis by PCR Not Detected (Not Detect); Candida albicans by PCR Not Detected (Not Detect); Candida auris by PCR Not Detected (Not Detect); Candida glabrata by PCR Not Detected (Not Detect); Candida krusei by PCR Not Detected (Not Detect); Candida parapsilosis by PCR Not Detected (Not Detect); Candida tropicalis by PCR Not Detected (Not Detect); Crypto. neoformans/gattii PCR Not Detected (Not Detect); Enterobacter cloacae Cmplx PCR Not Detected (Not Detect); Enterobacterales by PCR Not Detected (Not Detect); Enterococcus faecalis by PCR Not Detected (Not Detect); Enterococcus faecium by PCR Not Detected (Not Detect); Escherichia coli by PCR Not Detected (Not Detect); Klebs. pneumoniae group by PCR Not Detected (Not Detect); Klebsiella aerogenes by PCR Not Detected (Not Detect); Klebsiella oxytoca by PCR Not Detected (Not Detect); Proteus by PCR Not Detected (Not Detect); Pseudomonas aeruginosa by PCR Not Detected (Not Detect); Salmonella species by PCR Not Detected (Not Detect); Serratia marcescens by PCR Not Detected (Not Detect); Staph epidermidis by PCR DETECTED (Not Detect); Staph lugdunensis by PCR Not Detected (Not Detect); Staphylococcus aureus by PCR Not Detected (Not Detect); Stenotrophomonas maltophilia Not Detected (Not Detect); Streptococcus agalactiae(B)PCR Not Detected (Not Detect); Streptococcus by PCR Not Detected (Not Detect); Streptococcus pneumoniae PCR Not Detected (Not Detect); Streptococcus pyogenes (A) PCR Not Detected (Not Detect)
[2021-05-24] MEDS: DAPTOmycin 300 MG in 0.9 % Sodium Chloride 100 ML IVPB SCH (13:48)
[2021-05-24] MEDS: *HR* OxyCODONE/APAP 5/325 TABLET PO PRN ×3 (13:53→21:49)
[2021-05-24] MEDS: Pregabalin 75 MG CAPSULE PO SCH ×2 (15:59→21:36)
[2021-05-24] MEDS: *HR* Rivaroxaban 10 MG TABLET PO SCH (15:59)
[2021-05-24] MEDS: Diphenoxylate/Atropine 1 TAB TABLET PO SCH ×2 (15:59→21:36)
[2021-05-24] MEDS ORDERED: Clinimix 5%-20% SOLUTION 2,000 ML with MVI, adult with vitamin K 10 ML, Sodium Phosph... IV SCH (17:00)
[2021-05-24 17:25] LABS: BUN/Creatinine Ratio 26 (6-26); Blood Urea Nitrogen 19 mg/dL (6-20); Calcium 8.9 mg/dL (8.6-10.3); Carbon Dioxide 35 mEq/L (23-29); Chloride 83 mEq/L (98-107); Glucose 98 mg/dL (70-105); Osmolality,Calculated 262 (280-300); Potassium 2.7 mEq/L (3.5-5.1); Sodium 125 mEq/L (136-145); eGFR For African Americans > 60 (> 60); eGFR For Non-African Americans > 60 (> 60)
[2021-05-24] MEDS: Melatonin 3 MG TABLET PO PRN (21:37)
[2021-05-25] MEDS: 0.9 % Sodium Chloride 1,000 ML IVC SCH ×2 (00:32→14:03)
[2021-05-25] MEDS: *HR* OxyCODONE/APAP 5/325 TABLET PO PRN ×3 (03:51→20:50)
[2021-05-25 04:53] LABS: Basophils # 0.1 K/mcL (0.0-0.2); Basophils % 0.7 %; Eosinophils # 0.2 K/mcL (0.0-0.6); Hematocrit 30.9 % (37.5-50.1); Hemoglobin 10.3 g/dL (12.9-16.9); Immature Granulocytes % 0.4 % (0-4); Lymphocytes # 2.5 K/mcL (0.6-4.6); Lymphocytes % 35.9 %; Mean Corpuscular HGB Conc 33.3 g/dL (31.6-35.5); Mean Corpuscular Hemoglobin 28.8 pg (28.0-33.3); Mean Corpuscular Volume 86.3 fL (83.0-100.0); Mean Platelet Volume 9.5 fL (9.4-12.4); Monocytes # 0.6 K/mcL (0.0-1.3); Monocytes % 8.2 %; Neutrophils # 3.6 K/mcL (1.6-8.9); Platelet Count 263 K/mcL (140-400); Red Blood Count 3.58 M/mcL (4.19-5.50); Red Cell Distribution Width 14.9 % (11.5-14.5); Segmented Neutrophils % 51.8 %
[2021-05-25 05:30] LABS: Potassium 2.9 mEq/L (3.5-5.1); Sodium 128 mEq/L (136-145)
[2021-05-25 05:31] LABS: Alanine Aminotransferase 16 Units/L (7-52); Albumin 3.3 g/dL (3.5-5.7); Alkaline Phosphatase 173 Units/L (34-104); Aspartate Amino Transferase 11 Units/L (13-39); BUN/Creatinine Ratio 24 (6-26); Bilirubin,Total 0.4 mg/dL (0.3-1.0); Blood Urea Nitrogen 19 mg/dL (6-20); Calcium 8.9 mg/dL (8.6-10.3); Carbon Dioxide 33 mEq/L (23-29); Chloride 88 mEq/L (98-107); Globulin 3.2 g/dL (2.4-3.5); Glucose 106 mg/dL (70-105); Magnesium 1.8 mg/dL (1.6-2.6); Osmolality,Calculated 269 (280-300); Phosphorous 2.9 mg/dL (2.7-4.5); Total Protein 6.5 g/dL (6.4-8.9); eGFR For African Americans > 60 (> 60); eGFR For Non-African Americans > 60 (> 60)
[2021-05-25] MEDS: Cholecalciferol (D-3) 1,000 UNIT (25MCG) TABLET PO SCH (07:52)
[2021-05-25] MEDS: Diphenoxylate/Atropine 1 TAB TABLET PO SCH ×4 (07:52→20:49)
[2021-05-25] MEDS: Pregabalin 75 MG CAPSULE PO SCH ×3 (07:52→20:49)
[2021-05-25] MEDS: Loratadine 10 MG TABLET PO SCH (07:52)
[2021-05-25] MEDS: DAPTOmycin 300 MG in 0.9 % Sodium Chloride 100 ML IVPB SCH (14:00)
[2021-05-25] MEDS ORDERED: Potassium Chloride Elixir 20 MEQ/15 ML UDC PO ONE (14:04)
[2021-05-25] MEDS: *HR* Rivaroxaban 10 MG TABLET PO SCH (16:48)
[2021-05-25] MEDS ORDERED: SODIUM PHOSPHATE IVPB SCH (17:00)
[2021-05-25] MEDS ORDERED: [UNRECOGNIZED DRUG - OTHER] IVPB SCH (17:00)
[2021-05-25] MEDS ORDERED: CLINIMIX IVPB SCH (17:00)
[2021-05-25] MEDS: Melatonin 3 MG TABLET PO PRN (22:27)
[2021-05-26] MEDS: 0.9 % Sodium Chloride 1,000 ML IVC SCH ×3 (03:34→21:18)
[2021-05-26] MEDS: *HR* OxyCODONE/APAP 5/325 TABLET PO PRN ×3 (03:52→21:17)
[2021-05-26 04:11] LABS: Basophils # 0.1 K/mcL (0.0-0.2); Basophils % 0.7 %; Eosinophils # 0.4 K/mcL (0.0-0.6); Eosinophils % 5.6 %; Hematocrit 30.8 % (37.5-50.1); Hemoglobin 10.4 g/dL (12.9-16.9); Immature Granulocytes % 0.4 % (0-4); Lymphocytes # 2.9 K/mcL (0.6-4.6); Lymphocytes % 39.2 %; Mean Corpuscular HGB Conc 33.8 g/dL (31.6-35.5); Mean Corpuscular Hemoglobin 29.5 pg (28.0-33.3); Mean Corpuscular Volume 87.5 fL (83.0-100.0); Mean Platelet Volume 9.1 fL (9.4-12.4); Monocytes # 0.6 K/mcL (0.0-1.3); Monocytes % 7.6 %; Neutrophils # 3.4 K/mcL (1.6-8.9); Platelet Count 298 K/mcL (140-400); Red Blood Count 3.52 M/mcL (4.19-5.50); Segmented Neutrophils % 46.5 %; White Blood Count 7.3 K/mcL (4.3-11.1)
[2021-05-26 04:30] LABS: Alanine Aminotransferase 25 Units/L (7-52); Albumin 3.3 g/dL (3.5-5.7); Alkaline Phosphatase 186 Units/L (34-104); Aspartate Amino Transferase 23 Units/L (13-39); BUN/Creatinine Ratio 27 (6-26); Bilirubin,Total 0.4 mg/dL (0.3-1.0); Blood Urea Nitrogen 17 mg/dL (6-20); Calcium 8.9 mg/dL (8.6-10.3); Carbon Dioxide 30 mEq/L (23-29); Chloride 88 mEq/L (98-107); Globulin 3.2 g/dL (2.4-3.5); Glucose 76 mg/dL (70-105); Magnesium 1.6 mg/dL (1.6-2.6); Osmolality,Calculated 262 (280-300); Phosphorous 2.5 mg/dL (2.7-4.5); Potassium 2.7 mEq/L (3.5-5.1); Sodium 126 mEq/L (136-145); Total Protein 6.5 g/dL (6.4-8.9); eGFR For African Americans > 60 (> 60); eGFR For Non-African Americans > 60 (> 60)
[2021-05-26] MEDS: Loratadine 10 MG TABLET PO SCH (09:54)
[2021-05-26] MEDS: Cholecalciferol (D-3) 1,000 UNIT (25MCG) TABLET PO SCH (09:54)
[2021-05-26] MEDS: Diphenoxylate/Atropine 1 TAB TABLET PO SCH ×4 (09:54→21:11)
[2021-05-26] MEDS: Pregabalin 75 MG CAPSULE PO SCH ×3 (09:55→21:11)
[2021-05-26] MEDS ORDERED: Potassium Phosphate 44 MEQ in 0.9 % Sodium Chloride 250 ML IVPB ONE (10:04)
[2021-05-26] MEDS: Potassium Chloride Elixir 20 MEQ/15 ML UDC PO SCH ×3 (13:47→21:12)
[2021-05-26] MEDS: DAPTOmycin 300 MG in 0.9 % Sodium Chloride 100 ML IVPB SCH (13:47)
[2021-05-26] MEDS ORDERED: SODIUM PHOSPHATE IVPB SCH (17:00)
[2021-05-26] MEDS ORDERED: CLINIMIX IVPB SCH (17:00)
[2021-05-26] MEDS ORDERED: [UNRECOGNIZED DRUG - OTHER] IVPB SCH (17:00)
[2021-05-26] MEDS: *HR* Rivaroxaban 10 MG TABLET PO SCH (17:42)
[2021-05-26] MEDS: Melatonin 3 MG TABLET PO PRN (21:17)
[2021-05-27 06:14] LABS: Basophils # 0.1 K/mcL (0.0-0.2); Basophils % 0.8 %; Eosinophils # 0.5 K/mcL (0.0-0.6); Eosinophils % 6.4 %; Hematocrit 29.9 % (37.5-50.1); Hemoglobin 9.6 g/dL (12.9-16.9); Immature Granulocytes % 0.8 % (0-4); Lymphocytes # 3.1 K/mcL (0.6-4.6); Lymphocytes % 40.8 %; Mean Corpuscular HGB Conc 32.1 g/dL (31.6-35.5); Mean Corpuscular Hemoglobin 28.6 pg (28.0-33.3); Mean Platelet Volume 9.5 fL (9.4-12.4); Monocytes # 0.8 K/mcL (0.0-1.3); Monocytes % 11.1 %; Neutrophils # 3.1 K/mcL (1.6-8.9); Platelet Count 297 K/mcL (140-400); Red Blood Count 3.36 M/mcL (4.19-5.50); Red Cell Distribution Width 15.1 % (11.5-14.5); Segmented Neutrophils % 40.1 %; White Blood Count 7.6 K/mcL (4.3-11.1)
[2021-05-27 06:18] LABS: Alanine Aminotransferase 50 Units/L (7-52); Albumin 3.2 g/dL (3.5-5.7); Albumin/Globulin Ratio 1.1 (1.1-2.2); Alkaline Phosphatase 216 Units/L (34-104); Aspartate Amino Transferase 42 Units/L (13-39); BUN/Creatinine Ratio 30 (6-26); Bilirubin,Total 0.4 mg/dL (0.3-1.0); Blood Urea Nitrogen 18 mg/dL (6-20); Calcium 8.7 mg/dL (8.6-10.3); Carbon Dioxide 32 mEq/L (23-29); Chloride 95 mEq/L (98-107); Globulin 2.9 g/dL (2.4-3.5); Glucose 63 mg/dL (70-105); Magnesium 1.9 mg/dL (1.6-2.6); Osmolality,Calculated 272 (280-300); Phosphorous 2.2 mg/dL (2.7-4.5); Potassium 3.3 mEq/L (3.5-5.1); Sodium 131 mEq/L (136-145); Total Protein 6.1 g/dL (6.4-8.9); eGFR For African Americans > 60 (> 60); eGFR For Non-African Americans > 60 (> 60)
[2021-05-27] MEDS: *HR* OxyCODONE/APAP 5/325 TABLET PO PRN ×3 (09:36→18:16)
[2021-05-27] MEDS: Loratadine 10 MG TABLET PO SCH (09:37)
[2021-05-27] MEDS: Cholecalciferol (D-3) 1,000 UNIT (25MCG) TABLET PO SCH (09:37)
[2021-05-27] MEDS: Pregabalin 75 MG CAPSULE PO SCH ×3 (09:37→20:19)
[2021-05-27] MEDS: Diphenoxylate/Atropine 1 TAB TABLET PO SCH ×4 (09:37→20:20)
[2021-05-27] MEDS: Potassium Chloride Elixir 20 MEQ/15 ML UDC PO SCH ×4 (09:37→20:19)
[2021-05-27] MEDS: DAPTOmycin 300 MG in 0.9 % Sodium Chloride 100 ML IVPB SCH (13:50)
[2021-05-27] MEDS ORDERED: Clinimix 5%-20% SOLUTION 2,000 ML with MVI, adult with vitamin K 10 ML, Sodium Phosph... IV SCH (17:00)
[2021-05-27] MEDS: *HR* Rivaroxaban 10 MG TABLET PO SCH (17:06)
[2021-05-27] MEDS: 0.9 % Sodium Chloride 1,000 ML IVC SCH (17:21)
[2021-05-27] MEDS: Acetaminophen 325 MG TABLET PO PRN (20:19)
[2021-05-27] MEDS: Melatonin 3 MG TABLET PO PRN (20:19)
[2021-05-28] MEDS: *HR* OxyCODONE/APAP 5/325 TABLET PO PRN ×4 (02:57→21:01)
[2021-05-28] MEDS: 0.9 % Sodium Chloride 1,000 ML IVC SCH ×2 (04:01→16:37)
[2021-05-28 04:44] LABS: Basophils # 0.1 K/mcL (0.0-0.2); Basophils % 0.8 %; Eosinophils # 0.4 K/mcL (0.0-0.6); Eosinophils % 6.9 %; Hematocrit 25.9 % (37.5-50.1); Hemoglobin 8.2 g/dL (12.9-16.9); Immature Granulocytes % 0.5 % (0-4); Lymphocytes # 2.6 K/mcL (0.6-4.6); Lymphocytes % 43.3 %; Mean Corpuscular HGB Conc 31.7 g/dL (31.6-35.5); Mean Corpuscular Hemoglobin 28.7 pg (28.0-33.3); Mean Corpuscular Volume 90.6 fL (83.0-100.0); Mean Platelet Volume 9.6 fL (9.4-12.4); Monocytes # 0.6 K/mcL (0.0-1.3); Monocytes % 10.5 %; Neutrophils # 2.3 K/mcL (1.6-8.9); Platelet Count 236 K/mcL (140-400); Red Blood Count 2.86 M/mcL (4.19-5.50); Red Cell Distribution Width 14.9 % (11.5-14.5); White Blood Count 6.1 K/mcL (4.3-11.1)
[2021-05-28 05:09] LABS: Alanine Aminotransferase 47 Units/L (7-52); Albumin 2.6 g/dL (3.5-5.7); Albumin/Globulin Ratio 1.1 (1.1-2.2); Alkaline Phosphatase 177 Units/L (34-104); Aspartate Amino Transferase 42 Units/L (13-39); BUN/Creatinine Ratio 30 (6-26); Bilirubin,Total 0.3 mg/dL (0.3-1.0); Blood Urea Nitrogen 16 mg/dL (6-20); Calcium 7.2 mg/dL (8.6-10.3); Carbon Dioxide 26 mEq/L (23-29); Chloride 101 mEq/L (98-107); Creatine Kinase 15 Units/L (30-223); Globulin 2.4 g/dL (2.4-3.5); Glucose 100 mg/dL (70-105); Magnesium 1.4 mg/dL (1.6-2.6); Osmolality,Calculated 277 (280-300); Phosphorous 2.3 mg/dL (2.7-4.5); Potassium 2.9 mEq/L (3.5-5.1); Sodium 133 mEq/L (136-145); eGFR For African Americans > 60 (> 60); eGFR For Non-African Americans > 60 (> 60)
[2021-05-28] MEDS ORDERED: Potassium Phosphate 44 MEQ in 0.9 % Sodium Chloride 250 ML IVPB ONE (07:34)
[2021-05-28] MEDS: Cholecalciferol (D-3) 1,000 UNIT (25MCG) TABLET PO SCH (09:23)
[2021-05-28] MEDS: Loratadine 10 MG TABLET PO SCH (09:23)
[2021-05-28] MEDS: Pregabalin 75 MG CAPSULE PO SCH ×3 (09:23→21:01)
[2021-05-28] MEDS: Diphenoxylate/Atropine 1 TAB TABLET PO SCH ×4 (09:23→21:00)
[2021-05-28] MEDS: Potassium Chloride Elixir 20 MEQ/15 ML UDC PO SCH ×4 (09:23→21:01)
[2021-05-28] MEDS: DAPTOmycin 300 MG in 0.9 % Sodium Chloride 100 ML IVPB SCH (13:38)
[2021-05-28] MEDS: *HR* Rivaroxaban 10 MG TABLET PO SCH (16:36)
[2021-05-28] MEDS ORDERED: [UNRECOGNIZED DRUG - NUTRITION] IVC SCH (17:00)
[2021-05-28] MEDS: Melatonin 3 MG TABLET PO PRN (21:00)
[2021-05-29 05:39] LABS: Basophils # 0.1 K/mcL (0.0-0.2); Basophils % 0.7 %; Eosinophils # 0.5 K/mcL (0.0-0.6); Eosinophils % 6.7 %; Hematocrit 27.6 % (37.5-50.1); Hemoglobin 8.9 g/dL (12.9-16.9); Lymphocytes # 2.8 K/mcL (0.6-4.6); Lymphocytes % 38.6 %; Mean Corpuscular HGB Conc 32.2 g/dL (31.6-35.5); Mean Corpuscular Hemoglobin 28.8 pg (28.0-33.3); Mean Corpuscular Volume 89.3 fL (83.0-100.0); Monocytes # 0.9 K/mcL (0.0-1.3); Monocytes % 12.1 %; Neutrophils # 2.9 K/mcL (1.6-8.9); Platelet Count 274 K/mcL (140-400); Red Blood Count 3.09 M/mcL (4.19-5.50); Red Cell Distribution Width 15.2 % (11.5-14.5); Segmented Neutrophils % 40.9 %; White Blood Count 7.2 K/mcL (4.3-11.1)
[2021-05-29 05:57] LABS: Alanine Aminotransferase 55 Units/L (7-52); Albumin/Globulin Ratio 1.1 (1.1-2.2); Alkaline Phosphatase 224 Units/L (34-104); Aspartate Amino Transferase 39 Units/L (13-39); BUN/Creatinine Ratio 34 (6-26); Bilirubin,Total 0.4 mg/dL (0.3-1.0); Blood Urea Nitrogen 19 mg/dL (6-20); Calcium 8.5 mg/dL (8.6-10.3); Carbon Dioxide 31 mEq/L (23-29); Chloride 95 mEq/L (98-107); Globulin 2.8 g/dL (2.4-3.5); Glucose 94 mg/dL (70-105); Magnesium 1.7 mg/dL (1.6-2.6); Osmolality,Calculated 272 (280-300); Phosphorous 3.8 mg/dL (2.7-4.5); Potassium 3.5 mEq/L (3.5-5.1); Sodium 130 mEq/L (136-145); Total Protein 5.8 g/dL (6.4-8.9); eGFR For African Americans > 60 (> 60); eGFR For Non-African Americans > 60 (> 60)
[2021-05-29] MEDS: Loratadine 10 MG TABLET PO SCH (07:35)
[2021-05-29] MEDS: Potassium Chloride Elixir 20 MEQ/15 ML UDC PO SCH ×4 (07:35→20:45)
[2021-05-29] MEDS: Diphenoxylate/Atropine 1 TAB TABLET PO SCH ×4 (07:36→20:44)
[2021-05-29] MEDS: Cholecalciferol (D-3) 1,000 UNIT (25MCG) TABLET PO SCH (07:36)
[2021-05-29] MEDS: Pregabalin 75 MG CAPSULE PO SCH ×3 (07:36→22:35)
[2021-05-29] MEDS: *HR* OxyCODONE/APAP 5/325 TABLET PO PRN ×4 (07:43→22:35)
[2021-05-29] MEDS: 0.9 % Sodium Chloride 1,000 ML IVC SCH ×2 (07:50→17:54)
[2021-05-29] MEDS: DAPTOmycin 300 MG in 0.9 % Sodium Chloride 100 ML IVPB SCH (08:42)
[2021-05-29] MEDS ORDERED: Clinimix 5%-20% SOLUTION 2,000 ML with MVI, adult with vitamin K 10 ML, Sodium Phosph... IV SCH (17:00)
[2021-05-29] MEDS: *HR* Rivaroxaban 10 MG TABLET PO SCH (17:35)
[2021-05-29] MEDS: Melatonin 3 MG TABLET PO PRN (20:48)
[2021-05-30 03:49] LABS: Basophils # 0.1 K/mcL (0.0-0.2); Basophils % 0.8 %; Eosinophils # 0.5 K/mcL (0.0-0.6); Eosinophils % 7.1 %; Hematocrit 28.5 % (37.5-50.1); Hemoglobin 9.5 g/dL (12.9-16.9); Immature Granulocytes % 1.4 % (0-4); Lymphocytes # 2.4 K/mcL (0.6-4.6); Lymphocytes % 37.2 %; Mean Corpuscular HGB Conc 33.3 g/dL (31.6-35.5); Mean Corpuscular Volume 89.9 fL (83.0-100.0); Mean Platelet Volume 9.2 fL (9.4-12.4); Monocytes # 0.8 K/mcL (0.0-1.3); Monocytes % 12.5 %; Neutrophils # 2.7 K/mcL (1.6-8.9); Platelet Count 259 K/mcL (140-400); Red Blood Count 3.17 M/mcL (4.19-5.50); Red Cell Distribution Width 15.3 % (11.5-14.5); White Blood Count 6.5 K/mcL (4.3-11.1)
[2021-05-30 04:09] LABS: Alanine Aminotransferase 65 Units/L (7-52); Albumin 3.2 g/dL (3.5-5.7); Albumin/Globulin Ratio 1.1 (1.1-2.2); Alkaline Phosphatase 268 Units/L (34-104); Aspartate Amino Transferase 43 Units/L (13-39); BUN/Creatinine Ratio 29 (6-26); Bilirubin,Total 0.4 mg/dL (0.3-1.0); Blood Urea Nitrogen 18 mg/dL (6-20); Calcium 8.8 mg/dL (8.6-10.3); Carbon Dioxide 27 mEq/L (23-29); Chloride 96 mEq/L (98-107); Globulin 2.9 g/dL (2.4-3.5); Glucose 113 mg/dL (70-105); Magnesium 1.4 mg/dL (1.6-2.6); Osmolality,Calculated 273 (280-300); Phosphorous 3.4 mg/dL (2.7-4.5); Sodium 130 mEq/L (136-145); Total Protein 6.1 g/dL (6.4-8.9); eGFR For African Americans > 60 (> 60); eGFR For Non-African Americans > 60 (> 60)
[2021-05-30] MEDS: 0.9 % Sodium Chloride 1,000 ML IVC SCH ×2 (06:09→20:19)
[2021-05-30] MEDS: *HR* OxyCODONE/APAP 5/325 TABLET PO PRN ×3 (06:10→20:17)
[2021-05-30] MEDS: Diphenoxylate/Atropine 1 TAB TABLET PO SCH ×4 (08:17→20:16)
[2021-05-30] MEDS: Pregabalin 75 MG CAPSULE PO SCH ×3 (08:17→20:16)
[2021-05-30] MEDS: Cholecalciferol (D-3) 1,000 UNIT (25MCG) TABLET PO SCH (08:17)
[2021-05-30] MEDS: Loratadine 10 MG TABLET PO SCH (08:17)
[2021-05-30] MEDS: Potassium Chloride Elixir 20 MEQ/15 ML UDC PO SCH ×4 (08:18→20:17)
[2021-05-30] MEDS: DAPTOmycin 300 MG in 0.9 % Sodium Chloride 100 ML IVPB SCH (08:18)
[2021-05-30] MEDS: *HR* Rivaroxaban 10 MG TABLET PO SCH (16:31)
[2021-05-30] MEDS ORDERED: [UNRECOGNIZED DRUG - NUTRITION] IVC SCH (17:00)
[2021-05-30] MEDS: Melatonin 3 MG TABLET PO PRN (20:16)
[2021-05-31] MEDS: *HR* OxyCODONE/APAP 5/325 TABLET PO PRN ×4 (04:07→20:35)
[2021-05-31 04:20] LABS: Basophils # 0.1 K/mcL (0.0-0.2); Basophils % 1.1 %; Eosinophils # 0.4 K/mcL (0.0-0.6); Eosinophils % 6.8 %; Hematocrit 29.4 % (37.5-50.1); Hemoglobin 9.7 g/dL (12.9-16.9); Immature Granulocytes % 1.1 % (0-4); Lymphocytes # 2.3 K/mcL (0.6-4.6); Lymphocytes % 37.4 %; Mean Corpuscular Hemoglobin 29.5 pg (28.0-33.3); Mean Corpuscular Volume 89.4 fL (83.0-100.0); Mean Platelet Volume 9.2 fL (9.4-12.4); Monocytes # 0.6 K/mcL (0.0-1.3); Monocytes % 9.5 %; Neutrophils # 2.7 K/mcL (1.6-8.9); Platelet Count 253 K/mcL (140-400); Red Blood Count 3.29 M/mcL (4.19-5.50); Red Cell Distribution Width 15.5 % (11.5-14.5); Segmented Neutrophils % 44.1 %; White Blood Count 6.2 K/mcL (4.3-11.1)
[2021-05-31 04:36] LABS: Alanine Aminotransferase 96 Units/L (7-52); Albumin 3.2 g/dL (3.5-5.7); Albumin/Globulin Ratio 1.1 (1.1-2.2); Alkaline Phosphatase 313 Units/L (34-104); Aspartate Amino Transferase 77 Units/L (13-39); BUN/Creatinine Ratio 21 (6-26); Bilirubin,Total 0.5 mg/dL (0.3-1.0); Blood Urea Nitrogen 15 mg/dL (6-20); Calcium 8.7 mg/dL (8.6-10.3); Carbon Dioxide 30 mEq/L (23-29); Chloride 93 mEq/L (98-107); Glucose 140 mg/dL (70-105); Magnesium 1.5 mg/dL (1.6-2.6); Osmolality,Calculated 269 (280-300); Phosphorous 4.3 mg/dL (2.7-4.5); Potassium 3.5 mEq/L (3.5-5.1); Sodium 128 mEq/L (136-145); Total Protein 6.2 g/dL (6.4-8.9); Triglycerides 195 mg/dL (< 150); eGFR For African Americans > 60 (> 60); eGFR For Non-African Americans > 60 (> 60)
[2021-05-31] MEDS ORDERED: Dextrose 4 GM Chewable Tablets PO PRN ×2 (08:41)
[2021-05-31] MEDS ORDERED: *HR* Dextrose 50 % in Water (Syg) 50 ML SYRINGE IVP PRN (08:41)
[2021-05-31] MEDS ORDERED: D5% in Water 1,000 ML IVC PRN (08:41)
[2021-05-31] MEDS: Diphenoxylate/Atropine 1 TAB TABLET PO SCH ×4 (08:46→20:26)
[2021-05-31] MEDS: Cholecalciferol (D-3) 1,000 UNIT (25MCG) TABLET PO SCH (08:46)
[2021-05-31] MEDS: Pregabalin 75 MG CAPSULE PO SCH ×3 (08:46→20:26)
[2021-05-31] MEDS: Potassium Chloride Elixir 20 MEQ/15 ML UDC PO SCH ×4 (08:46→20:26)
[2021-05-31] MEDS: Loratadine 10 MG TABLET PO SCH (08:46)
[2021-05-31] MEDS: Insulin LISPRO 300 UNITS/3 ML VIAL SUBQ SCH ×4 (08:56→20:16)
[2021-05-31] MEDS: DAPTOmycin 300 MG in 0.9 % Sodium Chloride 100 ML IVPB SCH (08:57)
[2021-05-31] MEDS: 0.9 % Sodium Chloride 1,000 ML IVC SCH (10:51)
[2021-05-31] MEDS ORDERED: Clinimix 5%-20% SOLUTION 2,000 ML with MVI, adult with vitamin K 10 ML, ZN/CU/MN/SE 1... IV SCH (17:00)
[2021-05-31] MEDS: *HR* Rivaroxaban 10 MG TABLET PO SCH (17:59)
[2021-05-31] MEDS: Melatonin 3 MG TABLET PO PRN (21:38)
[2021-06-01] MEDS: 0.9 % Sodium Chloride 1,000 ML IVC SCH ×2 (00:20→12:56)
[2021-06-01] MEDS: Insulin LISPRO 300 UNITS/3 ML VIAL SUBQ SCH ×6 (00:43→20:15)
[2021-06-01 04:18] LABS: Basophils % 0.6 %; Eosinophils # 0.4 K/mcL (0.0-0.6); Eosinophils % 5.5 %; Hematocrit 29.6 % (37.5-50.1); Hemoglobin 9.7 g/dL (12.9-16.9); Immature Granulocytes % 0.9 % (0-4); Lymphocytes # 2.6 K/mcL (0.6-4.6); Lymphocytes % 37.6 %; Mean Corpuscular HGB Conc 32.8 g/dL (31.6-35.5); Mean Corpuscular Hemoglobin 29.3 pg (28.0-33.3); Mean Corpuscular Volume 89.4 fL (83.0-100.0); Mean Platelet Volume 9.4 fL (9.4-12.4); Monocytes # 0.7 K/mcL (0.0-1.3); Neutrophils # 3.1 K/mcL (1.6-8.9); Platelet Count 256 K/mcL (140-400); Red Blood Count 3.31 M/mcL (4.19-5.50); Red Cell Distribution Width 15.8 % (11.5-14.5); Segmented Neutrophils % 45.4 %; White Blood Count 6.8 K/mcL (4.3-11.1)
[2021-06-01 04:34] LABS: Alanine Aminotransferase 98 Units/L (7-52); Albumin 3.3 g/dL (3.5-5.7); Albumin/Globulin Ratio 1.1 (1.1-2.2); Alkaline Phosphatase 288 Units/L (34-104); Aspartate Amino Transferase 60 Units/L (13-39); BUN/Creatinine Ratio 34 (6-26); Bilirubin,Total 0.4 mg/dL (0.3-1.0); Blood Urea Nitrogen 21 mg/dL (6-20); Carbon Dioxide 29 mEq/L (23-29); Chloride 93 mEq/L (98-107); Globulin 3.1 g/dL (2.4-3.5); Glucose 123 mg/dL (70-105); Magnesium 1.5 mg/dL (1.6-2.6); Osmolality,Calculated 270 (280-300); Phosphorous 3.7 mg/dL (2.7-4.5); Potassium 3.4 mEq/L (3.5-5.1); Sodium 128 mEq/L (136-145); Total Protein 6.4 g/dL (6.4-8.9); eGFR For African Americans > 60 (> 60); eGFR For Non-African Americans > 60 (> 60)
[2021-06-01] MEDS: Loratadine 10 MG TABLET PO SCH (08:59)
[2021-06-01] MEDS: Cholecalciferol (D-3) 1,000 UNIT (25MCG) TABLET PO SCH (08:59)
[2021-06-01] MEDS: Potassium Chloride Elixir 20 MEQ/15 ML UDC PO SCH ×3 (08:59→20:19)
[2021-06-01] MEDS: DAPTOmycin 300 MG in 0.9 % Sodium Chloride 100 ML IVPB SCH (09:00)
[2021-06-01] MEDS: Diphenoxylate/Atropine 1 TAB TABLET PO SCH ×4 (09:00→20:23)
[2021-06-01] MEDS: *HR* OxyCODONE/APAP 5/325 TABLET PO PRN ×3 (09:00→22:45)
[2021-06-01] MEDS: Pregabalin 75 MG CAPSULE PO SCH ×3 (09:00→20:18)
[2021-06-01] MEDS: Magnesium Oxide 400 MG TABLET PO SCH ×2 (12:55→20:23)
[2021-06-01] MEDS ORDERED: [UNRECOGNIZED DRUG - NUTRITION] IVC SCH (17:00)
[2021-06-01] MEDS: *HR* Rivaroxaban 10 MG TABLET PO SCH (18:25)
[2021-06-02] MEDS: Insulin LISPRO 300 UNITS/3 ML VIAL SUBQ SCH ×6 (00:35→20:45)
[2021-06-02] MEDS: 0.9 % Sodium Chloride 1,000 ML IVC SCH ×2 (01:09→13:52)
[2021-06-02] MEDS: *HR* OxyCODONE/APAP 5/325 TABLET PO PRN ×5 (04:28→22:58)
[2021-06-02 05:14] LABS: Alanine Aminotransferase 106 Units/L (7-52); Albumin 3.3 g/dL (3.5-5.7); Alkaline Phosphatase 304 Units/L (34-104); Aspartate Amino Transferase 63 Units/L (13-39); BUN/Creatinine Ratio 36 (6-26); Bilirubin,Total 0.6 mg/dL (0.3-1.0); Blood Urea Nitrogen 22 mg/dL (6-20); Calcium 9.1 mg/dL (8.6-10.3); Carbon Dioxide 31 mEq/L (23-29); Chloride 91 mEq/L (98-107); Globulin 3.4 g/dL (2.4-3.5); Glucose 102 mg/dL (70-105); Magnesium 1.6 mg/dL (1.6-2.6); Osmolality,Calculated 272 (280-300); Phosphorous 3.5 mg/dL (2.7-4.5); Potassium 3.3 mEq/L (3.5-5.1); Sodium 129 mEq/L (136-145); Total Protein 6.7 g/dL (6.4-8.9); eGFR For African Americans > 60 (> 60); eGFR For Non-African Americans > 60 (> 60)
[2021-06-02] MEDS: Potassium Chloride Elixir 20 MEQ/15 ML UDC PO SCH ×3 (09:29→21:03)
[2021-06-02] MEDS: Magnesium Oxide 400 MG TABLET PO SCH ×2 (09:29→21:03)
[2021-06-02] MEDS: Cholecalciferol (D-3) 1,000 UNIT (25MCG) TABLET PO SCH (09:29)
[2021-06-02] MEDS: Pregabalin 75 MG CAPSULE PO SCH ×3 (09:30→21:03)
[2021-06-02] MEDS: Diphenoxylate/Atropine 1 TAB TABLET PO SCH ×4 (09:30→21:03)
[2021-06-02] MEDS: DAPTOmycin 300 MG in 0.9 % Sodium Chloride 100 ML IVPB SCH (09:30)
[2021-06-02] MEDS: Loratadine 10 MG TABLET PO SCH (09:30)
[2021-06-02] MEDS ORDERED: [UNRECOGNIZED DRUG - NUTRITION] IVC SCH (17:00)
[2021-06-02] MEDS: *HR* Rivaroxaban 10 MG TABLET PO SCH (17:51)
[2021-06-02] MEDS: Melatonin 3 MG TABLET PO PRN (22:59)
[2021-06-03] MEDS: 0.9 % Sodium Chloride 1,000 ML IVC SCH ×2 (03:15→21:39)
[2021-06-03] MEDS: Insulin LISPRO 300 UNITS/3 ML VIAL SUBQ SCH ×6 (03:39→20:20)
[2021-06-03] MEDS: *HR* OxyCODONE/APAP 5/325 TABLET PO PRN ×3 (05:34→23:19)
[2021-06-03 06:51] LABS: Basophils # 0.1 K/mcL (0.0-0.2); Basophils % 0.7 %; Eosinophils # 0.4 K/mcL (0.0-0.6); Eosinophils % 4.4 %; Hematocrit 28.9 % (37.5-50.1); Hemoglobin 9.6 g/dL (12.9-16.9); Immature Granulocytes % 0.5 % (0-4); Lymphocytes # 3.1 K/mcL (0.6-4.6); Lymphocytes % 37.4 %; Mean Corpuscular HGB Conc 33.2 g/dL (31.6-35.5); Mean Corpuscular Hemoglobin 29.4 pg (28.0-33.3); Mean Corpuscular Volume 88.4 fL (83.0-100.0); Mean Platelet Volume 9.5 fL (9.4-12.4); Monocytes # 0.6 K/mcL (0.0-1.3); Monocytes % 7.7 %; Platelet Count 251 K/mcL (140-400); Red Blood Count 3.27 M/mcL (4.19-5.50); Red Cell Distribution Width 15.8 % (11.5-14.5); Segmented Neutrophils % 49.3 %; White Blood Count 8.2 K/mcL (4.3-11.1)
[2021-06-03 06:59] LABS: Alanine Aminotransferase 104 Units/L (7-52); Albumin 3.3 g/dL (3.5-5.7); Alkaline Phosphatase 303 Units/L (34-104); Aspartate Amino Transferase 59 Units/L (13-39); BUN/Creatinine Ratio 37 (6-26); Bilirubin,Total 0.9 mg/dL (0.3-1.0); Blood Urea Nitrogen 23 mg/dL (6-20); Calcium 8.9 mg/dL (8.6-10.3); Carbon Dioxide 31 mEq/L (23-29); Chloride 90 mEq/L (98-107); Globulin 3.2 g/dL (2.4-3.5); Glucose 103 mg/dL (70-105); Osmolality,Calculated 272 (280-300); Potassium 3.7 mEq/L (3.5-5.1); Sodium 129 mEq/L (136-145); Total Protein 6.5 g/dL (6.4-8.9); eGFR For African Americans > 60 (> 60); eGFR For Non-African Americans > 60 (> 60)
[2021-06-03 07:01] LABS: Magnesium 1.6 mg/dL (1.6-2.6); Phosphorous 3.8 mg/dL (2.7-4.5)
[2021-06-03] MEDS: Cholecalciferol (D-3) 1,000 UNIT (25MCG) TABLET PO SCH (09:58)
[2021-06-03] MEDS: Diphenoxylate/Atropine 1 TAB TABLET PO SCH ×4 (09:58→21:20)
[2021-06-03] MEDS: Magnesium Oxide 400 MG TABLET PO SCH ×2 (09:58→21:20)
[2021-06-03] MEDS: Pregabalin 75 MG CAPSULE PO SCH ×3 (09:58→21:20)
[2021-06-03] MEDS: Loratadine 10 MG TABLET PO SCH (09:58)
[2021-06-03] MEDS: Potassium Chloride Elixir 20 MEQ/15 ML UDC PO SCH ×3 (09:59→21:20)
[2021-06-03] MEDS: DAPTOmycin 300 MG in 0.9 % Sodium Chloride 100 ML IVPB SCH (10:03)
[2021-06-03] MEDS ORDERED: Clinimix 5%-20% SOLUTION 2,000 ML with MVI, adult with vitamin K 10 ML, Sodium Phosph... IV SCH (17:00)
[2021-06-03] MEDS: *HR* Rivaroxaban 10 MG TABLET PO SCH (17:06)
[2021-06-04] MEDS: Insulin LISPRO 300 UNITS/3 ML VIAL SUBQ SCH ×6 (01:07→20:36)
[2021-06-04] MEDS: Melatonin 3 MG TABLET PO PRN ×2 (01:41→21:37)
[2021-06-04 04:49] LABS: Basophils # 0.1 K/mcL (0.0-0.2); Basophils % 0.6 %; Eosinophils # 0.3 K/mcL (0.0-0.6); Eosinophils % 4.3 %; Hemoglobin 9.3 g/dL (12.9-16.9); Immature Granulocytes % 0.4 % (0-4); Lymphocytes # 2.6 K/mcL (0.6-4.6); Lymphocytes % 33.6 %; Mean Corpuscular HGB Conc 32.1 g/dL (31.6-35.5); Mean Corpuscular Hemoglobin 28.8 pg (28.0-33.3); Mean Corpuscular Volume 89.8 fL (83.0-100.0); Mean Platelet Volume 9.1 fL (9.4-12.4); Monocytes # 0.5 K/mcL (0.0-1.3); Monocytes % 5.8 %; Neutrophils # 4.3 K/mcL (1.6-8.9); Platelet Count 248 K/mcL (140-400); Red Blood Count 3.23 M/mcL (4.19-5.50); Segmented Neutrophils % 55.3 %; White Blood Count 7.7 K/mcL (4.3-11.1)
[2021-06-04 05:10] LABS: Alanine Aminotransferase 86 Units/L (7-52); Albumin 3.1 g/dL (3.5-5.7); Alkaline Phosphatase 235 Units/L (34-104); Aspartate Amino Transferase 45 Units/L (13-39); BUN/Creatinine Ratio 32 (6-26); Bilirubin,Total 0.5 mg/dL (0.3-1.0); Blood Urea Nitrogen 21 mg/dL (6-20); Calcium 8.7 mg/dL (8.6-10.3); Carbon Dioxide 30 mEq/L (23-29); Chloride 92 mEq/L (98-107); Glucose 134 mg/dL (70-105); Magnesium 1.5 mg/dL (1.6-2.6); Osmolality,Calculated 271 (280-300); Phosphorous 3.2 mg/dL (2.7-4.5); Potassium 3.4 mEq/L (3.5-5.1); Sodium 128 mEq/L (136-145); Total Protein 6.1 g/dL (6.4-8.9); eGFR For African Americans > 60 (> 60); eGFR For Non-African Americans > 60 (> 60)
[2021-06-04] MEDS: DAPTOmycin 300 MG in 0.9 % Sodium Chloride 100 ML IVPB SCH (10:20)
[2021-06-04] MEDS: *HR* OxyCODONE/APAP 5/325 TABLET PO PRN ×3 (10:20→21:42)
[2021-06-04] MEDS: Magnesium Oxide 400 MG TABLET PO SCH ×2 (10:21→21:37)
[2021-06-04] MEDS: Cholecalciferol (D-3) 1,000 UNIT (25MCG) TABLET PO SCH (10:21)
[2021-06-04] MEDS: Loratadine 10 MG TABLET PO SCH (10:21)
[2021-06-04] MEDS: Diphenoxylate/Atropine 1 TAB TABLET PO SCH ×4 (10:21→21:37)
[2021-06-04] MEDS: Pregabalin 75 MG CAPSULE PO SCH ×3 (10:21→21:37)
[2021-06-04] MEDS: Potassium Chloride Elixir 20 MEQ/15 ML UDC PO SCH ×3 (10:33→21:38)
[2021-06-04] MEDS: 0.9 % Sodium Chloride 1,000 ML IVC SCH ×2 (13:07→21:32)
[2021-06-04] MEDS: *HR* Rivaroxaban 10 MG TABLET PO SCH (16:49)
[2021-06-04] MEDS ORDERED: [UNRECOGNIZED DRUG - NUTRITION] IVC SCH (17:00)
[2021-06-05] MEDS: Insulin LISPRO 300 UNITS/3 ML VIAL SUBQ SCH ×6 (00:25→22:01)
[2021-06-05 05:08] LABS: Basophils # 0.1 K/mcL (0.0-0.2); Basophils % 0.7 %; Eosinophils # 0.2 K/mcL (0.0-0.6); Eosinophils % 3.3 %; Hematocrit 27.6 % (37.5-50.1); Immature Granulocytes % 0.3 % (0-4); Lymphocytes # 2.3 K/mcL (0.6-4.6); Lymphocytes % 33.8 %; Mean Corpuscular HGB Conc 32.6 g/dL (31.6-35.5); Mean Corpuscular Hemoglobin 28.9 pg (28.0-33.3); Mean Corpuscular Volume 88.7 fL (83.0-100.0); Mean Platelet Volume 9.1 fL (9.4-12.4); Monocytes # 0.5 K/mcL (0.0-1.3); Monocytes % 7.1 %; Neutrophils # 3.7 K/mcL (1.6-8.9); Platelet Count 224 K/mcL (140-400); Red Blood Count 3.11 M/mcL (4.19-5.50); Red Cell Distribution Width 16.3 % (11.5-14.5); Segmented Neutrophils % 54.8 %; White Blood Count 6.8 K/mcL (4.3-11.1)
[2021-06-05 05:27] LABS: Alanine Aminotransferase 78 Units/L (7-52); Albumin 3.2 g/dL (3.5-5.7); Albumin/Globulin Ratio 1.1 (1.1-2.2); Alkaline Phosphatase 253 Units/L (34-104); Aspartate Amino Transferase 41 Units/L (13-39); BUN/Creatinine Ratio 33 (6-26); Bilirubin,Total 0.6 mg/dL (0.3-1.0); Blood Urea Nitrogen 21 mg/dL (6-20); Calcium 8.6 mg/dL (8.6-10.3); Carbon Dioxide 34 mEq/L (23-29); Chloride 91 mEq/L (98-107); Globulin 2.9 g/dL (2.4-3.5); Glucose 143 mg/dL (70-105); Magnesium 1.4 mg/dL (1.6-2.6); Osmolality,Calculated 273 (280-300); Phosphorous 3.9 mg/dL (2.7-4.5); Potassium 3.3 mEq/L (3.5-5.1); Sodium 129 mEq/L (136-145); Total Protein 6.1 g/dL (6.4-8.9); eGFR For African Americans > 60 (> 60); eGFR For Non-African Americans > 60 (> 60)
[2021-06-05] MEDS: *HR* OxyCODONE/APAP 5/325 TABLET PO PRN ×4 (05:39→21:57)
[2021-06-05] MEDS: Diphenoxylate/Atropine 1 TAB TABLET PO SCH ×4 (08:53→21:57)
[2021-06-05] MEDS: Cholecalciferol (D-3) 1,000 UNIT (25MCG) TABLET PO SCH (08:53)
[2021-06-05] MEDS: Pregabalin 75 MG CAPSULE PO SCH ×3 (08:53→21:58)
[2021-06-05] MEDS: Magnesium Oxide 400 MG TABLET PO SCH ×2 (08:53→21:58)
[2021-06-05] MEDS: Potassium Chloride Elixir 20 MEQ/15 ML UDC PO SCH ×3 (08:53→21:57)
[2021-06-05] MEDS: Loratadine 10 MG TABLET PO SCH (08:53)
[2021-06-05] MEDS: 0.9 % Sodium Chloride 1,000 ML IVC SCH ×2 (08:54→22:33)
[2021-06-05] MEDS: DAPTOmycin 300 MG in 0.9 % Sodium Chloride 100 ML IVPB SCH (10:13)
[2021-06-05] MEDS: *HR* Rivaroxaban 10 MG TABLET PO SCH (15:28)
[2021-06-05] MEDS: Acetaminophen 325 MG TABLET PO PRN (15:29)
[2021-06-05] MEDS ORDERED: Clinimix 5%-20% SOLUTION 2,000 ML with MVI, adult with vitamin K 10 ML, ZN/CU/MN/SE 1... IV SCH (17:00)
[2021-06-05] MEDS: Melatonin 3 MG TABLET PO PRN (21:57)
[2021-06-06] MEDS: Insulin LISPRO 300 UNITS/3 ML VIAL SUBQ SCH ×6 (00:55→20:37)
[2021-06-06 03:02] LABS: Basophils # 0.1 K/mcL (0.0-0.2); Basophils % 0.9 %; Eosinophils # 0.3 K/mcL (0.0-0.6); Eosinophils % 3.3 %; Hematocrit 29.4 % (37.5-50.1); Hemoglobin 9.4 g/dL (12.9-16.9); Immature Granulocytes % 0.1 % (0-4); Lymphocytes # 2.5 K/mcL (0.6-4.6); Lymphocytes % 33.6 %; Mean Corpuscular Hemoglobin 28.6 pg (28.0-33.3); Mean Corpuscular Volume 89.4 fL (83.0-100.0); Mean Platelet Volume 9.1 fL (9.4-12.4); Monocytes # 0.5 K/mcL (0.0-1.3); Neutrophils # 4.1 K/mcL (1.6-8.9); Platelet Count 237 K/mcL (140-400); Red Blood Count 3.29 M/mcL (4.19-5.50); Red Cell Distribution Width 16.3 % (11.5-14.5); Segmented Neutrophils % 55.1 %; White Blood Count 7.5 K/mcL (4.3-11.1)
[2021-06-06] MEDS: *HR* OxyCODONE/APAP 5/325 TABLET PO PRN ×4 (03:06→20:36)
[2021-06-06 03:19] LABS: Alanine Aminotransferase 75 Units/L (7-52); Albumin 3.2 g/dL (3.5-5.7); Alkaline Phosphatase 254 Units/L (34-104); Aspartate Amino Transferase 42 Units/L (13-39); BUN/Creatinine Ratio 29 (6-26); Bilirubin,Total 0.5 mg/dL (0.3-1.0); Blood Urea Nitrogen 19 mg/dL (6-20); Carbon Dioxide 34 mEq/L (23-29); Chloride 92 mEq/L (98-107); Globulin 3.1 g/dL (2.4-3.5); Glucose 113 mg/dL (70-105); Magnesium 1.6 mg/dL (1.6-2.6); Osmolality,Calculated 277 (280-300); Phosphorous 3.4 mg/dL (2.7-4.5); Sodium 132 mEq/L (136-145); Total Protein 6.3 g/dL (6.4-8.9); eGFR For African Americans > 60 (> 60); eGFR For Non-African Americans > 60 (> 60)
[2021-06-06] MEDS: Diphenoxylate/Atropine 1 TAB TABLET PO SCH ×4 (09:53→20:37)
[2021-06-06] MEDS: Cholecalciferol (D-3) 1,000 UNIT (25MCG) TABLET PO SCH (09:53)
[2021-06-06] MEDS: Loratadine 10 MG TABLET PO SCH (09:55)
[2021-06-06] MEDS: Pregabalin 75 MG CAPSULE PO SCH ×3 (09:55→20:37)
[2021-06-06] MEDS: Magnesium Oxide 400 MG TABLET PO SCH ×2 (09:55→20:37)
[2021-06-06] MEDS: Potassium Chloride Elixir 20 MEQ/15 ML UDC PO SCH ×3 (09:55→20:35)
[2021-06-06] MEDS: DAPTOmycin 300 MG in 0.9 % Sodium Chloride 100 ML IVPB SCH (10:00)
[2021-06-06] MEDS: 0.9 % Sodium Chloride 1,000 ML IVC SCH ×2 (10:32→23:42)
[2021-06-06] MEDS ORDERED: SODIUM PHOSPHATE IVPB SCH (17:00)
[2021-06-06] MEDS ORDERED: [UNRECOGNIZED DRUG - OTHER] IVPB SCH (17:00)
[2021-06-06] MEDS ORDERED: CLINIMIX IVPB SCH (17:00)
[2021-06-06] MEDS: *HR* Rivaroxaban 10 MG TABLET PO SCH (18:17)
[2021-06-06] MEDS: Melatonin 3 MG TABLET PO PRN (22:40)
[2021-06-07] MEDS: Insulin LISPRO 300 UNITS/3 ML VIAL SUBQ SCH ×6 (00:41→19:42)
[2021-06-07] MEDS: *HR* OxyCODONE/APAP 5/325 TABLET PO PRN ×3 (05:22→21:17)
[2021-06-07 06:43] LABS: Basophils # 0.1 K/mcL (0.0-0.2); Basophils % 0.8 %; Eosinophils # 0.2 K/mcL (0.0-0.6); Eosinophils % 3.3 %; Hematocrit 27.1 % (37.5-50.1); Immature Granulocytes % 0.3 % (0-4); Lymphocytes # 2.5 K/mcL (0.6-4.6); Lymphocytes % 37.6 %; Mean Corpuscular HGB Conc 33.2 g/dL (31.6-35.5); Mean Corpuscular Hemoglobin 29.7 pg (28.0-33.3); Mean Corpuscular Volume 89.4 fL (83.0-100.0); Mean Platelet Volume 9.1 fL (9.4-12.4); Monocytes # 0.6 K/mcL (0.0-1.3); Monocytes % 8.6 %; Neutrophils # 3.3 K/mcL (1.6-8.9); Platelet Count 217 K/mcL (140-400); Red Blood Count 3.03 M/mcL (4.19-5.50); Red Cell Distribution Width 16.6 % (11.5-14.5); Segmented Neutrophils % 49.4 %; White Blood Count 6.6 K/mcL (4.3-11.1)
[2021-06-07 07:02] LABS: Alanine Aminotransferase 66 Units/L (7-52); Albumin 3.2 g/dL (3.5-5.7); Alkaline Phosphatase 232 Units/L (34-104); Aspartate Amino Transferase 36 Units/L (13-39); BUN/Creatinine Ratio 32 (6-26); Bilirubin,Total 0.7 mg/dL (0.3-1.0); Blood Urea Nitrogen 20 mg/dL (6-20); Calcium 8.8 mg/dL (8.6-10.3); Carbon Dioxide 31 mEq/L (23-29); Chloride 94 mEq/L (98-107); Globulin 3.1 g/dL (2.4-3.5); Glucose 118 mg/dL (70-105); Magnesium 1.6 mg/dL (1.6-2.6); Osmolality,Calculated 274 (280-300); Potassium 3.2 mEq/L (3.5-5.1); Sodium 130 mEq/L (136-145); Total Protein 6.3 g/dL (6.4-8.9); Triglycerides 79 mg/dL (< 150); eGFR For African Americans > 60 (> 60); eGFR For Non-African Americans > 60 (> 60)
[2021-06-07 07:16] LABS: Platelet Estimate Normal (Normal); Reactive Lymphocytes Present (Not Present)
[2021-06-07] MEDS: Diphenoxylate/Atropine 1 TAB TABLET PO SCH (08:36)
[2021-06-07] MEDS: Cholecalciferol (D-3) 1,000 UNIT (25MCG) TABLET PO SCH (08:36)
[2021-06-07] MEDS: Magnesium Oxide 400 MG TABLET PO SCH (08:36)
[2021-06-07] MEDS: Pregabalin 75 MG CAPSULE PO SCH ×2 (08:37→14:29)
[2021-06-07] MEDS: Loratadine 10 MG TABLET PO SCH (08:37)
[2021-06-07] MEDS: Potassium Chloride Elixir 20 MEQ/15 ML UDC PO SCH (08:37)
[2021-06-07] MEDS ORDERED: *HR* OxyCODONE/APAP 5/325 TABLET PO PRN (11:02)
[2021-06-07] MEDS: 0.9 % Sodium Chloride 1,000 ML IVC SCH (14:35)
[2021-06-07] MEDS ORDERED: Clinimix 5%-20% SOLUTION 2,000 ML with MVI, adult with vitamin K 10 ML, Sodium Acetat... IV SCH (17:00)
[2021-06-07] MEDS: *HR* Rivaroxaban 10 MG TABLET PO SCH (17:16)
[2021-06-07] MEDS: Melatonin 3 MG TABLET PO PRN (21:17)
[2021-06-07] MEDS: Acetaminophen 325 MG TABLET PO PRN (23:08)
[2021-06-08] MEDS: Insulin LISPRO 300 UNITS/3 ML VIAL SUBQ SCH ×7 (00:41→23:32)
[2021-06-08] MEDS: *HR* OxyCODONE/APAP 5/325 TABLET PO PRN ×3 (03:22→20:47)
[2021-06-08] MEDS: 0.9 % Sodium Chloride 1,000 ML IVC SCH ×2 (04:51→18:31)
[2021-06-08 05:18] LABS: Alanine Aminotransferase 59 Units/L (7-52); Albumin 3.2 g/dL (3.5-5.7); Alkaline Phosphatase 218 Units/L (34-104); Aspartate Amino Transferase 30 Units/L (13-39); BUN/Creatinine Ratio 25 (6-26); Bilirubin,Total 0.5 mg/dL (0.3-1.0); Blood Urea Nitrogen 17 mg/dL (6-20); Calcium 8.7 mg/dL (8.6-10.3); Carbon Dioxide 29 mEq/L (23-29); Chloride 96 mEq/L (98-107); Globulin 3.1 g/dL (2.4-3.5); Glucose 69 mg/dL (70-105); Magnesium 1.6 mg/dL (1.6-2.6); Osmolality,Calculated 270 (280-300); Phosphorous 2.4 mg/dL (2.7-4.5); Potassium 3.3 mEq/L (3.5-5.1); Sodium 130 mEq/L (136-145); Total Protein 6.3 g/dL (6.4-8.9); eGFR For African Americans > 60 (> 60); eGFR For Non-African Americans > 60 (> 60)
[2021-06-08] MEDS: Cholecalciferol (D-3) 1,000 UNIT (25MCG) TABLET PO SCH (08:41)
[2021-06-08] MEDS: Loratadine 10 MG TABLET PO SCH (08:41)
[2021-06-08] MEDS ORDERED: Potassium Chloride Elixir 20 MEQ/15 ML UDC PO ONE (09:30)
[2021-06-08] MEDS ORDERED: SODIUM CHLORIDE IVPB SCH (17:00)
[2021-06-08] MEDS ORDERED: CLINIMIX IVPB SCH (17:00)
[2021-06-08] MEDS ORDERED: SODIUM ACETATE IVPB SCH (17:00)
[2021-06-08] MEDS ORDERED: [UNRECOGNIZED DRUG - OTHER] IVPB SCH (17:00)
[2021-06-08] MEDS: *HR* Rivaroxaban 10 MG TABLET PO SCH (17:20)
[2021-06-08] MEDS: Acetaminophen 325 MG TABLET PO PRN (19:25)
[2021-06-08] MEDS: Melatonin 3 MG TABLET PO PRN (20:47)
[2021-06-09] MEDS: Acetaminophen 325 MG TABLET PO PRN ×2 (02:41→20:37)
[2021-06-09] MEDS: Insulin LISPRO 300 UNITS/3 ML VIAL SUBQ SCH ×5 (04:47→20:50)
[2021-06-09 06:09] LABS: Alanine Aminotransferase 49 Units/L (7-52); Alkaline Phosphatase 197 Units/L (34-104); Aspartate Amino Transferase 26 Units/L (13-39); BUN/Creatinine Ratio 28 (6-26); Bilirubin,Total 0.6 mg/dL (0.3-1.0); Blood Urea Nitrogen 16 mg/dL (6-20); Calcium 8.3 mg/dL (8.6-10.3); Carbon Dioxide 27 mEq/L (23-29); Chloride 101 mEq/L (98-107); Globulin 2.9 g/dL (2.4-3.5); Glucose 102 mg/dL (70-105); Magnesium 1.6 mg/dL (1.6-2.6); Osmolality,Calculated 277 (280-300); Phosphorous 3.4 mg/dL (2.7-4.5); Potassium 3.7 mEq/L (3.5-5.1); Sodium 133 mEq/L (136-145); Total Protein 5.9 g/dL (6.4-8.9); eGFR For African Americans > 60 (> 60); eGFR For Non-African Americans > 60 (> 60)
[2021-06-09] MEDS: 0.9 % Sodium Chloride 1,000 ML IVC SCH ×2 (08:13→20:33)
[2021-06-09] MEDS: Cholecalciferol (D-3) 1,000 UNIT (25MCG) TABLET PO SCH (08:13)
[2021-06-09] MEDS: *HR* OxyCODONE/APAP 5/325 TABLET PO PRN ×3 (08:13→23:41)
[2021-06-09] MEDS: Loratadine 10 MG TABLET PO SCH (08:13)
[2021-06-09] MEDS ORDERED: [UNRECOGNIZED DRUG - OTHER] IVPB SCH (17:00)
[2021-06-09] MEDS ORDERED: SODIUM ACETATE IVPB SCH (17:00)
[2021-06-09] MEDS ORDERED: SODIUM CHLORIDE IVPB SCH (17:00)
[2021-06-09] MEDS ORDERED: CLINIMIX IVPB SCH (17:00)
[2021-06-09] MEDS: *HR* Rivaroxaban 10 MG TABLET PO SCH (17:25)
[2021-06-09] MEDS: Melatonin 3 MG TABLET PO PRN (20:37)
[2021-06-10] MEDS: Insulin LISPRO 300 UNITS/3 ML VIAL SUBQ SCH ×6 (00:37→21:38)
[2021-06-10] MEDS: *HR* OxyCODONE/APAP 5/325 TABLET PO PRN ×3 (06:05→21:39)
[2021-06-10 07:02] LABS: Alanine Aminotransferase 48 Units/L (7-52); Albumin 3.2 g/dL (3.5-5.7); Alkaline Phosphatase 203 Units/L (34-104); Aspartate Amino Transferase 28 Units/L (13-39); BUN/Creatinine Ratio 30 (6-26); Bilirubin,Total 0.6 mg/dL (0.3-1.0); Blood Urea Nitrogen 17 mg/dL (6-20); Calcium 8.8 mg/dL (8.6-10.3); Carbon Dioxide 24 mEq/L (23-29); Chloride 105 mEq/L (98-107); Globulin 3.1 g/dL (2.4-3.5); Glucose 106 mg/dL (70-105); Magnesium 1.7 mg/dL (1.6-2.6); Osmolality,Calculated 280 (280-300); Phosphorous 3.6 mg/dL (2.7-4.5); Potassium 4.1 mEq/L (3.5-5.1); Sodium 134 mEq/L (136-145); Total Protein 6.3 g/dL (6.4-8.9); eGFR For African Americans > 60 (> 60); eGFR For Non-African Americans > 60 (> 60)
[2021-06-10] MEDS: Loratadine 10 MG TABLET PO SCH (09:00)
[2021-06-10] MEDS: Cholecalciferol (D-3) 1,000 UNIT (25MCG) TABLET PO SCH (09:00)
[2021-06-10] MEDS: 0.9 % Sodium Chloride 1,000 ML IVC SCH ×2 (09:08→22:21)
[2021-06-10] MEDS ORDERED: Clinimix 5%-20% SOLUTION 2,000 ML with MVI, adult with vitamin K 10 ML, ZN/CU/MN/SE 1... IV SCH (17:00)
[2021-06-10] MEDS: *HR* Rivaroxaban 10 MG TABLET PO SCH (17:38)
[2021-06-10] MEDS: Acetaminophen 325 MG TABLET PO PRN (17:58)
[2021-06-10] MEDS: Melatonin 3 MG TABLET PO PRN (21:39)
[2021-06-11 00:54] VITALS: O2SAT 99
[2021-06-11] MEDS: Insulin LISPRO 300 UNITS/3 ML VIAL SUBQ SCH ×4 (00:57→11:39)
[2021-06-11] MEDS: *HR* OxyCODONE/APAP 5/325 TABLET PO PRN (04:22)
[2021-06-11] MEDS: Cholecalciferol (D-3) 1,000 UNIT (25MCG) TABLET PO SCH (07:57)
[2021-06-11] MEDS: Loratadine 10 MG TABLET PO SCH (07:58)
[2021-06-11 08:30] LABS: Alanine Aminotransferase 42 Units/L (7-52); Albumin 3.3 g/dL (3.5-5.7); Albumin/Globulin Ratio 1.1 (1.1-2.2); Alkaline Phosphatase 192 Units/L (34-104); Aspartate Amino Transferase 23 Units/L (13-39); BUN/Creatinine Ratio 28 (6-26); Bilirubin,Total 0.4 mg/dL (0.3-1.0); Blood Urea Nitrogen 16 mg/dL (6-20); Carbon Dioxide 25 mEq/L (23-29); Chloride 103 mEq/L (98-107); Globulin 3.1 g/dL (2.4-3.5); Glucose 97 mg/dL (70-105); Magnesium 1.8 mg/dL (1.6-2.6); Osmolality,Calculated 279 (280-300); Phosphorous 3.5 mg/dL (2.7-4.5); Potassium 3.7 mEq/L (3.5-5.1); Sodium 134 mEq/L (136-145); Total Protein 6.4 g/dL (6.4-8.9); eGFR For African Americans > 60 (> 60); eGFR For Non-African Americans > 60 (> 60)
[2021-06-11 11:27] VITALS: BP 108/74; PULSE 102; TEMP 98.7
[2021-06-11] MEDS: 0.9 % Sodium Chloride 1,000 ML IVC SCH (11:42)
== END 2021-06-11 13:06 | disposition left against medical advice (07) | DRG 721 ==
LOC: 2ANU → SUATTDRO 20:02
PROVIDERS: ADMIT Hospitalist; ATTEND Hospitalist

== ENCOUNTER 2021-07-18 14:28 | Inpatient (IN) ==
[2021-07-18 15:20] LABS: Basophils # 0.1 K/mcL (0.0-0.2); Basophils % 0.5 %; Eosinophils # 0.1 K/mcL (0.0-0.6); Eosinophils % 0.8 %; Hematocrit 42.3 % (37.5-50.1); Hemoglobin 14.5 g/dL (12.9-16.9); Immature Granulocytes % 0.5 % (0-4); Lymphocytes # 2.8 K/mcL (0.6-4.6); Lymphocytes % 30.2 %; Mean Corpuscular HGB Conc 34.3 g/dL (31.6-35.5); Mean Corpuscular Hemoglobin 28.3 pg (28.0-33.3); Mean Platelet Volume 9.4 fL (9.4-12.4); Monocytes % 11.1 %; Neutrophils # 5.2 K/mcL (1.6-8.9); Platelet Count 484 K/mcL (140-400); Red Blood Count 5.13 M/mcL (4.19-5.50); Red Cell Distribution Width 15.3 % (11.5-14.5); Segmented Neutrophils % 56.9 %; White Blood Count 9.2 K/mcL (4.3-11.1)
[2021-07-18 15:33] LABS: Mean Corpuscular Volume 82.5 fL (83.0-100.0)
[2021-07-18] MEDS ORDERED: Isovue-370 500 ML BOTTLE IVP ONE (15:45)
[2021-07-18 15:47] LABS: Albumin 4.3 g/dL (3.5-5.7); Albumin/Globulin Ratio 0.8 (1.1-2.2); Bilirubin,Direct 0.2 mg/dL (0.0-0.2); Bilirubin,Indirect 0.6 mg/dL (0.0-1.0); Bilirubin,Total 0.8 mg/dL (0.3-1.0); Globulin 5.3 g/dL (2.4-3.5); Total Protein 9.6 g/dL (6.4-8.9)
[2021-07-18 15:53] LABS: Calcium 10.2 mg/dL (8.6-10.3); Potassium 3.4 mEq/L (3.5-5.1); Troponin I 0.06 ng/mL (< 0.04)
[2021-07-18] MEDS: 0.9 % Sodium Chloride 1,000 ML IVC SCH ×2 (16:27→20:09)
[2021-07-18] MEDS ORDERED: *HR* Heparin 5,000 UNIT/ML VIAL IVP ONE (17:16)
[2021-07-18] MEDS ORDERED: *HR* Heparin 5,000 UNIT/ML VIAL IVP PRN (17:16)
[2021-07-18] MEDS ORDERED: Heparin 25,000UNIT/250ML 1/2NS 25,000 UNIT/250 ML IV.SOLN IVC SCH (17:30)
[2021-07-18 17:55] LABS: Heparin anti-factor XA UFH < 0.04 IU/mL (0.30-0.70)
[2021-07-18 17:56] LABS: INR 1.1; Prothrombin Time 12.1 Seconds (9.4-12.1)
[2021-07-18 17:58] LABS: Activated Partial Thrombo Time 33.8 Seconds (26.0-36.0)
[2021-07-18 18:12] LABS: Bilirubin,Urine Negative (Negative); Blood,Urine Negative (Negative); Clarity,Urine Turbid (Clear); Color,Urine Yellow (Yellow); Glucose,Urine (UA) Normal (Normal); Hyaline Casts,Urine Many per lpf (None Seen); Ketones,Urine Negative (Negative); Leukocyte Esterase,Urine Negative (Negative); Mucus,Urine Few per lpf (None-Few); Nitrite,Urine Negative (Negative); PH,Urine 5.5 pH Units (5.0-8.0); Protein,Urine 50 mg/dL (Neg-Trace); RBC,Urine 0-3 per hpf (0-3); Specific Gravity,Urine 1.023 (1.010-1.025); Squamous Epithelial Cell,Urine Few per hpf (None-Few); Urobilinogen,Urine Normal (Normal)
[2021-07-18 19:33] LABS: Creatinine,Urine 237 mg/dL; Sodium, Urine < 10.0 mEq/L
[2021-07-18] MEDS: Heparin 25,000UNIT/250ML 1/2NS 25,000 UNIT/250 ML IV.SOLN IVC SCH (20:53)
[2021-07-18] MEDS ORDERED: Ondansetron 4 MG/2 ML VIAL IVP PRN (21:17)
[2021-07-18] MEDS ORDERED: Naloxone 0.4 MG/ML INJ IVP PRN (21:17)
[2021-07-18] MEDS ORDERED: *HR* Labetalol 20 MG/4 ML SYRINGE IVP PRN (21:21)
[2021-07-18] MEDS ORDERED: Nitroglycerin 0.4 MG TAB.SUBL SL PRN (22:16)
[2021-07-18] MEDS ORDERED: Aspirin 325 MG TABLET PO ONE (22:20)
[2021-07-18] MEDS ORDERED: *HR* Warfarin 5 MG TABLET PO ONE (22:45)
[2021-07-19 02:29] LABS: INR 1.2
[2021-07-19 02:32] LABS: Activated Partial Thrombo Time 42.1 Seconds (26.0-36.0)
[2021-07-19 02:55] LABS: Basophils # 0.1 K/mcL (0.0-0.2); Basophils % 1.3 %; Eosinophils # 0.3 K/mcL (0.0-0.6); Eosinophils % 3.4 %; Hematocrit 33.2 % (37.5-50.1); Immature Granulocytes % 0.5 % (0-4); Lymphocytes # 4.1 K/mcL (0.6-4.6); Lymphocytes % 47.3 %; Mean Corpuscular HGB Conc 34.6 g/dL (31.6-35.5); Mean Corpuscular Hemoglobin 28.3 pg (28.0-33.3); Mean Corpuscular Volume 81.6 fL (83.0-100.0); Mean Platelet Volume 9.7 fL (9.4-12.4); Monocytes # 1.1 K/mcL (0.0-1.3); Neutrophils # 3.1 K/mcL (1.6-8.9); Platelet Count 459 K/mcL (140-400); Red Blood Count 4.07 M/mcL (4.19-5.50); Red Cell Distribution Width 15.4 % (11.5-14.5); Segmented Neutrophils % 35.5 %; White Blood Count 8.8 K/mcL (4.3-11.1)
[2021-07-19] MEDS: *HR* Heparin 5,000 UNIT/ML VIAL IVP PRN ×2 (02:56→18:55)
[2021-07-19 02:57] LABS: Hemoglobin 11.5 g/dL (12.9-16.9)
[2021-07-19 03:29] LABS: Magnesium 1.5 mg/dL (1.6-2.6); Phosphorous 4.3 mg/dL (2.7-4.5); Uric Acid 11.6 mg/dL (2.3-7.6)
[2021-07-19] MEDS: Ringers Solution, Lactated 1,000 ML IVC SCH ×2 (08:22→17:56)
[2021-07-19] MEDS: Cholecalciferol (D-3) 1,000 UNIT (25MCG) TABLET PO SCH (08:22)
[2021-07-19 09:33] LABS: Calcium 9.4 mg/dL (8.6-10.3); Potassium 3.2 mEq/L (3.5-5.1)
[2021-07-19] MEDS ORDERED: Potassium Chloride Elixir 20 MEQ/15 ML UDC PO ONE (12:01)
[2021-07-19] MEDS ORDERED: D10% in Water 500 ML IVC PRN (13:00)
[2021-07-19] MEDS ORDERED: Clinimix E 5%-15% SOLUTION 2,000 ML with MVI, adult with vitamin K 10 ML IVC SCH (17:00)
[2021-07-19] MEDS ORDERED: Warfarin perPT PO PRN (18:00)
[2021-07-19] MEDS ORDERED: *HR* Warfarin 10 MG TABLET PO ONE (18:00)
[2021-07-19] MEDS: Heparin 25,000UNIT/250ML 1/2NS 25,000 UNIT/250 ML IV.SOLN IVC SCH (18:08)
[2021-07-19] MEDS: Melatonin 3 MG TABLET PO SCH (19:58)
[2021-07-20 02:54] LABS: INR 2.1; Prothrombin Time 22.8 Seconds (9.4-12.1)
[2021-07-20 02:55] LABS: Activated Partial Thrombo Time 104.7 Seconds (26.0-36.0)
[2021-07-20] MEDS: Ringers Solution, Lactated 1,000 ML IVC SCH (03:08)
[2021-07-20] MEDS: Pregabalin 75 MG CAPSULE PO SCH ×3 (04:56→20:28)
[2021-07-20 05:11] LABS: Alanine Aminotransferase 17 Units/L (7-52); Albumin 3.1 g/dL (3.5-5.7); Alkaline Phosphatase 225 Units/L (34-104); Aspartate Amino Transferase 17 Units/L (13-39); BUN/Creatinine Ratio 25 (6-26); Bilirubin,Total 0.6 mg/dL (0.3-1.0); Blood Urea Nitrogen 23 mg/dL (6-20); Calcium 8.3 mg/dL (8.6-10.3); Carbon Dioxide 31 mEq/L (23-29); Chloride 88 mEq/L (98-107); Globulin 3.2 g/dL (2.4-3.5); Glucose 105 mg/dL (70-105); Osmolality,Calculated 260 (280-300); Phosphorous 1.8 mg/dL (2.7-4.5); Potassium 3.1 mEq/L (3.5-5.1); Sodium 123 mEq/L (136-145); Total Protein 6.3 g/dL (6.4-8.9); eGFR For African Americans > 60 (> 60); eGFR For Non-African Americans > 60 (> 60)
[2021-07-20] MEDS ORDERED: Potassium Chloride Elixir 20 MEQ/15 ML UDC PO ONE (07:31)
[2021-07-20] MEDS ORDERED: Potassium Phosphate 44 MEQ in 0.9 % Sodium Chloride 250 ML IVPB ONE (07:31)
[2021-07-20] MEDS ORDERED: Ringers Solution, Lactated 1,000 ML IVC SCH (07:45)
[2021-07-20] MEDS: Cholecalciferol (D-3) 1,000 UNIT (25MCG) TABLET PO SCH (09:48)
[2021-07-20] MEDS: Diphenoxylate/Atropine 1 TAB TABLET PO PRN (09:49)
[2021-07-20] MEDS ORDERED: 0.9 % Sodium Chloride 1,000 ML IVC SCH (10:00)
[2021-07-20] MEDS: 0.9 % Sodium Chloride 1,000 ML IVC SCH ×2 (10:31→16:14)
[2021-07-20] MEDS: *HR* HYDROcodone/Acet 5/325 mg TABLET PO PRN ×3 (12:45→23:18)
[2021-07-20] MEDS ORDERED: Clinimix E 5%-15% SOLUTION 2,000 ML IVC SCH ×2 (17:00)
[2021-07-20] MEDS: Heparin 25,000UNIT/250ML 1/2NS 25,000 UNIT/250 ML IV.SOLN IVC SCH (17:57)
[2021-07-20] MEDS: Famotidine 20 MG TABLET PO SCH (20:28)
[2021-07-20] MEDS: Melatonin 3 MG TABLET PO SCH (20:29)
[2021-07-21] MEDS: 0.9 % Sodium Chloride 1,000 ML IVC SCH ×4 (02:39→19:56)
[2021-07-21 04:47] LABS: INR 1.9; Prothrombin Time 21.1 Seconds (9.4-12.1)
[2021-07-21 04:57] LABS: Alanine Aminotransferase 15 Units/L (7-52); Albumin/Globulin Ratio 0.9 (1.1-2.2); Alkaline Phosphatase 188 Units/L (34-104); Aspartate Amino Transferase 15 Units/L (13-39); BUN/Creatinine Ratio 19 (6-26); Bilirubin,Total 0.5 mg/dL (0.3-1.0); Blood Urea Nitrogen 14 mg/dL (6-20); Calcium 8.3 mg/dL (8.6-10.3); Carbon Dioxide 34 mEq/L (23-29); Chloride 92 mEq/L (98-107); Globulin 3.5 g/dL (2.4-3.5); Glucose 124 mg/dL (70-105); Magnesium 1.9 mg/dL (1.6-2.6); Osmolality,Calculated 274 (280-300); Phosphorous 2.8 mg/dL (2.7-4.5); Potassium 2.6 mEq/L (3.5-5.1); Sodium 131 mEq/L (136-145); Total Protein 6.5 g/dL (6.4-8.9); eGFR For African Americans > 60 (> 60); eGFR For Non-African Americans > 60 (> 60)
[2021-07-21] MEDS: Cholecalciferol (D-3) 1,000 UNIT (25MCG) TABLET PO SCH (08:15)
[2021-07-21] MEDS: Diphenoxylate/Atropine 1 TAB TABLET PO PRN (08:15)
[2021-07-21] MEDS: *HR* HYDROcodone/Acet 5/325 mg TABLET PO PRN ×2 (08:15→15:43)
[2021-07-21] MEDS: Pregabalin 75 MG CAPSULE PO SCH ×3 (08:15→19:52)
[2021-07-21] MEDS: Famotidine 20 MG TABLET PO SCH ×2 (08:15→19:53)
[2021-07-21] MEDS: Potassium Chloride Elixir 20 MEQ/15 ML UDC PO SCH ×3 (08:15→15:43)
[2021-07-21] MEDS ORDERED: Potassium Phosphate 44 MEQ in 0.9 % Sodium Chloride 250 ML IVPB ONE (11:00)
[2021-07-21] MEDS ORDERED: Warfarin perPT PO PRN (15:34)
[2021-07-21] MEDS ORDERED: Clinimix E 5%-15% SOLUTION 2,000 ML IVC SCH ×2 (17:00)
[2021-07-21] MEDS ORDERED: *HR* Warfarin 5 MG TABLET PO ONE (18:00)
[2021-07-21] MEDS: Melatonin 3 MG TABLET PO SCH (19:52)
[2021-07-22] MEDS: *HR* HYDROcodone/Acet 5/325 mg TABLET PO PRN ×4 (02:51→19:31)
[2021-07-22 05:04] LABS: INR 1.7; Prothrombin Time 19.4 Seconds (9.4-12.1)
[2021-07-22 05:15] LABS: Alanine Aminotransferase 27 Units/L (7-52); Albumin 3.3 g/dL (3.5-5.7); Albumin/Globulin Ratio 0.8 (1.1-2.2); Alkaline Phosphatase 224 Units/L (34-104); Aspartate Amino Transferase 26 Units/L (13-39); BUN/Creatinine Ratio 17 (6-26); Bilirubin,Total 0.5 mg/dL (0.3-1.0); Blood Urea Nitrogen 13 mg/dL (6-20); Calcium 8.9 mg/dL (8.6-10.3); Carbon Dioxide 36 mEq/L (23-29); Chloride 91 mEq/L (98-107); Glucose 120 mg/dL (70-105); Magnesium 1.9 mg/dL (1.6-2.6); Osmolality,Calculated 279 (280-300); Phosphorous 3.2 mg/dL (2.7-4.5); Potassium 2.8 mEq/L (3.5-5.1); Sodium 134 mEq/L (136-145); Total Protein 7.3 g/dL (6.4-8.9); eGFR For African Americans > 60 (> 60); eGFR For Non-African Americans > 60 (> 60)
[2021-07-22] MEDS: Pregabalin 75 MG CAPSULE PO SCH ×3 (07:22→19:30)
[2021-07-22] MEDS: Famotidine 20 MG TABLET PO SCH ×2 (07:22→19:30)
[2021-07-22] MEDS: Cholecalciferol (D-3) 1,000 UNIT (25MCG) TABLET PO SCH (07:22)
[2021-07-22] MEDS: 0.9 % Sodium Chloride 1,000 ML IVC SCH (07:23)
[2021-07-22] MEDS ORDERED: Clinimix E 5%-15% SOLUTION 2,000 ML with MVI, adult with vitamin K 10 ML IVC SCH (17:00)
[2021-07-22] MEDS ORDERED: *HR* Warfarin 5 MG TABLET PO ONE (18:00)
[2021-07-22] MEDS: Melatonin 3 MG TABLET PO SCH (19:31)
[2021-07-23] MEDS: *HR* HYDROcodone/Acet 5/325 mg TABLET PO PRN ×4 (05:09→20:02)
[2021-07-23 05:55] LABS: INR 1.8; Prothrombin Time 19.5 Seconds (9.4-12.1)
[2021-07-23 06:03] LABS: BUN/Creatinine Ratio 22 (6-26); Blood Urea Nitrogen 15 mg/dL (6-20); Calcium 8.7 mg/dL (8.6-10.3); Carbon Dioxide 27 mEq/L (23-29); Chloride 98 mEq/L (98-107); Glucose 102 mg/dL (70-105); Osmolality,Calculated 273 (280-300); Potassium 3.3 mEq/L (3.5-5.1); Sodium 131 mEq/L (136-145); eGFR For African Americans > 60 (> 60); eGFR For Non-African Americans > 60 (> 60)
[2021-07-23 06:18] LABS: Hemoglobin 10.5 g/dL (12.9-16.9); Mean Corpuscular HGB Conc 31.8 g/dL (31.6-35.5); Mean Corpuscular Hemoglobin 28.2 pg (28.0-33.3); Mean Platelet Volume 9.9 fL (9.4-12.4); Red Blood Count 3.72 M/mcL (4.19-5.50); Red Cell Distribution Width 15.4 % (11.5-14.5); White Blood Count 5.7 K/mcL (4.3-11.1)
[2021-07-23 06:19] LABS: Mean Corpuscular Volume 88.7 fL (83.0-100.0); Platelet Count 173 K/mcL (140-400)
[2021-07-23] MEDS: Cholecalciferol (D-3) 1,000 UNIT (25MCG) TABLET PO SCH (08:34)
[2021-07-23] MEDS: Pregabalin 75 MG CAPSULE PO SCH ×3 (08:34→20:03)
[2021-07-23] MEDS: Famotidine 20 MG TABLET PO SCH ×2 (08:34→20:03)
[2021-07-23 10:08] LABS: Magnesium 1.7 mg/dL (1.6-2.6); Phosphorous 2.9 mg/dL (2.7-4.5)
[2021-07-23 10:10] LABS: Alanine Aminotransferase 56 Units/L (7-52); Albumin 3.4 g/dL (3.5-5.7); Albumin/Globulin Ratio 0.9 (1.1-2.2); Alkaline Phosphatase 256 Units/L (34-104); Aspartate Amino Transferase 46 Units/L (13-39); BUN/Creatinine Ratio 24 (6-26); Bilirubin,Total 0.5 mg/dL (0.3-1.0); Blood Urea Nitrogen 16 mg/dL (6-20); Calcium 8.8 mg/dL (8.6-10.3); Carbon Dioxide 26 mEq/L (23-29); Chloride 98 mEq/L (98-107); Globulin 3.8 g/dL (2.4-3.5); Glucose 119 mg/dL (70-105); Osmolality,Calculated 272 (280-300); Potassium 3.6 mEq/L (3.5-5.1); Sodium 130 mEq/L (136-145); Total Protein 7.2 g/dL (6.4-8.9); eGFR For African Americans > 60 (> 60); eGFR For Non-African Americans > 60 (> 60)
[2021-07-23] MEDS ORDERED: Potassium Chloride Elixir 20 MEQ/15 ML UDC PO ONE (10:25)
[2021-07-23] MEDS ORDERED: Clinimix E 5%-20% SOLUTION 2,000 ML with MVI, adult with vitamin K 10 ML, ZN/CU/MN/SE... IVC SCH (17:00)
[2021-07-23] MEDS ORDERED: *HR* Warfarin 5 MG TABLET PO ONE (18:00)
[2021-07-23] MEDS: Melatonin 3 MG TABLET PO SCH (20:02)
[2021-07-24] MEDS: *HR* HYDROcodone/Acet 5/325 mg TABLET PO PRN ×4 (03:42→21:16)
[2021-07-24 04:09] LABS: Alanine Aminotransferase 45 Units/L (7-52); Albumin 3.4 g/dL (3.5-5.7); Albumin/Globulin Ratio 0.9 (1.1-2.2); Alkaline Phosphatase 231 Units/L (34-104); Aspartate Amino Transferase 24 Units/L (13-39); BUN/Creatinine Ratio 37 (6-26); Bilirubin,Total 0.5 mg/dL (0.3-1.0); Blood Urea Nitrogen 26 mg/dL (6-20); Calcium 9.3 mg/dL (8.6-10.3); Carbon Dioxide 28 mEq/L (23-29); Chloride 95 mEq/L (98-107); Glucose 103 mg/dL (70-105); Magnesium 1.7 mg/dL (1.6-2.6); Osmolality,Calculated 275 (280-300); Phosphorous 2.6 mg/dL (2.7-4.5); Potassium 3.4 mEq/L (3.5-5.1); Sodium 130 mEq/L (136-145); Total Protein 7.4 g/dL (6.4-8.9); eGFR For African Americans > 60 (> 60); eGFR For Non-African Americans > 60 (> 60)
[2021-07-24 04:16] LABS: INR 1.3; Prothrombin Time 14.6 Seconds (9.4-12.1)
[2021-07-24] MEDS: Famotidine 20 MG TABLET PO SCH ×2 (08:33→21:16)
[2021-07-24] MEDS: Cholecalciferol (D-3) 1,000 UNIT (25MCG) TABLET PO SCH (08:33)
[2021-07-24] MEDS: Pregabalin 75 MG CAPSULE PO SCH ×3 (08:33→21:16)
[2021-07-24] MEDS ORDERED: Potassium Phosphate 44 MEQ in 0.9 % Sodium Chloride 250 ML IVPB ONE (15:31)
[2021-07-24] MEDS ORDERED: Clinimix E 5%-20% SOLUTION 2,000 ML with MVI, adult with vitamin K 10 ML, ZN/CU/MN/SE... IVC SCH (17:00)
[2021-07-24] MEDS ORDERED: *HR* Warfarin 7.5 MG TABLET PO ONE (18:00)
[2021-07-24] MEDS: Melatonin 3 MG TABLET PO SCH (21:16)
[2021-07-25 03:54] LABS: INR 1.3; Prothrombin Time 14.1 Seconds (9.4-12.1)
[2021-07-25 04:06] LABS: BUN/Creatinine Ratio 42 (6-26); Blood Urea Nitrogen 30 mg/dL (6-20); Calcium 9.2 mg/dL (8.6-10.3); Carbon Dioxide 29 mEq/L (23-29); Chloride 93 mEq/L (98-107); Glucose 105 mg/dL (70-105); Magnesium 1.7 mg/dL (1.6-2.6); Osmolality,Calculated 279 (280-300); Phosphorous 3.3 mg/dL (2.7-4.5); Potassium 2.9 mEq/L (3.5-5.1); Sodium 131 mEq/L (136-145); eGFR For African Americans > 60 (> 60); eGFR For Non-African Americans > 60 (> 60)
[2021-07-25] MEDS: Pregabalin 75 MG CAPSULE PO SCH ×3 (08:17→20:47)
[2021-07-25] MEDS: Cholecalciferol (D-3) 1,000 UNIT (25MCG) TABLET PO SCH (08:17)
[2021-07-25] MEDS: Famotidine 20 MG TABLET PO SCH ×2 (08:17→20:47)
[2021-07-25] MEDS: *HR* HYDROcodone/Acet 5/325 mg TABLET PO PRN ×3 (08:22→18:45)
[2021-07-25] MEDS ORDERED: *HR* Enoxaparin 60 MG/0.6 ML SYRINGE SQ SCH (10:00)
[2021-07-25] MEDS ORDERED: Clinimix 5%-20% SOLUTION 2,000 ML with MVI, adult with vitamin K 10 ML, ZN/CU/MN/SE 1... IV SCH (17:00)
[2021-07-25] MEDS ORDERED: *HR* Warfarin 10 MG TABLET PO ONE (18:00)
[2021-07-25] MEDS: Melatonin 3 MG TABLET PO SCH (20:47)
[2021-07-26 04:28] LABS: INR 1.7; Prothrombin Time 18.4 Seconds (9.4-12.1)
[2021-07-26 04:41] LABS: Magnesium 1.8 mg/dL (1.6-2.6); Phosphorous 3.6 mg/dL (2.7-4.5)
[2021-07-26 04:52] LABS: BUN/Creatinine Ratio 49 (6-26); Blood Urea Nitrogen 33 mg/dL (6-20); Carbon Dioxide 31 mEq/L (23-29); Chloride 89 mEq/L (98-107); Glucose 59 mg/dL (70-105); Osmolality,Calculated 267 (280-300); Potassium 3.8 mEq/L (3.5-5.1); Sodium 126 mEq/L (136-145); eGFR For African Americans > 60 (> 60); eGFR For Non-African Americans > 60 (> 60)
[2021-07-26] MEDS: *HR* Enoxaparin 60 MG/0.6 ML SYRINGE SQ SCH ×3 (07:08→20:12)
[2021-07-26] MEDS: Pregabalin 75 MG CAPSULE PO SCH ×3 (10:04→20:13)
[2021-07-26] MEDS: Cholecalciferol (D-3) 1,000 UNIT (25MCG) TABLET PO SCH (10:04)
[2021-07-26] MEDS: Famotidine 20 MG TABLET PO SCH ×2 (10:04→20:12)
[2021-07-26] MEDS: *HR* HYDROcodone/Acet 5/325 mg TABLET PO PRN ×3 (10:07→20:12)
[2021-07-26] MEDS ORDERED: Clinimix 5%-20% SOLUTION 2,000 ML with MVI, adult with vitamin K 10 ML, Sodium Phosph... IV SCH (17:00)
[2021-07-26] MEDS ORDERED: *HR* Warfarin 7.5 MG TABLET PO ONE (18:00)
[2021-07-26] MEDS: Melatonin 3 MG TABLET PO SCH (20:13)
[2021-07-27] MEDS: *HR* HYDROcodone/Acet 5/325 mg TABLET PO PRN ×2 (05:32→20:28)
[2021-07-27 06:20] LABS: BUN/Creatinine Ratio 52 (6-26); Blood Urea Nitrogen 33 mg/dL (6-20); Calcium 8.8 mg/dL (8.6-10.3); Carbon Dioxide 25 mEq/L (23-29); Chloride 93 mEq/L (98-107); Glucose 107 mg/dL (70-105); Magnesium 1.7 mg/dL (1.6-2.6); Osmolality,Calculated 268 (280-300); Phosphorous 2.8 mg/dL (2.7-4.5); Potassium 3.5 mEq/L (3.5-5.1); Sodium 125 mEq/L (136-145); Triglycerides 342 mg/dL (< 150); eGFR For African Americans > 60 (> 60); eGFR For Non-African Americans > 60 (> 60)
[2021-07-27 07:01] LABS: INR 2.9; Prothrombin Time 31.7 Seconds (9.4-12.1)
[2021-07-27] MEDS: Cholecalciferol (D-3) 1,000 UNIT (25MCG) TABLET PO SCH (08:25)
[2021-07-27] MEDS: Famotidine 20 MG TABLET PO SCH ×2 (08:25→20:28)
[2021-07-27] MEDS: Pregabalin 75 MG CAPSULE PO SCH ×3 (08:25→20:29)
[2021-07-27] MEDS ORDERED: Potassium Chloride Elixir 20 MEQ/15 ML UDC PO ONE ×2 (09:49→11:15)
[2021-07-27] MEDS ORDERED: Clinimix 5%-20% SOLUTION 2,000 ML with MVI, adult with vitamin K 10 ML, Sodium Phosph... IV SCH (17:00)
[2021-07-27] MEDS: Melatonin 3 MG TABLET PO SCH (20:29)
[2021-07-28] MEDS: *HR* HYDROcodone/Acet 5/325 mg TABLET PO PRN ×3 (04:51→21:48)
[2021-07-28 05:22] LABS: INR 2.6
[2021-07-28 05:30] LABS: BUN/Creatinine Ratio 48 (6-26); Blood Urea Nitrogen 32 mg/dL (6-20); Carbon Dioxide 26 mEq/L (23-29); Chloride 93 mEq/L (98-107); Glucose 76 mg/dL (70-105); Magnesium 1.7 mg/dL (1.6-2.6); Osmolality,Calculated 266 (280-300); Phosphorous 3.4 mg/dL (2.7-4.5); Sodium 125 mEq/L (136-145); eGFR For African Americans > 60 (> 60); eGFR For Non-African Americans > 60 (> 60)
[2021-07-28] MEDS: Pregabalin 75 MG CAPSULE PO SCH ×3 (10:01→21:34)
[2021-07-28] MEDS: Famotidine 20 MG TABLET PO SCH ×2 (10:01→21:34)
[2021-07-28] MEDS: Cholecalciferol (D-3) 1,000 UNIT (25MCG) TABLET PO SCH (10:01)
[2021-07-28] MEDS ORDERED: Clinimix 5%-20% SOLUTION 2,000 ML with MVI, adult with vitamin K 10 ML, Sodium Phosph... IV SCH (17:00)
[2021-07-28] MEDS ORDERED: *HR* Warfarin 5 MG TABLET PO ONE (18:00)
[2021-07-28] MEDS: Melatonin 3 MG TABLET PO SCH (21:33)
[2021-07-29 03:58] LABS: INR 1.9; Prothrombin Time 20.9 Seconds (9.4-12.1)
[2021-07-29 04:10] LABS: BUN/Creatinine Ratio 45 (6-26); Blood Urea Nitrogen 29 mg/dL (6-20); Calcium 8.7 mg/dL (8.6-10.3); Carbon Dioxide 27 mEq/L (23-29); Chloride 92 mEq/L (98-107); Glucose 116 mg/dL (70-105); Osmolality,Calculated 267 (280-300); Potassium 3.8 mEq/L (3.5-5.1); Sodium 125 mEq/L (136-145); eGFR For African Americans > 60 (> 60); eGFR For Non-African Americans > 60 (> 60)
[2021-07-29 04:11] LABS: Magnesium 1.6 mg/dL (1.6-2.6)
[2021-07-29] MEDS: Cholecalciferol (D-3) 1,000 UNIT (25MCG) TABLET PO SCH (08:41)
[2021-07-29] MEDS: Pregabalin 75 MG CAPSULE PO SCH ×3 (08:41→20:05)
[2021-07-29] MEDS: Famotidine 20 MG TABLET PO SCH ×2 (08:42→20:05)
[2021-07-29] MEDS ORDERED: Clinimix 5%-20% SOLUTION 2,000 ML with MVI, adult with vitamin K 10 ML, ZN/CU/MN/SE 1... IVC SCH (17:00)
[2021-07-29] MEDS ORDERED: *HR* Warfarin 7.5 MG TABLET PO ONE (18:00)
[2021-07-29] MEDS: Melatonin 3 MG TABLET PO SCH (20:05)
[2021-07-29] MEDS: *HR* HYDROcodone/Acet 5/325 mg TABLET PO PRN (20:06)
[2021-07-30] MEDS: *HR* HYDROcodone/Acet 5/325 mg TABLET PO PRN ×3 (05:32→19:43)
[2021-07-30 05:58] LABS: INR 1.9; Prothrombin Time 21.1 Seconds (9.4-12.1)
[2021-07-30 06:18] LABS: Alanine Aminotransferase 79 Units/L (7-52); Albumin 3.3 g/dL (3.5-5.7); Albumin/Globulin Ratio 0.8 (1.1-2.2); Alkaline Phosphatase 354 Units/L (34-104); Aspartate Amino Transferase 53 Units/L (13-39); BUN/Creatinine Ratio 44 (6-26); Bilirubin,Total 0.6 mg/dL (0.3-1.0); Blood Urea Nitrogen 28 mg/dL (6-20); Calcium 8.8 mg/dL (8.6-10.3); Carbon Dioxide 26 mEq/L (23-29); Chloride 92 mEq/L (98-107); Globulin 3.9 g/dL (2.4-3.5); Glucose 105 mg/dL (70-105); Magnesium 1.8 mg/dL (1.6-2.6); Osmolality,Calculated 264 (280-300); Phosphorous 3.8 mg/dL (2.7-4.5); Potassium 4.3 mEq/L (3.5-5.1); Sodium 124 mEq/L (136-145); Total Protein 7.2 g/dL (6.4-8.9); eGFR For African Americans > 60 (> 60); eGFR For Non-African Americans > 60 (> 60)
[2021-07-30] MEDS: Famotidine 20 MG TABLET PO SCH ×2 (08:20→19:43)
[2021-07-30] MEDS: Pregabalin 75 MG CAPSULE PO SCH ×3 (08:20→19:43)
[2021-07-30] MEDS: Cholecalciferol (D-3) 1,000 UNIT (25MCG) TABLET PO SCH (08:20)
[2021-07-30] MEDS ORDERED: Clinimix 5%-20% SOLUTION 2,000 ML with MVI, adult with vitamin K 10 ML, ZN/CU/MN/SE 1... IV SCH (17:00)
[2021-07-30] MEDS ORDERED: *HR* Warfarin 7.5 MG TABLET PO ONE (18:00)
[2021-07-30] MEDS: Melatonin 3 MG TABLET PO SCH (19:43)
[2021-07-31 03:01] LABS: INR 2.3
[2021-07-31 03:31] LABS: Magnesium 1.7 mg/dL (1.6-2.6); Phosphorous 3.8 mg/dL (2.7-4.5)
[2021-07-31] MEDS: Cholecalciferol (D-3) 1,000 UNIT (25MCG) TABLET PO SCH (08:45)
[2021-07-31] MEDS: Pregabalin 75 MG CAPSULE PO SCH ×3 (08:45→20:13)
[2021-07-31] MEDS: Famotidine 20 MG TABLET PO SCH ×2 (08:45→20:13)
[2021-07-31 09:26] LABS: Alanine Aminotransferase 101 Units/L (7-52); Albumin 3.6 g/dL (3.5-5.7); Albumin/Globulin Ratio 0.8 (1.1-2.2); Alkaline Phosphatase 426 Units/L (34-104); Aspartate Amino Transferase 67 Units/L (13-39); BUN/Creatinine Ratio 38 (6-26); Blood Urea Nitrogen 26 mg/dL (6-20); Calcium 9.2 mg/dL (8.6-10.3); Carbon Dioxide 27 mEq/L (23-29); Chloride 91 mEq/L (98-107); Globulin 4.8 g/dL (2.4-3.5); Glucose 117 mg/dL (70-105); Osmolality,Calculated 262 (280-300); Potassium 4.2 mEq/L (3.5-5.1); Sodium 123 mEq/L (136-145); Total Protein 8.4 g/dL (6.4-8.9); eGFR For African Americans > 60 (> 60); eGFR For Non-African Americans > 60 (> 60)
[2021-07-31] MEDS ORDERED: 0.9 % Sodium Chloride 1,000 ML IVC SCH ×2 (14:15→15:30)
[2021-07-31] MEDS: *HR* HYDROcodone/Acet 5/325 mg TABLET PO PRN ×2 (14:22→20:12)
[2021-07-31 16:45] LABS: Adenovirus Not Detected (Not Detect); Bordetella Pertussis Not Detected (Not Detect); Chlamydophila pneumoniae Not Detected (Not Detect); Coronavirus 229E Not Detected (Not Detect); Coronavirus HKU1 Not Detected (Not Detect); Coronavirus NL63 Not Detected (Not Detect); Coronavirus OC43 Not Detected (Not Detect); Human Metapneumovirus Not Detected (Not Detect); Human Rhinovirus/Enterovirus DETECTED (Not Detect); Influenza A Subtype 2009 H1 Not Detected (Not Detect); Influenza B Not Detected (Not Detect); Mycoplasma pneumoniae Not Detected (Not Detect); Parainfluenza Virus 1 Not Detected (Not Detect); Parainfluenza Virus 2 Not Detected (Not Detect); Parainfluenza Virus 3 Not Detected (Not Detect); Parainfluenza Virus 4 Not Detected (Not Detect); Respiratory Syncytial Virus Not Detected (Not Detect); SARS-CoV-2 Not Detected (Not Detect)
[2021-07-31] MEDS ORDERED: Clinimix 5%-20% SOLUTION 2,000 ML with MVI, adult with vitamin K 10 ML, Sodium Phosph... IV SCH (17:00)
[2021-07-31] MEDS ORDERED: *HR* Warfarin 7.5 MG TABLET PO ONE (18:00)
[2021-07-31] MEDS: Melatonin 3 MG TABLET PO SCH (20:12)
[2021-08-01] MEDS ORDERED: 0.9 % Sodium Chloride 1,000 ML IVC SCH (05:00)
[2021-08-01 05:20] LABS: BUN/Creatinine Ratio 38 (6-26); Blood Urea Nitrogen 23 mg/dL (6-20); Calcium 8.8 mg/dL (8.6-10.3); Carbon Dioxide 23 mEq/L (23-29); Chloride 99 mEq/L (98-107); Glucose 107 mg/dL (70-105); Magnesium 1.7 mg/dL (1.6-2.6); Osmolality,Calculated 270 (280-300); Phosphorous 3.1 mg/dL (2.7-4.5); Potassium 4.6 mEq/L (3.5-5.1); Sodium 128 mEq/L (136-145); eGFR For African Americans > 60 (> 60); eGFR For Non-African Americans > 60 (> 60)
[2021-08-01 05:30] LABS: INR 3.1
[2021-08-01] MEDS: Cholecalciferol (D-3) 1,000 UNIT (25MCG) TABLET PO SCH (09:48)
[2021-08-01] MEDS: Pregabalin 75 MG CAPSULE PO SCH (09:48)
[2021-08-01] MEDS: Famotidine 20 MG TABLET PO SCH (09:49)
[2021-08-01 11:26] VITALS: BP 138/74; PULSE 76; TEMP 98; O2SAT 98
[2021-08-01] MEDS ORDERED: *HR* Warfarin 2.5 MG TABLET PO ONE (18:00)
== END 2021-08-01 13:06 | DRG 197 ==
LOC: EMEROOARM 14:28 → 2ANU 14:28 → SUATTDRO 20:28
PROVIDERS: ADMIT Internal Medicine; ATTEND Internal Medicine

== ENCOUNTER 2021-08-18 00:23 | Inpatient (IN) ==
[2021-08-18] MEDS ORDERED: *HR* HYDROcodone/Acet 5/325 mg TABLET PO PRN (03:33)
[2021-08-18] MEDS ORDERED: Acetaminophen 325 MG TABLET PO PRN (03:33)
[2021-08-18] MEDS ORDERED: Naloxone 0.4 MG/ML INJ IVP PRN (03:33)
[2021-08-18] MEDS ORDERED: Ondansetron 4 MG/2 ML VIAL IVP PRN (03:33)
[2021-08-18] MEDS ORDERED: Dextrose Gel 15 GM/37.5 ML TUBE PO PRN ×2 (03:37)
[2021-08-18] MEDS ORDERED: *HR* Dextrose 50 % in Water (Syg) 50 ML SYRINGE IVP PRN (03:37)
[2021-08-18] MEDS ORDERED: D5% in Water 1,000 ML IVC PRN (03:37)
[2021-08-18] MEDS: *HR* OxyCODONE Immed Rel 5 MG TABLET PO PRN ×2 (04:19→15:06)
[2021-08-18] MEDS: 0.9 % Sodium Chloride 1,000 ML IVC SCH (04:19)
[2021-08-18 06:39] LABS: Basophils # 0.1 K/mcL (0.0-0.2); Basophils % 1.1 %; Eosinophils # 0.1 K/mcL (0.0-0.6); Eosinophils % 2.1 %; Hematocrit 36.4 % (37.5-50.1); Hemoglobin 12.6 g/dL (12.9-16.9); Immature Granulocytes % 0.5 % (0-4); Lymphocytes # 1.4 K/mcL (0.6-4.6); Lymphocytes % 22.2 %; Mean Corpuscular HGB Conc 34.6 g/dL (31.6-35.5); Mean Corpuscular Hemoglobin 28.4 pg (28.0-33.3); Mean Platelet Volume 9.4 fL (9.4-12.4); Monocytes # 0.6 K/mcL (0.0-1.3); Monocytes % 8.9 %; Neutrophils # 4.1 K/mcL (1.6-8.9); Platelet Count 313 K/mcL (140-400); Red Blood Count 4.44 M/mcL (4.19-5.50); Red Cell Distribution Width 15.6 % (11.5-14.5); Segmented Neutrophils % 65.2 %; White Blood Count 6.3 K/mcL (4.3-11.1)
[2021-08-18 07:02] LABS: Alanine Aminotransferase 25 Units/L (7-52); Albumin 3.8 g/dL (3.5-5.7); Alkaline Phosphatase 273 Units/L (34-104); Aspartate Amino Transferase 16 Units/L (13-39); BUN/Creatinine Ratio 50 (6-26); Bilirubin,Total 1.2 mg/dL (0.3-1.0); Blood Urea Nitrogen 55 mg/dL (6-20); Calcium 8.9 mg/dL (8.6-10.3); Carbon Dioxide 30 mEq/L (23-29); Chloride 80 mEq/L (98-107); Cholesterol 185 mg/dL (< 200); Globulin 3.8 g/dL (2.4-3.5); Glucose 81 mg/dL (70-105); HDL Cholesterol 31 mg/dL (40-59); LDL Cholesterol,Calculated 130 mg/dL (< 100); Magnesium 2.2 mg/dL (1.6-2.6); Osmolality,Calculated 264 (280-300); Potassium 2.8 mEq/L (3.5-5.1); Sodium 120 mEq/L (136-145); Total Protein 7.6 g/dL (6.4-8.9); Triglycerides 119 mg/dL (< 150); eGFR For African Americans > 60 (> 60); eGFR For Non-African Americans > 60 (> 60)
[2021-08-18] MEDS ORDERED: D10% in Water 500 ML IVC PRN (09:26)
[2021-08-18] MEDS: Insulin LISPRO 300 UNITS/3 ML VIAL SUBQ SCH ×2 (16:28→20:21)
[2021-08-18] MEDS ORDERED: Clinimix 5%-20% SOLUTION 2,000 ML with MVI, adult with vitamin K 10 ML, Sodium Phosph... IVC SCH (17:00)
[2021-08-18] MEDS: *HR* Rivaroxaban 10 MG TABLET PO SCH (17:25)
[2021-08-18 17:54] LABS: Basophils # 0.1 K/mcL (0.0-0.2); Basophils % 0.8 %; Eosinophils # 0.1 K/mcL (0.0-0.6); Eosinophils % 1.1 %; Hematocrit 39.5 % (37.5-50.1); Hemoglobin 13.6 g/dL (12.9-16.9); Immature Granulocytes % 0.5 % (0-4); Lymphocytes % 15.5 %; Mean Corpuscular HGB Conc 34.4 g/dL (31.6-35.5); Mean Corpuscular Hemoglobin 28.3 pg (28.0-33.3); Mean Corpuscular Volume 82.3 fL (83.0-100.0); Mean Platelet Volume 9.6 fL (9.4-12.4); Monocytes # 0.4 K/mcL (0.0-1.3); Monocytes % 6.5 %; Neutrophils # 5.1 K/mcL (1.6-8.9); Platelet Count 325 K/mcL (140-400); Red Cell Distribution Width 15.5 % (11.5-14.5); Segmented Neutrophils % 75.6 %; White Blood Count 6.7 K/mcL (4.3-11.1)
[2021-08-18 19:56] LABS: Bilirubin,Urine Negative (Negative); Blood,Urine Negative (Negative); Clarity,Urine Clear (Clear); Color,Urine Light-Yellow (Yellow); Glucose,Urine (UA) Normal (Normal); Ketones,Urine 10 mg/dL (Negative); Leukocyte Esterase,Urine Negative (Negative); Nitrite,Urine Negative (Negative); Protein,Urine Trace mg/dL (Neg-Trace); Specific Gravity,Urine 1.019 (1.010-1.025); Urobilinogen,Urine Normal (Normal)
[2021-08-18 20:09] LABS: Chloride,Urine < 15 mEq/L; Creatinine,Urine 84 mg/dL; Potassium,Urine 35.7 mEq/L; Sodium, Urine < 10.0 mEq/L
[2021-08-18] MEDS: Melatonin 3 MG TABLET PO SCH (20:20)
[2021-08-18 20:49] LABS: BUN/Creatinine Ratio 39 (6-26); Blood Urea Nitrogen 39 mg/dL (6-20); Calcium 9.1 mg/dL (8.6-10.3); Carbon Dioxide 32 mEq/L (23-29); Chloride 82 mEq/L (98-107); Glucose 208 mg/dL (70-105); Osmolality,Calculated 271 (280-300); Potassium 3.2 mEq/L (3.5-5.1); Sodium 123 mEq/L (136-145); eGFR For African Americans > 60 (> 60); eGFR For Non-African Americans > 60 (> 60)
[2021-08-19 00:19] LABS: Basophils % 0.7 %; Eosinophils % 0.7 %; Hematocrit 35.8 % (37.5-50.1); Immature Granulocytes % 0.4 % (0-4); Lymphocytes % 21.7 %; Mean Corpuscular HGB Conc 33.5 g/dL (31.6-35.5); Mean Corpuscular Hemoglobin 28.2 pg (28.0-33.3); Mean Corpuscular Volume 84.2 fL (83.0-100.0); Mean Platelet Volume 9.6 fL (9.4-12.4); Monocytes # 0.4 K/mcL (0.0-1.3); Monocytes % 8.8 %; Neutrophils # 3.1 K/mcL (1.6-8.9); Platelet Count 242 K/mcL (140-400); Red Blood Count 4.25 M/mcL (4.19-5.50); Red Cell Distribution Width 15.4 % (11.5-14.5); Segmented Neutrophils % 67.7 %; White Blood Count 4.5 K/mcL (4.3-11.1)
[2021-08-19 00:31] LABS: BUN/Creatinine Ratio 43 (6-26); Blood Urea Nitrogen 42 mg/dL (6-20); Calcium 8.9 mg/dL (8.6-10.3); Carbon Dioxide 31 mEq/L (23-29); Chloride 84 mEq/L (98-107); Glucose 190 mg/dL (70-105); Osmolality,Calculated 274 (280-300); Potassium 3.6 mEq/L (3.5-5.1); Sodium 124 mEq/L (136-145); eGFR For African Americans > 60 (> 60); eGFR For Non-African Americans > 60 (> 60)
[2021-08-19] MEDS: 0.9 % Sodium Chloride 1,000 ML IVC SCH (04:37)
[2021-08-19 05:20] LABS: BUN/Creatinine Ratio 44 (6-26); Blood Urea Nitrogen 40 mg/dL (6-20); Calcium 8.7 mg/dL (8.6-10.3); Carbon Dioxide 32 mEq/L (23-29); Chloride 86 mEq/L (98-107); Glucose 210 mg/dL (70-105); Osmolality,Calculated 272 (280-300); Potassium 3.5 mEq/L (3.5-5.1); Sodium 123 mEq/L (136-145); eGFR For African Americans > 60 (> 60); eGFR For Non-African Americans > 60 (> 60)
[2021-08-19] MEDS: Insulin LISPRO 300 UNITS/3 ML VIAL SUBQ SCH ×4 (07:38→20:29)
[2021-08-19] MEDS: *HR* OxyCODONE Immed Rel 5 MG TABLET PO PRN ×3 (08:06→23:26)
[2021-08-19 12:18] LABS: BUN/Creatinine Ratio 43 (6-26); Blood Urea Nitrogen 38 mg/dL (6-20); Calcium 8.9 mg/dL (8.6-10.3); Carbon Dioxide 27 mEq/L (23-29); Chloride 86 mEq/L (98-107); Glucose 165 mg/dL (70-105); Osmolality,Calculated 271 (280-300); Potassium 3.2 mEq/L (3.5-5.1); Sodium 124 mEq/L (136-145); eGFR For African Americans > 60 (> 60); eGFR For Non-African Americans > 60 (> 60)
[2021-08-19] MEDS ORDERED: Diphenoxylate/Atropine 1 TAB TABLET PO PRN (12:23)
[2021-08-19 12:45] LABS: BUN/Creatinine Ratio 41 (6-26); Blood Urea Nitrogen 31 mg/dL (6-20); Calcium 8.9 mg/dL (8.6-10.3); Carbon Dioxide 32 mEq/L (23-29); Chloride 83 mEq/L (98-107); Glucose 107 mg/dL (70-105); Osmolality,Calculated 261 (280-300); Potassium 3.1 mEq/L (3.5-5.1); Sodium 122 mEq/L (136-145); eGFR For African Americans > 60 (> 60); eGFR For Non-African Americans > 60 (> 60)
[2021-08-19] MEDS: Pregabalin 75 MG CAPSULE PO SCH ×2 (13:43→20:18)
[2021-08-19] MEDS: Clinimix 5%-20% SOLUTION 2,000 ML with MVI, adult with vitamin K 10 ML, Sodium Phosph... IVC SCH (16:57)
[2021-08-19] MEDS: *HR* Rivaroxaban 10 MG TABLET PO SCH (16:57)
[2021-08-19] MEDS ORDERED: Clinimix 5%-20% SOLUTION 2,000 ML with Amino Acids 10% 0 ML, MVI, adult with vitamin ... IVC SCH (17:00)
[2021-08-19 19:31] LABS: BUN/Creatinine Ratio 31 (6-26); Blood Urea Nitrogen 27 mg/dL (6-20); Calcium 9.7 mg/dL (8.6-10.3); Carbon Dioxide 37 mEq/L (23-29); Chloride 80 mEq/L (98-107); Glucose 114 mg/dL (70-105); Osmolality,Calculated 262 (280-300); Potassium 3.3 mEq/L (3.5-5.1); Sodium 123 mEq/L (136-145); eGFR For African Americans > 60 (> 60); eGFR For Non-African Americans > 60 (> 60)
[2021-08-19] MEDS: Famotidine 20 MG TABLET PO SCH (20:18)
[2021-08-19] MEDS: Melatonin 3 MG TABLET PO SCH (20:18)
[2021-08-20 03:22] LABS: BUN/Creatinine Ratio 36 (6-26); Blood Urea Nitrogen 31 mg/dL (6-20); Calcium 8.9 mg/dL (8.6-10.3); Carbon Dioxide 30 mEq/L (23-29); Chloride 85 mEq/L (98-107); Glucose 155 mg/dL (70-105); Osmolality,Calculated 264 (280-300); Potassium 3.3 mEq/L (3.5-5.1); Sodium 122 mEq/L (136-145); eGFR For African Americans > 60 (> 60); eGFR For Non-African Americans > 60 (> 60)
[2021-08-20] MEDS: *HR* OxyCODONE Immed Rel 5 MG TABLET PO PRN (06:30)
[2021-08-20 06:32] LABS: Basophils # 0.1 K/mcL (0.0-0.2); Basophils % 1.3 %; Eosinophils # 0.2 K/mcL (0.0-0.6); Eosinophils % 3.5 %; Hematocrit 35.2 % (37.5-50.1); Hemoglobin 11.9 g/dL (12.9-16.9); Immature Granulocytes % 0.4 % (0-4); Lymphocytes # 2.4 K/mcL (0.6-4.6); Lymphocytes % 43.6 %; Mean Corpuscular HGB Conc 33.8 g/dL (31.6-35.5); Mean Corpuscular Hemoglobin 28.7 pg (28.0-33.3); Mean Corpuscular Volume 84.8 fL (83.0-100.0); Mean Platelet Volume 10.3 fL (9.4-12.4); Monocytes # 0.4 K/mcL (0.0-1.3); Monocytes % 6.6 %; Neutrophils # 2.4 K/mcL (1.6-8.9); Platelet Count 174 K/mcL (140-400); Red Blood Count 4.15 M/mcL (4.19-5.50); Red Cell Distribution Width 15.4 % (11.5-14.5); Segmented Neutrophils % 44.6 %; White Blood Count 5.4 K/mcL (4.3-11.1)
[2021-08-20 06:51] LABS: BUN/Creatinine Ratio 43 (6-26); Blood Urea Nitrogen 34 mg/dL (6-20); Calcium 9.1 mg/dL (8.6-10.3); Carbon Dioxide 31 mEq/L (23-29); Chloride 86 mEq/L (98-107); Glucose 72 mg/dL (70-105); Osmolality,Calculated 260 (280-300); Potassium 3.6 mEq/L (3.5-5.1); Sodium 122 mEq/L (136-145); eGFR For African Americans > 60 (> 60); eGFR For Non-African Americans > 60 (> 60)
[2021-08-20 06:52] LABS: Alanine Aminotransferase 20 Units/L (7-52); Albumin 3.5 g/dL (3.5-5.7); Albumin/Globulin Ratio 0.9 (1.1-2.2); Alkaline Phosphatase 201 Units/L (34-104); Aspartate Amino Transferase 18 Units/L (13-39); BUN/Creatinine Ratio 42 (6-26); Bilirubin,Total 0.7 mg/dL (0.3-1.0); Blood Urea Nitrogen 34 mg/dL (6-20); Calcium 9.2 mg/dL (8.6-10.3); Carbon Dioxide 31 mEq/L (23-29); Chloride 85 mEq/L (98-107); Globulin 3.8 g/dL (2.4-3.5); Glucose 71 mg/dL (70-105); Osmolality,Calculated 260 (280-300); Potassium 3.6 mEq/L (3.5-5.1); Sodium 122 mEq/L (136-145); Total Protein 7.3 g/dL (6.4-8.9); eGFR For African Americans > 60 (> 60); eGFR For Non-African Americans > 60 (> 60)
[2021-08-20 07:19] LABS: Platelet Estimate Normal (Normal); Reactive Lymphocytes Present (Not Present)
[2021-08-20] MEDS: Insulin LISPRO 300 UNITS/3 ML VIAL SUBQ SCH ×4 (07:24→20:13)
[2021-08-20] MEDS: Pregabalin 75 MG CAPSULE PO SCH ×3 (08:27→20:08)
[2021-08-20] MEDS: Famotidine 20 MG TABLET PO SCH ×2 (08:28→20:08)
[2021-08-20] MEDS: 0.9 % Sodium Chloride 1,000 ML IVC SCH (12:22)
[2021-08-20] MEDS ORDERED: Clinimix 5%-20% SOLUTION 2,000 ML with MVI, adult with vitamin K 10 ML, Sodium Phosph... IVC SCH (17:00)
[2021-08-20] MEDS: *HR* Rivaroxaban 10 MG TABLET PO SCH (17:13)
[2021-08-20] MEDS: Clinimix 5%-20% SOLUTION 2,000 ML with MVI, adult with vitamin K 10 ML, Sodium Phosph... IVC SCH (17:45)
[2021-08-20] MEDS: Melatonin 3 MG TABLET PO SCH (20:07)
[2021-08-21] MEDS: Insulin LISPRO 300 UNITS/3 ML VIAL SUBQ SCH ×4 (07:38→20:58)
[2021-08-21] MEDS: Pregabalin 75 MG CAPSULE PO SCH ×3 (07:43→20:55)
[2021-08-21] MEDS: Famotidine 20 MG TABLET PO SCH ×2 (07:44→20:55)
[2021-08-21] MEDS: 0.9 % Sodium Chloride 1,000 ML IVC SCH (07:44)
[2021-08-21 10:46] LABS: Basophils # 0.1 K/mcL (0.0-0.2); Basophils % 1.2 %; Eosinophils # 0.3 K/mcL (0.0-0.6); Eosinophils % 4.5 %; Hematocrit 35.3 % (37.5-50.1); Hemoglobin 11.5 g/dL (12.9-16.9); Immature Granulocytes % 0.7 % (0-4); Lymphocytes # 1.4 K/mcL (0.6-4.6); Lymphocytes % 19.1 %; Mean Corpuscular HGB Conc 32.6 g/dL (31.6-35.5); Mean Corpuscular Hemoglobin 28.3 pg (28.0-33.3); Mean Corpuscular Volume 86.7 fL (83.0-100.0); Mean Platelet Volume 10.7 fL (9.4-12.4); Monocytes # 0.5 K/mcL (0.0-1.3); Monocytes % 6.8 %; Platelet Count 193 K/mcL (140-400); Red Blood Count 4.07 M/mcL (4.19-5.50); Red Cell Distribution Width 15.5 % (11.5-14.5); Segmented Neutrophils % 67.7 %; White Blood Count 7.4 K/mcL (4.3-11.1)
[2021-08-21 11:07] LABS: Alanine Aminotransferase 31 Units/L (7-52); Albumin 3.5 g/dL (3.5-5.7); Alkaline Phosphatase 222 Units/L (34-104); Aspartate Amino Transferase 26 Units/L (13-39); BUN/Creatinine Ratio 37 (6-26); Bilirubin,Total 0.6 mg/dL (0.3-1.0); Blood Urea Nitrogen 24 mg/dL (6-20); Calcium 8.8 mg/dL (8.6-10.3); Carbon Dioxide 23 mEq/L (23-29); Chloride 96 mEq/L (98-107); Globulin 3.6 g/dL (2.4-3.5); Glucose 119 mg/dL (70-105); Magnesium 1.7 mg/dL (1.6-2.6); Osmolality,Calculated 263 (280-300); Potassium 3.8 mEq/L (3.5-5.1); Sodium 124 mEq/L (136-145); Total Protein 7.1 g/dL (6.4-8.9); eGFR For African Americans > 60 (> 60); eGFR For Non-African Americans > 60 (> 60)
[2021-08-21] MEDS: *HR* OxyCODONE Immed Rel 5 MG TABLET PO PRN (13:23)
[2021-08-21] MEDS: *HR* Rivaroxaban 10 MG TABLET PO SCH (16:37)
[2021-08-21] MEDS ORDERED: Clinimix 5%-20% SOLUTION 2,000 ML with MVI, adult with vitamin K 10 ML, ZN/CU/MN/SE 1... IVC SCH (17:00)
[2021-08-21] MEDS: Melatonin 3 MG TABLET PO SCH (20:55)
[2021-08-22 06:05] LABS: Alanine Aminotransferase 33 Units/L (7-52); Alkaline Phosphatase 201 Units/L (34-104); Aspartate Amino Transferase 27 Units/L (13-39); BUN/Creatinine Ratio 32 (6-26); Bilirubin,Total 0.5 mg/dL (0.3-1.0); Blood Urea Nitrogen 21 mg/dL (6-20); Calcium 8.3 mg/dL (8.6-10.3); Carbon Dioxide 18 mEq/L (23-29); Chloride 102 mEq/L (98-107); Glucose 178 mg/dL (70-105); Magnesium 1.5 mg/dL (1.6-2.6); Osmolality,Calculated 265 (280-300); Phosphorous 3.5 mg/dL (2.7-4.5); Potassium 4.2 mEq/L (3.5-5.1); Sodium 124 mEq/L (136-145); eGFR For African Americans > 60 (> 60); eGFR For Non-African Americans > 60 (> 60)
[2021-08-22 07:07] LABS: Basophils # 0.1 K/mcL (0.0-0.2); Basophils % 0.9 %; Eosinophils # 0.3 K/mcL (0.0-0.6); Eosinophils % 6.1 %; Hematocrit 30.6 % (37.5-50.1); Immature Granulocytes % 0.6 % (0-4); Lymphocytes # 1.7 K/mcL (0.6-4.6); Lymphocytes % 30.6 %; Mean Corpuscular HGB Conc 32.4 g/dL (31.6-35.5); Mean Corpuscular Hemoglobin 28.3 pg (28.0-33.3); Mean Corpuscular Volume 87.4 fL (83.0-100.0); Mean Platelet Volume 10.5 fL (9.4-12.4); Monocytes # 0.4 K/mcL (0.0-1.3); Platelet Count 179 K/mcL (140-400); Red Cell Distribution Width 15.9 % (11.5-14.5); Segmented Neutrophils % 54.8 %; White Blood Count 5.5 K/mcL (4.3-11.1)
[2021-08-22 07:08] LABS: Hemoglobin 9.9 g/dL (12.9-16.9)
[2021-08-22] MEDS: Insulin LISPRO 300 UNITS/3 ML VIAL SUBQ SCH ×4 (07:39→22:21)
[2021-08-22] MEDS: 0.9 % Sodium Chloride 1,000 ML IVC SCH (09:02)
[2021-08-22] MEDS: Famotidine 20 MG TABLET PO SCH ×2 (09:03→22:19)
[2021-08-22] MEDS: Pregabalin 75 MG CAPSULE PO SCH ×3 (09:03→22:20)
[2021-08-22] MEDS: *HR* OxyCODONE Immed Rel 5 MG TABLET PO PRN ×2 (09:10→15:12)
[2021-08-22] MEDS: *HR* Rivaroxaban 10 MG TABLET PO SCH (17:26)
[2021-08-22] MEDS: Clinimix 5%-20% SOLUTION 2,000 ML with MVI, adult with vitamin K 10 ML, ZN/CU/MN/SE 1... IVC SCH (17:42)
[2021-08-22] MEDS: Melatonin 3 MG TABLET PO SCH (22:20)
[2021-08-23 05:58] LABS: Basophils # 0.1 K/mcL (0.0-0.2); Eosinophils # 0.3 K/mcL (0.0-0.6); Eosinophils % 5.5 %; Hematocrit 30.9 % (37.5-50.1); Hemoglobin 9.8 g/dL (12.9-16.9); Immature Granulocytes % 0.5 % (0-4); Lymphocytes # 1.6 K/mcL (0.6-4.6); Lymphocytes % 26.2 %; Mean Corpuscular HGB Conc 31.7 g/dL (31.6-35.5); Mean Corpuscular Hemoglobin 28.3 pg (28.0-33.3); Mean Corpuscular Volume 89.3 fL (83.0-100.0); Mean Platelet Volume 10.8 fL (9.4-12.4); Monocytes # 0.6 K/mcL (0.0-1.3); Monocytes % 9.3 %; Neutrophils # 3.6 K/mcL (1.6-8.9); Platelet Count 213 K/mcL (140-400); Red Blood Count 3.46 M/mcL (4.19-5.50); Red Cell Distribution Width 15.9 % (11.5-14.5); Segmented Neutrophils % 57.5 %; White Blood Count 6.2 K/mcL (4.3-11.1)
[2021-08-23 06:20] LABS: Alanine Aminotransferase 40 Units/L (7-52); Albumin 3.1 g/dL (3.5-5.7); Alkaline Phosphatase 208 Units/L (34-104); Aspartate Amino Transferase 29 Units/L (13-39); BUN/Creatinine Ratio 29 (6-26); Bilirubin,Total 0.5 mg/dL (0.3-1.0); Blood Urea Nitrogen 17 mg/dL (6-20); Calcium 8.6 mg/dL (8.6-10.3); Carbon Dioxide 19 mEq/L (23-29); Chloride 107 mEq/L (98-107); Glucose 106 mg/dL (70-105); Magnesium 1.7 mg/dL (1.6-2.6); Osmolality,Calculated 268 (280-300); Potassium 4.1 mEq/L (3.5-5.1); Sodium 128 mEq/L (136-145); Total Protein 6.1 g/dL (6.4-8.9); eGFR For African Americans > 60 (> 60); eGFR For Non-African Americans > 60 (> 60)
[2021-08-23] MEDS: Insulin LISPRO 300 UNITS/3 ML VIAL SUBQ SCH ×4 (08:46→21:55)
[2021-08-23] MEDS: Pregabalin 75 MG CAPSULE PO SCH ×3 (08:56→21:12)
[2021-08-23] MEDS: Famotidine 20 MG TABLET PO SCH ×2 (08:56→21:11)
[2021-08-23] MEDS: 0.9 % Sodium Chloride 1,000 ML IVC SCH (09:52)
[2021-08-23] MEDS: *HR* OxyCODONE Immed Rel 5 MG TABLET PO PRN (14:15)
[2021-08-23] MEDS ORDERED: Clinimix 5%-20% SOLUTION 2,000 ML with MVI, adult with vitamin K 10 ML, ZN/CU/MN/SE 1... IVC SCH (17:00)
[2021-08-23] MEDS ORDERED: Clinimix 5%-20% SOLUTION 2,000 ML with Amino Acids 10% 0 ML, MVI, adult with vitamin ... IVC SCH (17:00)
[2021-08-23] MEDS: *HR* Rivaroxaban 10 MG TABLET PO SCH (17:18)
[2021-08-23] MEDS: Clinimix 5%-20% SOLUTION 2,000 ML with MVI, adult with vitamin K 10 ML, ZN/CU/MN/SE 1... IVC SCH (17:36)
[2021-08-23] MEDS: Melatonin 3 MG TABLET PO SCH (21:12)
[2021-08-24] MEDS: 0.9 % Sodium Chloride 1,000 ML IVC SCH (06:09)
[2021-08-24 06:30] LABS: Basophils # 0.1 K/mcL (0.0-0.2); Basophils % 0.9 %; Eosinophils # 0.2 K/mcL (0.0-0.6); Eosinophils % 4.1 %; Hematocrit 28.6 % (37.5-50.1); Immature Granulocytes % 0.3 % (0-4); Lymphocytes # 1.6 K/mcL (0.6-4.6); Lymphocytes % 26.8 %; Mean Corpuscular HGB Conc 31.5 g/dL (31.6-35.5); Mean Corpuscular Volume 89.1 fL (83.0-100.0); Mean Platelet Volume 10.2 fL (9.4-12.4); Monocytes # 0.6 K/mcL (0.0-1.3); Monocytes % 9.6 %; Neutrophils # 3.4 K/mcL (1.6-8.9); Platelet Count 177 K/mcL (140-400); Red Blood Count 3.21 M/mcL (4.19-5.50); Segmented Neutrophils % 58.3 %; White Blood Count 5.9 K/mcL (4.3-11.1)
[2021-08-24 06:50] LABS: BUN/Creatinine Ratio 22 (6-26); Blood Urea Nitrogen 14 mg/dL (6-20); Calcium 8.4 mg/dL (8.6-10.3); Carbon Dioxide 19 mEq/L (23-29); Chloride 108 mEq/L (98-107); Glucose 101 mg/dL (70-105); Magnesium 1.3 mg/dL (1.6-2.6); Osmolality,Calculated 271 (280-300); Potassium 3.8 mEq/L (3.5-5.1); Sodium 130 mEq/L (136-145); eGFR For African Americans > 60 (> 60); eGFR For Non-African Americans > 60 (> 60)
[2021-08-24] MEDS: Insulin LISPRO 300 UNITS/3 ML VIAL SUBQ SCH ×4 (07:37→21:38)
[2021-08-24] MEDS: Famotidine 20 MG TABLET PO SCH ×2 (09:20→21:38)
[2021-08-24] MEDS: Pregabalin 75 MG CAPSULE PO SCH ×3 (09:21→17:33)
[2021-08-24] MEDS ORDERED: Clinimix 5%-20% SOLUTION 2,000 ML with MVI, adult with vitamin K 10 ML, ZN/CU/MN/SE 1... IVC SCH (17:00)
[2021-08-24] MEDS: *HR* Rivaroxaban 10 MG TABLET PO SCH (17:33)
[2021-08-24] MEDS: *HR* OxyCODONE Immed Rel 5 MG TABLET PO PRN (21:35)
[2021-08-24] MEDS: Melatonin 3 MG TABLET PO SCH (21:36)
[2021-08-25] MEDS: 0.9 % Sodium Chloride 1,000 ML IVC SCH ×2 (00:13→21:06)
[2021-08-25 04:24] LABS: BUN/Creatinine Ratio 24 (6-26); Blood Urea Nitrogen 14 mg/dL (6-20); Calcium 8.1 mg/dL (8.6-10.3); Carbon Dioxide 18 mEq/L (23-29); Chloride 109 mEq/L (98-107); Glucose 131 mg/dL (70-105); Magnesium 1.6 mg/dL (1.6-2.6); Osmolality,Calculated 276 (280-300); Phosphorous 1.7 mg/dL (2.7-4.5); Potassium 3.3 mEq/L (3.5-5.1); Sodium 132 mEq/L (136-145); eGFR For African Americans > 60 (> 60); eGFR For Non-African Americans > 60 (> 60)
[2021-08-25] MEDS ORDERED: Potassium Phosphate 44 MEQ in 0.9 % Sodium Chloride 250 ML IVPB ONE (08:20)
[2021-08-25] MEDS: Insulin LISPRO 300 UNITS/3 ML VIAL SUBQ SCH ×4 (08:50→21:09)
[2021-08-25] MEDS: Famotidine 20 MG TABLET PO SCH ×2 (08:57→21:08)
[2021-08-25] MEDS: Pregabalin 75 MG CAPSULE PO SCH ×3 (08:57→21:07)
[2021-08-25] MEDS ORDERED: Clinimix 5%-20% SOLUTION 2,000 ML with MVI, adult with vitamin K 10 ML, ZN/CU/MN/SE 1... IVC SCH (17:00)
[2021-08-25] MEDS: *HR* Rivaroxaban 10 MG TABLET PO SCH (17:12)
[2021-08-25] MEDS: Melatonin 3 MG TABLET PO SCH (21:07)
[2021-08-26 06:20] LABS: BUN/Creatinine Ratio 27 (6-26); Blood Urea Nitrogen 13 mg/dL (6-20); Calcium 7.9 mg/dL (8.6-10.3); Carbon Dioxide 24 mEq/L (23-29); Chloride 104 mEq/L (98-107); Glucose 83 mg/dL (70-105); Magnesium 1.4 mg/dL (1.6-2.6); Osmolality,Calculated 271 (280-300); Potassium 3.7 mEq/L (3.5-5.1); Sodium 131 mEq/L (136-145); eGFR For African Americans > 60 (> 60); eGFR For Non-African Americans > 60 (> 60)
[2021-08-26] MEDS: Insulin LISPRO 300 UNITS/3 ML VIAL SUBQ SCH ×4 (07:39→21:10)
[2021-08-26] MEDS: Famotidine 20 MG TABLET PO SCH ×2 (09:19→21:07)
[2021-08-26] MEDS: Pregabalin 75 MG CAPSULE PO SCH ×3 (09:19→21:07)
[2021-08-26] MEDS: *HR* OxyCODONE Immed Rel 5 MG TABLET PO PRN (14:26)
[2021-08-26] MEDS ORDERED: Clinimix 5%-20% SOLUTION 2,000 ML with MVI, adult with vitamin K 10 ML, Sodium Phosph... IVC SCH (17:00)
[2021-08-26] MEDS: 0.9 % Sodium Chloride 1,000 ML IVC SCH (18:08)
[2021-08-26] MEDS: *HR* Rivaroxaban 10 MG TABLET PO SCH (18:09)
[2021-08-26] MEDS: Melatonin 3 MG TABLET PO SCH (21:06)
[2021-08-27 03:13] LABS: Alanine Aminotransferase 47 Units/L (7-52); Albumin 2.4 g/dL (3.5-5.7); Albumin/Globulin Ratio 0.9 (1.1-2.2); Alkaline Phosphatase 210 Units/L (34-104); Aspartate Amino Transferase 27 Units/L (13-39); BUN/Creatinine Ratio 25 (6-26); Bilirubin,Total 0.4 mg/dL (0.3-1.0); Blood Urea Nitrogen 13 mg/dL (6-20); Calcium 7.7 mg/dL (8.6-10.3); Carbon Dioxide 22 mEq/L (23-29); Chloride 106 mEq/L (98-107); Globulin 2.7 g/dL (2.4-3.5); Glucose 135 mg/dL (70-105); Magnesium 1.6 mg/dL (1.6-2.6); Osmolality,Calculated 280 (280-300); Phosphorous 2.7 mg/dL (2.7-4.5); Potassium 3.6 mEq/L (3.5-5.1); Sodium 134 mEq/L (136-145); Total Protein 5.1 g/dL (6.4-8.9); Triglycerides 130 mg/dL (< 150); eGFR For African Americans > 60 (> 60); eGFR For Non-African Americans > 60 (> 60)
[2021-08-27] MEDS: 0.9 % Sodium Chloride 1,000 ML IVC SCH ×2 (06:41→14:53)
[2021-08-27] MEDS: Insulin LISPRO 300 UNITS/3 ML VIAL SUBQ SCH ×4 (09:39→21:00)
[2021-08-27] MEDS: Pregabalin 75 MG CAPSULE PO SCH ×3 (10:26→23:04)
[2021-08-27] MEDS: Famotidine 20 MG TABLET PO SCH ×2 (10:27→23:03)
[2021-08-27] MEDS ORDERED: Clinimix 5%-20% SOLUTION 2,000 ML with MVI, adult with vitamin K 10 ML, ZN/CU/MN/SE 1... IVC SCH (17:00)
[2021-08-27] MEDS: *HR* Rivaroxaban 10 MG TABLET PO SCH (17:18)
[2021-08-27] MEDS: Melatonin 3 MG TABLET PO SCH (23:04)
[2021-08-28 07:36] LABS: Alanine Aminotransferase 56 Units/L (7-52); Albumin 2.4 g/dL (3.5-5.7); Albumin/Globulin Ratio 0.9 (1.1-2.2); Alkaline Phosphatase 306 Units/L (34-104); Aspartate Amino Transferase 40 Units/L (13-39); BUN/Creatinine Ratio 24 (6-26); Bilirubin,Total 0.6 mg/dL (0.3-1.0); Blood Urea Nitrogen 13 mg/dL (6-20); Calcium 7.9 mg/dL (8.6-10.3); Carbon Dioxide 23 mEq/L (23-29); Chloride 106 mEq/L (98-107); Globulin 2.8 g/dL (2.4-3.5); Glucose 96 mg/dL (70-105); Magnesium 1.5 mg/dL (1.6-2.6); Osmolality,Calculated 276 (280-300); Phosphorous 3.7 mg/dL (2.7-4.5); Sodium 133 mEq/L (136-145); Total Protein 5.2 g/dL (6.4-8.9); eGFR For African Americans > 60 (> 60); eGFR For Non-African Americans > 60 (> 60)
[2021-08-28] MEDS: Pregabalin 75 MG CAPSULE PO SCH ×3 (09:20→22:09)
[2021-08-28] MEDS: Famotidine 20 MG TABLET PO SCH ×2 (09:20→22:09)
[2021-08-28] MEDS: Insulin LISPRO 300 UNITS/3 ML VIAL SUBQ SCH ×4 (09:21→22:28)
[2021-08-28] MEDS ORDERED: Clinimix 5%-20% SOLUTION 2,000 ML with MVI, adult with vitamin K 10 ML, ZN/CU/MN/SE 1... IVC SCH (17:00)
[2021-08-28] MEDS: *HR* Rivaroxaban 10 MG TABLET PO SCH (17:14)
[2021-08-28] MEDS: Melatonin 3 MG TABLET PO SCH (22:08)
[2021-08-28] MEDS: 0.9 % Sodium Chloride 1,000 ML IVC SCH (22:11)
[2021-08-29 06:28] LABS: Alanine Aminotransferase 64 Units/L (7-52); Albumin 2.5 g/dL (3.5-5.7); Albumin/Globulin Ratio 0.9 (1.1-2.2); Alkaline Phosphatase 329 Units/L (34-104); Aspartate Amino Transferase 44 Units/L (13-39); BUN/Creatinine Ratio 28 (6-26); Bilirubin,Total 0.5 mg/dL (0.3-1.0); Blood Urea Nitrogen 14 mg/dL (6-20); Calcium 7.8 mg/dL (8.6-10.3); Carbon Dioxide 23 mEq/L (23-29); Chloride 106 mEq/L (98-107); Globulin 2.9 g/dL (2.4-3.5); Glucose 112 mg/dL (70-105); Magnesium 1.6 mg/dL (1.6-2.6); Osmolality,Calculated 279 (280-300); Phosphorous 3.6 mg/dL (2.7-4.5); Potassium 4.1 mEq/L (3.5-5.1); Sodium 134 mEq/L (136-145); Total Protein 5.4 g/dL (6.4-8.9); eGFR For African Americans > 60 (> 60); eGFR For Non-African Americans > 60 (> 60)
[2021-08-29] MEDS: Insulin LISPRO 300 UNITS/3 ML VIAL SUBQ SCH ×4 (08:53→23:03)
[2021-08-29] MEDS: Pregabalin 75 MG CAPSULE PO SCH ×3 (09:12→22:07)
[2021-08-29] MEDS: Famotidine 20 MG TABLET PO SCH ×2 (09:12→22:08)
[2021-08-29] MEDS ORDERED: Clinimix 5%-20% SOLUTION 2,000 ML with MVI, adult with vitamin K 10 ML, Sodium Phosph... IVC SCH (17:00)
[2021-08-29] MEDS: *HR* Rivaroxaban 10 MG TABLET PO SCH (17:09)
[2021-08-29] MEDS: 0.9 % Sodium Chloride 1,000 ML IVC SCH (17:31)
[2021-08-29] MEDS: Melatonin 3 MG TABLET PO SCH (22:07)
[2021-08-30 05:09] LABS: Alanine Aminotransferase 68 Units/L (7-52); Albumin 2.4 g/dL (3.5-5.7); Albumin/Globulin Ratio 0.8 (1.1-2.2); Alkaline Phosphatase 318 Units/L (34-104); Aspartate Amino Transferase 44 Units/L (13-39); BUN/Creatinine Ratio 31 (6-26); Bilirubin,Total 0.6 mg/dL (0.3-1.0); Blood Urea Nitrogen 15 mg/dL (6-20); Calcium 7.9 mg/dL (8.6-10.3); Carbon Dioxide 22 mEq/L (23-29); Chloride 106 mEq/L (98-107); Globulin 3.1 g/dL (2.4-3.5); Glucose 135 mg/dL (70-105); Magnesium 1.4 mg/dL (1.6-2.6); Osmolality,Calculated 279 (280-300); Phosphorous 2.9 mg/dL (2.7-4.5); Sodium 133 mEq/L (136-145); Total Protein 5.5 g/dL (6.4-8.9); eGFR For African Americans > 60 (> 60); eGFR For Non-African Americans > 60 (> 60)
[2021-08-30] MEDS: Pregabalin 75 MG CAPSULE PO SCH ×3 (09:58→21:28)
[2021-08-30] MEDS: Famotidine 20 MG TABLET PO SCH (09:59)
[2021-08-30] MEDS: Insulin LISPRO 300 UNITS/3 ML VIAL SUBQ SCH ×4 (13:30→21:32)
[2021-08-30] MEDS: 0.9 % Sodium Chloride 1,000 ML IVC SCH (13:49)
[2021-08-30] MEDS ORDERED: Clinimix 5%-20% SOLUTION 2,000 ML with MVI, adult with vitamin K 10 ML, ZN/CU/MN/SE 1... IVC SCH (17:00)
[2021-08-30] MEDS: Octreotide 50 MCG/ML INJ SQ SCH (17:43)
[2021-08-30] MEDS: *HR* Rivaroxaban 10 MG TABLET PO SCH (17:44)
[2021-08-30] MEDS: Melatonin 3 MG TABLET PO SCH (21:29)
[2021-08-31 02:20] LABS: Alanine Aminotransferase 71 Units/L (7-52); Albumin 2.5 g/dL (3.5-5.7); Albumin/Globulin Ratio 0.8 (1.1-2.2); Alkaline Phosphatase 321 Units/L (34-104); Aspartate Amino Transferase 46 Units/L (13-39); BUN/Creatinine Ratio 25 (6-26); Bilirubin,Total 0.6 mg/dL (0.3-1.0); Blood Urea Nitrogen 13 mg/dL (6-20); Calcium 7.8 mg/dL (8.6-10.3); Carbon Dioxide 23 mEq/L (23-29); Chloride 105 mEq/L (98-107); Globulin 3.2 g/dL (2.4-3.5); Glucose 172 mg/dL (70-105); Magnesium 1.5 mg/dL (1.6-2.6); Osmolality,Calculated 278 (280-300); Sodium 132 mEq/L (136-145); Total Protein 5.7 g/dL (6.4-8.9); eGFR For African Americans > 60 (> 60); eGFR For Non-African Americans > 60 (> 60)
[2021-08-31] MEDS: Octreotide 50 MCG/ML INJ SQ SCH (05:10)
[2021-08-31] MEDS: Insulin LISPRO 300 UNITS/3 ML VIAL SUBQ SCH ×2 (08:58→12:39)
[2021-08-31] MEDS: Pregabalin 75 MG CAPSULE PO SCH (09:04)
[2021-08-31] MEDS: 0.9 % Sodium Chloride 1,000 ML IVC SCH (09:05)
[2021-08-31 10:46] VITALS: BP 113/70; PULSE 84; TEMP 98.4; O2SAT 99
[2021-08-31] MEDS ORDERED: Clinimix 5%-20% SOLUTION 2,000 ML with MVI, adult with vitamin K 10 ML, ZN/CU/MN/SE 1... IVPB SCH (17:00)
[2021-09-01] MEDS ORDERED: Clinimix 5%-20% SOLUTION 2,000 ML with MVI, adult with vitamin K 10 ML, ZN/CU/MN/SE 1... IVC SCH (17:00)
== END 2021-08-31 13:45 | disposition home or self-care (01) | DRG 254 ==
LOC: 3BNU → SUATTDRO 03:13 → 3ANU 08-20 15:35
PROVIDERS: ADMIT Internal Medicine; ATTEND Internal Medicine

== ENCOUNTER 2021-09-05 14:25 | Inpatient (IN) ==
[2021-09-05] MEDS ORDERED: Acetaminophen 325 MG TABLET PO PRN (14:31)
[2021-09-05] MEDS ORDERED: Ondansetron 4 MG/2 ML VIAL IVP PRN (14:31)
[2021-09-05] MEDS ORDERED: Diphenoxylate/Atropine 1 TAB TABLET PO PRN (14:34)
[2021-09-05] MEDS ORDERED: *HR* Rivaroxaban 10 MG TABLET PO SCH (17:00)
[2021-09-05] MEDS ORDERED: Clinimix 5%-20% SOLUTION 2,000 ML with MVI, adult with vitamin K 10 ML, Sodium Acetat... IVC SCH ×2 (17:00→19:00)
[2021-09-05 19:23] LABS: Calcium 8.4 mg/dL (8.6-10.3); Potassium 2.5 mEq/L (3.5-5.1)
[2021-09-05] MEDS ORDERED: Potassium Chloride Elixir 20 MEQ/15 ML UDC PO ONE (19:47)
[2021-09-05] MEDS: Famotidine 20 MG TABLET PO SCH (20:01)
[2021-09-05] MEDS: 0.9 % Sodium Chloride 1,000 ML IVC SCH (20:05)
[2021-09-05] MEDS: Melatonin 3 MG TABLET PO PRN (21:57)
[2021-09-06] MEDS: 0.9 % Sodium Chloride 1,000 ML IVC SCH (02:41)
[2021-09-06 05:24] LABS: BUN/Creatinine Ratio 44 (6-26); Blood Urea Nitrogen 45 mg/dL (6-20); Calcium 7.7 mg/dL (8.6-10.3); Carbon Dioxide 24 mEq/L (23-29); Chloride 94 mEq/L (98-107); Glucose 200 mg/dL (70-105); Magnesium 1.9 mg/dL (1.6-2.6); Osmolality,Calculated 275 (280-300); Phosphorous 2.3 mg/dL (2.7-4.5); Potassium 3.3 mEq/L (3.5-5.1); Sodium 124 mEq/L (136-145); eGFR For African Americans > 60 (> 60); eGFR For Non-African Americans > 60 (> 60)
[2021-09-06 08:49] LABS: Triglycerides 135 mg/dL (< 150)
[2021-09-06] MEDS: Famotidine 20 MG TABLET PO SCH ×2 (09:00→20:16)
[2021-09-06] MEDS ORDERED: Potassium Chloride Elixir 20 MEQ/15 ML UDC PO ONE (09:34)
[2021-09-06] MEDS ORDERED: D5% in Water 1,000 ML IVC PRN (10:53)
[2021-09-06] MEDS ORDERED: Dextrose Gel 15 GM/37.5 ML TUBE PO PRN ×2 (10:53)
[2021-09-06] MEDS ORDERED: *HR* Dextrose 50 % in Water (Syg) 50 ML SYRINGE IVP PRN (10:53)
[2021-09-06] MEDS ORDERED: D10% in Water 500 ML IVC PRN (11:00)
[2021-09-06] MEDS: Insulin LISPRO 300 UNITS/3 ML VIAL SUBQ SCH ×3 (11:46→20:18)
[2021-09-06 11:49] LABS: BUN/Creatinine Ratio 35 (6-26); Blood Urea Nitrogen 28 mg/dL (6-20); Carbon Dioxide 25 mEq/L (23-29); Chloride 97 mEq/L (98-107); Glucose 96 mg/dL (70-105); Osmolality,Calculated 271 (280-300); Potassium 3.4 mEq/L (3.5-5.1); Sodium 128 mEq/L (136-145); eGFR For African Americans > 60 (> 60); eGFR For Non-African Americans > 60 (> 60)
[2021-09-06] MEDS: *HR* Rivaroxaban 10 MG TABLET PO SCH (15:57)
[2021-09-06] MEDS ORDERED: Clinimix 5%-20% SOLUTION 2,000 ML with MVI, adult with vitamin K 10 ML, Sodium Acetat... IVC SCH (17:00)
[2021-09-06] MEDS: Melatonin 3 MG TABLET PO PRN (20:20)
[2021-09-06] MEDS ORDERED: Melatonin 3 MG TABLET PO ONE (20:51)
[2021-09-07] MEDS: Insulin LISPRO 300 UNITS/3 ML VIAL SUBQ SCH ×6 (01:03→20:40)
[2021-09-07 08:12] LABS: BUN/Creatinine Ratio 39 (6-26); Blood Urea Nitrogen 24 mg/dL (6-20); Calcium 8.1 mg/dL (8.6-10.3); Carbon Dioxide 22 mEq/L (23-29); Chloride 99 mEq/L (98-107); Glucose 102 mg/dL (70-105); Magnesium 1.7 mg/dL (1.6-2.6); Osmolality,Calculated 264 (280-300); Phosphorous 1.7 mg/dL (2.7-4.5); Sodium 125 mEq/L (136-145); eGFR For African Americans > 60 (> 60); eGFR For Non-African Americans > 60 (> 60)
[2021-09-07] MEDS: Famotidine 20 MG TABLET PO SCH ×2 (08:20→20:48)
[2021-09-07 08:45] LABS: Basophils % 0.9 %; Eosinophils # 0.2 K/mcL (0.0-0.6); Eosinophils % 3.7 %; Hematocrit 29.5 % (37.5-50.1); Hemoglobin 9.7 g/dL (12.9-16.9); Immature Granulocytes % 0.7 % (0-4); Lymphocytes # 1.5 K/mcL (0.6-4.6); Lymphocytes % 35.4 %; Mean Corpuscular HGB Conc 32.9 g/dL (31.6-35.5); Mean Platelet Volume 9.7 fL (9.4-12.4); Monocytes # 0.3 K/mcL (0.0-1.3); Monocytes % 7.9 %; Neutrophils # 2.2 K/mcL (1.6-8.9); Platelet Count 286 K/mcL (140-400); Red Blood Count 3.47 M/mcL (4.19-5.50); Red Cell Distribution Width 15.3 % (11.5-14.5); Segmented Neutrophils % 51.4 %; White Blood Count 4.3 K/mcL (4.3-11.1)
[2021-09-07] MEDS ORDERED: Clinimix 5%-20% SOLUTION 2,000 ML with MVI, adult with vitamin K 10 ML, Sodium Acetat... IVC SCH (17:00)
[2021-09-07] MEDS: *HR* Rivaroxaban 10 MG TABLET PO SCH (17:25)
[2021-09-07] MEDS: Melatonin 3 MG TABLET PO PRN (20:48)
[2021-09-08] MEDS: Insulin LISPRO 300 UNITS/3 ML VIAL SUBQ SCH ×6 (00:49→20:43)
[2021-09-08 06:04] LABS: BUN/Creatinine Ratio 37 (6-26); Blood Urea Nitrogen 21 mg/dL (6-20); Calcium 8.4 mg/dL (8.6-10.3); Carbon Dioxide 19 mEq/L (23-29); Chloride 104 mEq/L (98-107); Glucose 116 mg/dL (70-105); Magnesium 1.6 mg/dL (1.6-2.6); Osmolality,Calculated 264 (280-300); Phosphorous 1.9 mg/dL (2.7-4.5); Potassium 4.4 mEq/L (3.5-5.1); Sodium 125 mEq/L (136-145); eGFR For African Americans > 60 (> 60); eGFR For Non-African Americans > 60 (> 60)
[2021-09-08] MEDS: Famotidine 20 MG TABLET PO SCH ×2 (09:32→20:42)
[2021-09-08] MEDS: 0.9 % Sodium Chloride 1,000 ML IVC SCH (12:00)
[2021-09-08] MEDS ORDERED: Clinimix 5%-20% SOLUTION 2,000 ML with MVI, adult with vitamin K 10 ML, Sodium Acetat... IVC SCH (17:00)
[2021-09-08] MEDS: *HR* Rivaroxaban 10 MG TABLET PO SCH (17:35)
[2021-09-08] MEDS: Melatonin 3 MG TABLET PO PRN (20:48)
[2021-09-09] MEDS: 0.9 % Sodium Chloride 1,000 ML IVC SCH (00:32)
[2021-09-09] MEDS: Insulin LISPRO 300 UNITS/3 ML VIAL SUBQ SCH ×4 (00:33→11:11)
[2021-09-09 07:31] LABS: BUN/Creatinine Ratio 29 (6-26); Blood Urea Nitrogen 15 mg/dL (6-20); Calcium 8.1 mg/dL (8.6-10.3); Carbon Dioxide 18 mEq/L (23-29); Chloride 110 mEq/L (98-107); Glucose 129 mg/dL (70-105); Magnesium 1.5 mg/dL (1.6-2.6); Osmolality,Calculated 275 (280-300); Phosphorous 2.5 mg/dL (2.7-4.5); Potassium 3.7 mEq/L (3.5-5.1); Sodium 131 mEq/L (136-145); eGFR For African Americans > 60 (> 60); eGFR For Non-African Americans > 60 (> 60)
[2021-09-09] MEDS: Famotidine 20 MG TABLET PO SCH (08:35)
[2021-09-09 11:01] VITALS: BP 115/70; PULSE 71; TEMP 98; O2SAT 100
[2021-09-09] MEDS ORDERED: Clinimix 5%-20% SOLUTION 2,000 ML with MVI, adult with vitamin K 10 ML, Sodium Acetat... IVC SCH (17:00)
== END 2021-09-09 13:38 | disposition home or self-care (01) | DRG 422 ==
LOC: 2ANU → SUATTDRO 09-08 14:25
PROVIDERS: ADMIT Student in an Organized Health Care Education/Training Program; ATTEND Pharmacist

== ENCOUNTER 2021-10-04 13:38 | Inpatient (IN) ==
[2021-10-04] MEDS ORDERED: Acetaminophen 325 MG TABLET PO PRN (18:45)
[2021-10-04] MEDS ORDERED: Naloxone 0.4 MG/ML INJ IVP PRN (18:45)
[2021-10-04] MEDS ORDERED: Ondansetron 4 MG/2 ML VIAL IVP PRN (18:45)
[2021-10-04] MEDS ORDERED: Pregabalin 75 MG CAPSULE PO SCH (19:51)
[2021-10-04] MEDS ORDERED: Heparin 25,000UNIT/250ML 1/2NS 25,000 UNIT/250 ML IV.SOLN IVC SCH ×2 (20:15→20:18)
[2021-10-04] MEDS ORDERED: *HR* Heparin 5,000 UNIT/ML VIAL IVP PRN ×2 (20:15)
[2021-10-04] MEDS ORDERED: *HR* Heparin 5,000 UNIT/ML VIAL IVP ONE (20:15)
[2021-10-04] MEDS ORDERED: *HR* Dextrose 50 % in Water (Syg) 50 ML SYRINGE IVP ONE (20:31)
[2021-10-04 20:42] LABS: Mean Corpuscular HGB Conc 33.9 g/dL (31.6-35.5)
[2021-10-04 20:44] LABS: Hematocrit 30.1 % (37.5-50.1); Hemoglobin 10.2 g/dL (12.9-16.9); Immature Platelets 2.2 % (1.1-6.1); Mean Corpuscular Hemoglobin 27.9 pg (28.0-33.3); Mean Corpuscular Volume 82.2 fL (83.0-100.0); Mean Platelet Volume 9.8 fL (9.4-12.4); Red Blood Count 3.66 M/mcL (4.19-5.50); Red Cell Distribution Width 15.8 % (11.5-14.5); White Blood Count 2.6 K/mcL (4.3-11.1)
[2021-10-04 20:50] LABS: Prothrombin Time 33.6 Seconds (9.4-12.1)
[2021-10-04 20:52] LABS: Heparin anti-factor XA UFH > 2.00 IU/mL (0.30-0.70)
[2021-10-04 21:06] LABS: BUN/Creatinine Ratio 11 (6-26); Blood Urea Nitrogen 7 mg/dL (6-20); Calcium 6.5 mg/dL (8.6-10.3); Carbon Dioxide 16 mEq/L (23-29); Chloride 108 mEq/L (98-107); Glucose 84 mg/dL (70-105); Osmolality,Calculated 265 (280-300); Potassium 2.9 mEq/L (3.5-5.1); Sodium 129 mEq/L (136-145); Troponin I 0.06 ng/mL (< 0.04); eGFR For African Americans > 60 (> 60); eGFR For Non-African Americans > 60 (> 60)
[2021-10-04] MEDS ORDERED: Calcium Gluconate 1gm/50mL 1 GM/50 ML BAG IVPB PRN (21:14)
[2021-10-04] MEDS ORDERED: Potassium Chloride 40 MEQ/200 ML BAG IVPB PRN (21:14)
[2021-10-04] MEDS ORDERED: Melatonin 3 MG TABLET PO SCH (21:30)
[2021-10-04] MEDS: Piperacillin/Tazobactam 3.375 GM in 0.9 % Sodium Chloride Mini Bag 100 ML IVPB SCH (23:16)
[2021-10-05 03:29] LABS: Hemoglobin 9.9 g/dL (12.9-16.9); Immature Granulocytes % 0.3 % (0-4); Mean Corpuscular Volume 82.5 fL (83.0-100.0)
[2021-10-05 03:31] LABS: Eosinophils # 0.1 K/mcL (0.0-0.6); Hematocrit 29.2 % (37.5-50.1); Immature Platelets 2.7 % (1.1-6.1); Lymphocytes # 1.4 K/mcL (0.6-4.6); Lymphocytes % 45.4 %; Mean Corpuscular HGB Conc 33.9 g/dL (31.6-35.5); Mean Platelet Volume 10.2 fL (9.4-12.4); Monocytes # 0.1 K/mcL (0.0-1.3); Neutrophils # 1.4 K/mcL (1.6-8.9); Red Blood Count 3.54 M/mcL (4.19-5.50); Red Cell Distribution Width 15.7 % (11.5-14.5); Segmented Neutrophils % 45.3 %
[2021-10-05 03:34] LABS: Platelet Count 80 K/mcL (140-400)
[2021-10-05 03:39] LABS: VBG Ionized Calcium 1.11 mmol/L (1.15-1.35)
[2021-10-05 03:52] LABS: BUN/Creatinine Ratio 10 (6-26); Blood Urea Nitrogen 6 mg/dL (6-20); Carbon Dioxide 18 mEq/L (23-29); Chloride 106 mEq/L (98-107); Glucose 82 mg/dL (70-105); Magnesium 1.3 mg/dL (1.6-2.6); Osmolality,Calculated 267 (280-300); Phosphorous 2.1 mg/dL (2.7-4.5); Potassium 2.9 mEq/L (3.5-5.1); Sodium 130 mEq/L (136-145); eGFR For African Americans > 60 (> 60); eGFR For Non-African Americans > 60 (> 60)
[2021-10-05 03:55] LABS: Platelet Estimate Decreased (Normal)
[2021-10-05] MEDS ORDERED: *HR* Rivaroxaban 10 MG TABLET PO SCH (06:00)
[2021-10-05] MEDS: Piperacillin/Tazobactam 3.375 GM in 0.9 % Sodium Chloride Mini Bag 100 ML IVPB SCH ×3 (07:54→23:23)
[2021-10-05] MEDS ORDERED: Pregabalin 75 MG CAPSULE PO SCH (09:00)
[2021-10-05] MEDS ORDERED: D10% in Water 500 ML IVC PRN (10:31)
[2021-10-05] MEDS ORDERED: Heparin 25,000UNIT/250ML 1/2NS 25,000 UNIT/250 ML IV.SOLN IVC SCH (13:31)
[2021-10-05] MEDS ORDERED: Potassium Chloride 40 MEQ/200 ML BAG IVPB PRN (13:31)
[2021-10-05] MEDS ORDERED: *HR* Heparin 5,000 UNIT/ML VIAL IVP PRN ×2 (13:31)
[2021-10-05] MEDS ORDERED: Acetaminophen 325 MG TABLET PO PRN (13:31)
[2021-10-05] MEDS ORDERED: Calcium Gluconate 1gm/50mL 1 GM/50 ML BAG IVPB PRN (13:31)
[2021-10-05] MEDS ORDERED: Naloxone 0.4 MG/ML INJ IVP PRN (13:31)
[2021-10-05] MEDS ORDERED: Ondansetron 4 MG/2 ML VIAL IVP PRN (13:31)
[2021-10-05] MEDS: Pregabalin 75 MG CAPSULE PO SCH ×2 (15:31→21:03)
[2021-10-05] MEDS ORDERED: Diphenoxylate/Atropine 1 TAB TABLET PO PRN (15:47)
[2021-10-05] MEDS ORDERED: Potassium Phosphate 44 MEQ in 0.9 % Sodium Chloride 250 ML IVPB ONE (15:50)
[2021-10-05] MEDS: *HR* Rivaroxaban 10 MG TABLET PO SCH (16:48)
[2021-10-05] MEDS ORDERED: Clinimix 5%-20% SOLUTION 2,000 ML with MVI, adult with vitamin K 10 ML, Sodium Phosph... IVC SCH (17:00)
[2021-10-05] MEDS ORDERED: Melatonin 3 MG TABLET PO SCH (21:00)
[2021-10-05] MEDS: Melatonin 3 MG TABLET PO SCH (21:03)
[2021-10-05] MEDS: Famotidine 20 MG TABLET PO SCH (21:04)
[2021-10-05] MEDS: Cholestyramine 4 GM POWD.PACK PO SCH (21:04)
[2021-10-05] MEDS ORDERED: 0.9 % Sodium Chloride 500 ML IVC ONE (23:40)
[2021-10-06] MEDS ORDERED: 0.9 % Sodium Chloride 500 ML IVC ONE (01:22)
[2021-10-06 03:21] LABS: Basophils % 0.6 %; Hemoglobin 8.8 g/dL (12.9-16.9); White Blood Count 3.5 K/mcL (4.3-11.1)
[2021-10-06 03:23] LABS: Eosinophils # 0.1 K/mcL (0.0-0.6); Eosinophils % 4.1 %; Hematocrit 25.7 % (37.5-50.1); Immature Granulocytes % 0.3 % (0-4); Immature Platelets 3.1 % (1.1-6.1); Lymphocytes # 1.5 K/mcL (0.6-4.6); Lymphocytes % 42.6 %; Mean Corpuscular HGB Conc 34.2 g/dL (31.6-35.5); Mean Corpuscular Volume 81.8 fL (83.0-100.0); Neutrophils # 1.6 K/mcL (1.6-8.9); Red Blood Count 3.14 M/mcL (4.19-5.50); Red Cell Distribution Width 15.9 % (11.5-14.5); Segmented Neutrophils % 45.4 %
[2021-10-06 03:27] LABS: Monocytes # 0.3 K/mcL (0.0-1.3); Platelet Count 79 K/mcL (140-400)
[2021-10-06 03:38] LABS: Magnesium 1.3 mg/dL (1.6-2.6); Phosphorous 2.7 mg/dL (2.7-4.5)
[2021-10-06 03:39] LABS: Alanine Aminotransferase 15 Units/L (7-52); Albumin/Globulin Ratio 1.1 (1.1-2.2); Alkaline Phosphatase 90 Units/L (34-104); Aspartate Amino Transferase 17 Units/L (13-39); BUN/Creatinine Ratio 13 (6-26); Bilirubin,Total 0.5 mg/dL (0.3-1.0); Blood Urea Nitrogen 8 mg/dL (6-20); Calcium 6.6 mg/dL (8.6-10.3); Carbon Dioxide 22 mEq/L (23-29); Chloride 103 mEq/L (98-107); Globulin 1.9 g/dL (2.4-3.5); Glucose 112 mg/dL (70-105); Osmolality,Calculated 269 (280-300); Potassium 2.8 mEq/L (3.5-5.1); Sodium 130 mEq/L (136-145); Total Protein 3.9 g/dL (6.4-8.9); eGFR For African Americans > 60 (> 60); eGFR For Non-African Americans > 60 (> 60)
[2021-10-06 04:00] LABS: Platelet Estimate Decreased (Normal)
[2021-10-06] MEDS ORDERED: *HR* Rivaroxaban 10 MG TABLET PO SCH (06:00)
[2021-10-06] MEDS ORDERED: Ringers Solution, Lactated 1,000 ML IVC ONE (09:23)
[2021-10-06] MEDS: Piperacillin/Tazobactam 3.375 GM in 0.9 % Sodium Chloride Mini Bag 100 ML IVPB SCH ×3 (10:28→23:12)
[2021-10-06] MEDS: *HR* Rivaroxaban 10 MG TABLET PO SCH (10:28)
[2021-10-06] MEDS: Cholestyramine 4 GM POWD.PACK PO SCH ×2 (10:28→20:15)
[2021-10-06] MEDS: Pregabalin 75 MG CAPSULE PO SCH ×3 (10:28→20:14)
[2021-10-06] MEDS: Famotidine 20 MG TABLET PO SCH ×2 (10:29→20:14)
[2021-10-06] MEDS ORDERED: Clinimix 5%-20% SOLUTION 2,000 ML with MVI, adult with vitamin K 10 ML, Sodium Phosph... IVC SCH (17:00)
[2021-10-06] MEDS: Melatonin 3 MG TABLET PO SCH (20:14)
[2021-10-07] MEDS: Cholestyramine 4 GM POWD.PACK PO SCH ×2 (08:14→22:25)
[2021-10-07] MEDS: *HR* Rivaroxaban 10 MG TABLET PO SCH (08:15)
[2021-10-07] MEDS: Famotidine 20 MG TABLET PO SCH ×2 (08:15→22:23)
[2021-10-07] MEDS: Pregabalin 75 MG CAPSULE PO SCH ×3 (08:15→22:23)
[2021-10-07] MEDS: Piperacillin/Tazobactam 3.375 GM in 0.9 % Sodium Chloride Mini Bag 100 ML IVPB SCH ×3 (08:16→22:25)
[2021-10-07 08:37] LABS: Immature Granulocytes % 0.3 % (0-4); Mean Platelet Volume 11.1 fL (9.4-12.4)
[2021-10-07 08:38] LABS: Basophils % 0.6 %; Eosinophils # 0.2 K/mcL (0.0-0.6); Eosinophils % 5.8 %; Hematocrit 27.5 % (37.5-50.1); Hemoglobin 9.3 g/dL (12.9-16.9); Immature Platelets 4.4 % (1.1-6.1); Lymphocytes # 1.3 K/mcL (0.6-4.6); Lymphocytes % 36.3 %; Mean Corpuscular HGB Conc 33.8 g/dL (31.6-35.5); Mean Corpuscular Hemoglobin 28.1 pg (28.0-33.3); Mean Corpuscular Volume 83.1 fL (83.0-100.0); Monocytes # 0.2 K/mcL (0.0-1.3); Monocytes % 6.1 %; Neutrophils # 1.8 K/mcL (1.6-8.9); Red Blood Count 3.31 M/mcL (4.19-5.50); Segmented Neutrophils % 50.9 %; White Blood Count 3.5 K/mcL (4.3-11.1)
[2021-10-07 08:51] LABS: Platelet Count 78 K/mcL (140-400)
[2021-10-07 08:55] LABS: Alanine Aminotransferase 12 Units/L (7-52); Alkaline Phosphatase 109 Units/L (34-104); Aspartate Amino Transferase 12 Units/L (13-39); BUN/Creatinine Ratio 14 (6-26); Bilirubin,Total 0.4 mg/dL (0.3-1.0); Blood Urea Nitrogen 7 mg/dL (6-20); Calcium 7.2 mg/dL (8.6-10.3); Carbon Dioxide 23 mEq/L (23-29); Chloride 102 mEq/L (98-107); Glucose 146 mg/dL (70-105); Magnesium 1.3 mg/dL (1.6-2.6); Osmolality,Calculated 271 (280-300); Phosphorous 2.6 mg/dL (2.7-4.5); Potassium 3.2 mEq/L (3.5-5.1); Sodium 130 mEq/L (136-145); eGFR For African Americans > 60 (> 60); eGFR For Non-African Americans > 60 (> 60)
[2021-10-07 09:29] LABS: Triglycerides 80 mg/dL (< 150)
[2021-10-07] MEDS ORDERED: *HR* Heparin 5,000 UNIT/ML VIAL IVP ONE (14:47)
[2021-10-07] MEDS ORDERED: *HR* Heparin 5,000 UNIT/ML VIAL IVP PRN (14:47)
[2021-10-07] MEDS ORDERED: Heparin 25,000UNIT/250ML 1/2NS 25,000 UNIT/250 ML IV.SOLN IVC SCH (15:00)
[2021-10-07] MEDS ORDERED: Clinimix 5%-20% SOLUTION 2,000 ML with MVI, adult with vitamin K 10 ML, ZN/CU/MN/SE 1... IVC SCH (17:00)
[2021-10-07] MEDS ORDERED: Clinimix 5%-20% SOLUTION 2,000 ML with MVI, adult with vitamin K 10 ML, Sodium Phosph... IVC SCH (17:00)
[2021-10-07] MEDS: Doxycycline 100 MG in 0.9 % Sodium Chloride Mini Bag 100 ML IVPB SCH (18:57)
[2021-10-07] MEDS: Melatonin 3 MG TABLET PO SCH (22:23)
[2021-10-07 23:11] LABS: Heparin anti-factor XA UFH 0.48 IU/mL (0.30-0.70)
[2021-10-07 23:14] LABS: Activated Partial Thrombo Time 42.9 Seconds (26.0-36.0)
[2021-10-07 23:16] LABS: INR 1.3; Prothrombin Time 14.5 Seconds (9.4-12.1)
[2021-10-08] MEDS: *HR* Heparin 5,000 UNIT/ML VIAL IVP PRN ×3 (02:12→22:43)
[2021-10-08] MEDS: Heparin 25,000UNIT/250ML 1/2NS 25,000 UNIT/250 ML IV.SOLN IVC SCH (02:12)
[2021-10-08] MEDS: Doxycycline 100 MG in 0.9 % Sodium Chloride Mini Bag 100 ML IVPB SCH ×2 (05:24→17:06)
[2021-10-08 06:04] LABS: Eosinophils % 5.1 %; Hematocrit 28.1 % (37.5-50.1); Hemoglobin 9.5 g/dL (12.9-16.9); Immature Granulocytes % 0.2 % (0-4); Lymphocytes % 35.7 %; Mean Corpuscular HGB Conc 33.8 g/dL (31.6-35.5); Mean Corpuscular Volume 82.9 fL (83.0-100.0); Monocytes % 6.6 %; Platelet Count 104 K/mcL (140-400); Red Blood Count 3.39 M/mcL (4.19-5.50); Segmented Neutrophils % 51.7 %; White Blood Count 4.1 K/mcL (4.3-11.1)
[2021-10-08 06:05] LABS: Basophils % 0.7 %; Eosinophils # 0.2 K/mcL (0.0-0.6); Lymphocytes # 1.5 K/mcL (0.6-4.6); Monocytes # 0.3 K/mcL (0.0-1.3); Neutrophils # 2.1 K/mcL (1.6-8.9)
[2021-10-08 07:18] LABS: Alanine Aminotransferase 15 Units/L (7-52); Albumin 2.1 g/dL (3.5-5.7); Alkaline Phosphatase 134 Units/L (34-104); Aspartate Amino Transferase 17 Units/L (13-39); BUN/Creatinine Ratio 22 (6-26); Bilirubin,Total 0.3 mg/dL (0.3-1.0); Blood Urea Nitrogen 11 mg/dL (6-20); Calcium 7.2 mg/dL (8.6-10.3); Carbon Dioxide 21 mEq/L (23-29); Chloride 107 mEq/L (98-107); Globulin 2.1 g/dL (2.4-3.5); Glucose 51 mg/dL (70-105); Magnesium 1.2 mg/dL (1.6-2.6); Osmolality,Calculated 275 (280-300); Potassium 2.8 mEq/L (3.5-5.1); Sodium 134 mEq/L (136-145); Total Protein 4.2 g/dL (6.4-8.9); eGFR For African Americans > 60 (> 60); eGFR For Non-African Americans > 60 (> 60)
[2021-10-08] MEDS ORDERED: Potassium Phosphate 44 MEQ in 0.9 % Sodium Chloride 250 ML IVPB ONE (07:45)
[2021-10-08] MEDS: Cholestyramine 4 GM POWD.PACK PO SCH ×2 (07:50→20:52)
[2021-10-08] MEDS: Famotidine 20 MG TABLET PO SCH ×2 (07:50→20:16)
[2021-10-08] MEDS: Pregabalin 75 MG CAPSULE PO SCH ×3 (07:50→20:15)
[2021-10-08] MEDS: Piperacillin/Tazobactam 3.375 GM in 0.9 % Sodium Chloride Mini Bag 100 ML IVPB SCH ×2 (07:50→15:53)
[2021-10-08] MEDS ORDERED: *HR* Dextrose 50 % in Water (Syg) 50 ML SYRINGE IVP PRN (08:38)
[2021-10-08] MEDS ORDERED: D5% in Water 1,000 ML IVC PRN (08:38)
[2021-10-08] MEDS ORDERED: Dextrose Gel 15 GM/37.5 ML TUBE PO PRN ×2 (08:38)
[2021-10-08] MEDS ORDERED: Potassium Chloride 40 MEQ/200 ML BAG IVPB PRN (08:52)
[2021-10-08] MEDS ORDERED: Potassium Phosphate 44 MEQ in 0.9 % Sodium Chloride 250 ML IVPB PRN (08:52)
[2021-10-08] MEDS: Insulin LISPRO 300 UNITS/3 ML VIAL SUBQ SCH ×3 (12:34→23:25)
[2021-10-08] MEDS ORDERED: Clinimix 5%-20% SOLUTION 2,000 ML with MVI, adult with vitamin K 10 ML, Sodium Phosph... IVC SCH (17:00)
[2021-10-08] MEDS: Melatonin 3 MG TABLET PO SCH (20:16)
[2021-10-08 21:19] LABS: Heparin anti-factor XA UFH 0.25 IU/mL (0.30-0.70)
[2021-10-08 21:25] LABS: VBG Ionized Calcium 1.14 mmol/L (1.15-1.35)
[2021-10-08 21:40] LABS: Magnesium 1.4 mg/dL (1.6-2.6); Phosphorous 2.9 mg/dL (2.7-4.5)
[2021-10-09] MEDS: Piperacillin/Tazobactam 3.375 GM in 0.9 % Sodium Chloride Mini Bag 100 ML IVPB SCH ×4 (00:01→23:45)
[2021-10-09] MEDS: Heparin 25,000UNIT/250ML 1/2NS 25,000 UNIT/250 ML IV.SOLN IVC SCH (03:17)
[2021-10-09 05:33] LABS: Basophils % 0.8 %; Eosinophils # 0.2 K/mcL (0.0-0.6); Eosinophils % 5.9 %; Hematocrit 26.7 % (37.5-50.1); Hemoglobin 8.9 g/dL (12.9-16.9); Lymphocytes # 1.1 K/mcL (0.6-4.6); Lymphocytes % 32.2 %; Mean Corpuscular HGB Conc 33.3 g/dL (31.6-35.5); Mean Corpuscular Hemoglobin 27.7 pg (28.0-33.3); Mean Corpuscular Volume 83.2 fL (83.0-100.0); Mean Platelet Volume 10.2 fL (9.4-12.4); Monocytes # 0.2 K/mcL (0.0-1.3); Monocytes % 5.1 %; Platelet Count 141 K/mcL (140-400); Red Blood Count 3.21 M/mcL (4.19-5.50); White Blood Count 3.5 K/mcL (4.3-11.1)
[2021-10-09 05:52] LABS: Alanine Aminotransferase 30 Units/L (7-52); Albumin 2.2 g/dL (3.5-5.7); Albumin/Globulin Ratio 1.1 (1.1-2.2); Alkaline Phosphatase 159 Units/L (34-104); Aspartate Amino Transferase 35 Units/L (13-39); BUN/Creatinine Ratio 11 (6-26); Bilirubin,Total 0.5 mg/dL (0.3-1.0); Blood Urea Nitrogen 6 mg/dL (6-20); Calcium 7.4 mg/dL (8.6-10.3); Carbon Dioxide 25 mEq/L (23-29); Chloride 101 mEq/L (98-107); Glucose 143 mg/dL (70-105); Magnesium 1.6 mg/dL (1.6-2.6); Osmolality,Calculated 268 (280-300); Potassium 3.4 mEq/L (3.5-5.1); Sodium 129 mEq/L (136-145); Total Protein 4.2 g/dL (6.4-8.9); eGFR For African Americans > 60 (> 60); eGFR For Non-African Americans > 60 (> 60)
[2021-10-09] MEDS: Insulin LISPRO 300 UNITS/3 ML VIAL SUBQ SCH ×3 (06:12→18:16)
[2021-10-09] MEDS: Doxycycline 100 MG in 0.9 % Sodium Chloride Mini Bag 100 ML IVPB SCH ×2 (06:36→18:01)
[2021-10-09] MEDS: *HR* Heparin 5,000 UNIT/ML VIAL IVP PRN (06:45)
[2021-10-09] MEDS: Famotidine 20 MG TABLET PO SCH ×2 (08:58→20:28)
[2021-10-09] MEDS: Pregabalin 75 MG CAPSULE PO SCH ×3 (08:58→20:28)
[2021-10-09] MEDS: Cholestyramine 4 GM POWD.PACK PO SCH ×2 (08:59→20:28)
[2021-10-09] MEDS ORDERED: Morphine Sulfate 2 MG/ML SYRINGE IVP PRN (10:46)
[2021-10-09] MEDS ORDERED: *HR* Propofol 200 MG/20 ML VIAL IVP ONE (11:11)
[2021-10-09] MEDS ORDERED: Lidocaine -MPF 2% 5 ML VIAL ONE (11:12)
[2021-10-09] MEDS ORDERED: Ondansetron 4 MG/2 ML VIAL ONE (11:12)
[2021-10-09] MEDS ORDERED: *HR* Succinylcholine 200 MG/10 ML VIAL IVP ONE (11:12)
[2021-10-09] MEDS ORDERED: Lidocaine HCL 4 ML Topical Solution (Laryng-O-Jet Kit Sterile Pak) TP ONE (11:13)
[2021-10-09] MEDS ORDERED: *HR* Rocuronium Bromide 50 MG/5 ML VIAL ONE (11:32)
[2021-10-09] MEDS ORDERED: Clinimix 5%-20% SOLUTION 2,000 ML with MVI, adult with vitamin K 10 ML, Sodium Phosph... IVC SCH (17:00)
[2021-10-09] MEDS: Melatonin 3 MG TABLET PO SCH (20:28)
[2021-10-10] MEDS: Insulin LISPRO 300 UNITS/3 ML VIAL SUBQ SCH ×3 (00:20→17:58)
[2021-10-10 05:23] LABS: Basophils % 0.3 %; Eosinophils % 0.3 %; Hemoglobin 9.1 g/dL (12.9-16.9); Lymphocytes # 1.1 K/mcL (0.6-4.6); Lymphocytes % 32.7 %; Mean Corpuscular HGB Conc 33.7 g/dL (31.6-35.5); Mean Corpuscular Hemoglobin 28.2 pg (28.0-33.3); Mean Corpuscular Volume 83.6 fL (83.0-100.0); Mean Platelet Volume 10.4 fL (9.4-12.4); Monocytes # 0.2 K/mcL (0.0-1.3); Monocytes % 5.9 %; Platelet Count 148 K/mcL (140-400); Red Blood Count 3.23 M/mcL (4.19-5.50); Red Cell Distribution Width 15.9 % (11.5-14.5); Segmented Neutrophils % 60.8 %; White Blood Count 3.2 K/mcL (4.3-11.1)
[2021-10-10] MEDS: Doxycycline 100 MG in 0.9 % Sodium Chloride Mini Bag 100 ML IVPB SCH (06:23)
[2021-10-10] MEDS ORDERED: Lidocaine -MPF 4% 5 ML AMPUL ONE (07:11)
[2021-10-10] MEDS ORDERED: *HR* FentaNYL (PF) 100 MCG/2 ML VIAL ONE ×2 (07:11→09:54)
[2021-10-10] MEDS ORDERED: *HR* Succinylcholine 200 MG/10 ML VIAL IVP ONE (07:11)
[2021-10-10] MEDS ORDERED: *HR* Rocuronium Bromide 50 MG/5 ML VIAL ONE (07:11)
[2021-10-10] MEDS ORDERED: Lidocaine -MPF 2% 5 ML VIAL ONE (07:11)
[2021-10-10] MEDS ORDERED: *HR* Midazolam HCl 2 MG/2 ML VIAL ONE (07:11)
[2021-10-10] MEDS ORDERED: Ondansetron 4 MG/2 ML VIAL ONE (07:11)
[2021-10-10] MEDS ORDERED: *HR* Propofol 200 MG/20 ML VIAL IVP ONE (07:12)
[2021-10-10 08:39] LABS: Alanine Aminotransferase 41 Units/L (7-52); Albumin 2.3 g/dL (3.5-5.7); Alkaline Phosphatase 149 Units/L (34-104); Aspartate Amino Transferase 37 Units/L (13-39); BUN/Creatinine Ratio 17 (6-26); Bilirubin,Total 0.5 mg/dL (0.3-1.0); Blood Urea Nitrogen 8 mg/dL (6-20); Calcium 7.5 mg/dL (8.6-10.3); Carbon Dioxide 27 mEq/L (23-29); Chloride 100 mEq/L (98-107); Globulin 2.4 g/dL (2.4-3.5); Glucose 149 mg/dL (70-105); Magnesium 1.5 mg/dL (1.6-2.6); Osmolality,Calculated 271 (280-300); Phosphorous 1.9 mg/dL (2.7-4.5); Potassium 3.8 mEq/L (3.5-5.1); Sodium 130 mEq/L (136-145); Total Protein 4.7 g/dL (6.4-8.9); eGFR For African Americans > 60 (> 60); eGFR For Non-African Americans > 60 (> 60)
[2021-10-10] MEDS ORDERED: *HR* HYDROmorphone PF 0.5 MG/0.5 ML SYRINGE IVP PRN (09:27)
[2021-10-10] MEDS ORDERED: Ondansetron 4 MG/2 ML VIAL IVP PRN ×2 (09:27→13:09)
[2021-10-10] MEDS: Piperacillin/Tazobactam 3.375 GM in 0.9 % Sodium Chloride Mini Bag 100 ML IVPB SCH ×3 (09:30→23:18)
[2021-10-10] MEDS ORDERED: EPHEDrine 50 MG/ML VIAL ONE (09:38)
[2021-10-10] MEDS ORDERED: D10% in Water 500 ML IVC PRN ×2 (09:48→13:09)
[2021-10-10] MEDS ORDERED: Sugammadex Sodium 200 MG/2 ML VIAL IV ONE (10:10)
[2021-10-10] MEDS ORDERED: Ketorolac 30 MG/ML VIAL ONE (10:28)
[2021-10-10] MEDS ORDERED: *HR* HYDROMORPHONE 2 MG/ML VIAL ONE (10:34)
[2021-10-10] MEDS: Famotidine 20 MG TABLET PO SCH ×2 (11:48→20:44)
[2021-10-10] MEDS: Cholestyramine 4 GM POWD.PACK PO SCH ×2 (11:48→20:45)
[2021-10-10] MEDS ORDERED: *HR* Dextrose 50 % in Water (Syg) 50 ML SYRINGE IVP PRN (13:09)
[2021-10-10] MEDS ORDERED: Naloxone 0.4 MG/ML INJ IVP PRN (13:09)
[2021-10-10] MEDS ORDERED: D5% in Water 1,000 ML IVC PRN (13:09)
[2021-10-10] MEDS ORDERED: Clinimix 5%-20% SOLUTION 2,000 ML with MVI, adult with vitamin K 10 ML, Sodium Phosph... IVC SCH ×3 (13:09→17:00)
[2021-10-10] MEDS ORDERED: Diphenoxylate/Atropine 1 TAB TABLET PO PRN (13:09)
[2021-10-10] MEDS ORDERED: Heparin 25,000UNIT/250ML 1/2NS 25,000 UNIT/250 ML IV.SOLN IVC SCH (13:09)
[2021-10-10] MEDS ORDERED: Calcium Gluconate 1gm/50mL 1 GM/50 ML BAG IVPB PRN (13:09)
[2021-10-10] MEDS ORDERED: Potassium Chloride 40 MEQ/200 ML BAG IVPB PRN (13:09)
[2021-10-10] MEDS ORDERED: Dextrose Gel 15 GM/37.5 ML TUBE PO PRN ×2 (13:09)
[2021-10-10] MEDS ORDERED: *HR* Heparin 5,000 UNIT/ML VIAL IVP PRN ×2 (13:09)
[2021-10-10] MEDS ORDERED: Potassium Phosphate 44 MEQ in 0.9 % Sodium Chloride 250 ML IVPB PRN (13:09)
[2021-10-10] MEDS: Gabapentin 300 MG CAPSULE PO SCH ×2 (15:35→20:43)
[2021-10-10] MEDS: Ketorolac 30 MG/ML VIAL IVP SCH ×2 (18:00→23:17)
[2021-10-10] MEDS ORDERED: Doxycycline 100 MG in 0.9 % Sodium Chloride Mini Bag 100 ML IVPB SCH (18:00)
[2021-10-10] MEDS: Acetaminophen IV 1,000 MG/100 ML BAG IVPB SCH (18:02)
[2021-10-10] MEDS ORDERED: Melatonin 3 MG TABLET PO SCH (21:00)
[2021-10-11 04:28] LABS: Basophils % 0.5 %; Eosinophils % 0.5 %; Hemoglobin 8.5 g/dL (12.9-16.9); Immature Granulocytes % 0.3 % (0-4); Lymphocytes # 0.8 K/mcL (0.6-4.6); Lymphocytes % 21.7 %; Mean Corpuscular HGB Conc 32.7 g/dL (31.6-35.5); Mean Corpuscular Hemoglobin 27.8 pg (28.0-33.3); Mean Platelet Volume 10.4 fL (9.4-12.4); Monocytes # 0.3 K/mcL (0.0-1.3); Monocytes % 7.8 %; Neutrophils # 2.6 K/mcL (1.6-8.9); Platelet Count 172 K/mcL (140-400); Red Blood Count 3.06 M/mcL (4.19-5.50); Red Cell Distribution Width 15.8 % (11.5-14.5); Segmented Neutrophils % 69.2 %; White Blood Count 3.7 K/mcL (4.3-11.1)
[2021-10-11 04:43] LABS: Alanine Aminotransferase 86 Units/L (7-52); Albumin 2.2 g/dL (3.5-5.7); Alkaline Phosphatase 142 Units/L (34-104); Aspartate Amino Transferase 63 Units/L (13-39); BUN/Creatinine Ratio 19 (6-26); Bilirubin,Total 0.6 mg/dL (0.3-1.0); Blood Urea Nitrogen 10 mg/dL (6-20); Calcium 7.7 mg/dL (8.6-10.3); Carbon Dioxide 27 mEq/L (23-29); Chloride 101 mEq/L (98-107); Globulin 2.3 g/dL (2.4-3.5); Glucose 141 mg/dL (70-105); Magnesium 1.3 mg/dL (1.6-2.6); Osmolality,Calculated 273 (280-300); Phosphorous 2.3 mg/dL (2.7-4.5); Potassium 3.8 mEq/L (3.5-5.1); Sodium 131 mEq/L (136-145); Total Protein 4.5 g/dL (6.4-8.9); eGFR For African Americans > 60 (> 60); eGFR For Non-African Americans > 60 (> 60)
[2021-10-11 06:45] VITALS: BP 104/66; PULSE 68; TEMP 97.5; O2SAT 93
[2021-10-11] MEDS: Insulin LISPRO 300 UNITS/3 ML VIAL SUBQ SCH ×2 (07:12→07:14)
[2021-10-11] MEDS: Acetaminophen IV 1,000 MG/100 ML BAG IVPB SCH (07:12)
[2021-10-11] MEDS: Pregabalin 75 MG CAPSULE PO SCH (07:14)
[2021-10-11] MEDS: Gabapentin 300 MG CAPSULE PO SCH (08:27)
[2021-10-11] MEDS: Famotidine 20 MG TABLET PO SCH (08:27)
[2021-10-11] MEDS: Piperacillin/Tazobactam 3.375 GM in 0.9 % Sodium Chloride Mini Bag 100 ML IVPB SCH (08:28)
[2021-10-11] MEDS: Ketorolac 30 MG/ML VIAL IVP SCH (08:30)
[2021-10-11] MEDS: Cholestyramine 4 GM POWD.PACK PO SCH (08:31)
[2021-10-11] MEDS ORDERED: *HR* Rivaroxaban 10 MG TABLET PO SCH (17:00)
== END 2021-10-11 11:11 | disposition home or self-care (01) | DRG 710 ==
LOC: ICNU → SUATTDRO 18:45 → 3NENU 10-05 13:53
PROVIDERS: ADMIT Family Medicine; ATTEND Internal Medicine

== ENCOUNTER 2021-10-17 21:37 | Observation (INO) ==
[2021-10-18] MEDS ORDERED: Naloxone 0.4 MG/ML INJ IVP PRN (02:08)
[2021-10-18] MEDS ORDERED: Ondansetron 4 MG/2 ML VIAL IVP PRN (02:08)
[2021-10-18 03:28] LABS: Basophils # 0.1 K/mcL (0.0-0.2); Basophils % 1.3 %; Eosinophils # 0.2 K/mcL (0.0-0.6); Hematocrit 28.5 % (37.5-50.1); Immature Granulocytes % 0.4 % (0-4); Lymphocytes # 0.9 K/mcL (0.6-4.6); Lymphocytes % 16.3 %; Mean Corpuscular HGB Conc 33.3 g/dL (31.6-35.5); Mean Corpuscular Hemoglobin 28.1 pg (28.0-33.3); Mean Corpuscular Volume 84.3 fL (83.0-100.0); Mean Platelet Volume 9.4 fL (9.4-12.4); Monocytes # 0.2 K/mcL (0.0-1.3); Monocytes % 3.9 %; Platelet Count 341 K/mcL (140-400); Red Blood Count 3.38 M/mcL (4.19-5.50); Red Cell Distribution Width 15.6 % (11.5-14.5); Segmented Neutrophils % 74.1 %
[2021-10-18 03:29] LABS: Hemoglobin 9.5 g/dL (12.9-16.9); Neutrophils # 4.1 K/mcL (1.6-8.9); White Blood Count 5.5 K/mcL (4.3-11.1)
[2021-10-18 03:35] LABS: INR 1.3
[2021-10-18 03:43] LABS: BUN/Creatinine Ratio 18 (6-26); Blood Urea Nitrogen 27 mg/dL (6-20); Calcium 7.5 mg/dL (8.6-10.3); Carbon Dioxide 30 mEq/L (23-29); Chloride 91 mEq/L (98-107); Glucose 80 mg/dL (70-105); Magnesium 1.2 mg/dL (1.6-2.6); Osmolality,Calculated 268 (280-300); Phosphorous 2.1 mg/dL (2.7-4.5); Sodium 127 mEq/L (136-145); eGFR For African Americans > 60 (> 60); eGFR For Non-African Americans 50 (> 60)
[2021-10-18 03:53] LABS: Uric Acid 7.1 mg/dL (2.3-7.6)
[2021-10-18 03:58] LABS: Thyroid Stimulating Hormone 0.643 mcIU/mL (0.340-5.600)
[2021-10-18 05:27] LABS: Bilirubin,Urine Negative (Negative); Blood,Urine Negative (Negative); Calcium Oxalate Crystals,Urine Present per hpf; Clarity,Urine Clear (Clear); Color,Urine Yellow (Yellow); Glucose,Urine (UA) Normal (Normal); Hyaline Casts,Urine Many per lpf (None Seen); Ketones,Urine Negative (Negative); Leukocyte Esterase,Urine Negative (Negative); Mucus,Urine Few per lpf (None-Few); Nitrite,Urine Negative (Negative); Protein,Urine 30 mg/dL (Neg-Trace); RBC,Urine 0-3 per hpf (0-3); Specific Gravity,Urine 1.017 (1.010-1.025); Squamous Epithelial Cell,Urine Few per hpf (None-Few); Urobilinogen,Urine Normal (Normal)
[2021-10-18 05:32] LABS: Chloride,Urine < 15 mEq/L; Potassium,Urine 44.5 mEq/L; Sodium, Urine < 10.0 mEq/L
[2021-10-18] MEDS ORDERED: Nicotine 7 MG PATCH.TD24 TD SCH (09:00)
[2021-10-18 10:45] LABS: BUN/Creatinine Ratio 18 (6-26); Blood Urea Nitrogen 20 mg/dL (6-20); Calcium 8.2 mg/dL (8.6-10.3); Carbon Dioxide 31 mEq/L (23-29); Chloride 89 mEq/L (98-107); Glucose 87 mg/dL (70-105); Osmolality,Calculated 266 (280-300); Potassium 3.3 mEq/L (3.5-5.1); Sodium 127 mEq/L (136-145); eGFR For African Americans > 60 (> 60); eGFR For Non-African Americans > 60 (> 60)
[2021-10-18] MEDS ORDERED: Potassium Phosphate 44 MEQ in 0.9 % Sodium Chloride 250 ML IVPB ONE (12:51)
[2021-10-18] MEDS ORDERED: 0.9 % Sodium Chloride 1,000 ML IVC SCH (13:00)
[2021-10-18] MEDS ORDERED: *HR* Dextrose 50 % in Water (Syg) 50 ML SYRINGE IVP PRN (13:34)
[2021-10-18] MEDS ORDERED: D5% in Water 1,000 ML IVC PRN (13:34)
[2021-10-18] MEDS ORDERED: Dextrose Gel 15 GM/37.5 ML TUBE PO PRN ×2 (13:34)
[2021-10-18] MEDS ORDERED: D10% in Water 500 ML IVC PRN (13:40)
[2021-10-18 15:36] LABS: % Iron Saturation 7 % (20-55); Iron 25 mcg/dL (65-175); Transferrin 245 mg/dL (203-362)
[2021-10-18 16:02] LABS: Folate 20.3 ng/mL (3.0-16.0)
[2021-10-18] MEDS ORDERED: Clinimix 5%-20% SOLUTION 2,000 ML with MVI, adult with vitamin K 10 ML, Sodium Phosph... IVC SCH (17:00)
[2021-10-18] MEDS: *HR* Rivaroxaban 10 MG TABLET PO SCH (18:49)
[2021-10-18] MEDS: Insulin LISPRO 300 UNITS/3 ML VIAL SUBQ SCH ×3 (19:43→23:55)
[2021-10-18] MEDS: Pregabalin 75 MG CAPSULE PO SCH (21:04)
[2021-10-18] MEDS: Cholestyramine 4 GM POWD.PACK PO SCH (21:04)
[2021-10-18] MEDS: Melatonin 3 MG TABLET PO SCH (21:04)
[2021-10-18] MEDS: Famotidine 20 MG TABLET PO SCH (21:04)
[2021-10-19] MEDS: Insulin LISPRO 300 UNITS/3 ML VIAL SUBQ SCH ×4 (04:17→20:47)
[2021-10-19] MEDS: Famotidine 20 MG TABLET PO SCH ×2 (07:58→19:32)
[2021-10-19] MEDS: Pregabalin 75 MG CAPSULE PO SCH ×2 (07:58→19:32)
[2021-10-19] MEDS: Cholestyramine 4 GM POWD.PACK PO SCH ×2 (07:59→19:30)
[2021-10-19 10:00] LABS: Eosinophils # 0.1 K/mcL (0.0-0.6); Eosinophils % 2.7 %; Hematocrit 30.8 % (37.5-50.1); Hemoglobin 10.3 g/dL (12.9-16.9); Immature Granulocytes % 0.5 % (0-4); Lymphocytes # 1.2 K/mcL (0.6-4.6); Lymphocytes % 28.6 %; Mean Corpuscular HGB Conc 33.4 g/dL (31.6-35.5); Mean Corpuscular Hemoglobin 28.1 pg (28.0-33.3); Mean Corpuscular Volume 84.2 fL (83.0-100.0); Monocytes # 0.2 K/mcL (0.0-1.3); Monocytes % 4.7 %; Neutrophils # 2.5 K/mcL (1.6-8.9); Platelet Count 223 K/mcL (140-400); Red Blood Count 3.66 M/mcL (4.19-5.50); Red Cell Distribution Width 15.9 % (11.5-14.5); Segmented Neutrophils % 62.5 %; White Blood Count 4.1 K/mcL (4.3-11.1)
[2021-10-19 10:20] LABS: Alanine Aminotransferase 37 Units/L (7-52); Alkaline Phosphatase 242 Units/L (34-104); Aspartate Amino Transferase 18 Units/L (13-39); BUN/Creatinine Ratio 21 (6-26); Bilirubin,Total 0.8 mg/dL (0.3-1.0); Blood Urea Nitrogen 17 mg/dL (6-20); Calcium 8.3 mg/dL (8.6-10.3); Carbon Dioxide 38 mEq/L (23-29); Chloride 86 mEq/L (98-107); Globulin 2.9 g/dL (2.4-3.5); Glucose 124 mg/dL (70-105); Magnesium 1.9 mg/dL (1.6-2.6); Osmolality,Calculated 269 (280-300); Phosphorous 2.4 mg/dL (2.7-4.5); Potassium 2.9 mEq/L (3.5-5.1); Sodium 128 mEq/L (136-145); Total Protein 5.9 g/dL (6.4-8.9); Triglycerides 165 mg/dL (< 150); eGFR For African Americans > 60 (> 60); eGFR For Non-African Americans > 60 (> 60)
[2021-10-19] MEDS ORDERED: Potassium Phosphate 44 MEQ in 0.9 % Sodium Chloride 250 ML IVPB ONE (11:33)
[2021-10-19] MEDS: Nicotine 7 MG PATCH.TD24 TD SCH (11:54)
[2021-10-19] MEDS: *HR* Rivaroxaban 10 MG TABLET PO SCH (16:12)
[2021-10-19] MEDS ORDERED: Clinimix 5%-20% SOLUTION 2,000 ML with MVI, adult with vitamin K 10 ML, Sodium Phosph... IVC SCH (17:00)
[2021-10-19] MEDS: Melatonin 3 MG TABLET PO SCH (19:32)
[2021-10-20 04:13] LABS: Hematocrit 33.5 % (37.5-50.1); Hemoglobin 10.9 g/dL (12.9-16.9); Mean Corpuscular HGB Conc 32.5 g/dL (31.6-35.5); Mean Corpuscular Hemoglobin 27.7 pg (28.0-33.3); Mean Corpuscular Volume 85.2 fL (83.0-100.0); Platelet Count 263 K/mcL (140-400); Red Blood Count 3.93 M/mcL (4.19-5.50); Red Cell Distribution Width 15.9 % (11.5-14.5); White Blood Count 5.5 K/mcL (4.3-11.1)
[2021-10-20 04:43] LABS: Alanine Aminotransferase 34 Units/L (7-52); Albumin 3.2 g/dL (3.5-5.7); Alkaline Phosphatase 221 Units/L (34-104); Aspartate Amino Transferase 16 Units/L (13-39); BUN/Creatinine Ratio 28 (6-26); Bilirubin,Total 0.7 mg/dL (0.3-1.0); Blood Urea Nitrogen 22 mg/dL (6-20); Calcium 8.9 mg/dL (8.6-10.3); Carbon Dioxide 41 mEq/L (23-29); Chloride 81 mEq/L (98-107); Globulin 3.3 g/dL (2.4-3.5); Glucose 146 mg/dL (70-105); Magnesium 1.7 mg/dL (1.6-2.6); Osmolality,Calculated 272 (280-300); Phosphorous 3.1 mg/dL (2.7-4.5); Potassium 2.9 mEq/L (3.5-5.1); Sodium 128 mEq/L (136-145); Total Protein 6.5 g/dL (6.4-8.9); eGFR For African Americans > 60 (> 60); eGFR For Non-African Americans > 60 (> 60)
[2021-10-20] MEDS: Insulin LISPRO 300 UNITS/3 ML VIAL SUBQ SCH ×6 (04:44→16:39)
[2021-10-20] MEDS: Nicotine 7 MG PATCH.TD24 TD SCH (08:04)
[2021-10-20] MEDS: Pregabalin 75 MG CAPSULE PO SCH ×2 (09:10→20:12)
[2021-10-20] MEDS: Famotidine 20 MG TABLET PO SCH ×2 (09:11→20:13)
[2021-10-20] MEDS: Cholestyramine 4 GM POWD.PACK PO SCH ×2 (09:11→20:12)
[2021-10-20] MEDS ORDERED: Clinimix 5%-20% SOLUTION 2,000 ML with MVI, adult with vitamin K 10 ML, Sodium Phosph... IVC SCH (17:00)
[2021-10-20] MEDS: *HR* Rivaroxaban 10 MG TABLET PO SCH (17:19)
[2021-10-20] MEDS: Melatonin 3 MG TABLET PO SCH (20:12)
[2021-10-21] MEDS: Insulin LISPRO 300 UNITS/3 ML VIAL SUBQ SCH ×7 (00:14→21:27)
[2021-10-21 04:42] LABS: Hematocrit 34.2 % (37.5-50.1); Hemoglobin 11.1 g/dL (12.9-16.9); Mean Corpuscular HGB Conc 32.5 g/dL (31.6-35.5); Mean Corpuscular Hemoglobin 27.8 pg (28.0-33.3); Mean Corpuscular Volume 85.5 fL (83.0-100.0); Mean Platelet Volume 10.3 fL (9.4-12.4); Platelet Count 295 K/mcL (140-400); Red Cell Distribution Width 15.9 % (11.5-14.5); White Blood Count 6.2 K/mcL (4.3-11.1)
[2021-10-21 05:41] LABS: Alanine Aminotransferase 35 Units/L (7-52); Albumin 3.2 g/dL (3.5-5.7); Albumin/Globulin Ratio 0.9 (1.1-2.2); Alkaline Phosphatase 244 Units/L (34-104); Aspartate Amino Transferase 25 Units/L (13-39); BUN/Creatinine Ratio 37 (6-26); Bilirubin,Total 0.7 mg/dL (0.3-1.0); Blood Urea Nitrogen 27 mg/dL (6-20); Carbon Dioxide 35 mEq/L (23-29); Chloride 85 mEq/L (98-107); Globulin 3.5 g/dL (2.4-3.5); Glucose 124 mg/dL (70-105); Magnesium 1.5 mg/dL (1.6-2.6); Osmolality,Calculated 271 (280-300); Potassium 3.7 mEq/L (3.5-5.1); Sodium 127 mEq/L (136-145); Total Protein 6.7 g/dL (6.4-8.9); eGFR For African Americans > 60 (> 60); eGFR For Non-African Americans > 60 (> 60)
[2021-10-21] MEDS: Pregabalin 75 MG CAPSULE PO SCH ×2 (08:56→19:44)
[2021-10-21] MEDS: Nicotine 7 MG PATCH.TD24 TD SCH (08:57)
[2021-10-21] MEDS: Famotidine 20 MG TABLET PO SCH ×2 (08:57→19:44)
[2021-10-21] MEDS: Cholestyramine 4 GM POWD.PACK PO SCH ×2 (08:58→19:45)
[2021-10-21] MEDS: *HR* Rivaroxaban 10 MG TABLET PO SCH (16:20)
[2021-10-21] MEDS ORDERED: Clinimix 5%-20% SOLUTION 2,000 ML with MVI, adult with vitamin K 10 ML, Sodium Phosph... IVC SCH (17:00)
[2021-10-21] MEDS: Melatonin 3 MG TABLET PO SCH (19:44)
[2021-10-22] MEDS: Insulin LISPRO 300 UNITS/3 ML VIAL SUBQ SCH ×5 (00:47→20:32)
[2021-10-22 02:53] LABS: Alanine Aminotransferase 50 Units/L (7-52); Albumin 3.5 g/dL (3.5-5.7); Albumin/Globulin Ratio 0.9 (1.1-2.2); Alkaline Phosphatase 306 Units/L (34-104); Aspartate Amino Transferase 38 Units/L (13-39); BUN/Creatinine Ratio 38 (6-26); Bilirubin,Total 0.7 mg/dL (0.3-1.0); Blood Urea Nitrogen 29 mg/dL (6-20); Calcium 9.4 mg/dL (8.6-10.3); Carbon Dioxide 34 mEq/L (23-29); Chloride 83 mEq/L (98-107); Globulin 3.7 g/dL (2.4-3.5); Glucose 107 mg/dL (70-105); Magnesium 1.6 mg/dL (1.6-2.6); Osmolality,Calculated 264 (280-300); Phosphorous 2.7 mg/dL (2.7-4.5); Potassium 3.6 mEq/L (3.5-5.1); Sodium 124 mEq/L (136-145); Total Protein 7.2 g/dL (6.4-8.9); eGFR For African Americans > 60 (> 60); eGFR For Non-African Americans > 60 (> 60)
[2021-10-22] MEDS ORDERED: 0.9 % Sodium Chloride 1,000 ML IVC ONE (08:15)
[2021-10-22] MEDS: Cholestyramine 4 GM POWD.PACK PO SCH ×2 (09:36→20:32)
[2021-10-22] MEDS: Famotidine 20 MG TABLET PO SCH ×2 (09:37→20:32)
[2021-10-22] MEDS: Pregabalin 75 MG CAPSULE PO SCH ×2 (09:37→20:32)
[2021-10-22] MEDS: Nicotine 7 MG PATCH.TD24 TD SCH (09:38)
[2021-10-22] MEDS ORDERED: Clinimix 5%-20% SOLUTION 2,000 ML with MVI, adult with vitamin K 10 ML, Sodium Phosph... IV SCH (17:00)
[2021-10-22 17:04] LABS: BUN/Creatinine Ratio 37 (6-26); Blood Urea Nitrogen 25 mg/dL (6-20); Carbon Dioxide 34 mEq/L (23-29); Chloride 87 mEq/L (98-107); Glucose 163 mg/dL (70-105); Osmolality,Calculated 272 (280-300); Potassium 3.3 mEq/L (3.5-5.1); Sodium 127 mEq/L (136-145); eGFR For African Americans > 60 (> 60); eGFR For Non-African Americans > 60 (> 60)
[2021-10-22] MEDS: *HR* Rivaroxaban 10 MG TABLET PO SCH (18:33)
[2021-10-22] MEDS ORDERED: 0.9 % Sodium Chloride 1,000 ML IV ONE (18:36)
[2021-10-22] MEDS: Melatonin 3 MG TABLET PO SCH (20:32)
[2021-10-23] MEDS: Insulin LISPRO 300 UNITS/3 ML VIAL SUBQ SCH ×3 (00:22→09:06)
[2021-10-23 07:26] LABS: BUN/Creatinine Ratio 39 (6-26); Blood Urea Nitrogen 24 mg/dL (6-20); Calcium 8.6 mg/dL (8.6-10.3); Carbon Dioxide 33 mEq/L (23-29); Chloride 91 mEq/L (98-107); Glucose 125 mg/dL (70-105); Osmolality,Calculated 270 (280-300); Potassium 3.7 mEq/L (3.5-5.1); Sodium 127 mEq/L (136-145); eGFR For African Americans > 60 (> 60); eGFR For Non-African Americans > 60 (> 60)
[2021-10-23 08:00] LABS: Magnesium 1.4 mg/dL (1.6-2.6)
[2021-10-23 08:29] VITALS: BP 99/63; PULSE 75; TEMP 97.6; O2SAT 96
[2021-10-23] MEDS: Famotidine 20 MG TABLET PO SCH (09:06)
[2021-10-23] MEDS: Pregabalin 75 MG CAPSULE PO SCH (09:06)
[2021-10-23] MEDS: Nicotine 7 MG PATCH.TD24 TD SCH (09:07)
[2021-10-23] MEDS: Cholestyramine 4 GM POWD.PACK PO SCH (09:07)
== END 2021-10-23 12:14 | disposition home or self-care (01) ==
LOC: 3NENU → SUATTDRO 10-18 01:08
PROVIDERS: ADMIT Internal Medicine; ATTEND Internal Medicine

== ENCOUNTER 2021-11-12 18:43 | Inpatient (IN) ==
[2021-11-12] MEDS ORDERED: Naloxone 0.4 MG/ML INJ IVP PRN (22:13)
[2021-11-12 22:46] LABS: Mean Platelet Volume 11.4 fL (9.4-12.4); Red Cell Distribution Width 17.4 % (11.5-14.5)
[2021-11-12 22:48] LABS: Basophils % 0.1 %; Hematocrit 26.9 % (37.5-50.1); Hemoglobin 9.2 g/dL (12.9-16.9); Immature Granulocytes % 7.4 % (0-4); Immature Platelets 10.5 % (1.1-6.1); Lymphocytes # 0.5 K/mcL (0.6-4.6); Lymphocytes % 3.9 %; Mean Corpuscular HGB Conc 34.2 g/dL (31.6-35.5); Mean Corpuscular Hemoglobin 28.8 pg (28.0-33.3); Mean Corpuscular Volume 84.3 fL (83.0-100.0); Monocytes # 0.3 K/mcL (0.0-1.3); Neutrophils # 11.3 K/mcL (1.6-8.9); Red Blood Count 3.19 M/mcL (4.19-5.50); Segmented Neutrophils % 86.6 %
[2021-11-12] MEDS ORDERED: *HR* OxyCODONE/APAP 5/325 TABLET PO PRN (22:48)
[2021-11-12 23:12] LABS: Albumin 2.3 g/dL (3.5-5.7); Bilirubin,Total 1.2 mg/dL (0.3-1.0); Calcium 6.8 mg/dL (8.6-10.3); Globulin 2.2 g/dL (2.4-3.5); Phosphorous 2.1 mg/dL (2.7-4.5); Platelet Count 78 K/mcL (140-400); Potassium 2.1 mEq/L (3.5-5.1); Total Protein 4.5 g/dL (6.4-8.9)
[2021-11-12 23:13] LABS: Hypochromasia Present (Not Present); Platelet Estimate Decreased (Normal); Toxic Granulation Present (Not Present)
[2021-11-12] MEDS: Pregabalin 75 MG CAPSULE PO SCH (23:28)
[2021-11-12] MEDS ORDERED: D5% in Water 1,000 ML IVC PRN (23:33)
[2021-11-12] MEDS ORDERED: Dextrose Gel 15 GM/37.5 ML TUBE PO PRN ×2 (23:33)
[2021-11-13] MEDS: *HR* Dextrose 50 % in Water (Syg) 50 ML SYRINGE IVP PRN ×2 (00:10→00:11)
[2021-11-13] MEDS ORDERED: Potassium Phosphate 44 MEQ in 0.9 % Sodium Chloride 250 ML IVPB ONE (00:16)
[2021-11-13] MEDS: Norepinephrine 4 MG/254 ML IV.SOLN IVC SCH ×2 (01:57→06:39)
[2021-11-13] MEDS ORDERED: Diphenoxylate/Atropine 1 TAB TABLET PO PRN (02:43)
[2021-11-13 03:43] LABS: Basophils % 0.2 %
[2021-11-13 03:45] LABS: Eosinophils % 0.1 %; Hematocrit 28.2 % (37.5-50.1); Hemoglobin 9.6 g/dL (12.9-16.9); Immature Granulocytes % 11.4 % (0-4); Immature Platelets 9.1 % (1.1-6.1); Lymphocytes # 0.9 K/mcL (0.6-4.6); Mean Corpuscular Volume 85.2 fL (83.0-100.0); Mean Platelet Volume 11.2 fL (9.4-12.4); Monocytes # 0.3 K/mcL (0.0-1.3); Neutrophils # 10.5 K/mcL (1.6-8.9); Platelet Count 81 K/mcL (140-400); Red Blood Count 3.31 M/mcL (4.19-5.50); Red Cell Distribution Width 17.3 % (11.5-14.5); Segmented Neutrophils % 79.3 %; White Blood Count 13.2 K/mcL (4.3-11.1)
[2021-11-13 04:09] LABS: Albumin 2.4 g/dL (3.5-5.7); Bilirubin,Total 1.3 mg/dL (0.3-1.0); Calcium 7.2 mg/dL (8.6-10.3); Globulin 2.3 g/dL (2.4-3.5); Magnesium 2.7 mg/dL (1.6-2.6); Phosphorous 3.6 mg/dL (2.7-4.5); Potassium 2.5 mEq/L (3.5-5.1); Total Protein 4.7 g/dL (6.4-8.9); Troponin I 0.32 ng/mL (< 0.04)
[2021-11-13] MEDS: Pregabalin 75 MG CAPSULE PO SCH ×2 (08:22→23:36)
[2021-11-13] MEDS: Famotidine 20 MG TABLET PO SCH ×2 (08:22→18:38)
[2021-11-13] MEDS ORDERED: *HR* Rivaroxaban 10 MG TABLET PO SCH (09:00)
[2021-11-13] MEDS: D5% in 0.45% NACL w KCl 20 MEQ/1,000 ML MLS IVC SCH (11:27)
[2021-11-13] MEDS: Cefepime HCl 1,000 MG in 0.9 % Sodium Chloride 10 ML IVP SCH ×2 (12:49→18:35)
[2021-11-13 14:48] LABS: BUN/Creatinine Ratio 34 (6-26); Blood Urea Nitrogen 25 mg/dL (6-20); Calcium 7.1 mg/dL (8.6-10.3); Carbon Dioxide 31 mEq/L (23-29); Chloride 91 mEq/L (98-107); Glucose 98 mg/dL (70-105); Osmolality,Calculated 268 (280-300); Potassium 2.8 mEq/L (3.5-5.1); Sodium 127 mEq/L (136-145)
[2021-11-13] MEDS ORDERED: Ringers Solution, Lactated 1,000 ML IVC ONE (15:08)
[2021-11-13] MEDS ORDERED: Iopamidol - 370 500 ML MLS IVP ONE (15:12)
[2021-11-13] MEDS ORDERED: Iopamidol - 370 500 ML MLS PO ONE (19:45)
[2021-11-14] MEDS ORDERED: *HR* OxyCODONE/APAP 10/325 TABLET PO ONE (00:22)
[2021-11-14] MEDS: Cefepime HCl 1,000 MG in 0.9 % Sodium Chloride 10 ML IVP SCH ×3 (00:31→17:11)
[2021-11-14 04:28] LABS: Basophils % 0.3 %; Eosinophils % 0.8 %; Hemoglobin 8.2 g/dL (12.9-16.9); Mean Platelet Volume 12.2 fL (9.4-12.4)
[2021-11-14 04:30] LABS: Hematocrit 24.8 % (37.5-50.1); Immature Granulocytes % 2.2 % (0-4); Immature Platelets 9.1 % (1.1-6.1); Lymphocytes # 1.1 K/mcL (0.6-4.6); Lymphocytes % 30.8 %; Mean Corpuscular HGB Conc 33.1 g/dL (31.6-35.5); Mean Corpuscular Hemoglobin 28.7 pg (28.0-33.3); Mean Corpuscular Volume 86.7 fL (83.0-100.0); Monocytes # 0.2 K/mcL (0.0-1.3); Monocytes % 4.9 %; Neutrophils # 2.3 K/mcL (1.6-8.9); Red Blood Count 2.86 M/mcL (4.19-5.50); Red Cell Distribution Width 17.4 % (11.5-14.5); White Blood Count 3.7 K/mcL (4.3-11.1)
[2021-11-14 04:33] LABS: Platelet Count 44 K/mcL (140-400)
[2021-11-14 04:46] LABS: BUN/Creatinine Ratio 28 (6-26); Blood Urea Nitrogen 21 mg/dL (6-20); Calcium 7.2 mg/dL (8.6-10.3); Carbon Dioxide 29 mEq/L (23-29); Chloride 96 mEq/L (98-107); Glucose 104 mg/dL (70-105); Magnesium 1.9 mg/dL (1.6-2.6); Osmolality,Calculated 267 (280-300); Phosphorous 1.8 mg/dL (2.7-4.5); Sodium 127 mEq/L (136-145)
[2021-11-14] MEDS: D5% in 0.45% NACL w KCl 20 MEQ/1,000 ML MLS IVC SCH (05:54)
[2021-11-14] MEDS: Famotidine 20 MG TABLET PO SCH ×2 (08:19→17:11)
[2021-11-14] MEDS: Pregabalin 75 MG CAPSULE PO SCH ×2 (08:19→20:01)
[2021-11-14] MEDS: D5% in 0.9% NACL w KCl 20 MEQ/1,000 ML MLS IVC SCH (13:13)
[2021-11-14] MEDS ORDERED: *HR* Rivaroxaban 10 MG TABLET PO SCH (17:00)
[2021-11-14] MEDS ORDERED: Potassium Phosphate 44 MEQ in 0.9 % Sodium Chloride 250 ML IVPB ONE (18:44)
[2021-11-15] MEDS: D5% in 0.9% NACL w KCl 20 MEQ/1,000 ML MLS IVC SCH (00:48)
[2021-11-15] MEDS: Cefepime HCl 1,000 MG in 0.9 % Sodium Chloride 10 ML IVP SCH ×3 (00:49→18:22)
[2021-11-15] MEDS: Norepinephrine 4 MG/254 ML IV.SOLN IVC SCH (02:49)
[2021-11-15 04:56] LABS: Basophils % 0.5 %; Immature Granulocytes % 0.3 % (0-4); Red Cell Distribution Width 18.1 % (11.5-14.5)
[2021-11-15 04:59] LABS: Eosinophils # 0.1 K/mcL (0.0-0.6); Eosinophils % 1.6 %; Hematocrit 25.9 % (37.5-50.1); Hemoglobin 8.4 g/dL (12.9-16.9); Immature Platelets 7.3 % (1.1-6.1); Lymphocytes # 1.4 K/mcL (0.6-4.6); Lymphocytes % 35.8 %; Mean Corpuscular HGB Conc 32.4 g/dL (31.6-35.5); Mean Corpuscular Hemoglobin 28.8 pg (28.0-33.3); Mean Corpuscular Volume 88.7 fL (83.0-100.0); Mean Platelet Volume 12.3 fL (9.4-12.4); Monocytes # 0.2 K/mcL (0.0-1.3); Monocytes % 4.7 %; Neutrophils # 2.2 K/mcL (1.6-8.9); Red Blood Count 2.92 M/mcL (4.19-5.50); Segmented Neutrophils % 57.1 %; White Blood Count 3.8 K/mcL (4.3-11.1)
[2021-11-15 05:15] LABS: Platelet Count 55 K/mcL (140-400)
[2021-11-15 05:22] LABS: Alanine Aminotransferase 42 Units/L (7-52); Albumin 2.1 g/dL (3.5-5.7); Albumin/Globulin Ratio 0.9 (1.1-2.2); Alkaline Phosphatase 116 Units/L (34-104); Aspartate Amino Transferase 29 Units/L (13-39); BUN/Creatinine Ratio 25 (6-26); Bilirubin,Total 0.7 mg/dL (0.3-1.0); Blood Urea Nitrogen 14 mg/dL (6-20); Calcium 7.4 mg/dL (8.6-10.3); Carbon Dioxide 20 mEq/L (23-29); Chloride 113 mEq/L (98-107); Globulin 2.3 g/dL (2.4-3.5); Glucose 96 mg/dL (70-105); Magnesium 1.3 mg/dL (1.6-2.6); Osmolality,Calculated 284 (280-300); Phosphorous 2.9 mg/dL (2.7-4.5); Sodium 137 mEq/L (136-145); Total Protein 4.4 g/dL (6.4-8.9)
[2021-11-15] MEDS: Famotidine 20 MG TABLET PO SCH ×2 (05:53→18:21)
[2021-11-15] MEDS: Pregabalin 75 MG CAPSULE PO SCH ×2 (08:31→21:01)
[2021-11-15] MEDS ORDERED: D10% in Water 500 ML IVC PRN ×2 (11:20→14:38)
[2021-11-15] MEDS ORDERED: Naloxone 0.4 MG/ML INJ IVP PRN (11:30)
[2021-11-15] MEDS ORDERED: Dextrose Gel 15 GM/37.5 ML TUBE PO PRN ×2 (11:30)
[2021-11-15] MEDS ORDERED: D5% in Water 1,000 ML IVC PRN (11:30)
[2021-11-15] MEDS ORDERED: *HR* Dextrose 50 % in Water (Syg) 50 ML SYRINGE IVP PRN (11:30)
[2021-11-15] MEDS ORDERED: Diphenoxylate/Atropine 1 TAB TABLET PO PRN (11:30)
[2021-11-15] MEDS ORDERED: Fat Emulsion 250 ML IVPB SCH (17:00)
[2021-11-15] MEDS ORDERED: Clinimix 5%-20% SOLUTION 2,000 ML with Amino Acids 10% 0 ML, MVI, adult with vitamin ... IVC SCH (17:00)
[2021-11-15] MEDS ORDERED: Clinimix 5%-20% SOLUTION 2,000 ML with MVI, adult with vitamin K 10 ML, Sodium Phosph... IVC SCH (17:00)
[2021-11-15] MEDS: *HR* Rivaroxaban 10 MG TABLET PO SCH (18:21)
[2021-11-15] MEDS: Fat Emulsion 250 ML IVPB SCH (21:02)
[2021-11-15] MEDS ORDERED: Melatonin 3 MG TABLET PO ONE (22:03)
[2021-11-16] MEDS: Cefepime HCl 1,000 MG in 0.9 % Sodium Chloride 10 ML IVP SCH ×3 (01:00→17:21)
[2021-11-16 06:06] LABS: Basophils % 0.5 %; Eosinophils # 0.1 K/mcL (0.0-0.6); Eosinophils % 2.6 %; Hematocrit 28.2 % (37.5-50.1); Hemoglobin 9.3 g/dL (12.9-16.9); Immature Granulocytes % 0.3 % (0-4); Lymphocytes # 1.5 K/mcL (0.6-4.6); Lymphocytes % 39.6 %; Mean Corpuscular Hemoglobin 29.5 pg (28.0-33.3); Mean Corpuscular Volume 89.5 fL (83.0-100.0); Mean Platelet Volume 12.1 fL (9.4-12.4); Monocytes # 0.2 K/mcL (0.0-1.3); Monocytes % 4.9 %; Red Blood Count 3.15 M/mcL (4.19-5.50); Red Cell Distribution Width 18.1 % (11.5-14.5); Segmented Neutrophils % 52.1 %; White Blood Count 3.9 K/mcL (4.3-11.1)
[2021-11-16 06:08] LABS: Platelet Count 71 K/mcL (140-400)
[2021-11-16 06:28] LABS: Alanine Aminotransferase 55 Units/L (7-52); Albumin 2.3 g/dL (3.5-5.7); Alkaline Phosphatase 165 Units/L (34-104); Aspartate Amino Transferase 44 Units/L (13-39); BUN/Creatinine Ratio 21 (6-26); Bilirubin,Total 0.8 mg/dL (0.3-1.0); Blood Urea Nitrogen 12 mg/dL (6-20); Calcium 7.8 mg/dL (8.6-10.3); Carbon Dioxide 24 mEq/L (23-29); Chloride 106 mEq/L (98-107); Globulin 2.3 g/dL (2.4-3.5); Glucose 132 mg/dL (70-105); Magnesium 1.3 mg/dL (1.6-2.6); Osmolality,Calculated 276 (280-300); Potassium 4.5 mEq/L (3.5-5.1); Sodium 132 mEq/L (136-145); Total Protein 4.6 g/dL (6.4-8.9)
[2021-11-16] MEDS: Pregabalin 75 MG CAPSULE PO SCH ×2 (08:52→20:28)
[2021-11-16] MEDS: Famotidine 20 MG TABLET PO SCH ×2 (08:52→17:22)
[2021-11-16] MEDS ORDERED: D5% in Water 1,000 ML IVC PRN (12:31)
[2021-11-16] MEDS ORDERED: Dextrose Gel 15 GM/37.5 ML TUBE PO PRN ×2 (12:31)
[2021-11-16] MEDS ORDERED: *HR* Dextrose 50 % in Water (Syg) 50 ML SYRINGE IVP PRN (12:31)
[2021-11-16] MEDS ORDERED: Clinimix 5%-20% SOLUTION 2,000 ML with MVI, adult with vitamin K 10 ML, Sodium Phosph... IVC SCH (17:00)
[2021-11-16] MEDS ORDERED: Clinimix 5%-20% SOLUTION 2,000 ML with Amino Acids 10% 0 ML, MVI, adult with vitamin ... IVC SCH (17:00)
[2021-11-16] MEDS: Insulin LISPRO 300 UNITS/3 ML VIAL SUBQ SCH (17:13)
[2021-11-16] MEDS: Fat Emulsion 250 ML IVPB SCH (17:22)
[2021-11-16] MEDS: *HR* Rivaroxaban 10 MG TABLET PO SCH (17:22)
[2021-11-16] MEDS ORDERED: Melatonin 3 MG TABLET PO ONE (20:39)
[2021-11-17] MEDS: Insulin LISPRO 300 UNITS/3 ML VIAL SUBQ SCH ×4 (00:36→17:54)
[2021-11-17] MEDS: Cefepime HCl 1,000 MG in 0.9 % Sodium Chloride 10 ML IVP SCH ×3 (00:49→17:52)
[2021-11-17 05:38] LABS: Basophils % 0.7 %
[2021-11-17 05:40] LABS: Eosinophils # 0.1 K/mcL (0.0-0.6); Eosinophils % 2.2 %; Hematocrit 31.8 % (37.5-50.1); Hemoglobin 10.4 g/dL (12.9-16.9); Immature Platelets 6.2 % (1.1-6.1); Lymphocytes # 1.8 K/mcL (0.6-4.6); Lymphocytes % 44.7 %; Mean Corpuscular HGB Conc 32.7 g/dL (31.6-35.5); Mean Corpuscular Hemoglobin 28.5 pg (28.0-33.3); Mean Corpuscular Volume 87.1 fL (83.0-100.0); Mean Platelet Volume 11.2 fL (9.4-12.4); Monocytes # 0.3 K/mcL (0.0-1.3); Monocytes % 8.1 %; Neutrophils # 1.8 K/mcL (1.6-8.9); Red Blood Count 3.65 M/mcL (4.19-5.50); Red Cell Distribution Width 17.7 % (11.5-14.5); Segmented Neutrophils % 43.3 %; White Blood Count 4.1 K/mcL (4.3-11.1)
[2021-11-17 05:41] LABS: Platelet Count 91 K/mcL (140-400)
[2021-11-17 05:52] LABS: Alanine Aminotransferase 73 Units/L (7-52); Albumin 2.7 g/dL (3.5-5.7); Albumin/Globulin Ratio 0.9 (1.1-2.2); Alkaline Phosphatase 208 Units/L (34-104); Aspartate Amino Transferase 48 Units/L (13-39); BUN/Creatinine Ratio 26 (6-26); Bilirubin,Total 0.8 mg/dL (0.3-1.0); Blood Urea Nitrogen 19 mg/dL (6-20); Calcium 8.1 mg/dL (8.6-10.3); Carbon Dioxide 30 mEq/L (23-29); Chloride 100 mEq/L (98-107); Globulin 2.9 g/dL (2.4-3.5); Glucose 104 mg/dL (70-105); Magnesium 1.5 mg/dL (1.6-2.6); Osmolality,Calculated 281 (280-300); Sodium 134 mEq/L (136-145); Total Protein 5.6 g/dL (6.4-8.9)
[2021-11-17] MEDS: Pregabalin 75 MG CAPSULE PO SCH ×2 (08:57→20:49)
[2021-11-17] MEDS: Famotidine 20 MG TABLET PO SCH ×2 (08:57→17:51)
[2021-11-17] MEDS ORDERED: Clinimix 5%-20% SOLUTION 2,000 ML with MVI, adult with vitamin K 10 ML, Sodium Phosph... IVC SCH (17:00)
[2021-11-17] MEDS: *HR* Rivaroxaban 10 MG TABLET PO SCH (17:50)
[2021-11-17] MEDS: Fat Emulsion 250 ML IVPB SCH (17:51)
[2021-11-18] MEDS: Insulin LISPRO 300 UNITS/3 ML VIAL SUBQ SCH ×5 (00:20→22:35)
[2021-11-18] MEDS: Cefepime HCl 1,000 MG in 0.9 % Sodium Chloride 10 ML IVP SCH ×2 (10:51)
[2021-11-18 11:10] LABS: Basophils # 0.1 K/mcL (0.0-0.2); Basophils % 1.1 %; Eosinophils # 0.2 K/mcL (0.0-0.6); Eosinophils % 2.3 %; Hematocrit 34.9 % (37.5-50.1); Hemoglobin 11.6 g/dL (12.9-16.9); Immature Granulocytes % 2.6 % (0-4); Lymphocytes # 2.7 K/mcL (0.6-4.6); Lymphocytes % 41.9 %; Mean Corpuscular HGB Conc 33.2 g/dL (31.6-35.5); Mean Corpuscular Volume 87.3 fL (83.0-100.0); Mean Platelet Volume 10.9 fL (9.4-12.4); Monocytes # 0.9 K/mcL (0.0-1.3); Monocytes % 14.1 %; Neutrophils # 2.5 K/mcL (1.6-8.9); Platelet Count 175 K/mcL (140-400)
[2021-11-18 11:27] LABS: Alanine Aminotransferase 81 Units/L (7-52); Albumin 3.1 g/dL (3.5-5.7); Albumin/Globulin Ratio 0.9 (1.1-2.2); Alkaline Phosphatase 243 Units/L (34-104); Aspartate Amino Transferase 45 Units/L (13-39); BUN/Creatinine Ratio 41 (6-26); Bilirubin,Total 0.7 mg/dL (0.3-1.0); Blood Urea Nitrogen 27 mg/dL (6-20); Calcium 8.7 mg/dL (8.6-10.3); Carbon Dioxide 30 mEq/L (23-29); Chloride 95 mEq/L (98-107); Globulin 3.4 g/dL (2.4-3.5); Glucose 100 mg/dL (70-105); Magnesium 1.4 mg/dL (1.6-2.6); Osmolality,Calculated 271 (280-300); Phosphorous 3.1 mg/dL (2.7-4.5); Potassium 5.1 mEq/L (3.5-5.1); Sodium 128 mEq/L (136-145); Total Protein 6.5 g/dL (6.4-8.9); Triglycerides 88 mg/dL (< 150)
[2021-11-18] MEDS: Pregabalin 75 MG CAPSULE PO SCH ×2 (11:31→19:53)
[2021-11-18] MEDS: Famotidine 20 MG TABLET PO SCH ×2 (11:32→17:04)
[2021-11-18 11:39] LABS: White Blood Count 6.5 K/mcL (4.3-11.1)
[2021-11-18] MEDS ORDERED: D10% in Water 500 ML IVC PRN (11:56)
[2021-11-18] MEDS ORDERED: cefTRIAXone 2,000 MG in 0.9 % Sodium Chloride Mini Bag 100 ML IVPB SCH (15:00)
[2021-11-18] MEDS ORDERED: Clinimix 5%-20% SOLUTION 2,000 ML with MVI, adult with vitamin K 10 ML, Sodium Phosph... IVC SCH (17:00)
[2021-11-18] MEDS ORDERED: Fat Emulsion 250 ML IVPB SCH (17:00)
[2021-11-18] MEDS: cefTRIAXone 2,000 MG in 0.9 % Sodium Chloride 20 ML IVP SCH (17:03)
[2021-11-18] MEDS: *HR* Rivaroxaban 10 MG TABLET PO SCH (17:04)
[2021-11-18] MEDS: 0.9 % Sodium Chloride 1,000 ML IVC SCH ×2 (17:05→19:54)
[2021-11-19] MEDS: Insulin LISPRO 300 UNITS/3 ML VIAL SUBQ SCH ×3 (05:27→17:25)
[2021-11-19] MEDS: 0.9 % Sodium Chloride 1,000 ML IVC SCH (10:11)
[2021-11-19] MEDS: Pregabalin 75 MG CAPSULE PO SCH ×2 (10:11→20:12)
[2021-11-19] MEDS: Famotidine 20 MG TABLET PO SCH ×2 (10:11→17:24)
[2021-11-19 10:44] LABS: Basophils # 0.1 K/mcL (0.0-0.2); Basophils % 1.1 %; Eosinophils # 0.2 K/mcL (0.0-0.6); Eosinophils % 2.5 %; Hematocrit 32.7 % (37.5-50.1); Hemoglobin 10.8 g/dL (12.9-16.9); Immature Granulocytes % 4.9 % (0-4); Lymphocytes % 41.4 %; Mean Corpuscular Hemoglobin 28.5 pg (28.0-33.3); Mean Corpuscular Volume 86.3 fL (83.0-100.0); Mean Platelet Volume 10.6 fL (9.4-12.4); Monocytes # 0.8 K/mcL (0.0-1.3); Monocytes % 11.7 %; Neutrophils # 2.7 K/mcL (1.6-8.9); Platelet Count 239 K/mcL (140-400); Red Blood Count 3.79 M/mcL (4.19-5.50); Red Cell Distribution Width 17.1 % (11.5-14.5); Segmented Neutrophils % 38.4 %; White Blood Count 7.2 K/mcL (4.3-11.1)
[2021-11-19 11:04] LABS: Alanine Aminotransferase 110 Units/L (7-52); Albumin/Globulin Ratio 0.9 (1.1-2.2); Alkaline Phosphatase 285 Units/L (34-104); Aspartate Amino Transferase 74 Units/L (13-39); BUN/Creatinine Ratio 41 (6-26); Bilirubin,Total 0.7 mg/dL (0.3-1.0); Blood Urea Nitrogen 26 mg/dL (6-20); Calcium 8.4 mg/dL (8.6-10.3); Carbon Dioxide 27 mEq/L (23-29); Chloride 96 mEq/L (98-107); Globulin 3.4 g/dL (2.4-3.5); Glucose 93 mg/dL (70-105); Magnesium 1.6 mg/dL (1.6-2.6); Osmolality,Calculated 268 (280-300); Phosphorous 3.4 mg/dL (2.7-4.5); Potassium 5.1 mEq/L (3.5-5.1); Sodium 127 mEq/L (136-145); Total Protein 6.4 g/dL (6.4-8.9)
[2021-11-19] MEDS ORDERED: D10% in Water 500 ML IVC PRN (11:40)
[2021-11-19] MEDS ORDERED: Clinimix 5%-20% SOLUTION 2,000 ML with MVI, adult with vitamin K 10 ML, Sodium Phosph... IVC SCH (17:00)
[2021-11-19] MEDS: cefTRIAXone 2,000 MG in 0.9 % Sodium Chloride 20 ML IVP SCH (17:23)
[2021-11-19] MEDS: *HR* Rivaroxaban 10 MG TABLET PO SCH (17:24)
[2021-11-19] MEDS ORDERED: Cholestyramine 4 GM POWD.PACK PO ONE (19:55)
[2021-11-19] MEDS ORDERED: Pregabalin 50 MG CAPSULE ONE (19:55)
[2021-11-19] MEDS: Cholestyramine 4 GM POWD.PACK PO SCH (20:11)
[2021-11-20] MEDS: Insulin LISPRO 300 UNITS/3 ML VIAL SUBQ SCH ×2 (00:14→06:27)
[2021-11-20] MEDS: 0.9 % Sodium Chloride 1,000 ML IVC SCH ×2 (04:48→11:29)
[2021-11-20] MEDS ORDERED: Diphenoxylate/Atropine 1 TAB TABLET PO SCH (07:45)
[2021-11-20] MEDS: Pregabalin 75 MG CAPSULE PO SCH (08:46)
[2021-11-20] MEDS: Famotidine 20 MG TABLET PO SCH (08:46)
[2021-11-20] MEDS: Cholestyramine 4 GM POWD.PACK PO SCH (08:47)
[2021-11-20 10:34] VITALS: BP 102/68; PULSE 90; TEMP 98.4; O2SAT 100
== END 2021-11-20 14:15 | disposition home health service (06) | DRG 720 ==
LOC: SUATTDRO 21:39 → ICNU 21:39 → 3ANU 11-15 14:41
PROVIDERS: ADMIT Family Medicine; ATTEND Internal Medicine

== ENCOUNTER 2021-11-26 20:38 | Inpatient (IN) ==
[2021-11-26] MEDS ORDERED: Albumin 25% 25gram/100mL 25 GM/100 ML IV.SOLN IVPB ONE (22:53)
[2021-11-26] MEDS ORDERED: Albumin 25% 25gram/100mL 25 GM/100 ML IV.SOLN ONE (23:03)
[2021-11-27] MEDS: Cefepime HCl 2,000 MG in 0.9 % Sodium Chloride 10 ML IVP SCH ×4 (00:06→23:23)
[2021-11-27] MEDS ORDERED: Ondansetron 4 MG/2 ML VIAL IVP PRN (00:07)
[2021-11-27] MEDS ORDERED: Naloxone 0.4 MG/ML INJ IVP PRN (00:07)
[2021-11-27 00:37] LABS: Basophils % 0.5 %; Eosinophils % 0.1 %; Hematocrit 22.8 % (37.5-50.1); Hemoglobin 8.1 g/dL (12.9-16.9); Immature Granulocytes % 1.6 % (0-4); Lymphocytes # 0.7 K/mcL (0.6-4.6); Lymphocytes % 8.6 %; Mean Corpuscular HGB Conc 35.5 g/dL (31.6-35.5); Mean Corpuscular Hemoglobin 29.8 pg (28.0-33.3); Mean Corpuscular Volume 83.8 fL (83.0-100.0); Mean Platelet Volume 11.2 fL (9.4-12.4); Monocytes # 0.4 K/mcL (0.0-1.3); Monocytes % 5.1 %; Neutrophils # 6.4 K/mcL (1.6-8.9); Platelet Count 145 K/mcL (140-400); Red Blood Count 2.72 M/mcL (4.19-5.50); Red Cell Distribution Width 16.8 % (11.5-14.5); Segmented Neutrophils % 84.1 %; White Blood Count 7.7 K/mcL (4.3-11.1)
[2021-11-27 00:44] LABS: Alanine Aminotransferase 64 Units/L (7-52); Albumin/Globulin Ratio 1.2 (1.1-2.2); Alkaline Phosphatase 275 Units/L (34-104); Aspartate Amino Transferase 32 Units/L (13-39); BUN/Creatinine Ratio 26 (6-26); Bilirubin,Total 1.3 mg/dL (0.3-1.0); Blood Urea Nitrogen 16 mg/dL (6-20); Calcium 7.6 mg/dL (8.6-10.3); Carbon Dioxide 27 mEq/L (23-29); Chloride 87 mEq/L (98-107); Globulin 2.5 g/dL (2.4-3.5); Glucose 77 mg/dL (70-105); Osmolality,Calculated 254 (280-300); Potassium 2.6 mEq/L (3.5-5.1); Sodium 122 mEq/L (136-145); Total Protein 5.5 g/dL (6.4-8.9)
[2021-11-27 00:45] LABS: Magnesium 1.4 mg/dL (1.6-2.6); Phosphorous 2.5 mg/dL (2.7-4.5)
[2021-11-27] MEDS: Potassium Chloride 40 MEQ in D5% in 0.45% NACL 1,000 ML IVC SCH ×3 (02:25→15:32)
[2021-11-27] MEDS: Norepinephrine 4 MG/254 ML IV.SOLN IVC SCH ×2 (03:02→20:20)
[2021-11-27] MEDS ORDERED: Albumin 25% 25gram/100mL 25 GM/100 ML IV.SOLN IVPB ONE (03:24)
[2021-11-27 07:21] LABS: BUN/Creatinine Ratio 17 (6-26); Blood Urea Nitrogen 13 mg/dL (6-20); Calcium 8.4 mg/dL (8.6-10.3); Carbon Dioxide 30 mEq/L (23-29); Chloride 90 mEq/L (98-107); Ferritin 88 ng/mL (20-250); Glucose 124 mg/dL (70-105); Iron < 10 mcg/dL (65-175); Osmolality,Calculated 264 (280-300); Potassium 3.2 mEq/L (3.5-5.1); Sodium 126 mEq/L (136-145); Transferrin 241 mg/dL (203-362)
[2021-11-27] MEDS ORDERED: D10% in Water 500 ML IVC PRN (08:45)
[2021-11-27 10:49] LABS: A.calcoaceticus-baumannii cplx Not Detected (Not Detect); Bacteroides fragilis by PCR Not Detected (Not Detect); CTX-M ESBL Gene Not Detected (Not Detect); Candida albicans by PCR Not Detected (Not Detect); Candida auris by PCR Not Detected (Not Detect); Candida glabrata by PCR Not Detected (Not Detect); Candida krusei by PCR Not Detected (Not Detect); Candida parapsilosis by PCR Not Detected (Not Detect); Candida tropicalis by PCR Not Detected (Not Detect); Crypto. neoformans/gattii PCR Not Detected (Not Detect); Enterobacter cloacae Cmplx PCR Not Detected (Not Detect); Enterococcus faecalis by PCR Not Detected (Not Detect); Enterococcus faecium by PCR Not Detected (Not Detect); Escherichia coli by PCR DETECTED (Not Detect); IMP Carbapenem-Resist Gene Not Detected (Not Detect); Klebs. pneumoniae group by PCR Not Detected (Not Detect); Klebsiella aerogenes by PCR Not Detected (Not Detect); Klebsiella oxytoca by PCR Not Detected (Not Detect); NDM Carbapenem-Resist Gene Not Detected (Not Detect); OXA-48-like Carbap-Resist Gene Not Detected (Not Detect); Proteus by PCR Not Detected (Not Detect); Pseudomonas aeruginosa by PCR Not Detected (Not Detect); Salmonella species by PCR Not Detected (Not Detect); Serratia marcescens by PCR Not Detected (Not Detect); Staph epidermidis by PCR Not Detected (Not Detect); Staph lugdunensis by PCR Not Detected (Not Detect); Staphylococcus aureus by PCR Not Detected (Not Detect); Staphylococcus by PCR Not Detected (Not Detect); Stenotrophomonas maltophilia Not Detected (Not Detect); Streptococcus agalactiae(B)PCR Not Detected (Not Detect); Streptococcus by PCR Not Detected (Not Detect); Streptococcus pneumoniae PCR Not Detected (Not Detect); Streptococcus pyogenes (A) PCR Not Detected (Not Detect); VIM Carbapenem-Resist Gene Not Detected (Not Detect); blaKPC Carbapenem-Resist Gene Not Detected (Not Detect); mcr-1 Colistin-Resist Gene Not Detected (Not Detect)
[2021-11-27] MEDS ORDERED: Potassium Phosphate 44 MEQ in 0.9 % Sodium Chloride 250 ML IVPB ONE (11:29)
[2021-11-27] MEDS: Magnesium Oxide 400 MG TABLET PO SCH (11:51)
[2021-11-27 12:17] LABS: BUN/Creatinine Ratio 14 (6-26); Blood Urea Nitrogen 8 mg/dL (6-20); Carbon Dioxide 29 mEq/L (23-29); Chloride 92 mEq/L (98-107); Glucose 161 mg/dL (70-105); Osmolality,Calculated 262 (280-300); Sodium 125 mEq/L (136-145)
[2021-11-27 15:12] LABS: BUN/Creatinine Ratio 14 (6-26); Blood Urea Nitrogen 8 mg/dL (6-20); Calcium 8.5 mg/dL (8.6-10.3); Carbon Dioxide 33 mEq/L (23-29); Chloride 91 mEq/L (98-107); Glucose 144 mg/dL (70-105); Osmolality,Calculated 267 (280-300); Potassium 3.6 mEq/L (3.5-5.1); Sodium 128 mEq/L (136-145)
[2021-11-27] MEDS ORDERED: Clinimix 5%-20% SOLUTION 2,000 ML with MVI, adult with vitamin K 10 ML, Sodium Chlori... IVC SCH (17:00)
[2021-11-27 17:23] LABS: BUN/Creatinine Ratio 13 (6-26); Blood Urea Nitrogen 8 mg/dL (6-20); Calcium 8.2 mg/dL (8.6-10.3); Carbon Dioxide 30 mEq/L (23-29); Chloride 91 mEq/L (98-107); Glucose 134 mg/dL (70-105); Osmolality,Calculated 264 (280-300); Potassium 4.3 mEq/L (3.5-5.1); Sodium 127 mEq/L (136-145)
[2021-11-27 19:29] LABS: Folate 19.4 ng/mL (3.0-16.0)
[2021-11-28] MEDS: Potassium Chloride 40 MEQ in D5% in 0.45% NACL 1,000 ML IVC SCH ×6 (00:09→20:53)
[2021-11-28 03:52] LABS: Basophils % 1.3 %; Eosinophils # 0.1 K/mcL (0.0-0.6); Eosinophils % 2.6 %; Hematocrit 27.4 % (37.5-50.1); Hemoglobin 9.3 g/dL (12.9-16.9); Lymphocytes # 1.1 K/mcL (0.6-4.6); Lymphocytes % 35.7 %; Mean Corpuscular HGB Conc 33.9 g/dL (31.6-35.5); Mean Corpuscular Hemoglobin 29.1 pg (28.0-33.3); Mean Corpuscular Volume 85.6 fL (83.0-100.0); Mean Platelet Volume 12.1 fL (9.4-12.4); Monocytes # 0.2 K/mcL (0.0-1.3); Monocytes % 6.6 %; Neutrophils # 1.6 K/mcL (1.6-8.9); Platelet Count 132 K/mcL (140-400); Red Cell Distribution Width 16.9 % (11.5-14.5); Segmented Neutrophils % 52.8 %; White Blood Count 3.1 K/mcL (4.3-11.1)
[2021-11-28 04:11] LABS: Magnesium 1.7 mg/dL (1.6-2.6); Phosphorous 1.6 mg/dL (2.7-4.5); Triglycerides 231 mg/dL (< 150)
[2021-11-28] MEDS ORDERED: cefTRIAXone 2,000 MG in 0.9 % Sodium Chloride 20 ML IVP SCH (06:00)
[2021-11-28 06:12] LABS: Alanine Aminotransferase 55 Units/L (7-52); Albumin 3.3 g/dL (3.5-5.7); Albumin/Globulin Ratio 1.1 (1.1-2.2); Alkaline Phosphatase 237 Units/L (34-104); Aspartate Amino Transferase 26 Units/L (13-39); BUN/Creatinine Ratio 12 (6-26); Bilirubin,Total 1.2 mg/dL (0.3-1.0); Blood Urea Nitrogen 9 mg/dL (6-20); Calcium 8.7 mg/dL (8.6-10.3); Carbon Dioxide 33 mEq/L (23-29); Chloride 85 mEq/L (98-107); Globulin 2.9 g/dL (2.4-3.5); Glucose 123 mg/dL (70-105); Osmolality,Calculated 258 (280-300); Potassium 3.5 mEq/L (3.5-5.1); Sodium 124 mEq/L (136-145); Total Protein 6.2 g/dL (6.4-8.9)
[2021-11-28] MEDS ORDERED: Calcium Gluconate 1gm/50mL 1 GM/50 ML BAG IVPB PRN ×2 (08:09→16:08)
[2021-11-28] MEDS: Magnesium Oxide 400 MG TABLET PO SCH (08:09)
[2021-11-28] MEDS ORDERED: Pantoprazole 40 MG VIAL IVP SCH (11:39)
[2021-11-28 15:12] LABS: Thyroid Stimulating Hormone 1.548 mcIU/mL (0.340-5.600)
[2021-11-28] MEDS ORDERED: Insulin LISPRO 300 UNITS/3 ML VIAL SUBQ SCH (16:00)
[2021-11-28] MEDS ORDERED: Clinimix 5%-20% SOLUTION 2,000 ML with MVI, adult with vitamin K 10 ML, Sodium Chlori... IVC SCH ×3 (16:08→17:00)
[2021-11-28] MEDS ORDERED: D10% in Water 500 ML IVC PRN (16:08)
[2021-11-28] MEDS ORDERED: Naloxone 0.4 MG/ML INJ IVP PRN (16:08)
[2021-11-28] MEDS ORDERED: Norepinephrine 4 MG/254 ML IV.SOLN IVC SCH (16:08)
[2021-11-28] MEDS ORDERED: Ondansetron 4 MG/2 ML VIAL IVP PRN (16:08)
[2021-11-28] MEDS: Insulin LISPRO 300 UNITS/3 ML VIAL SUBQ SCH (20:29)
[2021-11-29] MEDS: Insulin LISPRO 300 UNITS/3 ML VIAL SUBQ SCH ×6 (00:34→20:14)
[2021-11-29] MEDS: Potassium Chloride 40 MEQ in D5% in 0.45% NACL 1,000 ML IVC SCH (03:41)
[2021-11-29 04:29] LABS: VBG Ionized Calcium 1.18 mmol/L (1.15-1.35)
[2021-11-29 04:45] LABS: Basophils # 0.1 K/mcL (0.0-0.2); Basophils % 1.2 %; Eosinophils # 0.2 K/mcL (0.0-0.6); Eosinophils % 5.8 %; Hematocrit 26.6 % (37.5-50.1); Hemoglobin 8.6 g/dL (12.9-16.9); Immature Granulocytes % 0.7 % (0-4); Lymphocytes # 1.4 K/mcL (0.6-4.6); Lymphocytes % 34.2 %; Mean Corpuscular HGB Conc 32.3 g/dL (31.6-35.5); Mean Corpuscular Hemoglobin 28.9 pg (28.0-33.3); Mean Corpuscular Volume 89.3 fL (83.0-100.0); Mean Platelet Volume 11.6 fL (9.4-12.4); Monocytes # 0.3 K/mcL (0.0-1.3); Monocytes % 7.5 %; Neutrophils # 2.1 K/mcL (1.6-8.9); Platelet Count 134 K/mcL (140-400); Red Blood Count 2.98 M/mcL (4.19-5.50); Red Cell Distribution Width 17.1 % (11.5-14.5); Segmented Neutrophils % 50.6 %; White Blood Count 4.1 K/mcL (4.3-11.1)
[2021-11-29 05:05] LABS: Alanine Aminotransferase 39 Units/L (7-52); Alkaline Phosphatase 196 Units/L (34-104); Aspartate Amino Transferase 14 Units/L (13-39); BUN/Creatinine Ratio 29 (6-26); Bilirubin,Total 0.7 mg/dL (0.3-1.0); Blood Urea Nitrogen 14 mg/dL (6-20); Calcium 8.2 mg/dL (8.6-10.3); Carbon Dioxide 22 mEq/L (23-29); Chloride 101 mEq/L (98-107); Globulin 2.9 g/dL (2.4-3.5); Glucose 131 mg/dL (70-105); Magnesium 1.6 mg/dL (1.6-2.6); Osmolality,Calculated 266 (280-300); Phosphorous 1.9 mg/dL (2.7-4.5); Potassium 6.4 mEq/L (3.5-5.1); Sodium 127 mEq/L (136-145); Total Protein 5.9 g/dL (6.4-8.9)
[2021-11-29 05:17] LABS: Hypochromasia Present (Not Present); Platelet Estimate Normal (Normal); Poikilocytosis 1+ (Not Present)
[2021-11-29 05:18] LABS: Reactive Lymphocytes Present (Not Present)
[2021-11-29] MEDS ORDERED: cefTRIAXone 2,000 MG in 0.9 % Sodium Chloride 20 ML IVP SCH (06:00)
[2021-11-29] MEDS ORDERED: Clinimix 5%-20% SOLUTION 2,000 ML with MVI, adult with vitamin K 10 ML, Sodium Chlori... IVC SCH ×2 (07:10→17:00)
[2021-11-29] MEDS ORDERED: D10% in Water 500 ML IVC PRN ×2 (07:10→11:41)
[2021-11-29] MEDS ORDERED: Ondansetron 4 MG/2 ML VIAL IVP PRN (07:10)
[2021-11-29] MEDS ORDERED: Potassium Chloride 40 MEQ in D5% in 0.45% NACL 1,000 ML IVC SCH (07:10)
[2021-11-29] MEDS ORDERED: Naloxone 0.4 MG/ML INJ IVP PRN (07:10)
[2021-11-29] MEDS ORDERED: Calcium Gluconate 1gm/50mL 1 GM/50 ML BAG IVPB PRN (07:10)
[2021-11-29] MEDS ORDERED: Norepinephrine 4 MG/254 ML IV.SOLN IVC SCH (07:10)
[2021-11-29] MEDS: Magnesium Oxide 400 MG TABLET PO SCH (08:04)
[2021-11-29] MEDS: Pantoprazole 40 MG VIAL IVP SCH (08:05)
[2021-11-29] MEDS ORDERED: SODIUM ZIRCONIUM CYCLOSILICATE 5 GM POWD.PACK PO SCH (09:00)
[2021-11-29] MEDS ORDERED: Magnesium Oxide 400 MG TABLET PO SCH (09:00)
[2021-11-29] MEDS ORDERED: Pantoprazole 40 MG VIAL IVP SCH (09:00)
[2021-11-29] MEDS: D5% in 0.45% NACL 1,000 ML IVC SCH ×2 (11:48→20:23)
[2021-11-29] MEDS: Diphenoxylate/Atropine 1 TAB TABLET PO SCH ×2 (16:34→22:24)
[2021-11-29 18:10] LABS: BUN/Creatinine Ratio 25 (6-26); Blood Urea Nitrogen 13 mg/dL (6-20); Calcium 8.1 mg/dL (8.6-10.3); Carbon Dioxide 19 mEq/L (23-29); Chloride 101 mEq/L (98-107); Glucose 158 mg/dL (70-105); Osmolality,Calculated 261 (280-300); Sodium 124 mEq/L (136-145)
[2021-11-29] MEDS: Pregabalin 75 MG CAPSULE PO SCH (20:14)
[2021-11-29] MEDS: Famotidine 20 MG TABLET PO SCH (20:15)
[2021-11-29] MEDS: Melatonin 3 MG TABLET PO SCH (20:15)
[2021-11-30] MEDS: Insulin LISPRO 300 UNITS/3 ML VIAL SUBQ SCH ×6 (00:28→21:15)
[2021-11-30] MEDS: Diphenoxylate/Atropine 1 TAB TABLET PO SCH ×4 (03:15→21:15)
[2021-11-30 05:07] LABS: Hematocrit 28.4 % (37.5-50.1); Hemoglobin 9.2 g/dL (12.9-16.9); Mean Corpuscular HGB Conc 32.4 g/dL (31.6-35.5); Mean Corpuscular Hemoglobin 28.8 pg (28.0-33.3); Mean Corpuscular Volume 88.8 fL (83.0-100.0); Red Cell Distribution Width 17.1 % (11.5-14.5)
[2021-11-30 05:08] LABS: Basophils # 0.1 K/mcL (0.0-0.2); Basophils % 1.6 %; Eosinophils # 0.2 K/mcL (0.0-0.6); Eosinophils % 4.4 %; Immature Granulocytes % 1.1 % (0-4); Immature Platelets 6.8 % (1.1-6.1); Lymphocytes % 46.1 %; Mean Platelet Volume 11.5 fL (9.4-12.4); Monocytes # 0.3 K/mcL (0.0-1.3); Monocytes % 7.8 %; Neutrophils # 1.7 K/mcL (1.6-8.9); Platelet Count 121 K/mcL (140-400); White Blood Count 4.4 K/mcL (4.3-11.1)
[2021-11-30 05:25] LABS: Alanine Aminotransferase 34 Units/L (7-52); Albumin 3.1 g/dL (3.5-5.7); Alkaline Phosphatase 268 Units/L (34-104); Aspartate Amino Transferase 21 Units/L (13-39); BUN/Creatinine Ratio 17 (6-26); Bilirubin,Total 0.8 mg/dL (0.3-1.0); Blood Urea Nitrogen 10 mg/dL (6-20); Calcium 8.3 mg/dL (8.6-10.3); Carbon Dioxide 19 mEq/L (23-29); Chloride 103 mEq/L (98-107); Globulin 3.1 g/dL (2.4-3.5); Glucose 102 mg/dL (70-105); Magnesium 1.5 mg/dL (1.6-2.6); Osmolality,Calculated 265 (280-300); Phosphorous 2.2 mg/dL (2.7-4.5); Potassium 4.3 mEq/L (3.5-5.1); Sodium 128 mEq/L (136-145); Total Protein 6.2 g/dL (6.4-8.9)
[2021-11-30 05:44] LABS: Anisocytosis 1+ (Not Present); Platelet Estimate Slight Decrease (Normal)
[2021-11-30] MEDS: cefTRIAXone 2,000 MG in 0.9 % Sodium Chloride 20 ML IVP SCH (05:53)
[2021-11-30] MEDS: Pantoprazole 40 MG VIAL IVP SCH (07:52)
[2021-11-30] MEDS: Magnesium Oxide 400 MG TABLET PO SCH (07:53)
[2021-11-30] MEDS: Famotidine 20 MG TABLET PO SCH ×2 (07:53→21:14)
[2021-11-30] MEDS: Pregabalin 75 MG CAPSULE PO SCH ×2 (07:53→21:14)
[2021-11-30] MEDS: D5% in 0.45% NACL 1,000 ML IVC SCH ×3 (08:08→22:42)
[2021-11-30] MEDS ORDERED: Clinimix 5%-20% SOLUTION 2,000 ML with MVI, adult with vitamin K 10 ML, Sodium Chlori... IVC SCH (17:00)
[2021-11-30] MEDS: *HR* Rivaroxaban 10 MG TABLET PO SCH (17:08)
[2021-11-30] MEDS: Melatonin 3 MG TABLET PO SCH (21:14)
[2021-12-01] MEDS: Insulin LISPRO 300 UNITS/3 ML VIAL SUBQ SCH ×6 (01:01→21:02)
[2021-12-01 03:42] LABS: A.calcoaceticus-baumannii cplx Not Detected (Not Detect); Bacteroides fragilis by PCR Not Detected (Not Detect); Candida albicans by PCR Not Detected (Not Detect); Candida auris by PCR Not Detected (Not Detect); Candida glabrata by PCR Not Detected (Not Detect); Candida krusei by PCR Not Detected (Not Detect); Candida parapsilosis by PCR Not Detected (Not Detect); Candida tropicalis by PCR Not Detected (Not Detect); Crypto. neoformans/gattii PCR Not Detected (Not Detect); Enterobacter cloacae Cmplx PCR Not Detected (Not Detect); Enterobacterales by PCR Not Detected (Not Detect); Enterococcus faecalis by PCR Not Detected (Not Detect); Enterococcus faecium by PCR Not Detected (Not Detect); Escherichia coli by PCR Not Detected (Not Detect); Klebs. pneumoniae group by PCR Not Detected (Not Detect); Klebsiella aerogenes by PCR Not Detected (Not Detect); Klebsiella oxytoca by PCR Not Detected (Not Detect); Proteus by PCR Not Detected (Not Detect); Pseudomonas aeruginosa by PCR Not Detected (Not Detect); Salmonella species by PCR Not Detected (Not Detect); Serratia marcescens by PCR Not Detected (Not Detect); Staph epidermidis by PCR Not Detected (Not Detect); Staph lugdunensis by PCR Not Detected (Not Detect); Staphylococcus aureus by PCR Not Detected (Not Detect); Staphylococcus by PCR Not Detected (Not Detect); Stenotrophomonas maltophilia Not Detected (Not Detect); Streptococcus agalactiae(B)PCR Not Detected (Not Detect); Streptococcus by PCR Not Detected (Not Detect); Streptococcus pneumoniae PCR Not Detected (Not Detect); Streptococcus pyogenes (A) PCR Not Detected (Not Detect); vanA/B Vancomycin-Resist Genes Not Detected (Not Detect)
[2021-12-01] MEDS: Diphenoxylate/Atropine 1 TAB TABLET PO SCH ×4 (04:14→21:12)
[2021-12-01 05:00] LABS: Basophils % 1.6 %
[2021-12-01 05:02] LABS: Basophils # 0.1 K/mcL (0.0-0.2); Eosinophils # 0.2 K/mcL (0.0-0.6); Eosinophils % 4.9 %; Hematocrit 23.2 % (37.5-50.1); Hemoglobin 7.6 g/dL (12.9-16.9); Immature Granulocytes % 2.3 % (0-4); Immature Platelets 6.2 % (1.1-6.1); Lymphocytes # 1.7 K/mcL (0.6-4.6); Lymphocytes % 44.4 %; Mean Corpuscular HGB Conc 32.8 g/dL (31.6-35.5); Mean Corpuscular Hemoglobin 28.8 pg (28.0-33.3); Mean Corpuscular Volume 87.9 fL (83.0-100.0); Mean Platelet Volume 11.7 fL (9.4-12.4); Monocytes # 0.3 K/mcL (0.0-1.3); Monocytes % 7.5 %; Neutrophils # 1.5 K/mcL (1.6-8.9); Nucleated Red Blood Cells 1.3 /100 WBC (0); Platelet Count 111 K/mcL (140-400); Red Blood Count 2.64 M/mcL (4.19-5.50); Segmented Neutrophils % 39.3 %; White Blood Count 3.9 K/mcL (4.3-11.1)
[2021-12-01 05:22] LABS: Alanine Aminotransferase 29 Units/L (7-52); Albumin 2.5 g/dL (3.5-5.7); Albumin/Globulin Ratio 0.9 (1.1-2.2); Alkaline Phosphatase 210 Units/L (34-104); Anisocytosis 1+ (Not Present); Aspartate Amino Transferase 20 Units/L (13-39); BUN/Creatinine Ratio 18 (6-26); Bilirubin,Total 0.6 mg/dL (0.3-1.0); Blood Urea Nitrogen 8 mg/dL (6-20); Calcium 7.4 mg/dL (8.6-10.3); Carbon Dioxide 19 mEq/L (23-29); Chloride 102 mEq/L (98-107); Globulin 2.7 g/dL (2.4-3.5); Glucose 155 mg/dL (70-105); Magnesium 1.2 mg/dL (1.6-2.6); Osmolality,Calculated 259 (280-300); Phosphorous 1.9 mg/dL (2.7-4.5); Platelet Estimate Slight Decrease (Normal); Potassium 3.3 mEq/L (3.5-5.1); Sodium 124 mEq/L (136-145); Total Protein 5.2 g/dL (6.4-8.9)
[2021-12-01] MEDS: cefTRIAXone 2,000 MG in 0.9 % Sodium Chloride 20 ML IVP SCH (06:23)
[2021-12-01] MEDS: Pregabalin 75 MG CAPSULE PO SCH ×2 (10:23→21:11)
[2021-12-01] MEDS: Magnesium Oxide 400 MG TABLET PO SCH ×2 (10:23→21:11)
[2021-12-01] MEDS: Famotidine 20 MG TABLET PO SCH ×2 (10:23→21:11)
[2021-12-01] MEDS: Micafungin 100 MG in 0.9 % Sodium Chloride Mini Bag 100 ML IVPB SCH (10:24)
[2021-12-01] MEDS: D5% in 0.45% NACL 1,000 ML IVC SCH (11:46)
[2021-12-01] MEDS: *HR* Rivaroxaban 10 MG TABLET PO SCH (15:16)
[2021-12-01] MEDS ORDERED: Clinimix 5%-20% SOLUTION 2,000 ML with MVI, adult with vitamin K 10 ML, Sodium Chlori... IVC SCH (17:00)
[2021-12-01] MEDS: Melatonin 3 MG TABLET PO SCH (21:11)
[2021-12-02] MEDS: Insulin LISPRO 300 UNITS/3 ML VIAL SUBQ SCH ×7 (00:05→23:35)
[2021-12-02] MEDS: Diphenoxylate/Atropine 1 TAB TABLET PO SCH ×4 (04:00→21:30)
[2021-12-02 04:54] LABS: Basophils % 1.4 %; Hematocrit 22.3 % (37.5-50.1); Hemoglobin 7.4 g/dL (12.9-16.9); Immature Granulocytes % 4.2 % (0-4); Immature Platelets 7.7 % (1.1-6.1); Lymphocytes # 1.5 K/mcL (0.6-4.6); Lymphocytes % 52.9 %; Mean Corpuscular HGB Conc 33.2 g/dL (31.6-35.5); Mean Corpuscular Hemoglobin 28.5 pg (28.0-33.3); Mean Corpuscular Volume 85.8 fL (83.0-100.0); Mean Platelet Volume 12.1 fL (9.4-12.4); Monocytes # 0.1 K/mcL (0.0-1.3); Monocytes % 4.8 %; Red Cell Distribution Width 17.2 % (11.5-14.5); Segmented Neutrophils % 35.7 %; White Blood Count 2.9 K/mcL (4.3-11.1)
[2021-12-02 04:55] LABS: Platelet Count 77 K/mcL (140-400)
[2021-12-02 05:12] LABS: Alanine Aminotransferase 79 Units/L (7-52); Albumin 2.5 g/dL (3.5-5.7); Alkaline Phosphatase 272 Units/L (34-104); Aspartate Amino Transferase 87 Units/L (13-39); BUN/Creatinine Ratio 19 (6-26); Bilirubin,Total 0.7 mg/dL (0.3-1.0); Blood Urea Nitrogen 10 mg/dL (6-20); Calcium 7.4 mg/dL (8.6-10.3); Carbon Dioxide 20 mEq/L (23-29); Chloride 100 mEq/L (98-107); Globulin 2.5 g/dL (2.4-3.5); Glucose 181 mg/dL (70-105); Magnesium 1.2 mg/dL (1.6-2.6); Osmolality,Calculated 264 (280-300); Phosphorous 2.1 mg/dL (2.7-4.5); Potassium 2.7 mEq/L (3.5-5.1); Sodium 125 mEq/L (136-145)
[2021-12-02] MEDS: cefTRIAXone 2,000 MG in 0.9 % Sodium Chloride 20 ML IVP SCH (05:28)
[2021-12-02] MEDS ORDERED: Potassium Chloride Elixir 20 MEQ/15 ML UDC PO ONE (05:51)
[2021-12-02] MEDS: Micafungin 100 MG in 0.9 % Sodium Chloride Mini Bag 100 ML IVPB SCH (08:51)
[2021-12-02] MEDS: Pregabalin 75 MG CAPSULE PO SCH ×2 (08:52→21:30)
[2021-12-02] MEDS: Magnesium Oxide 400 MG TABLET PO SCH ×2 (08:52→21:30)
[2021-12-02] MEDS: Famotidine 20 MG TABLET PO SCH ×2 (08:53→21:30)
[2021-12-02] MEDS: Ringers Solution, Lactated 1,000 ML IVC SCH (11:05)
[2021-12-02 12:00] LABS: INR 1.5; Prothrombin Time 16.5 Seconds (9.4-12.1)
[2021-12-02 12:36] LABS: Bacteria,Urine Few per hpf (None-Few); Bilirubin,Urine Negative (Negative); Blood,Urine Small (Negative); Budding Yeast,Urine Many per hpf (None Seen); Clarity,Urine Clear (Clear); Color,Urine Light-Yellow (Yellow); Glucose,Urine (UA) 300 mg/dL (Normal); Ketones,Urine Negative (Negative); Leukocyte Esterase,Urine Negative (Negative); Mucus,Urine Few per lpf (None-Few); Nitrite,Urine Negative (Negative); PH,Urine 6.5 pH Units (5.0-8.0); Protein,Urine 30 mg/dL (Neg-Trace); RBC,Urine 15-30 per hpf (0-3); Urobilinogen,Urine Normal (Normal); WBC,Urine 0-3 per hpf (0-3)
[2021-12-02] MEDS ORDERED: WATER IVPB SCH ×2 (13:00→15:30)
[2021-12-02] MEDS ORDERED: D5 IVPB SCH ×2 (13:00→15:30)
[2021-12-02] MEDS ORDERED: AMPHOTERICIN B LIPID COMPLEX IVPB SCH (13:00)
[2021-12-02] MEDS ORDERED: Iopamidol - 370 500 ML MLS IVP ONE (13:29)
[2021-12-02] MEDS ORDERED: AMPHOTERICIN B LIPOSOME IVPB SCH (15:30)
[2021-12-02] MEDS ORDERED: Clinimix 5%-20% SOLUTION 2,000 ML with MVI, adult with vitamin K 10 ML, Sodium Chlori... IVC SCH (17:00)
[2021-12-02] MEDS: *HR* Rivaroxaban 10 MG TABLET PO SCH (17:10)
[2021-12-02] MEDS: D5% in Water 50 ML IVPB SCH (18:10)
[2021-12-02] MEDS ORDERED: Ringers Solution, Lactated 500 ML IVC ONE (21:18)
[2021-12-02] MEDS ORDERED: Albumin 25% 25gram/100mL 25 GM/100 ML IV.SOLN IVPB ONE (21:18)
[2021-12-02] MEDS: Melatonin 3 MG TABLET PO SCH (21:29)
[2021-12-02] MEDS: Ringers Solution, Lactated 500 ML IVC ONE (21:41)
[2021-12-02] MEDS: Cholestyramine 4 GM POWD.PACK PO SCH (22:51)
[2021-12-02] MEDS ORDERED: Albumin Human 5% 12.5 GM/250 ML IV.SOLN IVPB ONE (23:00)
[2021-12-03] MEDS: Diphenoxylate/Atropine 1 TAB TABLET PO SCH ×4 (02:47→20:15)
[2021-12-03] MEDS: Insulin LISPRO 300 UNITS/3 ML VIAL SUBQ SCH ×5 (03:02→20:01)
[2021-12-03 04:53] LABS: Basophils % 1.1 %
[2021-12-03 04:55] LABS: Eosinophils # 0.2 K/mcL (0.0-0.6); Hematocrit 22.3 % (37.5-50.1); Hemoglobin 7.6 g/dL (12.9-16.9); Immature Platelets 12.8 % (1.1-6.1); Lymphocytes # 1.1 K/mcL (0.6-4.6); Lymphocytes % 41.2 %; Mean Corpuscular HGB Conc 34.1 g/dL (31.6-35.5); Mean Corpuscular Hemoglobin 29.6 pg (28.0-33.3); Mean Corpuscular Volume 86.8 fL (83.0-100.0); Mean Platelet Volume 12.4 fL (9.4-12.4); Monocytes # 0.2 K/mcL (0.0-1.3); Monocytes % 8.6 %; Neutrophils # 1.1 K/mcL (1.6-8.9); Red Blood Count 2.57 M/mcL (4.19-5.50); Red Cell Distribution Width 17.6 % (11.5-14.5); Segmented Neutrophils % 40.1 %; White Blood Count 2.7 K/mcL (4.3-11.1)
[2021-12-03 04:56] LABS: Platelet Count 75 K/mcL (140-400)
[2021-12-03 04:57] LABS: Platelet Estimate Decreased (Normal)
[2021-12-03 05:07] LABS: Alanine Aminotransferase 52 Units/L (7-52); Albumin 2.9 g/dL (3.5-5.7); Albumin/Globulin Ratio 1.2 (1.1-2.2); Alkaline Phosphatase 177 Units/L (34-104); Aspartate Amino Transferase 40 Units/L (13-39); BUN/Creatinine Ratio 27 (6-26); Bilirubin,Total 0.7 mg/dL (0.3-1.0); Blood Urea Nitrogen 13 mg/dL (6-20); Calcium 7.7 mg/dL (8.6-10.3); Carbon Dioxide 21 mEq/L (23-29); Chloride 100 mEq/L (98-107); Globulin 2.5 g/dL (2.4-3.5); Glucose 111 mg/dL (70-105); Magnesium 1.7 mg/dL (1.6-2.6); Osmolality,Calculated 263 (280-300); Phosphorous 2.4 mg/dL (2.7-4.5); Potassium 3.2 mEq/L (3.5-5.1); Sodium 126 mEq/L (136-145); Total Protein 5.4 g/dL (6.4-8.9)
[2021-12-03] MEDS: cefTRIAXone 2,000 MG in 0.9 % Sodium Chloride 20 ML IVP SCH (06:12)
[2021-12-03] MEDS: Pregabalin 75 MG CAPSULE PO SCH ×2 (08:56→20:15)
[2021-12-03] MEDS: Famotidine 20 MG TABLET PO SCH ×2 (08:56→20:15)
[2021-12-03] MEDS: Cholestyramine 4 GM POWD.PACK PO SCH ×2 (08:57→20:15)
[2021-12-03] MEDS: D5% in 0.45% NACL 1,000 ML IVC SCH ×2 (08:57→11:24)
[2021-12-03] MEDS: Magnesium Oxide 400 MG TABLET PO SCH ×2 (08:58→20:16)
[2021-12-03] MEDS ORDERED: Ringers Solution, Lactated 500 ML IVC ONE (11:05)
[2021-12-03] MEDS: Ringers Solution, Lactated 500 ML IVC ONE (11:47)
[2021-12-03] MEDS ORDERED: Clinimix 5%-20% SOLUTION 2,000 ML with MVI, adult with vitamin K 10 ML, Sodium Chlori... IVC SCH (17:00)
[2021-12-03] MEDS: *HR* Rivaroxaban 10 MG TABLET PO SCH (17:39)
[2021-12-03] MEDS: D5% in Water 50 ML IVPB SCH ×2 (17:45→20:16)
[2021-12-03] MEDS: Ringers Solution, Lactated 1,000 ML IVC SCH (18:48)
[2021-12-03] MEDS: D5 IVPB SCH (18:50)
[2021-12-03] MEDS: WATER IVPB SCH (18:50)
[2021-12-03] MEDS: AMPHOTERICIN B LIPOSOME IVPB SCH (18:50)
[2021-12-03] MEDS: Melatonin 3 MG TABLET PO SCH (20:16)
[2021-12-03] MEDS ORDERED: Potassium Chloride Elixir 20 MEQ/15 ML UDC PO ONE (20:41)
[2021-12-04] MEDS: Insulin LISPRO 300 UNITS/3 ML VIAL SUBQ SCH ×6 (00:27→20:46)
[2021-12-04] MEDS: Diphenoxylate/Atropine 1 TAB TABLET PO SCH ×4 (05:02→20:35)
[2021-12-04] MEDS: cefTRIAXone 2,000 MG in 0.9 % Sodium Chloride 20 ML IVP SCH (05:18)
[2021-12-04 05:35] LABS: Hemoglobin 7.4 g/dL (12.9-16.9); Mean Corpuscular Hemoglobin 28.5 pg (28.0-33.3)
[2021-12-04 05:36] LABS: Basophils % 0.7 %; Eosinophils # 0.1 K/mcL (0.0-0.6); Eosinophils % 1.6 %; Immature Granulocytes % 1.1 % (0-4); Lymphocytes # 2.2 K/mcL (0.6-4.6); Lymphocytes % 50.5 %; Mean Corpuscular HGB Conc 33.6 g/dL (31.6-35.5); Mean Corpuscular Volume 84.6 fL (83.0-100.0); Mean Platelet Volume 12.5 fL (9.4-12.4); Monocytes # 0.2 K/mcL (0.0-1.3); Monocytes % 4.5 %; Red Cell Distribution Width 17.6 % (11.5-14.5); Segmented Neutrophils % 41.6 %; White Blood Count 4.4 K/mcL (4.3-11.1)
[2021-12-04 05:40] LABS: Neutrophils # 1.8 K/mcL (1.6-8.9); Platelet Count 70 K/mcL (140-400)
[2021-12-04 05:55] LABS: Alanine Aminotransferase 38 Units/L (7-52); Albumin 2.6 g/dL (3.5-5.7); Alkaline Phosphatase 148 Units/L (34-104); Aspartate Amino Transferase 31 Units/L (13-39); BUN/Creatinine Ratio 28 (6-26); Bilirubin,Total 0.6 mg/dL (0.3-1.0); Blood Urea Nitrogen 16 mg/dL (6-20); Calcium 7.9 mg/dL (8.6-10.3); Carbon Dioxide 19 mEq/L (23-29); Chloride 102 mEq/L (98-107); Globulin 2.7 g/dL (2.4-3.5); Glucose 116 mg/dL (70-105); Magnesium 1.7 mg/dL (1.6-2.6); Osmolality,Calculated 264 (280-300); Phosphorous 3.2 mg/dL (2.7-4.5); Potassium 3.3 mEq/L (3.5-5.1); Sodium 126 mEq/L (136-145); Total Protein 5.3 g/dL (6.4-8.9)
[2021-12-04 05:57] LABS: Platelet Estimate Decreased (Normal)
[2021-12-04 05:58] LABS: Poikilocytosis 1+ (Not Present)
[2021-12-04] MEDS: Ringers Solution, Lactated 1,000 ML IVC SCH (06:23)
[2021-12-04] MEDS: Famotidine 20 MG TABLET PO SCH ×2 (10:05→20:36)
[2021-12-04] MEDS: Magnesium Oxide 400 MG TABLET PO SCH ×2 (10:05→20:36)
[2021-12-04] MEDS: Pregabalin 75 MG CAPSULE PO SCH ×2 (10:05→20:35)
[2021-12-04] MEDS: 0.9 % Sodium Chloride 1,000 ML IVC SCH ×2 (10:06→22:15)
[2021-12-04] MEDS: Cholestyramine 4 GM POWD.PACK PO SCH ×2 (10:16→20:36)
[2021-12-04] MEDS ORDERED: Acetaminophen IV 1,000 MG/100 ML BAG IVPB ONE (13:25)
[2021-12-04] MEDS: GuaiFENesin Liq 200 MG/10 ML UDC PO PRN ×2 (15:13→20:36)
[2021-12-04] MEDS: *HR* Rivaroxaban 10 MG TABLET PO SCH (16:43)
[2021-12-04] MEDS ORDERED: Clinimix 5%-20% SOLUTION 2,000 ML with MVI, adult with vitamin K 10 ML, Sodium Chlori... IVC SCH (17:00)
[2021-12-04] MEDS: WATER IVPB SCH (18:37)
[2021-12-04] MEDS: D5 IVPB SCH (18:37)
[2021-12-04] MEDS: AMPHOTERICIN B LIPOSOME IVPB SCH (18:37)
[2021-12-04] MEDS: Melatonin 3 MG TABLET PO SCH (20:35)
[2021-12-04] MEDS: D5% in Water 50 ML IVPB SCH (20:40)
[2021-12-05] MEDS ORDERED: Acetaminophen IV 1,000 MG/100 ML BAG IVPB ONE (00:06)
[2021-12-05] MEDS: Insulin LISPRO 300 UNITS/3 ML VIAL SUBQ SCH ×6 (00:30→20:43)
[2021-12-05] MEDS: Diphenoxylate/Atropine 1 TAB TABLET PO SCH ×4 (03:19→20:41)
[2021-12-05] MEDS ORDERED: 0.9 % Sodium Chloride 500 ML IVC ONE (03:33)
[2021-12-05] MEDS: GuaiFENesin Liq 200 MG/10 ML UDC PO PRN (04:02)
[2021-12-05] MEDS: cefTRIAXone 2,000 MG in 0.9 % Sodium Chloride 20 ML IVP SCH (05:30)
[2021-12-05] MEDS: Famotidine 20 MG TABLET PO SCH ×2 (10:17→20:42)
[2021-12-05] MEDS: Magnesium Oxide 400 MG TABLET PO SCH ×2 (10:17→20:41)
[2021-12-05] MEDS: Pregabalin 75 MG CAPSULE PO SCH ×2 (10:17→20:42)
[2021-12-05] MEDS: Cholestyramine 4 GM POWD.PACK PO SCH ×2 (10:18→20:41)
[2021-12-05 14:07] LABS: Adenovirus Not Detected (Not Detect); Bordetella Pertussis Not Detected (Not Detect); Chlamydophila pneumoniae Not Detected (Not Detect); Coronavirus 229E Not Detected (Not Detect); Coronavirus HKU1 Not Detected (Not Detect); Coronavirus NL63 Not Detected (Not Detect); Coronavirus OC43 Not Detected (Not Detect); Human Metapneumovirus Not Detected (Not Detect); Human Rhinovirus/Enterovirus Not Detected (Not Detect); Influenza A Subtype 2009 H1 Not Detected (Not Detect); Influenza B Not Detected (Not Detect); Mycoplasma pneumoniae Not Detected (Not Detect); Parainfluenza Virus 1 Not Detected (Not Detect); Parainfluenza Virus 2 Not Detected (Not Detect); Parainfluenza Virus 3 Not Detected (Not Detect); Parainfluenza Virus 4 Not Detected (Not Detect); Respiratory Syncytial Virus Not Detected (Not Detect); SARS-CoV-2 Not Detected (Not Detect)
[2021-12-05 14:23] LABS: Alanine Aminotransferase 30 Units/L (7-52); Albumin 2.7 g/dL (3.5-5.7); Albumin/Globulin Ratio 0.9 (1.1-2.2); Alkaline Phosphatase 125 Units/L (34-104); Aspartate Amino Transferase 26 Units/L (13-39); BUN/Creatinine Ratio 26 (6-26); Bilirubin,Total 0.7 mg/dL (0.3-1.0); Blood Urea Nitrogen 13 mg/dL (6-20); Calcium 8.4 mg/dL (8.6-10.3); Carbon Dioxide 16 mEq/L (23-29); Chloride 106 mEq/L (98-107); Globulin 3.1 g/dL (2.4-3.5); Glucose 113 mg/dL (70-105); Magnesium 1.7 mg/dL (1.6-2.6); Osmolality,Calculated 267 (280-300); Phosphorous 2.6 mg/dL (2.7-4.5); Potassium 3.6 mEq/L (3.5-5.1); Sodium 128 mEq/L (136-145); Total Protein 5.8 g/dL (6.4-8.9); Triglycerides 139 mg/dL (< 150)
[2021-12-05 14:49] LABS: Immature Granulocytes % 0.6 % (0-4)
[2021-12-05 14:51] LABS: Basophils % 0.3 %; Eosinophils # 0.1 K/mcL (0.0-0.6); Hematocrit 24.4 % (37.5-50.1); Hemoglobin 8.1 g/dL (12.9-16.9); Immature Platelets 18.4 % (1.1-6.1); Lymphocytes # 1.3 K/mcL (0.6-4.6); Lymphocytes % 19.6 %; Mean Corpuscular HGB Conc 33.2 g/dL (31.6-35.5); Mean Corpuscular Hemoglobin 28.3 pg (28.0-33.3); Mean Corpuscular Volume 85.3 fL (83.0-100.0); Monocytes # 0.3 K/mcL (0.0-1.3); Nucleated Red Blood Cells 0.3 /100 WBC (0); Red Blood Count 2.86 M/mcL (4.19-5.50); Red Cell Distribution Width 17.7 % (11.5-14.5); Segmented Neutrophils % 74.5 %; White Blood Count 6.8 K/mcL (4.3-11.1)
[2021-12-05] MEDS: Acetaminophen IV 1,000 MG/100 ML BAG IVPB ONE ×2 (14:51→14:55)
[2021-12-05 14:53] LABS: Neutrophils # 5.1 K/mcL (1.6-8.9); Platelet Count 75 K/mcL (140-400)
[2021-12-05 15:11] LABS: Platelet Estimate Decreased (Normal)
[2021-12-05 15:12] LABS: Poikilocytosis 1+ (Not Present)
[2021-12-05] MEDS ORDERED: Clinimix 5%-20% SOLUTION 2,000 ML with MVI, adult with vitamin K 10 ML, Sodium Chlori... IVC SCH (17:00)
[2021-12-05] MEDS: 0.9 % Sodium Chloride 1,000 ML IVC SCH (18:13)
[2021-12-05] MEDS: *HR* Rivaroxaban 10 MG TABLET PO SCH (18:13)
[2021-12-05] MEDS ORDERED: 0.9 % Sodium Chloride 1,000 ML IV ONE (18:36)
[2021-12-05] MEDS: AMPHOTERICIN B LIPOSOME IVPB SCH (18:39)
[2021-12-05] MEDS: D5 IVPB SCH (18:39)
[2021-12-05] MEDS: WATER IVPB SCH (18:39)
[2021-12-05] MEDS: D5% in Water 50 ML IVPB SCH (20:41)
[2021-12-05] MEDS: Melatonin 3 MG TABLET PO SCH (20:42)
[2021-12-06] MEDS: Insulin LISPRO 300 UNITS/3 ML VIAL SUBQ SCH ×6 (01:25→21:07)
[2021-12-06] MEDS: Diphenoxylate/Atropine 1 TAB TABLET PO SCH ×4 (03:16→21:24)
[2021-12-06] MEDS: 0.9 % Sodium Chloride 1,000 ML IVC SCH ×2 (05:02→15:26)
[2021-12-06] MEDS: cefTRIAXone 2,000 MG in 0.9 % Sodium Chloride 20 ML IVP SCH (05:02)
[2021-12-06 06:19] LABS: Basophils % 0.4 %; Eosinophils % 1.6 %
[2021-12-06 06:21] LABS: Eosinophils # 0.1 K/mcL (0.0-0.6); Hematocrit 18.2 % (37.5-50.1); Hemoglobin 6.1 g/dL (12.9-16.9); Immature Granulocytes % 0.6 % (0-4); Immature Platelets 14.6 % (1.1-6.1); Lymphocytes # 1.1 K/mcL (0.6-4.6); Lymphocytes % 21.5 %; Mean Corpuscular HGB Conc 33.5 g/dL (31.6-35.5); Mean Corpuscular Hemoglobin 27.6 pg (28.0-33.3); Mean Corpuscular Volume 82.4 fL (83.0-100.0); Mean Platelet Volume 14.2 fL (9.4-12.4); Monocytes # 0.4 K/mcL (0.0-1.3); Monocytes % 7.1 %; Neutrophils # 3.4 K/mcL (1.6-8.9); Red Blood Count 2.21 M/mcL (4.19-5.50); Red Cell Distribution Width 17.8 % (11.5-14.5); Segmented Neutrophils % 68.8 %; White Blood Count 4.9 K/mcL (4.3-11.1)
[2021-12-06 06:25] LABS: Platelet Count 70 K/mcL (140-400)
[2021-12-06 06:40] LABS: Anisocytosis 1+ (Not Present); Platelet Estimate Decreased (Normal); Poikilocytosis 1+ (Not Present)
[2021-12-06] MEDS: Cholestyramine 4 GM POWD.PACK PO SCH ×2 (09:46→21:22)
[2021-12-06] MEDS: Pregabalin 75 MG CAPSULE PO SCH ×2 (09:58→21:23)
[2021-12-06] MEDS: Famotidine 20 MG TABLET PO SCH ×2 (09:58→21:23)
[2021-12-06] MEDS: Magnesium Oxide 400 MG TABLET PO SCH ×2 (09:59→21:23)
[2021-12-06 11:00] LABS: Alanine Aminotransferase 20 Units/L (7-52); Albumin 2.3 g/dL (3.5-5.7); Albumin/Globulin Ratio 0.9 (1.1-2.2); Alkaline Phosphatase 129 Units/L (34-104); Aspartate Amino Transferase 20 Units/L (13-39); BUN/Creatinine Ratio 25 (6-26); Bilirubin,Total 0.6 mg/dL (0.3-1.0); Blood Urea Nitrogen 11 mg/dL (6-20); Carbon Dioxide 15 mEq/L (23-29); Chloride 111 mEq/L (98-107); Globulin 2.7 g/dL (2.4-3.5); Glucose 128 mg/dL (70-105); Magnesium 1.7 mg/dL (1.6-2.6); Osmolality,Calculated 273 (280-300); Phosphorous 2.9 mg/dL (2.7-4.5); Potassium 3.2 mEq/L (3.5-5.1); Sodium 131 mEq/L (136-145)
[2021-12-06] MEDS ORDERED: 0.9 % Sodium Chloride 250 ML ONE (12:02)
[2021-12-06] MEDS ORDERED: Clinimix 5%-20% SOLUTION 2,000 ML with MVI, adult with vitamin K 10 ML, Sodium Phosph... IVC SCH (17:00)
[2021-12-06] MEDS: Fat Emulsion 250 ML IVPB SCH (17:58)
[2021-12-06] MEDS: *HR* Rivaroxaban 10 MG TABLET PO SCH (17:59)
[2021-12-06] MEDS: D5 IVPB SCH (17:59)
[2021-12-06] MEDS: WATER IVPB SCH (17:59)
[2021-12-06] MEDS: AMPHOTERICIN B LIPOSOME IVPB SCH (17:59)
[2021-12-06] MEDS: D5% in Water 50 ML IVPB SCH (21:22)
[2021-12-06] MEDS: Melatonin 3 MG TABLET PO SCH (21:23)
[2021-12-07] MEDS: Insulin LISPRO 300 UNITS/3 ML VIAL SUBQ SCH ×6 (00:33→20:56)
[2021-12-07] MEDS: 0.9 % Sodium Chloride 1,000 ML IVC SCH (02:49)
[2021-12-07] MEDS: Diphenoxylate/Atropine 1 TAB TABLET PO SCH ×4 (02:50→20:58)
[2021-12-07] MEDS: cefTRIAXone 2,000 MG in 0.9 % Sodium Chloride 20 ML IVP SCH (05:49)
[2021-12-07 06:22] LABS: Hematocrit 22.8 % (37.5-50.1); Hemoglobin 7.9 g/dL (12.9-16.9); Immature Platelets 11.2 % (1.1-6.1); Mean Corpuscular HGB Conc 34.6 g/dL (31.6-35.5); Mean Corpuscular Hemoglobin 28.4 pg (28.0-33.3); Mean Platelet Volume 14.1 fL (9.4-12.4); Red Blood Count 2.78 M/mcL (4.19-5.50); White Blood Count 8.4 K/mcL (4.3-11.1)
[2021-12-07 07:08] LABS: Magnesium 1.7 mg/dL (1.6-2.6)
[2021-12-07 07:09] LABS: Alanine Aminotransferase 20 Units/L (7-52); Albumin 2.2 g/dL (3.5-5.7); Albumin/Globulin Ratio 0.7 (1.1-2.2); Alkaline Phosphatase 216 Units/L (34-104); Aspartate Amino Transferase 24 Units/L (13-39); BUN/Creatinine Ratio 23 (6-26); Bilirubin,Total 0.9 mg/dL (0.3-1.0); Blood Urea Nitrogen 11 mg/dL (6-20); Calcium 8.4 mg/dL (8.6-10.3); Carbon Dioxide 17 mEq/L (23-29); Chloride 111 mEq/L (98-107); Glucose 127 mg/dL (70-105); Osmolality,Calculated 277 (280-300); Potassium 2.6 mEq/L (3.5-5.1); Sodium 133 mEq/L (136-145); Total Protein 5.2 g/dL (6.4-8.9)
[2021-12-07 07:10] LABS: % Iron Saturation 5 % (20-55); BUN/Creatinine Ratio 24 (6-26); Blood Urea Nitrogen 11 mg/dL (6-20); Calcium 8.3 mg/dL (8.6-10.3); Carbon Dioxide 16 mEq/L (23-29); Chloride 111 mEq/L (98-107); Ferritin 261 ng/mL (20-250); Glucose 127 mg/dL (70-105); Iron 10 mcg/dL (65-175); Osmolality,Calculated 275 (280-300); Potassium 2.6 mEq/L (3.5-5.1); Sodium 132 mEq/L (136-145); Transferrin 158 mg/dL (203-362)
[2021-12-07] MEDS ORDERED: Acetaminophen IV 500 MG/50 ML BAG IVPB ONE (07:24)
[2021-12-07] MEDS: Cholestyramine 4 GM POWD.PACK PO SCH ×2 (09:01→20:57)
[2021-12-07] MEDS: Pregabalin 75 MG CAPSULE PO SCH ×2 (09:15→20:58)
[2021-12-07] MEDS: Famotidine 20 MG TABLET PO SCH ×2 (09:15→20:59)
[2021-12-07] MEDS: Magnesium Oxide 400 MG TABLET PO SCH ×2 (09:15→20:59)
[2021-12-07] MEDS: 0.9 % Sodium Chloride w KCl 40 MEQ/1,000 ML MLS IVC SCH ×2 (09:16→20:56)
[2021-12-07] MEDS ORDERED: Ipratropium/Albuterol Neb 3 ML IH PRN (16:25)
[2021-12-07] MEDS ORDERED: Clinimix 5%-20% SOLUTION 2,000 ML with MVI, adult with vitamin K 10 ML, Sodium Phosph... IVC SCH (17:00)
[2021-12-07] MEDS: AMPHOTERICIN B LIPOSOME IVPB SCH (17:20)
[2021-12-07] MEDS: *HR* Rivaroxaban 10 MG TABLET PO SCH (17:20)
[2021-12-07] MEDS: D5 IVPB SCH (17:20)
[2021-12-07] MEDS: WATER IVPB SCH (17:20)
[2021-12-07] MEDS ORDERED: *HR* Metoprolol 5 MG/5 ML VIAL IVP ONE ×3 (17:26→18:14)
[2021-12-07] MEDS: D5% in Water 50 ML IVPB SCH (20:57)
[2021-12-07] MEDS: Melatonin 3 MG TABLET PO SCH (20:59)
[2021-12-08 03:55] LABS: Eosinophils % 0.6 %; Hemoglobin 7.8 g/dL (12.9-16.9); Segmented Neutrophils % 66.9 %
[2021-12-08 03:57] LABS: Basophils % 0.4 %; Hematocrit 22.8 % (37.5-50.1); Immature Granulocytes % 1.4 % (0-4); Immature Platelets 12.4 % (1.1-6.1); Lymphocytes # 1.7 K/mcL (0.6-4.6); Lymphocytes % 23.5 %; Mean Corpuscular HGB Conc 34.2 g/dL (31.6-35.5); Mean Corpuscular Hemoglobin 28.8 pg (28.0-33.3); Mean Corpuscular Volume 84.1 fL (83.0-100.0); Mean Platelet Volume 13.7 fL (9.4-12.4); Monocytes # 0.5 K/mcL (0.0-1.3); Monocytes % 7.2 %; Neutrophils # 4.8 K/mcL (1.6-8.9); Red Blood Count 2.71 M/mcL (4.19-5.50); White Blood Count 7.1 K/mcL (4.3-11.1)
[2021-12-08 03:58] LABS: Platelet Count 92 K/mcL (140-400)
[2021-12-08 04:11] LABS: Anisocytosis 1+ (Not Present); Hypochromasia Present (Not Present); Platelet Estimate Slight Decrease (Normal); Poikilocytosis 1+ (Not Present)
[2021-12-08 04:12] LABS: Reactive Lymphocytes Present (Not Present)
[2021-12-08 04:15] LABS: Alanine Aminotransferase 27 Units/L (7-52); Albumin 2.1 g/dL (3.5-5.7); Albumin/Globulin Ratio 0.7 (1.1-2.2); Alkaline Phosphatase 233 Units/L (34-104); Aspartate Amino Transferase 42 Units/L (13-39); BUN/Creatinine Ratio 39 (6-26); Bilirubin,Total 1.2 mg/dL (0.3-1.0); Blood Urea Nitrogen 16 mg/dL (6-20); Calcium 8.4 mg/dL (8.6-10.3); Carbon Dioxide 16 mEq/L (23-29); Chloride 115 mEq/L (98-107); Globulin 2.9 g/dL (2.4-3.5); Glucose 138 mg/dL (70-105); Magnesium 1.8 mg/dL (1.6-2.6); Osmolality,Calculated 287 (280-300); Phosphorous 2.8 mg/dL (2.7-4.5); Sodium 137 mEq/L (136-145)
[2021-12-08] MEDS: Insulin LISPRO 300 UNITS/3 ML VIAL SUBQ SCH ×6 (04:29→20:53)
[2021-12-08] MEDS: cefTRIAXone 2,000 MG in 0.9 % Sodium Chloride 20 ML IVP SCH (04:38)
[2021-12-08] MEDS: Diphenoxylate/Atropine 1 TAB TABLET PO SCH ×4 (04:38→20:54)
[2021-12-08] MEDS ORDERED: Levalbuterol Neb 0.63 MG/3 ML IH PRN (07:25)
[2021-12-08] MEDS: Cholestyramine 4 GM POWD.PACK PO SCH ×2 (08:18→20:54)
[2021-12-08] MEDS: Famotidine 20 MG TABLET PO SCH ×2 (08:28→20:54)
[2021-12-08] MEDS: 0.9 % Sodium Chloride w KCl 40 MEQ/1,000 ML MLS IVC SCH ×2 (08:28→16:44)
[2021-12-08] MEDS: Magnesium Oxide 400 MG TABLET PO SCH ×2 (08:29→20:54)
[2021-12-08] MEDS: Pregabalin 75 MG CAPSULE PO SCH ×2 (08:29→20:54)
[2021-12-08] MEDS: *HR* Rivaroxaban 10 MG TABLET PO SCH (16:43)
[2021-12-08] MEDS: D5 IVPB SCH (16:44)
[2021-12-08] MEDS: WATER IVPB SCH (16:44)
[2021-12-08] MEDS: AMPHOTERICIN B LIPOSOME IVPB SCH (16:44)
[2021-12-08] MEDS ORDERED: Clinimix 5%-20% SOLUTION 2,000 ML with MVI, adult with vitamin K 10 ML, Sodium Phosph... IVC SCH (17:00)
[2021-12-08] MEDS: Acetaminophen 325 MG TABLET PO PRN (19:45)
[2021-12-08] MEDS: Melatonin 3 MG TABLET PO SCH (20:55)
[2021-12-08] MEDS: D5% in Water 50 ML IVPB SCH (20:56)
[2021-12-09] MEDS: Insulin LISPRO 300 UNITS/3 ML VIAL SUBQ SCH ×6 (00:18→21:18)
[2021-12-09] MEDS: Diphenoxylate/Atropine 1 TAB TABLET PO SCH ×4 (03:07→19:43)
[2021-12-09 03:30] LABS: Hemoglobin 7.8 g/dL (12.9-16.9)
[2021-12-09 03:32] LABS: Hematocrit 23.4 % (37.5-50.1); Immature Platelets 13.1 % (1.1-6.1); Mean Corpuscular HGB Conc 33.3 g/dL (31.6-35.5); Mean Corpuscular Hemoglobin 28.7 pg (28.0-33.3); Mean Platelet Volume 13.6 fL (9.4-12.4); Red Blood Count 2.72 M/mcL (4.19-5.50); Red Cell Distribution Width 17.2 % (11.5-14.5); White Blood Count 7.1 K/mcL (4.3-11.1)
[2021-12-09 03:46] LABS: Alanine Aminotransferase 106 Units/L (7-52); Albumin/Globulin Ratio 0.7 (1.1-2.2); Alkaline Phosphatase 199 Units/L (34-104); Aspartate Amino Transferase 152 Units/L (13-39); BUN/Creatinine Ratio 50 (6-26); Bilirubin,Total 1.4 mg/dL (0.3-1.0); Blood Urea Nitrogen 22 mg/dL (6-20); Calcium 8.8 mg/dL (8.6-10.3); Carbon Dioxide 16 mEq/L (23-29); Chloride 119 mEq/L (98-107); Glucose 127 mg/dL (70-105); Osmolality,Calculated 293 (280-300); Phosphorous 2.7 mg/dL (2.7-4.5); Potassium 3.3 mEq/L (3.5-5.1); Sodium 139 mEq/L (136-145)
[2021-12-09] MEDS: cefTRIAXone 2,000 MG in 0.9 % Sodium Chloride 20 ML IVP SCH (05:35)
[2021-12-09] MEDS: Famotidine 20 MG TABLET PO SCH ×2 (08:32→19:35)
[2021-12-09] MEDS: Magnesium Oxide 400 MG TABLET PO SCH ×2 (08:33→19:36)
[2021-12-09] MEDS: Cholestyramine 4 GM POWD.PACK PO SCH ×2 (08:33→19:36)
[2021-12-09] MEDS: Pregabalin 75 MG CAPSULE PO SCH ×2 (08:33→19:36)
[2021-12-09] MEDS ORDERED: 0.9 % Sodium Chloride w KCl 40 MEQ/1,000 ML MLS IVC SCH ×2 (09:45→12:15)
[2021-12-09] MEDS: Acetaminophen 325 MG TABLET PO PRN (11:52)
[2021-12-09] MEDS ORDERED: Acetaminophen IV 1,000 MG/100 ML BAG IVPB ONE ×2 (12:21→16:00)
[2021-12-09] MEDS: Fluconazole 400 MG/200 ML 400 MG/200 ML BAG IVPB SCH (14:13)
[2021-12-09] MEDS: Potassium Chloride 40 MEQ in D5% in 0.9% NACL 1,000 ML IVC SCH (16:15)
[2021-12-09] MEDS: *HR* Rivaroxaban 10 MG TABLET PO SCH (16:23)
[2021-12-09] MEDS: Fat Emulsion 250 ML IVPB SCH (16:29)
[2021-12-09] MEDS ORDERED: Clinimix 5%-20% SOLUTION 2,000 ML with MVI, adult with vitamin K 10 ML, Sodium Phosph... IVC SCH (17:00)
[2021-12-09] MEDS: D5% in Water 50 ML IVPB SCH (17:54)
[2021-12-09] MEDS: WATER IVPB SCH (18:02)
[2021-12-09] MEDS: AMPHOTERICIN B LIPOSOME IVPB SCH (18:02)
[2021-12-09] MEDS: D5 IVPB SCH (18:02)
[2021-12-09] MEDS: Melatonin 3 MG TABLET PO SCH (19:36)
[2021-12-09] MEDS ORDERED: *HR* Dextrose 50 % in Water (Syg) 50 ML SYRINGE IVP ONE (21:14)
[2021-12-09] MEDS ORDERED: Dextrose Gel 15 GM/37.5 ML TUBE PO PRN ×2 (21:20)
[2021-12-09] MEDS ORDERED: D5% in Water 1,000 ML IVC PRN (21:20)
[2021-12-09] MEDS ORDERED: Furosemide 20 MG/2 ML VIAL IVP ONE (22:07)
[2021-12-09] MEDS ORDERED: Albumin 25% 25gram/100mL 25 GM/100 ML IV.SOLN IVPB ONE (22:07)
[2021-12-09] MEDS: *HR* Dextrose 50 % in Water (Syg) 50 ML SYRINGE IVP PRN ×2 (22:36→23:01)
[2021-12-09 23:18] LABS: BUN/Creatinine Ratio 26 (6-26); Blood Urea Nitrogen 23 mg/dL (6-20); Carbon Dioxide 7 mEq/L (23-29); Chloride 124 mEq/L (98-107); Glucose 40 mg/dL (70-105); Magnesium 2.4 mg/dL (1.6-2.6); Osmolality,Calculated 300 (280-300); Phosphorous 5.3 mg/dL (2.7-4.5); Potassium 4.1 mEq/L (3.5-5.1); Sodium 145 mEq/L (136-145)
[2021-12-10 00:06] LABS: Mixed Venous Blood pCO2 32 mmHg (44-46); Mixed Venous Blood pH 6.81 pH Units (7.34-7.36); Mixed Venous Blood pO2 46 mmHg (35-45)
[2021-12-10 00:21] LABS: Adenovirus Not Detected (Not Detect); Bordetella Pertussis Not Detected (Not Detect); Chlamydophila pneumoniae Not Detected (Not Detect); Coronavirus 229E Not Detected (Not Detect); Coronavirus HKU1 Not Detected (Not Detect); Coronavirus NL63 Not Detected (Not Detect); Coronavirus OC43 Not Detected (Not Detect); Human Metapneumovirus Not Detected (Not Detect); Human Rhinovirus/Enterovirus Not Detected (Not Detect); Influenza A Subtype 2009 H1 Not Detected (Not Detect); Influenza B Not Detected (Not Detect); Mycoplasma pneumoniae Not Detected (Not Detect); Parainfluenza Virus 1 Not Detected (Not Detect); Parainfluenza Virus 2 Not Detected (Not Detect); Parainfluenza Virus 3 Not Detected (Not Detect); Parainfluenza Virus 4 Not Detected (Not Detect); Respiratory Syncytial Virus Not Detected (Not Detect); SARS-CoV-2 Not Detected (Not Detect)
[2021-12-10] MEDS ORDERED: Sodium Bicarbonate 150 MEQ in D5% in Water 1,000 ML IVC SCH (00:30)
[2021-12-10] MEDS ORDERED: Artificial Tears SOLN 15 ML BOTTLE BOTH EYES PRN (00:59)
[2021-12-10] MEDS ORDERED: Midazolam HCl 50 MG/50 ML IV.SOLN IVC SCH (01:00)
[2021-12-10] MEDS: Insulin LISPRO 300 UNITS/3 ML VIAL SUBQ SCH ×3 (01:11→08:35)
[2021-12-10] MEDS: Norepinephrine 4 MG/254 ML IV.SOLN IVC SCH ×3 (01:13→08:37)
[2021-12-10] MEDS: Potassium Chloride 40 MEQ in D5% in 0.9% NACL 1,000 ML IVC SCH (03:05)
[2021-12-10] MEDS: FentaNYL (PF) 1,000 MCG/100 ML IV.SOLN IVC SCH ×2 (03:06→11:30)
[2021-12-10] MEDS: Diphenoxylate/Atropine 1 TAB TABLET PO SCH ×2 (03:08→07:28)
[2021-12-10] MEDS: Chlorhexidine Rinse 15 ML MOUTHWASH MM SCH ×2 (03:10→07:26)
[2021-12-10] MEDS: Artificial Tears SOLN 15 ML BOTTLE BOTH EYES SCH ×2 (03:10→07:27)
[2021-12-10 04:34] LABS: ABG Base Excess -29 mEq/L (-2 to 3); ABG HCO3 5 mEq/L (21-27); ABG Oxygen Saturation 99 % (95-98); ABG PCO2 37 mmHg (35-45); ABG PH 6.73 pH Units (7.32-7.45); ABG PO2 294 mmHg (85-104); ABG TCO2 6 mEq/L (20-26); Blood Gas Modality ASSIST CONTROL; Blood Gas VT 500 cc
[2021-12-10] MEDS ORDERED: 0.9 % Sodium Chloride 1,000 ML ONE (04:39)
[2021-12-10] MEDS ORDERED: *HR* Succinylcholine 200 MG/10 ML VIAL IVP ONE (04:43)
[2021-12-10] MEDS ORDERED: *HR* Midazolam HCl 5 MG/5 ML VIAL IVP ONE (04:43)
[2021-12-10] MEDS ORDERED: *HR* Etomidate 20 MG/10 ML AMPUL IVP ONE (04:43)
[2021-12-10 04:48] LABS: Albumin 2.4 g/dL (3.5-5.7); Albumin/Globulin Ratio 0.9 (1.1-2.2); Alkaline Phosphatase 175 Units/L (34-104); BUN/Creatinine Ratio 20 (6-26); Bilirubin,Total 2.2 mg/dL (0.3-1.0); Blood Urea Nitrogen 26 mg/dL (6-20); Calcium 9.9 mg/dL (8.6-10.3); Carbon Dioxide 8 mEq/L (23-29); Chloride 121 mEq/L (98-107); Globulin 2.7 g/dL (2.4-3.5); Glucose 77 mg/dL (70-105); Magnesium 2.9 mg/dL (1.6-2.6); Osmolality,Calculated 304 (280-300); Phosphorous 8.6 mg/dL (2.7-4.5); Potassium 5.7 mEq/L (3.5-5.1); Sodium 145 mEq/L (136-145); Total Protein 5.1 g/dL (6.4-8.9)
[2021-12-10] MEDS ORDERED: Iopamidol - 370 500 ML MLS IVP ONE (05:02)
[2021-12-10] MEDS ORDERED: 0.9 % Sodium Chloride 1,000 ML IVC ONE (05:20)
[2021-12-10 05:36] LABS: Alanine Aminotransferase 3668 Units/L (7-52); Aspartate Amino Transferase > 3000 Units/L (13-39)
[2021-12-10 05:48] LABS: Hematocrit 22.6 % (37.5-50.1); Hemoglobin 6.4 g/dL (12.9-16.9); Immature Platelets 20.7 % (1.1-6.1); Lymphocytes # 2.2 K/mcL (0.6-4.6); Mean Corpuscular HGB Conc 28.3 g/dL (31.6-35.5); Mean Corpuscular Hemoglobin 29.5 pg (28.0-33.3); Mean Corpuscular Volume 104.1 fL (83.0-100.0); Nucleated Red Blood Cells 12.9 /100 WBC (0); Red Blood Count 2.17 M/mcL (4.19-5.50); Red Cell Distribution Width 19.9 % (11.5-14.5); White Blood Count 12.4 K/mcL (4.3-11.1)
[2021-12-10] MEDS ORDERED: Meropenem 1,000 MG in Water for inj. (sterile) 20 ML IVP SCH (06:00)
[2021-12-10 06:07] LABS: Platelet Count 60 K/mcL (140-400)
[2021-12-10 06:24] LABS: Anisocytosis 2+ (Not Present); Platelet Estimate Decreased (Normal); Poikilocytosis 2+ (Not Present); Polychromasia 1+ (Not Present)
[2021-12-10 06:25] LABS: Acanthocytes 1+ (Not Present)
[2021-12-10 06:28] LABS: Monocytes # 0.3 K/mcL (0.0-1.3); Neutrophils # 9.7 K/mcL (1.6-8.9)
[2021-12-10] MEDS: Fluconazole 400 MG/200 ML 400 MG/200 ML BAG IVPB SCH (07:26)
[2021-12-10] MEDS: Famotidine 20 MG TABLET PO SCH (07:28)
[2021-12-10] MEDS: Cholestyramine 4 GM POWD.PACK PO SCH (07:28)
[2021-12-10] MEDS: Pregabalin 75 MG CAPSULE PO SCH (07:28)
[2021-12-10] MEDS: Magnesium Oxide 400 MG TABLET PO SCH (07:28)
[2021-12-10 08:12] VITALS: TEMP 97.5
[2021-12-10] MEDS: *HR* Dextrose 50 % in Water (Syg) 50 ML SYRINGE IVP PRN (08:37)
[2021-12-10 09:12] VITALS: O2SAT 100
[2021-12-10] MEDS ORDERED: *HR* LORazepam 2 MG/ML VIAL IVP PRN (09:14)
[2021-12-10 11:22] VITALS: BP 53/36; PULSE 108
[2021-12-10 13:16] LABS: Troponin I 0.03 ng/mL (< 0.04)
== END 2021-12-10 14:13 | disposition expired | DRG 721 ==
LOC: 2NNU → SUATTDRO 11-27 02:35 → ICNU 11-28 00:08 → 2NENU 11-29 06:19 → ICNU 12-10 00:20
PROVIDERS: ADMIT Internal Medicine; ATTEND Internal Medicine